=== PATIENT | female | born 1985 | race Caucasian/White ===

== ENCOUNTER 2021-10-15 12:34 | Inpatient (IN) | payer OTHER, SELFPAY ==
--- NOTE | 2021-10-15 | ECG_ITS ---
Test Reason : clearance Blood Pressure : / mmHG Vent. Rate : 072 BPM Atrial Rate : 072 BPM P-R Int : 122 ms QRS Dur : 094 ms QT Int : 430 ms P-R-T Axes : 050 068 050 degrees QTc Int : 470 ms Normal sinus rhythm with sinus arrhythmia Normal ECG No previous ECGs available Referred By: Andrea Morales Electronically Signed By:VALERIE PETER
--- NOTE | ~2021-10-15 | XR_ITS ---
EXAMINATION: XR ELBOW, RIGHT. XR WRIST, RIGHT. XR ANKLE, RIGHT. CLINICAL INFORMATION: Triplet and fall COMPARISON: None TECHNIQUE: 3 views of the right elbow. 4 views of the right wrist. 3 views of the right ankle. FINDINGS: Right elbow: Normal alignment. No fracture. No joint effusion. Right wrist: Normal alignment. No fracture. No radiopaque foreign body. No degenerative findings. Right ankle: Normal alignment. The ankle mortise is preserved. No fracture. No joint space narrowing. No radiopaque foreign body. XR/XR elbow RT min 3V IMPRESSION: Right elbow: Normal. Right wrist: Normal. Right ankle: Normal.
--- NOTE | ~2021-10-15 | XR_ITS ---
EXAMINATION: XR ELBOW, RIGHT. XR WRIST, RIGHT. XR ANKLE, RIGHT. CLINICAL INFORMATION: Triplet and fall COMPARISON: None TECHNIQUE: 3 views of the right elbow. 4 views of the right wrist. 3 views of the right ankle. FINDINGS: Right elbow: Normal alignment. No fracture. No joint effusion. Right wrist: Normal alignment. No fracture. No radiopaque foreign body. No degenerative findings. Right ankle: Normal alignment. The ankle mortise is preserved. No fracture. No joint space narrowing. No radiopaque foreign body. XR/XR ankle RT min 3V IMPRESSION: Right elbow: Normal. Right wrist: Normal. Right ankle: Normal.
--- NOTE | ~2021-10-15 | XR_ITS ---
EXAMINATION: XR ELBOW, RIGHT. XR WRIST, RIGHT. XR ANKLE, RIGHT. CLINICAL INFORMATION: Triplet and fall COMPARISON: None TECHNIQUE: 3 views of the right elbow. 4 views of the right wrist. 3 views of the right ankle. FINDINGS: Right elbow: Normal alignment. No fracture. No joint effusion. Right wrist: Normal alignment. No fracture. No radiopaque foreign body. No degenerative findings. Right ankle: Normal alignment. The ankle mortise is preserved. No fracture. No joint space narrowing. No radiopaque foreign body. XR/XR wrist RT 2V IMPRESSION: Right elbow: Normal. Right wrist: Normal. Right ankle: Normal.
--- NOTE | ~2021-10-15 | XR_ITS ---
EXAMINATION: XR FOOT, LEFT CLINICAL INFORMATION: Pain top of left foot. COMPARISON: None TECHNIQUE: AP, lateral, and oblique views of the left foot. FINDINGS: The bones and soft tissues are normal. No fracture. Alignment is anatomic. Joint spaces are maintained. XR/XR foot LT min 3V IMPRESSION: Unremarkable left foot exam.
--- NOTE | 2021-10-15 12:44 | ED.GENADULT ---
HPI - General Adult General Chief complaint: Psychiatric Symptoms Stated complaint: SLIP AND FALL ON WATER,R ANKLE/WRIST PAIN Time Seen by Provider: 10/15/21 12:44 Source: patient Mode of arrival: ambulatory Limitations: no limitations History of Present Illness HPI narrative: Patient is a 35 year old female presenting to the emergency department today with right wrist pain, right ankle pain, right elbow pain with a possible retained needle, and suicidal ideation with a plan of self harm. Patient states that she fell today and twisted her right ankle and landed on her outstretched right hand. Patient states that she has not been able to make it to the methadone clinic and used heroin at 0300 this morning. Patient states that she is concerned she has an infection in her skin as well. Patient denies any dizziness, lightheadedness, abdominal pain, nausea, vomiting, fever, chills, blurry vision, double vision, loss of vision, chest pain, difficulty breathing, shortness of breath, back pain, night sweats, pain with urination, increased urinary frequency, increased urinary urgency, blood in her urine or stool, syncope or a near syncopal episode, bowel incontinence, bladder incontinence, bowel retention, bladder retention, or any other complaints at this time. Onset (ago): hour(s) Radiation: non-radiation Severity: mild Severity scale (1-10): 3 Quality: dull Pain Consistency: constant Relieving factors: none Exacerbating factors: none Associated symptoms: denies other symptoms Treatments prior to arrival: none Related Data Home Medications Medication Instructions Recorded Confirmed methadone 10 mg/mL oral concentrate 135 mg PO DAILY 10/15/21 10/15/21 Allergies Allergy/AdvReac Type Severity Reaction Status Date / Time acetaminophen [From TYLENOL] Allergy Unknown UNKNOWN Unverified 02/14/20 17:22 amoxicillin [Amoxicillin] Allergy Unknown RASH, Unverified 02/14/20 17:22 redness Amoxicillin Allergy Unknown Uncoded 02/18/11 00:00 Review of Systems Constitutional: Constitutional: Reports no additional constitutional complaints, Denies chills, Denies fever(s) and Denies night sweats Eyes: Eyes: Reports no additional eye complaints, Denies blurry vision, Denies change in vision, Denies diplopia, Denies eye discharge, Denies loss of vision and Denies eye pain ENT: Denies dizziness Cardiovascular: Cardiovascular: Reports no additional cardiovascular complaints, Denies chest pain, Denies lightheadedness, Denies Loss of Consciousness and Denies dyspnea Respiratory: Respiratory: Reports no additional respiratory complaints and Denies dyspnea Gastrointestinal: Gastrointestinal: Reports no additional gastrointestinal complaints, Denies abdominal pain, Denies melena, Denies hematochezia, Denies change in bowel habits and Denies change in stool character Genitourinary: Genitourinary: Denies hematuria, Denies urinary frequency, Denies dysuria, Denies urinary incontinence, Denies urinary hesitancy and Denies urinary urgency Musculoskeletal: Musculoskeletal: Reports no additional musculoskeletal complaints, Denies numbness and Denies tingling Comments: right ankle pain, right wrist pain, right elbow pain Neurologic: Denies dizziness, Denies loss of vision, Denies numbness and Denies tingling Psychiatric: Psychiatric: Reports no additional psychiatric complaints Endocrine: Endocrine: Reports no additional endocrine complaints Hematologic/Lymphatic: Hematologic/Lymphatic: Reports no additional hematologic/lymphatic complaints Allergic/Immunologic: Allergic/Immunologic: Reports no additional allergic/immunologic complaints PMFSH Past Medical History Attestation statement: The following information was validated with the patient. Source: old records reviewed Social History Social History Patient Tobacco Use Status: Never used Tobacco Use of substances other than those prescribed or required for medical reasons: Yes Substance Use Type: Crack/Cocaine Substance Use Frequency: Chronic Longstanding Last Used Substance: Hours (ago) Any prior treatment program specific to substance use: Yes Advance Directives: No Advance Directives Information Provided: No Patient : No Physical Exam ED Vital Signs: Vital Signs - 24 hr 10/15/21 12:50 10/15/21 14:00 Temperature 97.6 F 97.8 F Pulse Rate 92 96 Respiratory Rate 18 19 Blood Pressure 105/60 99/65 Pulse Oximetry 98 96 BMI result Body Mass Index 23.3 Const General: cooperative, no acute distress, alert and awake Nutritional Appearance: well nourished Orientation/consciousness: patient oriented x3 Limitations: no limitations HENMT Head: Yes normal to inspection and Yes atraumatic Ears: hearing grossly normal bilaterally and external ears normal General nose exam: Normal external nose present, no nasal discharge noted and no epistaxis Face and sinus: Yes normal facial exam, No abrasion and No laceration Mouth: Normal oral and palatal mucosa present, no drooling and no muffled voice Eyes General: appearance normal, both eyes and all related structures Periorbital: periorbital findings normal Eyelids: Yes eyelids normal Conjunctivae: conjunctivae normal Pupils: Equal, round and reactive pupils present EOM: EOMs intact bilaterally Neck Neck: Yes normal visual inspection, Yes full ROM and Yes no lymphadenopathy Chest Chest palpation & inspection: normal inspection of the chest Resp Effort & Inspection: normal respiratory effort and able to speak in complete sentences Auscultation: clear to auscultation bilaterally Cardio Rate: regular rate Rhythm: regular rhythm GI Inspection: Yes normal to inspection Neuro General: patient oriented x3 and moves all extremities Cranial nerves: Yes Equal, round and reactive pupils present Cognition (Neuro): normal cognition Motor exam (neuro): 5/5 motor strength present throughout Sensory Exam: Normal double simultaneous stimulation for sensation Coordination: [id number] test normal Extrem General: Yes normal to inspection, Yes full ROM and Yes capillary refill normal Psych Appearance: grossly normal Mental Status: mental status grossly normal Affect: normal affect Attitude: cooperative Thought process: Normal thought process present Thought content: Suicidality present Insight: Good insight present (Psych) Medical Decision Making MDM Narrative Medical decision making narrative: Patient is a 35 year old female presenting to the emergency department today with right wrist pain, right ankle pain, right elbow pain, and suicidal ideation. Patient's physical exam was unremarkable. Patient's blood work showed slightly elevated LFTs however the patient states she has hepatitis C. Patient also has a slightly elevated lactic acid at 3.1 however I believe this secondary to the patient being very worked up about her pain rather than an infectious process. Patient's right wrist, right ankle, and right elbow x-rays showed no acute process. I explained my physical exam findings as well as all test results to the patient. I answered all questions asked by the patient. Physician observation began at 1557. Patient is awaiting Crisis consult. Differential Diagnosis Differential Diagnosis: fall, suicidal ideation, methadone use Medical Records Medical records reviewed: Yes I reviewed the patient's medical records. Lab Data Lab results reviewed: Yes I reviewed the patient's lab results. Result diagrams: 10/15/21 11:15 10/15/21 13:48 Labs: Lab Results 10/15/21 10/15/21 10/15/21 Range/Units 11:15 13:48 13:48 WBC 8.9 (4.8-10.8) X10*3/uL RBC 4.34 (4.20-5.50) X10*6/uL Hgb 12.0 (12.0-16.0) g/dl Hct 37.1 (37.0-47.0) % MCV 85.5 (80.0-98.0) fL MCH 27.6 (27.0-33.0) pg MCHC 32.3 (31.0-35.0) g/dl RDW 13.4 (11.0-16.0) % Plt Count 280 (160-400) X10*3/uL MPV 9.2 L (9.4-12.3) fL Immature Gran % (Auto) 0.2 (0.0-0.4) % Neut % (Auto) 59.9 (45-73) % Lymph % (Auto) 30.1 (20-40) % Coffee % (Auto) 6.9 (2-11) % Eos % (Auto) 2.0 (0-4) % Baso % (Auto) 0.9 (0-2) % Lymph # (Auto) 2.7 (1.2-4.9) X10*3/uL Coffee # (Auto) 0.6 (0.1-1.2) X10*3/uL Eos # (Auto) 0.2 (0.0-0.4) X10*3/uL Baso # (Auto) 0.1 (0.0-0.2) X10*3/uL Abs Immat Gran (auto) 0.02 (0.00-0.03) X10*3/uL Absolute Neuts (auto) 5.3 (2.0-8.3) x10*3/uL Absolute Nucleated RBC 0.000 (0.0-0.012) X10*3/uL Nucleated RBC % (auto) 0.0 (0.0-0.2) /100WBC ESR 8 (0-20) MM/HR Sodium 139 (135-145) mmol/L Potassium 3.8 (3.3-5.1) mmol/L Chloride 105 (96-108) mmol/L Carbon Dioxide 26 (22-29) mmol/L Anion Gap 12 (12-20) BUN 28 H (9-16) mg/dL Creatinine 0.81 (0.5-1.4) mg/dL Estim Creat Clear Calc 88.8 Estimated GFR > 60 Random Glucose 126 H (60-115) mg/dL Lactic Acid (0.5-2.0) mmol/L Calcium 10.2 (8.4-10.2) mg/dL Total Bilirubin 0.6 (0.0-1.0) mg/dL AST 79 H (5-31) U/L ALT 35 H (0-31) U/L Alkaline Phosphatase 73 (39-117) U/L C-Reactive Protein 2.17 H (< or = 0.50) mg/dL Total Protein 7.6 (6.5-8.0) g/dL Albumin 4.4 (3.5-5.0) g/dL Urine Test (NEGATIVE) 10/15/21 10/15/21 Range/Units 13:48 13:57 WBC (4.8-10.8) X10*3/uL RBC (4.20-5.50) X10*6/uL Hgb (12.0-16.0) g/dl Hct (37.0-47.0) % MCV (80.0-98.0) fL MCH (27.0-33.0) pg MCHC (31.0-35.0) g/dl RDW (11.0-16.0) % Plt Count (160-400) X10*3/uL MPV (9.4-12.3) fL Immature Gran % (Auto) (0.0-0.4) % Neut % (Auto) (45-73) % Lymph % (Auto) (20-40) % Coffee % (Auto) (2-11) % Eos % (Auto) (0-4) % Baso % (Auto) (0-2) % Lymph # (Auto) (1.2-4.9) X10*3/uL Coffee # (Auto) (0.1-1.2) X10*3/uL Eos # (Auto) (0.0-0.4) X10*3/uL Baso # (Auto) (0.0-0.2) X10*3/uL Abs Immat Gran (auto) (0.00-0.03) X10*3/uL Absolute Neuts (auto) (2.0-8.3) x10*3/uL Absolute Nucleated RBC (0.0-0.012) X10*3/uL Nucleated RBC % (auto) (0.0-0.2) /100WBC ESR (0-20) MM/HR Sodium (135-145) mmol/L Potassium (3.3-5.1) mmol/L Chloride (96-108) mmol/L Carbon Dioxide (22-29) mmol/L Anion Gap (12-20) BUN (9-16) mg/dL Creatinine (0.5-1.4) mg/dL Estim Creat Clear Calc Estimated GFR Random Glucose (60-115) mg/dL Lactic Acid 3.1 H* (0.5-2.0) mmol/L Calcium (8.4-10.2) mg/dL Total Bilirubin (0.0-1.0) mg/dL AST (5-31) U/L ALT (0-31) U/L Alkaline Phosphatase (39-117) U/L C-Reactive Protein (< or = 0.50) mg/dL Total Protein (6.5-8.0) g/dL Albumin (3.5-5.0) g/dL Urine Test NEGATIVE (NEGATIVE) Imaging Data Right elbow, right ankle, right wrist x-ray: Attestation: I personally reviewed and interpreted this imaging study as follows: My impression: No acute process. Radiologist's impression: EXAMINATION: XR ELBOW, RIGHT. XR WRIST, RIGHT. XR ANKLE, RIGHT. CLINICAL INFORMATION: Triplet and fall? COMPARISON: None? TECHNIQUE: 3 views of the right elbow. 4 views of the right wrist. 3 views of the right ankle.? FINDINGS: Right elbow: Normal alignment. No fracture. No joint effusion. Right wrist: Normal alignment. No fracture. No radiopaque foreign body. No degenerative findings. Right ankle: Normal alignment. The ankle mortise is preserved. No fracture. No joint space narrowing. No radiopaque foreign body.? XR/XR elbow RT min 3V IMPRESSION: Right elbow: Normal. ? Right wrist: Normal. ? Right ankle: Normal.? Dictated By: Yunier Cintron MD Signed By: Electronically signed by Yunier Cintron MD 10/15/21 [id number] Discharge Plan Discharge Clinical Impression: Methadone use, Fall Patient Disposition: Still a Patient Prescriptions: No Action methadone 10 mg/mL Concentrate 135 mg PO DAILY 0RF Print Language: Macanese
[2021-10-15 12:50] VITALS: BP 105/60; PULSE 92; RESP 18; TEMP 36.4; O2SAT 98; BMI 23.3
[2021-10-15 13:58] LABS: MANUAL DIFF FLAG NO
[2021-10-15 13:59] LABS: Basophils Absolute Auto 0.1 X10*3/uL (0.0-0.2); Basophils Percent Auto 0.9 % (0-2); Eosinophils Absolute Auto 0.2 X10*3/uL (0.0-0.4); Hematocrit 37.1 % (37.0-47.0); Imm Gran Abs Auto 0.02 X10*3/uL (0.00-0.03); Imm Gran Pct Auto 0.2 % (0.0-0.4); Lymphocytes Absolute Auto 2.7 X10*3/uL (1.2-4.9); Lymphocytes Percent Auto 30.1 % (20-40); Mean Corpuscular HGB Conc 32.3 g/dl (31.0-35.0); Mean Corpuscular Hemoglobin 27.6 pg (27.0-33.0); Mean Corpuscular Volume 85.5 fL (80.0-98.0); Mean Platelet Volume 9.2 fL (9.4-12.3); Monocytes Absolute Auto 0.6 X10*3/uL (0.1-1.2); Monocytes Percent Auto 6.9 % (2-11); Neutrophils Absolute Auto 5.3 x10*3/uL (2.0-8.3); Neutrophils Percent Auto 59.9 % (45-73); Platelet Count 280 X10*3/uL (160-400); Red Blood Count 4.34 X10*6/uL (4.20-5.50); Red Cell Distribution Width 13.4 % (11.0-16.0); White Blood Count 8.9 X10*3/uL (4.8-10.8)
[2021-10-15 14:00] VITALS: BP 99/65; PULSE 96; RESP 19; TEMP 36.6; O2SAT 96
[2021-10-15 14:10] LABS: UPreg QC Valid YES; Urine Pregnancy NEGATIVE (NEGATIVE)
[2021-10-15 14:14] LABS: Alanine Aminotransferase 35 U/L (0-31); Albumin Level 4.4 g/dL (3.5-5.0); Alkaline Phosphatase 73 U/L (39-117); Anion Gap 12 (12-20); Aspartate Amino Transferase 79 U/L (5-31); Bilirubin Total 0.6 mg/dL (0.0-1.0); Blood Urea Nitrogen 28 mg/dL (9-16); C Reactive Protein 2.17 mg/dL (< or = 0.50); Calcium 10.2 mg/dL (8.4-10.2); Carbon Dioxide 26 mmol/L (22-29); Chloride 105 mmol/L (96-108); Creatinine Clr Calc Pharmacy 88.8; Estimated Glomerular Filt Rate > 60; Glucose Random 126 mg/dL (60-115); Lactic Acid 3.1 mmol/L (0.5-2.0); Potassium 3.8 mmol/L (3.3-5.1); Sodium 139 mmol/L (135-145); Total Protein 7.6 g/dL (6.5-8.0)
[2021-10-15 14:39] LABS: Erythrocyte Sedimentation Rate 8 MM/HR (0-20)
[2021-10-15] MEDS: polyethylene glycoL 3350 17 GM POWD.PACK PO (15:19)
[2021-10-15] MEDS: methADONE HCl 20 MG/2 ML ORAL.CONC 135 MG PO (16:29)
[2021-10-15 16:33] LABS: Amphetamine Screen Urine Not Detected (Not Detect); Barbiturates, Urine Not Detected (Not Detect); Benzodiazepines Screen Urine Not Detected (Not Detect); Cannabinoid Screen Urine POSITIVE (Not Detect); Cocaine Screen Urine POSITIVE (Not Detect); Fentanyl, urine POSITIVE (Not Detect); Opiate Screen Urine POSITIVE (Not Detect); Phencyclidine Screen Urine Not Detected (Not Detect)
[2021-10-15 16:54] LABS: Lactic Acid 1.8 mmol/L (0.5-2.0)
[2021-10-15 17:00] LABS: COVID-19 Test Negative (Negative); IDNOW Serial# 08D9AD1C
[2021-10-16 00:18] VITALS: BP 103/50; PULSE 66; RESP 18; TEMP 36.3
[2021-10-16] MEDS: Ibuprofen 600 MG TABLET PO (00:28)
[2021-10-16] MEDS: hydrOXYzine HCL 50 MG TABLET PO ×3 (00:38→17:45)
[2021-10-16] MEDS: Gabapentin 600 MG TABLET PO ×5 (00:38→21:11)
[2021-10-16] MEDS: Baclofen 10 MG TABLET PO ×4 (00:38→21:10)
[2021-10-16] MEDS: QUEtiapine Fumarate 200 MG TABLET PO ×2 (00:38→21:11)
[2021-10-16] MEDS: LORazepam 1 MG TABLET PO ×4 (00:39→22:14)
[2021-10-16] MEDS: Sulfamethox/Trimeth 800/160 TABLET 1 TAB PO ×3 (00:56→21:11)
[2021-10-16 06:41] VITALS: BMI 23.3
--- NOTE | 2021-10-16 08:31 | PC.ADMIT ---
Pt is a 35 year old female admitted to the unit after referral from the CARE team at [facility]. Arrived on unit at 2258. Legal status: CV. Medical issues: asthma, hepatitis C, and dormant TB. Substance use: marijuana, daily, last use 10/14; heroin, 2 bundles daily, last use 10/14; cocaine, $200 daily, last use 10/14. Precipitant: Pt states that she has been feeling depressed and anxious, having suicidal thoughts with a plan to overdose on cocaine and heroin. She reports that she had been binge-using with hopes of killing herself. Pt was recently at [facility] but reports that she was not ready to leave and was discharged too early; pt was then admitted to [facility], where she stayed for 24 hours. She is homeless and has been wandering the streets for the past 3 days. She reports having auditory hallucinations telling her to kill herself, though denies hallucinations at time of admission assessment. Per crisis assessment pt has not eaten in 3 days due to not having any food; however, during admission assessment pt reported having an increase in appetite. She reports occasional sleep disturbance, having difficulty staying asleep. Per eval pt has been noncompliant with medications. Pt states she is currently on Bactrim for cellulitis, and noted that she has been on antibiotics for about a month (was first on vancomycin), however they have not been effective. Pt is currently on methadone therapy, reports that it was increased this past Tuesday from 130-135 mg. She believes she may need an increase again, as she began feeling unwell later in the evening/night. At the time of admission assessment pt presented with depressed mood and affect. Pt was cooperative and appropriate throughout assessment. She denied SI/HI, denied hallucinations, no apparent signs of psychosis. Nurse to nurse completed prior to admission. Trang Tony notified of admission and orders obtained. Pt placed on 15 minute safety checks.
[2021-10-16] MEDS: methADONE HCl 20 MG/2 ML ORAL.CONC 135 MG PO (09:50)
[2021-10-16] MEDS: Sertraline HCL 100 MG TABLET PO (09:53)
[2021-10-16] MEDS: buPROPion HCL 100 MG TABLET PO ×2 (09:53→14:37)
[2021-10-16] MEDS: Thiamine HCL 100 MG TABLET PO (09:53)
[2021-10-16] MEDS: Multivitamin TABLET 1 TAB PO (09:54)
[2021-10-16 09:55] LABS: Estimated Average Glucose 103 mg/dL; Hemoglobin A1c % 5.2 %
[2021-10-16 10:09] VITALS: BP 103/58; PULSE 101; RESP 20; TEMP 36.4; O2SAT 98
[2021-10-16 10:22] LABS: Cholesterol 261 mg/dL; HDL Cholesterol 59 mg/dL; LDL Cholesterol Calculated 186 mg/dl; Magnesium 1.8 mg/dL (1.6-2.6); Triglycerides 84 mg/dL
[2021-10-16 10:43] LABS: Free T4 (Free Thyroxine) 1.12 ng/dL (0.71-1.85); Thyroid Stimulating Hormone 2.48 uIU/mL (0.32-4.0)
[2021-10-16 11:17] LABS: Folate 10.1 ng/mL (> or = 4.0); Vitamin B12 281 pg/mL (200-900)
--- NOTE | 2021-10-16 15:09 | MHC.RECOVRN ---
Met with pt in 322 after consult placed to Addiction Medicine regarding methadone and pt requesting dose increase. Upon entering pts room, pt finishing lunch, visibly diaphoretic, agitated. Pt is currently receiving 135 mg daily at [facility], has been receiving methadone x 1 year. Pt reports using heroin, 2 bundles daily, IV, x 2 mos; cocaine, unknown amount, IV; 1/2 of 750 mL bottle Rosey daily x 1 month. Regarding withdrawal symptoms, pt reports inability to sleep last night, waking up soaked in sweat, agitation, restlessness, and anxiety. Pt is requesting increase to address these withdrawal symptoms. In addition, pt reports to t/w having a yeast infection (oral and vaginal)-this was reported to pts RN. Discussed with Jennifer Braun APRN. Plan for to meet with pt tomorrow, 10/17, pt aware and agreeable.
--- NOTE | 2021-10-16 17:29 | P.HPPS_ITS ---
HPI Date of Service: 10/16/21 Chief Complaint: Depression, Opiate, Cocaine, Cannabis Use disorder Sources of Information: patient interviewed, chart reviewed and crisis/core team assessment reviewed HPI Subjective Notes: Carpio Warning and Conditional Voluntary Healthcare Proxy: No Guardianship: No Medical Problems Affecting Mental Status: No Narrative: Devika is a 35 year old female who carries a dx of opioid use disorder, PTSD, and MAGO. She presented to the ED on 10/15/21 due to depression, SI, command AH telling her to kill herself, and relapsed on heroin at 0300 this morning. Utox positive for heroin, fentanyl, cocaine, and cannabis. She reported binge using with hopes to kill herself, using about 2 bundles of heroin and $200 daily of cocaine. She has been non-adherent with meds since 08/2021. Recently discharged from [facility], feels I was not ready to leave,? discharged to [facility] and left after 24 hours. Poor sleep and appetite x 3 days in context of homelessness. I evaluated the pt today and upon interview she reports she has felt depressed for over a week and this led to a relapse. Says ?I lost everything,? i.e. car, apartment in context of substance use and depression. Denies having supports, ?I dont have anyone in this world.? Has multiple physical health complaints, i.e. induration on R antecubital area that is painful, recently on bactrim x 2 weeks for cellulitis on R ankle (this is resolved), has oral thrush, yeast infection, athlete?s foot, L foot soft tissue mass (ordered XR, negative), dormant TB. Pt says she was on the streets, does not remember how she injured her foot, says she was not paying attention. Sleep has been poor, was awake for two days. She currently denies SI/SIB/HI and says she feels safe. Energy is low, feels ?drained.? Her anxiety is ?a lot,? ruminating. Endorses sx of PTSD, including nightmares and flashbacks. Endorses AH, says she hears a male voice who tells her to ?go get high.? Had been non-adherent with medications prior to admission. Past Psychiatric History: -Hx of multiple inpatient admissions, detoxes. Medical Evaluation Reviewed: Yes PMFSH Social History: -She is currently homeless and reported wandering the community for three days, not eating or sleeping X3 days. Has 3 children (not in her custody). Substance History: -Heroin: 2 bundles, last Used 10/14/21 -Crack/Cocaine: $200, Last Used 10/14/21 -Utox positive for heroin, cocaine, marijuana, fentanyl Diagnostics Vital Signs (24Hr): Vital Signs - 24 hr 10/16/21 00:18 10/16/21 10:09 Temperature 97.3 F 97.6 F Pulse Rate 66 101 H Respiratory Rate 18 20 Blood Pressure 103/50 L 103/58 L Pulse Oximetry 98 BMI result Body Mass Index 23.3 Labs Results: 10/15/21 11:15 10/15/21 13:48 Labs: Laboratory Results - last 48 hr 10/15/21 10/15/21 10/15/21 11:15 13:17 13:48 WBC 8.9 RBC 4.34 Hgb 12.0 Hct 37.1 MCV 85.5 MCH 27.6 MCHC 32.3 RDW 13.4 Plt Count 280 MPV 9.2 L Immature Gran % (Auto) 0.2 Neut % (Auto) 59.9 Lymph % (Auto) 30.1 [place] % (Auto) 6.9 Eos % (Auto) 2.0 Baso % (Auto) 0.9 Lymph # (Auto) 2.7 [place] # (Auto) 0.6 Eos # (Auto) 0.2 Baso # (Auto) 0.1 Abs Immat Gran (auto) 0.02 Absolute Neuts (auto) 5.3 Absolute Nucleated RBC 0.000 Nucleated RBC % (auto) 0.0 ESR 8 Sodium Potassium Chloride Carbon Dioxide Anion Gap BUN Creatinine Estim Creat Clear Calc Estimated GFR Random Glucose Estimat Average Glucose Hemoglobin A1c % Lactic Acid Calcium Magnesium Total Bilirubin AST ALT Alkaline Phosphatase C-Reactive Protein Total Protein Albumin Triglycerides Cholesterol LDL Cholesterol, Calc HDL Cholesterol Vitamin B12 Folate TSH Free T4 Urine Test Urine Opiates Screen POSITIVE H Urine Fentanyl Screen POSITIVE H Ur Barbiturates Screen Not Detected Ur Phencyclidine Scrn Not Detected Ur Amphetamines Screen Not Detected U Benzodiazepines Scrn Not Detected Urine Cocaine Screen POSITIVE H U Marijuana (THC) Screen POSITIVE H COVID-19 (ANGELA) COVID-19 Clin Com 10/15/21 10/15/21 10/15/21 13:48 13:48 13:57 WBC RBC Hgb Hct MCV MCH MCHC RDW Plt Count MPV Immature Gran % (Auto) Neut % (Auto) Lymph % (Auto) [place] % (Auto) Eos % (Auto) Baso % (Auto) Lymph # (Auto) [place] # (Auto) Eos # (Auto) Baso # (Auto) Abs Immat Gran (auto) Absolute Neuts (auto) Absolute Nucleated RBC Nucleated RBC % (auto) ESR Sodium 139 Potassium 3.8 Chloride 105 Carbon Dioxide 26 Anion Gap 12 BUN 28 H Creatinine 0.81 Estim Creat Clear Calc 88.8 Estimated GFR > 60 Random Glucose 126 H Estimat Average Glucose Hemoglobin A1c % Lactic Acid 3.1 H* Calcium 10.2 Magnesium Total Bilirubin 0.6 AST 79 H ALT 35 H Alkaline Phosphatase 73 C-Reactive Protein 2.17 H Total Protein 7.6 Albumin 4.4 Triglycerides Cholesterol LDL Cholesterol, Calc HDL Cholesterol Vitamin B12 Folate TSH Free T4 Urine Test NEGATIVE Urine Opiates Screen Urine Fentanyl Screen Ur Barbiturates Screen Ur Phencyclidine Scrn Ur Amphetamines Screen U Benzodiazepines Scrn Urine Cocaine Screen U Marijuana (THC) Screen COVID-19 (ANGELA) COVID-SHIFT 10/15/21 10/15/21 10/16/21 16:19 16:33 09:40 WBC RBC Hgb Hct MCV MCH MCHC RDW Plt Count MPV Immature Gran % (Auto) Neut % (Auto) Lymph % (Auto) [place] % (Auto) Eos % (Auto) Baso % (Auto) Lymph # (Auto) [place] # (Auto) Eos # (Auto) Baso # (Auto) Abs Immat Gran (auto) Absolute Neuts (auto) Absolute Nucleated RBC Nucleated RBC % (auto) ESR Sodium Potassium Chloride Carbon Dioxide Anion Gap BUN Creatinine Estim Creat Clear Calc Estimated GFR Random Glucose Estimat Average Glucose 103 Hemoglobin A1c % 5.2 Lactic Acid 1.8 Calcium Magnesium Total Bilirubin AST ALT Alkaline Phosphatase C-Reactive Protein Total Protein Albumin Triglycerides Cholesterol LDL Cholesterol, Calc HDL Cholesterol Vitamin B12 Folate TSH Free T4 Urine Test Urine Opiates Screen Urine Fentanyl Screen Ur Barbiturates Screen Ur Phencyclidine Scrn Ur Amphetamines Screen U Benzodiazepines Scrn Urine Cocaine Screen U Marijuana (THC) Screen COVID-19 (ANGELA) Negative COVID-SHIFT See Note 05/20/22 05/20/22 09:40 09:40 WBC RBC Hgb Hct MCV MCH MCHC RDW Plt Count MPV Immature Gran % (Auto) Neut % (Auto) Lymph % (Auto) [place] % (Auto) Eos % (Auto) Baso % (Auto) Lymph # (Auto) [place] # (Auto) Eos # (Auto) Baso # (Auto) Abs Immat Gran (auto) Absolute Neuts (auto) Absolute Nucleated RBC Nucleated RBC % (auto) ESR Sodium Potassium Chloride Carbon Dioxide Anion Gap BUN Creatinine Estim Creat Clear Calc Estimated GFR Random Glucose Estimat Average Glucose Hemoglobin A1c % Lactic Acid Calcium Magnesium 1.8 Total Bilirubin AST ALT Alkaline Phosphatase C-Reactive Protein Total Protein Albumin Triglycerides 84 Cholesterol 261 LDL Cholesterol, Calc 186 HDL Cholesterol 59 Vitamin B12 281 Folate 10.1 TSH 2.48 Free T4 1.12 Urine Test Urine Opiates Screen Urine Fentanyl Screen Ur Barbiturates Screen Ur Phencyclidine Scrn Ur Amphetamines Screen U Benzodiazepines Scrn Urine Cocaine Screen U Marijuana (THC) Screen COVID-19 (ANGELA) COVID-19 Clin Com Imaging Radiology Impressions: ITS Impressions Ankle X-Ray 10/15/21 13:22 IMPRESSION: Right elbow: Normal. Right wrist: Normal. Right ankle: Normal. Wrist X-Ray 10/15/21 13:22 IMPRESSION: Right elbow: Normal. Right wrist: Normal. Right ankle: Normal. Elbow X-Ray 10/15/21 13:40 IMPRESSION: Right elbow: Normal. Right wrist: Normal. Right ankle: Normal. Meds/Allergies Meds Home Medications Medication Instructions Recorded Confirmed Type baclofen 10 mg tablet 10 mg PO TID 10/15/21 10/15/21 History bupropion HCl 100 mg tablet 100 mg PO BID 10/15/21 10/15/21 History docusate sodium 100 mg PO BID 10/15/21 10/15/21 History gabapentin 600 mg PO QID 10/15/21 10/15/21 History hydroxyzine pamoate 50 mg PO TID PRN 10/15/21 10/15/21 History ibuprofen 600 mg tablet 600 mg PO Q6H PRN 10/15/21 10/15/21 History methadone 10 mg/mL oral concentrate 135 mg PO DAILY 10/15/21 10/15/21 History quetiapine 200 mg tablet 200 mg PO BEDTIME 10/15/21 10/15/21 History sertraline 100 mg tablet 100 mg PO DAILY 10/15/21 10/15/21 History sofosbuvir 400 mg-velpatasvir 100 1 tab PO DAILY 10/15/21 10/15/21 History mg tablet sulfamethoxazole-trimethoprim 1 tab PO BID 10/15/21 10/15/21 History Allergies Allergies Allergy/AdvReac Type Severity Reaction Status Date / Time acetaminophen [From TYLENOL] Allergy Unknown Rash Verified 10/16/21 06:40 amoxicillin [Amoxicillin] Allergy Unknown Rash Verified 10/16/21 06:40 seafood Allergy Unknown Rash Verified 10/16/21 06:40 Mental Status Exam Mental Status Exam Narrative: A&O. In hospital attire, long hair, unkempt appearance. Poor eye contact, attentive. No Tics or Tremors. No abnormal involuntary movements. Calm, cooperative to a point, not overly engaged. Non-pressured speech, spontaneous with regular rate and rhythm, normal volume and prosody. No prolonged speech latency or dysarthria. Mood is ?depressed,? affect is irritable. Denies SI/SIB/HI upon inquiry. Endorses AH. Denies VH or delusional thought content. Thoughts are focused on somatic complaints. No known cognitive or memory impairment. Insight/ Judgment limited but adequate. Assessment & Plan Assessment & Plan (1) Opioid use disorder: Status: Acute Code(s): F11.90 - Opioid use, unspecified, uncomplicated (2) Post traumatic stress disorder (PTSD): Status: Acute Code(s): F43.10 - Post-traumatic stress disorder, unspecified (3) MAGO (generalized anxiety disorder): Status: Acute Code(s): F41.1 - Generalized anxiety disorder (4) Cocaine use disorder: Status: Acute Code(s): F14.10 - Cocaine abuse, uncomplicated Plan Devika is a 35 year old female who carries a dx of opioid use disorder, PTSD, and MAGO. She presented to the ED on 10/15/21 due to depression, SI, command AH telling her to kill herself, and relapsed on heroin at 0300 this morning. Utox positive for heroin, fentanyl, cocaine, and cannabis. She reported binge using with hopes to kill herself, using about 2 bundles of heroin and $200 daily of cocaine. She has been non-adherent with meds since 08/2021. Recently discharged from [facility], stepped down to [facility] and left after 24 hours. Poor sleep and appetite x 3 days in context of homelessness. Plan: Pt says she wants to go up on her methadone, will place addiction consult. Pt requests? seroquel 25 mg TID. Pt had been prescribed zoloft 100 mg but had not picked it up, wants to trial this dose, as she did not feel 50 mg was helping. Says gabapentin is for nerve damage and pain.? Q15 min safety checks, CV Monitor response to medications. Monitor for safety in the milieu. Discharge on stabilization. Patient seen. Chart reviewed. Discussed with team. Obtain collateral contact info?as needed Patient educated on: medication risk/benefits Reason for continued inpatient stay Substantial Risk for: med/psych decompensation
[2021-10-16 18:09] LABS: Appearance Urine HAZY; Color Urine YELLOW; Glucose Urine UA NEG (NEG); Leukocyte Esterase Urine 1+ (NEG); Nitrite Urine NEG (NEG); Specific Gravity - Urine >= 1.030 (1.005-1.025); UACC Culture Trigger YES; Urine Blood NEG (NEG); Urine Ketones NEG (NEG); Urine Protein NEG (NEG-TRACE)
[2021-10-16 18:17] LABS: Bacteria Urine 2+ /LPF; Squamous Epithelial Cell Urine 2+ /LPF
[2021-10-16 18:18] LABS: RBC Urine 0 /HPF (0); WBC Urine 0-2 /HPF (0-4)
[2021-10-16] MEDS: QUEtiapine Fumarate 25 MG TABLET PO (18:44)
[2021-10-16 21:17] VITALS: BP 100/55; PULSE 99; RESP 16; TEMP 36.6; O2SAT 97
[2021-10-17] MEDS: LORazepam 1 MG TABLET PO ×4 (03:39→20:47)
[2021-10-17] MEDS: hydrOXYzine HCL 50 MG TABLET PO ×2 (03:39→14:46)
[2021-10-17] MEDS: Thiamine HCL 100 MG TABLET PO (08:08)
[2021-10-17] MEDS: buPROPion HCL 100 MG TABLET PO ×2 (08:08→14:05)
[2021-10-17] MEDS: Gabapentin 600 MG TABLET PO ×4 (08:08→20:47)
[2021-10-17] MEDS: Multivitamin TABLET 1 TAB PO (08:08)
[2021-10-17] MEDS: Sertraline HCL 100 MG TABLET PO (08:08)
[2021-10-17] MEDS: Baclofen 10 MG TABLET PO ×3 (08:08→20:47)
[2021-10-17] MEDS: QUEtiapine Fumarate 25 MG TABLET PO ×3 (08:08→17:05)
[2021-10-17] MEDS: Nystatin Oral Susp 500,000 UNIT/5 ML ORAL.SUSP 400000 UNIT BUCCAL ×4 (08:09→20:47)
[2021-10-17] MEDS: methADONE HCl 20 MG/2 ML ORAL.CONC 135 MG PO (08:09)
[2021-10-17] MEDS: polyethylene glycoL 3350 17 GM POWD.PACK PO (08:42)
[2021-10-17 09:41] VITALS: BP 102/60; PULSE 102; RESP 16; TEMP 36.7; O2SAT 100
--- NOTE | 2021-10-17 10:23 | HO.ADDICT_ITS ---
History of Present Illness Date of Service: 10/17/2021 Chief Complaint: Depression, Opiate, Cocaine, Cannabis Use disorder Reason for Consult: patient requesting methadone increase Requesting physician: Javi Brunson Additional Sources of Information: RSRN HPI Narrative: Patient is a 35 year old female currently admitted to [facility] for suicidal ideation. History of MDD, OUD, CUD, and AUD. Currently in methadoen treatment at [facility], dose of 135mg daily. Patient initially seen by RSRN and at that time appeared diaphoretic and agitated, citing poor sleep and profuse sweating at night as withdrawal sx and requesting increase. She was reporting significant heroin/fentanyl use in addition to methadone as well. Patient seen by this com writer on [facility]. Awake but appearing drowsy as eyelids continuously closed during interview. This com writer asked inquired if patient was feeling sedated and she replied, not at all, I'm just tired . When asked about wanting to increase ,methadone, patient shrugged, when asked what previous highest dose of methadone has been, patient shrugged again. This com writer informed patient that consideration for methadone increase would be deferred, until current lorazepam PRN was d/c or decreased. Patient agreeable. Review of Systems Constitutional: Reports difficulty sleeping and Reports excessive sweating Endocrine: Reports excessive sweating Diagnostics Vital Signs (24Hr): Vital Signs - 24 hr 10/16/21 21:17 10/17/21 09:41 Temperature 97.9 F 98.1 F Pulse Rate 99 102 H Respiratory Rate 16 16 Blood Pressure 100/55 L 102/60 Pulse Oximetry 97 100 BMI result Body Mass Index 23.3 Labs Results: 10/15/21 11:15 10/15/21 13:48 Labs: Laboratory Results - last 48 hr 10/15/21 10/15/21 10/15/21 11:15 13:17 13:48 WBC 8.9 RBC 4.34 Hgb 12.0 Hct 37.1 MCV 85.5 MCH 27.6 MCHC 32.3 RDW 13.4 Plt Count 280 MPV 9.2 L Immature Gran % (Auto) 0.2 Neut % (Auto) 59.9 Lymph % (Auto) 30.1 [place] % (Auto) 6.9 Eos % (Auto) 2.0 Baso % (Auto) 0.9 Lymph # (Auto) 2.7 [place] # (Auto) 0.6 Eos # (Auto) 0.2 Baso # (Auto) 0.1 Abs Immat Gran (auto) 0.02 Absolute Neuts (auto) 5.3 Absolute Nucleated RBC 0.000 Nucleated RBC % (auto) 0.0 ESR 8 Sodium Potassium Chloride Carbon Dioxide Anion Gap BUN Creatinine Estim Creat Clear Calc Estimated GFR Random Glucose Estimat Average Glucose Hemoglobin A1c % Lactic Acid Calcium Magnesium Total Bilirubin AST ALT Alkaline Phosphatase C-Reactive Protein Total Protein Albumin Triglycerides Cholesterol LDL Cholesterol, Calc HDL Cholesterol Vitamin B12 Folate TSH Free T4 Urine Color Urine Appearance Urine pH Ur Specific [place] Urine Protein Urine Glucose (UA) Urine Ketones Urine Blood Urine Nitrite Ur Leukocyte Esterase Urine RBC Urine WBC Ur Squamous Epith Cells Urine Bacteria Urine Test Urine Opiates Screen POSITIVE H Urine Fentanyl Screen POSITIVE H Ur Barbiturates Screen Not Detected Ur Phencyclidine Scrn Not Detected Ur Amphetamines Screen Not Detected U Benzodiazepines Scrn Not Detected Urine Cocaine Screen POSITIVE H U Marijuana (THC) Screen POSITIVE H COVID-19 (ANGELA) COVID-19 DoublePositive [facility] 10/15/21 10/15/21 10/15/21 13:48 13:48 13:57 WBC RBC Hgb Hct MCV MCH MCHC RDW Plt Count MPV Immature Gran % (Auto) Neut % (Auto) Lymph % (Auto) [place] % (Auto) Eos % (Auto) Baso % (Auto) Lymph # (Auto) [place] # (Auto) Eos # (Auto) Baso # (Auto) Abs Immat Gran (auto) Absolute Neuts (auto) Absolute Nucleated RBC Nucleated RBC % (auto) ESR Sodium 139 Potassium 3.8 Chloride 105 Carbon Dioxide 26 Anion Gap 12 BUN 28 H Creatinine 0.81 Estim Creat Clear Calc 88.8 Estimated GFR > 60 Random Glucose 126 H Estimat Average Glucose Hemoglobin A1c % Lactic Acid 3.1 H* Calcium 10.2 Magnesium Total Bilirubin 0.6 AST 79 H ALT 35 H Alkaline Phosphatase 73 C-Reactive Protein 2.17 H Total Protein 7.6 Albumin 4.4 Triglycerides Cholesterol LDL Cholesterol, Calc HDL Cholesterol Vitamin B12 Folate TSH Free T4 Urine Color Urine Appearance Urine pH Ur Specific [place] Urine Protein Urine Glucose (UA) Urine Ketones Urine Blood Urine Nitrite Ur Leukocyte Esterase Urine RBC Urine WBC Ur Squamous Epith Cells Urine Bacteria Urine Test NEGATIVE Urine Opiates Screen Urine Fentanyl Screen Ur Barbiturates Screen Ur Phencyclidine Scrn Ur Amphetamines Screen U Benzodiazepines Scrn Urine Cocaine Screen U Marijuana (THC) Screen COVID-19 (ANGELA) COVID-19 DoublePositive Com 10/15/21 10/15/21 10/16/21 16:19 16:33 09:40 WBC RBC Hgb Hct MCV MCH MCHC RDW Plt Count MPV Immature Gran % (Auto) Neut % (Auto) Lymph % (Auto) [place] % (Auto) Eos % (Auto) Baso % (Auto) Lymph # (Auto) [place] # (Auto) Eos # (Auto) Baso # (Auto) Abs Immat Gran (auto) Absolute Neuts (auto) Absolute Nucleated RBC Nucleated RBC % (auto) ESR Sodium Potassium Chloride Carbon Dioxide Anion Gap BUN Creatinine Estim Creat Clear Calc Estimated GFR Random Glucose Estimat Average Glucose 103 Hemoglobin A1c % 5.2 Lactic Acid 1.8 Calcium Magnesium Total Bilirubin AST ALT Alkaline Phosphatase C-Reactive Protein Total Protein Albumin Triglycerides Cholesterol LDL Cholesterol, Calc HDL Cholesterol Vitamin B12 Folate TSH Free T4 Urine Color Urine Appearance Urine pH Ur Specific [place] Urine Protein Urine Glucose (UA) Urine Ketones Urine Blood Urine Nitrite Ur Leukocyte Esterase Urine RBC Urine WBC Ur Squamous Epith Cells Urine Bacteria Urine Test Urine Opiates Screen Urine Fentanyl Screen Ur Barbiturates Screen Ur Phencyclidine Scrn Ur Amphetamines Screen U Benzodiazepines Scrn Urine Cocaine Screen U Marijuana (THC) Screen COVID-19 (ANGELA) Negative COVID-19 DoublePositive Com See Note 10/16/21 10/16/21 10/16/21 09:40 09:40 17:52 WBC RBC Hgb Hct MCV MCH MCHC RDW Plt Count MPV Immature Gran % (Auto) Neut % (Auto) Lymph % (Auto) [place] % (Auto) Eos % (Auto) Baso % (Auto) Lymph # (Auto) [place] # (Auto) Eos # (Auto) Baso # (Auto) Abs Immat Gran (auto) Absolute Neuts (auto) Absolute Nucleated RBC Nucleated RBC % (auto) ESR Sodium Potassium Chloride Carbon Dioxide Anion Gap BUN Creatinine Estim Creat Clear Calc Estimated GFR Random Glucose Estimat Average Glucose Hemoglobin A1c % Lactic Acid Calcium Magnesium 1.8 Total Bilirubin AST ALT Alkaline Phosphatase C-Reactive Protein Total Protein Albumin Triglycerides 84 Cholesterol 261 LDL Cholesterol, Calc 186 HDL Cholesterol 59 Vitamin B12 281 Folate 10.1 TSH 2.48 Free T4 1.12 Urine Color YELLOW Urine Appearance HAZY Urine pH 6.0 Ur Specific [place] >= 1.030 H Urine Protein NEG Urine Glucose (UA) NEG Urine Ketones NEG Urine Blood NEG Urine Nitrite NEG Ur Leukocyte Esterase 1+ H Urine RBC 0 Urine WBC 0-2 Ur Squamous Epith Cells 2+ Urine Bacteria 2+ Urine Test Urine Opiates Screen Urine Fentanyl Screen Ur Barbiturates Screen Ur Phencyclidine Scrn Ur Amphetamines Screen U Benzodiazepines Scrn Urine Cocaine Screen U Marijuana (THC) Screen COVID-19 (ANGELA) COVID-19 Clin Com EKG EKG: reviewed Imaging Radiology Impressions: ITS Impressions Ankle X-Ray 10/15/21 13:22 IMPRESSION: Right elbow: Normal. Right wrist: Normal. Right ankle: Normal. Wrist X-Ray 10/15/21 13:22 IMPRESSION: Right elbow: Normal. Right wrist: Normal. Right ankle: Normal. Elbow X-Ray 10/15/21 13:40 IMPRESSION: Right elbow: Normal. Right wrist: Normal. Right ankle: Normal. Foot X-Ray 10/17/21 08:35 IMPRESSION: Unremarkable left foot exam. Mental Status Exam Mental Status Exam Patient Appearance: Well Grooomed (drowsy/sedated) Level of Consciousness: Drowsy and Sedated Affect Description: Blunted Medications Medications Current Medications Al Hydroxide/Mg Hydroxide (Magnesium Hydrox/Alum Hydrox 30 Ml Oral.Susp) 30 ml PO Q6H PRN PRN Reason: Heartburn/Nausea Baclofen (Baclofen 10 Mg Tablet) 10 mg PO TID [facility] Last Admin: 10/17/21 08:08 Dose: 10 mg Documented by: Bupropion HCl (Bupropion Hcl 100 Mg Tablet) 100 mg PO BID@0900,1400 [facility] Last Admin: 10/17/21 08:08 Dose: 100 mg Documented by: Gabapentin (Gabapentin 600 Mg Tablet) 600 mg PO QID [facility] Last Admin: 10/17/21 08:08 Dose: 600 mg Documented by: Hydroxyzine HCl (Hydroxyzine Hcl 50 Mg Tablet) 50 mg PO TID PRN PRN Reason: Anxiety Last Admin: 10/17/21 03:39 Dose: 50 mg Documented by: Ibuprofen (Ibuprofen 600 Mg Tablet) 600 mg PO Q6H PRN PRN Reason: Pain, Mild (Pain Scale 1-3) Last Admin: 10/16/21 00:28 Dose: 600 mg Documented by: Lorazepam (Lorazepam 1 Mg Tablet) 1 mg PO Q4H PRN PRN Reason: anxiety/withdrawal symptoms Last Admin: 10/17/21 08:14 Dose: 1 mg Documented by: Magnesium Hydroxide (Milk Of Magnesia 30 Ml Oral.Susp) 30 ml PO DAILY PRN PRN Reason: Constipation Methadone HCl (Methadone Hcl 20 Mg/2 Ml Oral.Conc) 135 mg PO DAILY [facility] Last Admin: 10/17/21 08:09 Dose: 135 mg Documented by: Multivitamins/Vitamin C (Multivitamin Tablet) 1 tab PO DAILY [facility] Last Admin: 10/17/21 08:08 Dose: 1 tab Documented by: Patient Own Med( Sofosbuvir- Velpatasvir 400-100 Mg Tablet) 1 each PO DAILY [facility] Last Admin: 10/17/21 08:37 Dose: 1 each Documented by: Nystatin (Nystatin Oral Susp 500,000 Unit/5 Ml Oral.Susp) 400,000 unit BUCCAL QID [facility] Last Admin: 10/17/21 08:09 Dose: 400,000 unit Documented by: Polyethylene Glycol (Polyethylene Glycol 3350 17 Gm Powd.Pack) 17 gm PO DAILY [facility] Last Admin: 10/17/21 08:42 Dose: 17 gm Documented by: Quetiapine Fumarate (Quetiapine Fumarate 200 Mg Tablet) 200 mg PO BEDTIME [facility] Last Admin: 10/16/21 21:11 Dose: 200 mg Documented by: Quetiapine Fumarate (Quetiapine Fumarate 25 Mg Tablet) 25 mg PO TID@0800,1200,1600 [facility] Last Admin: 10/17/21 08:08 Dose: 25 mg Documented by: Sertraline HCl (Sertraline Hcl 100 Mg Tablet) 100 mg PO DAILY [facility] Last Admin: 10/17/21 08:08 Dose: 100 mg Documented by: Thiamine HCl (Thiamine Hcl 100 Mg Tablet) 100 mg PO DAILY [facility] Last Admin: 10/17/21 08:08 Dose: 100 mg Documented by: Trazodone HCl (Trazodone Hcl 50 Mg Tablet) 50 mg PO BEDTIME PRN PRN Reason: Insomnia Allergies Allergies Allergy/AdvReac Type Severity Reaction Status Date / Time acetaminophen [From TYLENOL] Allergy Unknown Rash Verified 10/16/21 06:40 amoxicillin [Amoxicillin] Allergy Unknown Rash Verified 10/16/21 06:40 seafood Allergy Unknown Rash Verified 10/16/21 06:40 Assessment & Plan Assessment & Plan (1) Opioid use disorder: Status: Acute Code(s): F11.90 - Opioid use, unspecified, uncomplicated Assessment and Plan: * at this time, based on level of sedation, not appropriate to increase patients methadone dose. * avoid dosing methadone and lorazepam together * consider alternative to lorazepam for anxiety if possible * if necessary please reconsult recovery support, for now no additioal recommendations I spent ____30__ minutes with the patient and/or on the patient floor today, greater than?50% of which was spent counseling/coordinating care. [facility] Social History Social History Household Members: None Housing: Homeless Do you presently have visiting nurse or other home services: No Patient Tobacco Use Status: Never used Tobacco Use of substances other than those prescribed or required for medical reasons: Yes Substance Use Type: Crack/Cocaine, Heroin and Marijuana Substance Use Frequency: Daily Last Used Substance: Just Prior to Admission Last Used Substance Other:: last use day prior to admission Currently Displaying Signs/Symptoms of Drug Intoxication Withdrawal: No Any prior treatment program specific to substance use: Yes (hx of various detox admissions) Spiritual Healthcare Practices: none identified [facility]oration Healthcare Practices: none identified Cultural Healthcare Practices: none identified Advance Directives: No Advance Directives Information Provided: No Healthcare Proxy: No Guardian: No Do you have thoughts of harming others: None Do you have a plan to hurt others: No Plan Recently lost weight without trying: No Nutrition Risks: No Nutritional Risk Patient : No : No Poor oral hygiene: No service: No Sexual orientation: Did not discuss.
--- NOTE | 2021-10-17 13:59 | P.PNPSI_ITS ---
Subjective Subjective Date of Service: 10/17/21 Reason For Visit: Depression, Opiate, Cocaine, Cannabis Use disorder Subjective Notes: Carpio Warning and Conditional Voluntary Healthcare Proxy: No Guardianship: No Medical Problems Affecting Mental Status: No Interim History: Patient seen and discussed with team. Patient evaluated today and upon interview pt is found asleep and when T/W attempted to awake her she declined interview. In the milieu, patient is safe but isolative and mostly staying in bed. Says she feels safe. Medication Compliance: Yes Side effects from medications: No Attending Groups: No Review of Systems Acute medical concerns: No Medical Review of Systems: unchanged Mental Status Exam Mental Status Exam Narrative: A&O. In hospital attire, long hair, unkempt appearance. Poor eye contact, inattentive. No Tics or Tremors. No abnormal involuntary movements. Calm, cooperative to a point, not overly engaged. Non-pressured speech, spontaneous with regular rate and rhythm, normal volume and prosody. No prolonged speech lat ency or dysarthria. Mood is ?depressed,? affect is irritable. Denies SI/SIB/HI upon inquiry. Endorses AH. Denies VH or delusional thought content. Thoughts are focused on somatic complaints. No known cognitive or memory impairment. Insight/ Judgment limited but adequate. Diagnostics Vital Signs (24Hr): Vital Signs - 24 hr 10/18/21 08:20 10/18/21 21:13 Temperature 97.8 F 97.9 F Pulse Rate 97 106 H Respiratory Rate 18 18 Blood Pressure 108/66 119/76 Pulse Oximetry 97 96 BMI result Body Mass Index 25.1 Labs Results: 10/15/21 11:15 10/15/21 13:48 Imaging Radiology Impressions: ITS Impressions Ankle X-Ray 10/15/21 13:22 IMPRESSION: Right elbow: Normal. Right wrist: Normal. Right ankle: Normal. Wrist X-Ray 10/15/21 13:22 IMPRESSION: Right elbow: Normal. Right wrist: Normal. Right ankle: Normal. Elbow X-Ray 10/15/21 13:40 IMPRESSION: Right elbow: Normal. Right wrist: Normal. Right ankle: Normal. Foot X-Ray 10/17/21 08:35 IMPRESSION: Unremarkable left foot exam. Medications Medications Current Medications Al Hydroxide/Mg Hydroxide (Magnesium Hydrox/Alum Hydrox 30 Ml Oral.Susp) 30 ml PO Q6H PRN PRN Reason: Heartburn/Nausea Baclofen (Baclofen 10 Mg Tablet) 10 mg PO TID [facility] Last Admin: 10/18/21 21:19 Dose: 10 mg Documented by: Bupropion HCl (Bupropion Hcl 100 Mg Tablet) 100 mg PO BID@0900,1400 [facility] Last Admin: 10/18/21 13:05 Dose: 100 mg Documented by: Clotrimazole (Clotrimazole 1 % Cream 15 Gm Tube) 1 appl TOPICAL BID [facility] Last Admin: 10/18/21 21:19 Dose: Not Given Documented by: Gabapentin (Gabapentin 600 Mg Tablet) 600 mg PO QID [facility] Last Admin: 10/18/21 21:19 Dose: 600 mg Documented by: Hydroxyzine HCl (Hydroxyzine Hcl 50 Mg Tablet) 50 mg PO TID PRN PRN Reason: Anxiety Last Admin: 10/18/21 21:19 Dose: 50 mg Documented by: Ibuprofen (Ibuprofen 600 Mg Tablet) 600 mg PO Q6H PRN PRN Reason: Pain, Mild (Pain Scale 1-3) Last Admin: 10/18/21 21:19 Dose: 600 mg Documented by: Lorazepam (Lorazepam 1 Mg Tablet) 1 mg PO Q12H PRN PRN Reason: anxiety/withdrawal symptoms Magnesium Hydroxide (Milk Of Magnesia 30 Ml Oral.Susp) 30 ml PO DAILY PRN PRN Reason: Constipation Methadone HCl (Methadone Hcl 20 Mg/2 Ml Oral.Conc) 135 mg PO DAILY [facility] Last Admin: 10/18/21 09:00 Dose: 135 mg Documented by: Multivitamins/Vitamin C (Multivitamin Tablet) 1 tab PO DAILY [facility] Last Admin: 10/18/21 09:00 Dose: 1 tab Documented by: Patient Own Med( Sofosbuvir- Velpatasvir 400-100 Mg Tablet) 1 each PO DAILY [facility] Last Admin: 10/18/21 09:09 Dose: 1 each Documented by: Nystatin (Nystatin Oral Susp 500,000 Unit/5 Ml Oral.Susp) 400,000 unit BUCCAL QID [facility] Last Admin: 10/18/21 21:19 Dose: 400,000 unit Documented by: Ondansetron HCl (Ondansetron Odt 8 Mg Tab.Rapdis) 4 mg TRANSLINGU Q8H PRN PRN Reason: nausea Polyethylene Glycol (Polyethylene Glycol 3350 17 Gm Powd.Pack) 17 gm PO DAILY [facility] Last Admin: 10/18/21 08:59 Dose: 17 gm Documented by: Quetiapine Fumarate (Quetiapine Fumarate 200 Mg Tablet) 200 mg PO BEDTIME [facility] Last Admin: 10/18/21 21:19 Dose: 200 mg Documented by: Quetiapine Fumarate (Quetiapine Fumarate 25 Mg Tablet) 25 mg PO TID@0800,1200,1600 [facility] Last Admin: 10/18/21 15:36 Dose: 25 mg Documented by: Sertraline HCl (Sertraline Hcl 100 Mg Tablet) 100 mg PO DAILY [facility] Last Admin: 10/18/21 09:00 Dose: 100 mg Documented by: Thiamine HCl (Thiamine Hcl 100 Mg Tablet) 100 mg PO DAILY [facility] Last Admin: 10/18/21 09:00 Dose: 100 mg Documented by: Trazodone HCl (Trazodone Hcl 50 Mg Tablet) 50 mg PO BEDTIME PRN PRN Reason: Insomnia Allergies Allergies Allergy/AdvReac Type Severity Reaction Status Date / Time acetaminophen [From TYLENOL] Allergy Unknown Rash Verified 10/16/21 06:40 amoxicillin [Amoxicillin] Allergy Unknown Rash Verified 10/16/21 06:40 seafood Allergy Unknown Rash Verified 10/16/21 06:40 Assessment & Plan Assessment & Plan (1) Opioid use disorder: Status: Acute Code(s): F11.90 - Opioid use, unspecified, uncomplicated (2) Post traumatic stress disorder (PTSD): Status: Acute Code(s): F43.10 - Post-traumatic stress disorder, unspecified (3) MAGO (generalized anxiety disorder): Status: Acute Code(s): F41.1 - Generalized anxiety disorder (4) Cocaine use disorder: Status: Acute Code(s): F14.10 - Cocaine abuse, uncomplicated Plan Devika is a 35 year old female who carries a dx of opioid use disorder, PTSD, and MAGO. She presented to the ED on 10/15/21 due to depression, SI, command AH telling her to kill herself, and relapsed on heroin at 0300 this morning. Utox positive for heroin, fentanyl, cocaine, and cannabis. She reported binge using with hopes to kill herself, using about 2 bundles of heroin and $200 daily of cocaine. She has been non-adherent with meds since 08/2021. Recently discharged from [facility], stepped down to [facility] and left after 24 hours. Poor sleep and appetite x 3 days in context of homelessness. Plan: Pt says she wants to go up on her methadone, will place addiction consult. Pt requests? seroquel 25 mg TID. Pt had been prescribed zoloft 100 mg but had not picked it up, wants to trial this dose, as she did not feel 50 mg was helping. Says gabapentin is for nerve damage and pain.? 10/19/21: Will decrease ativan PRN to 1 mg Q8H due to oversedation, will continue to taper to avoid concomitant use with methadone Q15 min safety checks, CV Monitor response to medications. Monitor for safety in the milieu. Discharge on stabilization. Patient seen. Chart reviewed. Discussed with team. Obtain collateral contact info?as needed I spent minutes with the patient and/or on the patient floor today, greater than?50% of which was spent counseling/coordinating care. Patient educated on: other Reason for contiued inpatient stay Substantial Risk for: med/psych decompensation
[2021-10-17] MEDS: Fluconazole 150 MG TABLET PO (17:40)
[2021-10-17 20:40] VITALS: BP 110/56; PULSE 111; RESP 16; TEMP 36.6; O2SAT 96
[2021-10-17] MEDS: QUEtiapine Fumarate 200 MG TABLET PO (20:47)
[2021-10-18] MEDS: Ibuprofen 600 MG TABLET PO ×2 (05:48→21:19)
[2021-10-18] MEDS: LORazepam 1 MG TABLET PO ×3 (05:48→21:19)
[2021-10-18 08:20] VITALS: BP 108/66; PULSE 97; RESP 18; TEMP 36.6; O2SAT 97
[2021-10-18] MEDS: polyethylene glycoL 3350 17 GM POWD.PACK PO (08:59)
[2021-10-18] MEDS: buPROPion HCL 100 MG TABLET PO ×2 (09:00→13:05)
[2021-10-18] MEDS: Multivitamin TABLET 1 TAB PO (09:00)
[2021-10-18] MEDS: Nystatin Oral Susp 500,000 UNIT/5 ML ORAL.SUSP 400000 UNIT BUCCAL ×4 (09:00→21:19)
[2021-10-18] MEDS: methADONE HCl 20 MG/2 ML ORAL.CONC 135 MG PO (09:00)
[2021-10-18] MEDS: Thiamine HCL 100 MG TABLET PO (09:00)
[2021-10-18] MEDS: Sertraline HCL 100 MG TABLET PO (09:00)
[2021-10-18] MEDS: Baclofen 10 MG TABLET PO ×3 (09:00→21:19)
[2021-10-18] MEDS: Gabapentin 600 MG TABLET PO ×4 (09:00→21:19)
[2021-10-18] MEDS: QUEtiapine Fumarate 25 MG TABLET PO ×3 (09:03→15:36)
[2021-10-18] MEDS: Clotrimazole 1 % Cream 15 GM TUBE 1 APPL TOPICAL (09:11)
--- NOTE | 2021-10-18 19:04 | P.PNPSI_ITS ---
Subjective Subjective Date of Service: 10/18/21 Reason For Visit: Depression, Opiate, Cocaine, Cannabis Use disorder Subjective Notes: [place] Warning and Conditional Voluntary Healthcare Proxy: No Guardianship: No Medical Problems Affecting Mental Status: No Interim History: Patient seen and discussed with team. Patient evaluated today and upon interview she says she is doing fine, im just sleeping, she declines to continue interview, saying I dont know whats going on due to feeling tired. In the milieu, patient is safe but isolative in behavior. Says she feels safe. Medication Compliance: Yes Side effects from medications: No Attending Groups: No Review of Systems Acute medical concerns: No Medical Review of Systems: unchanged Mental Status Exam Mental Status Exam Narrative: A&O. In hospital attire, long hair, unkempt appearance. Poor eye contact, inattentive. No Tics or Tremors. No abnormal involuntary movements. Calm, did not want to engage. Non-pressured speech, spontaneous with regular rate and rhythm, normal volume and prosody. No prolonged speech latency or dysarthria. Mood is ?fine,? affect is sedated. Denies SI/SIB/HI upon inquiry. Endorses AH. Denies VH or delusional thought content. Thoughts are distracted. No known cognitive or memory impairment. Insight/ Judgment limited but adequate. Diagnostics Vital Signs (24Hr): Vital Signs - 24 hr 10/18/21 08:20 10/18/21 21:13 Temperature 97.8 F 97.9 F Pulse Rate 97 106 H Respiratory Rate 18 18 Blood Pressure 108/66 119/76 Pulse Oximetry 97 96 BMI result Body Mass Index 25.1 Labs Results: 10/15/21 11:15 10/15/21 13:48 Imaging Radiology Impressions: ITS Impressions Ankle X-Ray 10/15/21 13:22 IMPRESSION: Right elbow: Normal. Right wrist: Normal. Right ankle: Normal. Wrist X-Ray 10/15/21 13:22 IMPRESSION: Right elbow: Normal. Right wrist: Normal. Right ankle: Normal. Elbow X-Ray 10/15/21 13:40 IMPRESSION: Right elbow: Normal. Right wrist: Normal. Right ankle: Normal. Foot X-Ray 10/17/21 08:35 IMPRESSION: Unremarkable left foot exam. Medications Medications Current Medications Al Hydroxide/Mg Hydroxide (Magnesium Hydrox/Alum Hydrox 30 Ml Oral.Susp) 30 ml PO Q6H PRN PRN Reason: Heartburn/Nausea Baclofen (Baclofen 10 Mg Tablet) 10 mg PO TID [facility] Last Admin: 10/18/21 21:19 Dose: 10 mg Documented by: Bupropion HCl (Bupropion Hcl 100 Mg Tablet) 100 mg PO BID@0900,1400 [facility] Last Admin: 10/18/21 13:05 Dose: 100 mg Documented by: Clotrimazole (Clotrimazole 1 % Cream 15 Gm Tube) 1 appl TOPICAL BID [facility] Last Admin: 10/18/21 21:19 Dose: Not Given Documented by: Gabapentin (Gabapentin 600 Mg Tablet) 600 mg PO QID [facility] Last Admin: 10/18/21 21:19 Dose: 600 mg Documented by: Hydroxyzine HCl (Hydroxyzine Hcl 50 Mg Tablet) 50 mg PO TID PRN PRN Reason: Anxiety Last Admin: 10/18/21 21:19 Dose: 50 mg Documented by: Ibuprofen (Ibuprofen 600 Mg Tablet) 600 mg PO Q6H PRN PRN Reason: Pain, Mild (Pain Scale 1-3) Last Admin: 10/18/21 21:19 Dose: 600 mg Documented by: Lorazepam (Lorazepam 1 Mg Tablet) 1 mg PO Q12H PRN PRN Reason: anxiety/withdrawal symptoms Magnesium Hydroxide (Milk Of Magnesia 30 Ml Oral.Susp) 30 ml PO DAILY PRN PRN Reason: Constipation Methadone HCl (Methadone Hcl 20 Mg/2 Ml Oral.Conc) 135 mg PO DAILY [facility] Last Admin: 10/18/21 09:00 Dose: 135 mg Documented by: Multivitamins/Vitamin C (Multivitamin Tablet) 1 tab PO DAILY [facility] Last Admin: 10/18/21 09:00 Dose: 1 tab Documented by: Patient Own Med( Sofosbuvir- Velpatasvir 400-100 Mg Tablet) 1 each PO DAILY [facility] Last Admin: 10/18/21 09:09 Dose: 1 each Documented by: Nystatin (Nystatin Oral Susp 500,000 Unit/5 Ml Oral.Susp) 400,000 unit BUCCAL QID [facility] Last Admin: 10/18/21 21:19 Dose: 400,000 unit Documented by: Ondansetron HCl (Ondansetron Odt 8 Mg Tab.Rapdis) 4 mg TRANSLINGU Q8H PRN PRN Reason: nausea Polyethylene Glycol (Polyethylene Glycol 3350 17 Gm Powd.Pack) 17 gm PO DAILY [facility] Last Admin: 10/18/21 08:59 Dose: 17 gm Documented by: Quetiapine Fumarate (Quetiapine Fumarate 200 Mg Tablet) 200 mg PO BEDTIME [facility] Last Admin: 10/18/21 21:19 Dose: 200 mg Documented by: Quetiapine Fumarate (Quetiapine Fumarate 25 Mg Tablet) 25 mg PO TID@0800,1200,1600 [facility] Last Admin: 10/18/21 15:36 Dose: 25 mg Documented by: Sertraline HCl (Sertraline Hcl 100 Mg Tablet) 100 mg PO DAILY [facility] Last Admin: 10/18/21 09:00 Dose: 100 mg Documented by: Thiamine HCl (Thiamine Hcl 100 Mg Tablet) 100 mg PO DAILY [facility] Last Admin: 10/18/21 09:00 Dose: 100 mg Documented by: Trazodone HCl (Trazodone Hcl 50 Mg Tablet) 50 mg PO BEDTIME PRN PRN Reason: Insomnia Allergies Allergies Allergy/AdvReac Type Severity Reaction Status Date / Time acetaminophen [From TYLENOL] Allergy Unknown Rash Verified 10/16/21 06:40 amoxicillin [Amoxicillin] Allergy Unknown Rash Verified 10/16/21 06:40 seafood Allergy Unknown Rash Verified 10/16/21 06:40 Assessment & Plan Assessment & Plan (1) Opioid use disorder: Status: Acute Code(s): F11.90 - Opioid use, unspecified, uncomplicated (2) Post traumatic stress disorder (PTSD): Status: Acute Code(s): F43.10 - Post-traumatic stress disorder, unspecified (3) MAGO (generalized anxiety disorder): Status: Acute Code(s): F41.1 - Generalized anxiety disorder (4) Cocaine use disorder: Status: Acute Code(s): F14.10 - Cocaine abuse, uncomplicated Plan Devika is a 35 year old female who carries a dx of opioid use disorder, PTSD, and MAGO. She presented to the ED on 10/15/21 due to depression, SI, command AH telling her to kill herself, and relapsed on heroin at 0300 this morning. Utox positive for heroin, fentanyl, cocaine, and cannabis. She reported binge using with hopes to kill herself, using about 2 bundles of heroin and $200 daily of cocaine. She has been non-adherent with meds since 08/2021. Recently discharged from [facility], stepped down to [facility] and left after 24 hours. Poor sleep and appetite x 3 days in context of homelessness. Plan: Pt says she wants to go up on her methadone, will place addiction consult. Pt requests? seroquel 25 mg TID. Pt had been prescribed zoloft 100 mg but had not picked it up, wants to trial this dose, as she did not feel 50 mg was helping. Says gabapentin is for nerve damage and pain.? 10/17/21: Will decrease ativan PRN to 1 mg Q8H due to oversedation, will continue to taper to avoid concomitant use with methadone 10/18/21: Will decrease ativan PRN to 1 mg Q12H, addiction consult appreciated Q15 min safety checks, CV Monitor response to medications. Monitor for safety in the milieu. Discharge on stabilization. Patient seen. Chart reviewed. Discussed with team. Obtain collateral contact info?as needed I spent minutes with the patient and/or on the patient floor today, greater than?50% of which was spent counseling/coordinating care. Patient educated on: medication risk/benefits Reason for contiued inpatient stay Substantial Risk for: harm to self and med/psych decompensation
[2021-10-18 21:13] VITALS: BP 119/76; PULSE 106; RESP 18; TEMP 36.6; O2SAT 96
[2021-10-18] MEDS: hydrOXYzine HCL 50 MG TABLET PO (21:19)
[2021-10-18] MEDS: QUEtiapine Fumarate 200 MG TABLET PO (21:19)
[2021-10-18 22:36] VITALS: BMI 25.1
[2021-10-19 07:50] VITALS: BP 109/66; PULSE 105; RESP 16; TEMP 36.6; O2SAT 96
[2021-10-19] MEDS: Clotrimazole 1 % Cream 15 GM TUBE 1 APPL TOPICAL (08:14)
[2021-10-19] MEDS: Nystatin Oral Susp 500,000 UNIT/5 ML ORAL.SUSP 400000 UNIT BUCCAL ×4 (08:14→21:24)
[2021-10-19] MEDS: polyethylene glycoL 3350 17 GM POWD.PACK PO (08:15)
[2021-10-19] MEDS: Gabapentin 600 MG TABLET PO ×4 (08:15→21:24)
[2021-10-19] MEDS: Baclofen 10 MG TABLET PO ×3 (08:16→21:24)
[2021-10-19] MEDS: Thiamine HCL 100 MG TABLET PO (08:16)
[2021-10-19] MEDS: QUEtiapine Fumarate 25 MG TABLET PO ×3 (08:17→16:38)
[2021-10-19] MEDS: LORazepam 1 MG TABLET PO (08:17)
[2021-10-19] MEDS: Multivitamin TABLET 1 TAB PO (08:17)
[2021-10-19] MEDS: methADONE HCl 20 MG/2 ML ORAL.CONC 135 MG PO (08:17)
[2021-10-19] MEDS: buPROPion HCL 100 MG TABLET PO ×2 (10:29→14:09)
[2021-10-19] MEDS: Sertraline HCL 100 MG TABLET PO (10:30)
--- NOTE | 2021-10-19 15:16 | P.PNPSI_ITS ---
Subjective Subjective Date of Service: 10/19/21 Reason For Visit: Depression, Opiate, Cocaine, Cannabis Use disorder Interim History: pt calm and cooperative. c/o right antecubital fossa pain with extension (started yesterday), painless mobile subcutaneous lump in the same area (for the past two weeks). c/o being depressed, denies SI (including prior to admission). having dreams about SIB from which she awakens in a sweat. discuss R/B of prazosin for nightmares and insomnia in PTSD, pt agrees to trial, will start tonight at 1 mg. c/o having started but not finished a course of antibx for cellulitis on her foot, reporting ongoing cellulitis there and asking to restart her antibx as she knows it is important to finish the course. per staff, dep 03/08. +CAH to leave the hospital and use drugs. c/o poor sleep, eating well. slept with extra meds at [facility]. Mental Status Exam Mental Status Exam Narrative: A&O. In hospital attire, long hair, unkempt appearance. fair eye contact, appears somewhat somnolent. No Tics or Tremors. No abnormal involuntary movements. Calm. Non-pressured speech, spontaneous with regular rate and rhythm, normal volume and prosody. No prolonged speech latency or dysarthria. Mood is ?depressed,? affect is sedated. Denies SI. no SIB/HI/AVH expressed. Diagnostics Vital Signs (24Hr): Vital Signs - 24 hr 10/18/21 21:13 10/19/21 07:50 Temperature 97.9 F 97.9 F Pulse Rate 106 H 105 H Respiratory Rate 18 16 Blood Pressure 119/76 109/66 Pulse Oximetry 96 96 BMI result Body Mass Index 25.1 Labs Results: 10/15/21 11:15 10/15/21 13:48 Imaging Radiology Impressions: ITS Impressions Ankle X-Ray 10/15/21 13:22 IMPRESSION: Right elbow: Normal. Right wrist: Normal. Right ankle: Normal. Wrist X-Ray 10/15/21 13:22 IMPRESSION: Right elbow: Normal. Right wrist: Normal. Right ankle: Normal. Elbow X-Ray 10/15/21 13:40 IMPRESSION: Right elbow: Normal. Right wrist: Normal. Right ankle: Normal. Foot X-Ray 10/17/21 08:35 IMPRESSION: Unremarkable left foot exam. Medications Medications Current Medications Al Hydroxide/Mg Hydroxide (Magnesium Hydrox/Alum Hydrox 30 Ml Oral.Susp) 30 ml PO Q6H PRN PRN Reason: Heartburn/Nausea Baclofen (Baclofen 10 Mg Tablet) 10 mg PO TID [facility] Last Admin: 10/19/21 14:09 Dose: 10 mg Documented by: Bupropion HCl (Bupropion Hcl 100 Mg Tablet) 100 mg PO BID@0900,1400 [facility] Last Admin: 10/19/21 14:09 Dose: 100 mg Documented by: Clotrimazole (Clotrimazole 1 % Cream 15 Gm Tube) 1 appl TOPICAL BID [facility] Last Admin: 10/19/21 08:14 Dose: 1 appl Documented by: Gabapentin (Gabapentin 600 Mg Tablet) 600 mg PO QID [facility] Last Admin: 10/19/21 11:59 Dose: 600 mg Documented by: Hydroxyzine HCl (Hydroxyzine Hcl 50 Mg Tablet) 50 mg PO TID PRN PRN Reason: Anxiety Last Admin: 10/18/21 21:19 Dose: 50 mg Documented by: Ibuprofen (Ibuprofen 600 Mg Tablet) 600 mg PO Q6H PRN PRN Reason: Pain, Mild (Pain Scale 1-3) Last Admin: 10/18/21 21:19 Dose: 600 mg Documented by: Lorazepam (Lorazepam 1 Mg Tablet) 1 mg PO Q12H PRN PRN Reason: anxiety/withdrawal symptoms Last Admin: 10/19/21 08:17 Dose: 1 mg Documented by: Magnesium Hydroxide (Milk Of Magnesia 30 Ml Oral.Susp) 30 ml PO DAILY PRN PRN Reason: Constipation Methadone HCl (Methadone Hcl 20 Mg/2 Ml Oral.Conc) 135 mg PO DAILY [facility] Last Admin: 10/19/21 08:17 Dose: 135 mg Documented by: Multivitamins/Vitamin C (Multivitamin Tablet) 1 tab PO DAILY [facility] Last Admin: 10/19/21 08:17 Dose: 1 tab Documented by: Patient Own Med( Sofosbuvir- Velpatasvir 400-100 Mg Tablet) 1 each PO DAILY [facility] Last Admin: 10/19/21 08:14 Dose: 1 each Documented by: Nystatin (Nystatin Oral Susp 500,000 Unit/5 Ml Oral.Susp) 400,000 unit BUCCAL QID [facility] Last Admin: 10/19/21 11:59 Dose: 400,000 unit Documented by: Ondansetron HCl (Ondansetron Odt 8 Mg Tab.Rapdis) 4 mg TRANSLINGU Q8H PRN PRN Reason: nausea Polyethylene Glycol (Polyethylene Glycol 3350 17 Gm Powd.Pack) 17 gm PO DAILY [facility] Last Admin: 10/19/21 08:15 Dose: 17 gm Documented by: Prazosin HCl (Prazosin Hcl 1 Mg Capsule) 1 mg PO BEDTIME [place]; Protocol Quetiapine Fumarate (Quetiapine Fumarate 200 Mg Tablet) 200 mg PO BEDTIME [facility] Last Admin: 10/18/21 21:19 Dose: 200 mg Documented by: Quetiapine Fumarate (Quetiapine Fumarate 25 Mg Tablet) 25 mg PO TID@0800,1200,1600 [facility] Last Admin: 10/19/21 11:59 Dose: 25 mg Documented by: Sertraline HCl (Sertraline Hcl 100 Mg Tablet) 100 mg PO DAILY [facility] Last Admin: 10/19/21 10:30 Dose: 100 mg Documented by: Thiamine HCl (Thiamine Hcl 100 Mg Tablet) 100 mg PO DAILY [facility] Last Admin: 10/19/21 08:16 Dose: 100 mg Documented by: Trazodone HCl (Trazodone Hcl 50 Mg Tablet) 50 mg PO BEDTIME PRN PRN Reason: Insomnia Allergies Allergies Allergy/AdvReac Type Severity Reaction Status Date / Time acetaminophen [From TYLENOL] Allergy Unknown Rash Verified 10/16/21 06:40 amoxicillin [Amoxicillin] Allergy Unknown Rash Verified 10/16/21 06:40 seafood Allergy Unknown Rash Verified 10/16/21 06:40 Assessment & Plan Assessment & Plan (1) Opioid use disorder: Status: Acute Code(s): F11.90 - Opioid use, unspecified, uncomplicated (2) Post traumatic stress disorder (PTSD): Status: Acute Code(s): F43.10 - Post-traumatic stress disorder, unspecified (3) MAGO (generalized anxiety disorder): Status: Acute Code(s): F41.1 - Generalized anxiety disorder (4) Cocaine use disorder: Status: Acute Code(s): F14.10 - Cocaine abuse, uncomplicated Plan Devika is a 35 year old female who carries a dx of opioid use disorder, PTSD, and MAGO. She presented to the ED on 10/15/21 due to depression, SI, command AH telling her to kill herself, and relapsed on heroin at 0300 this morning. Utox positive for heroin, fentanyl, cocaine, and cannabis. She reported binge using with hopes to kill herself, using about 2 bundles of heroin and $200 daily of cocaine. She has been non-adherent with meds since 08/2021. Recently discharged from [facility], stepped down to [facility] and left after 24 hours. Poor sleep and appetite x 3 days in context of homelessness. Plan: Pt says she wants to go up on her methadone, will place addiction consult. Pt requests? seroquel 25 mg TID. Pt had been prescribed zoloft 100 mg but had not picked it up, wants to trial this dose, as she did not feel 50 mg was helping. Says gabapentin is for nerve damage and pain.? 10/17/21: Will decrease ativan PRN to 1 mg Q8H due to oversedation, will continue to taper to avoid concomitant use with methadone 10/18/21: Will decrease ativan PRN to 1 mg Q12H, addiction consult appreciated 10/19: further taper ativan, add prazosin 1 mg QHS. I spent ___20___ minutes with the patient and/or on the patient floor today, greater than?50% of which was spent counseling/coordinating care. Reason for contiued inpatient stay Substantial Risk for: inability to function and rapid decompensation
[2021-10-19] MEDS: QUEtiapine Fumarate 200 MG TABLET PO (21:24)
[2021-10-19] MEDS: hydrOXYzine HCL 50 MG TABLET PO (21:24)
[2021-10-19] MEDS: Prazosin HCL 1 MG CAPSULE PO (21:24)
[2021-10-19] MEDS: LORazepam 0.5 MG TABLET PO (21:25)
[2021-10-19 21:32] VITALS: BP 125/69; PULSE 94; RESP 18; TEMP 36.8; O2SAT 97
[2021-10-20 06:00] VITALS: BP 103/68; PULSE 97; RESP 18; TEMP 36.4; O2SAT 99
[2021-10-20] MEDS: polyethylene glycoL 3350 17 GM POWD.PACK PO (08:04)
[2021-10-20] MEDS: Sertraline HCL 100 MG TABLET PO (08:05)
[2021-10-20] MEDS: Thiamine HCL 100 MG TABLET PO (08:05)
[2021-10-20] MEDS: LORazepam 0.5 MG TABLET PO (08:05)
[2021-10-20] MEDS: QUEtiapine Fumarate 25 MG TABLET PO ×3 (08:06→15:51)
[2021-10-20] MEDS: Nystatin Oral Susp 500,000 UNIT/5 ML ORAL.SUSP 400000 UNIT BUCCAL ×4 (08:06→20:10)
[2021-10-20] MEDS: Multivitamin TABLET 1 TAB PO (08:06)
[2021-10-20] MEDS: Gabapentin 600 MG TABLET PO ×4 (08:06→20:10)
[2021-10-20] MEDS: methADONE HCl 20 MG/2 ML ORAL.CONC 135 MG PO (08:06)
[2021-10-20] MEDS: buPROPion HCL 100 MG TABLET PO ×2 (08:06→13:44)
[2021-10-20] MEDS: Baclofen 10 MG TABLET PO ×3 (08:06→20:10)
[2021-10-20] MEDS: Clotrimazole 1 % Cream 15 GM TUBE 1 APPL TOPICAL (13:04)
[2021-10-20] MEDS: Ibuprofen 600 MG TABLET PO ×2 (13:04→20:10)
--- NOTE | 2021-10-20 15:35 | HO.PSYCHPN ---
Subjective Subjective Date of Service: 10/20/21 Reason For Visit: Depression, Opiate, Cocaine, Cannabis Use disorder Interim History: found sleeping in bed mid-afternoon. states she falls asleep at night but has trouble staying asleep. agrees to increase prazosin to 2 mg. c/o feeling down, ruminating on her hard-luck life, as she sees it. thinking about hurting herself after leaving the hospital, reports CAH to hurt herself. says perhaps she is not on enough anti-depressant, or the wrong one. meds reviewed, pt agrees to switch wellbutrin to XL formulation and to increase daily dose to 300 mg. per staff, isolative, withdrawn. wanting to sleep days. had an outburst at a peer, irritable. needed to be redirected from male peers. eating well, appeared to be sleeping well. Mental Status Exam Mental Status Exam Narrative: A&O. In hospital attire, long hair, unkempt appearance. fair eye contact, appears tired. No Tics or Tremors. No abnormal involuntary movements. Calm. Non-pressured speech, spontaneous with regular rate and rhythm, normal volume and prosody. No prolonged speech latency or dysarthria. Mood is ?depressed,? affect is constricted. thinking about hurting herself after discharge. report CAH to harm self. no HI/VH expressed. Diagnostics Vital Signs (24Hr): Vital Signs - 24 hr 10/19/21 21:32 10/20/21 06:00 Temperature 98.3 F 97.6 F Pulse Rate 94 97 Respiratory Rate 18 18 Blood Pressure 125/69 103/68 Pulse Oximetry 97 99 BMI result Body Mass Index 25.1 Labs Results: 10/15/21 11:15 10/15/21 13:48 Imaging Radiology Impressions: ITS Impressions Ankle X-Ray 10/15/21 13:22 IMPRESSION: Right elbow: Normal. Right wrist: Normal. Right ankle: Normal. Wrist X-Ray 10/15/21 13:22 IMPRESSION: Right elbow: Normal. Right wrist: Normal. Right ankle: Normal. Elbow X-Ray 10/15/21 13:40 IMPRESSION: Right elbow: Normal. Right wrist: Normal. Right ankle: Normal. Foot X-Ray 10/17/21 08:35 IMPRESSION: Unremarkable left foot exam. Medications Medications Current Medications Al Hydroxide/Mg Hydroxide (Magnesium Hydrox/Alum Hydrox 30 Ml Oral.Susp) 30 ml PO Q6H PRN PRN Reason: Heartburn/Nausea Baclofen (Baclofen 10 Mg Tablet) 10 mg PO TID [facility] Last Admin: 10/20/21 08:06 Dose: 10 mg Documented by: Bupropion HCl (Bupropion Hcl Xl 300 Mg Tab.Er.24h) 300 mg PO DAILY [facility] Clotrimazole (Clotrimazole 1 % Cream 15 Gm Tube) 1 appl TOPICAL BID [facility] Last Admin: 10/20/21 13:04 Dose: 1 appl Documented by: Gabapentin (Gabapentin 600 Mg Tablet) 600 mg PO QID [facility] Last Admin: 10/20/21 13:03 Dose: 600 mg Documented by: Hydroxyzine HCl (Hydroxyzine Hcl 50 Mg Tablet) 50 mg PO TID PRN PRN Reason: Anxiety Last Admin: 10/19/21 21:24 Dose: 50 mg Documented by: Ibuprofen (Ibuprofen 600 Mg Tablet) 600 mg PO Q6H PRN PRN Reason: Pain, Mild (Pain Scale 1-3) Last Admin: 10/20/21 13:04 Dose: 600 mg Documented by: Magnesium Hydroxide (Milk Of Magnesia 30 Ml Oral.Susp) 30 ml PO DAILY PRN PRN Reason: Constipation Methadone HCl (Methadone Hcl 20 Mg/2 Ml Oral.Conc) 135 mg PO DAILY [facility] Last Admin: 10/20/21 08:06 Dose: 135 mg Documented by: Multivitamins/Vitamin C (Multivitamin Tablet) 1 tab PO DAILY [facility] Last Admin: 10/20/21 08:06 Dose: 1 tab Documented by: Patient Own Med( Sofosbuvir- Velpatasvir 400-100 Mg Tablet) 1 each PO DAILY [facility] Last Admin: 10/20/21 08:10 Dose: 1 each Documented by: Nystatin (Nystatin Oral Susp 500,000 Unit/5 Ml Oral.Susp) 400,000 unit BUCCAL QID [facility] Last Admin: 10/20/21 13:44 Dose: 400,000 unit Documented by: Ondansetron HCl (Ondansetron Odt 8 Mg Tab.Rapdis) 4 mg TRANSLINGU Q8H PRN PRN Reason: nausea Polyethylene Glycol (Polyethylene Glycol 3350 17 Gm Powd.Pack) 17 gm PO DAILY [facility] Last Admin: 10/20/21 08:04 Dose: 17 gm Documented by: Prazosin HCl (Prazosin Hcl 1 Mg Capsule) 2 mg PO BEDTIME [facility]; Protocol Quetiapine Fumarate (Quetiapine Fumarate 200 Mg Tablet) 200 mg PO BEDTIME [facility] Last Admin: 10/19/21 21:24 Dose: 200 mg Documented by: Quetiapine Fumarate (Quetiapine Fumarate 25 Mg Tablet) 25 mg PO TID@0800,1200,1600 [facility] Last Admin: 10/20/21 13:07 Dose: 25 mg Documented by: Sertraline HCl (Sertraline Hcl 100 Mg Tablet) 100 mg PO DAILY [facility] Last Admin: 10/20/21 08:05 Dose: 100 mg Documented by: Thiamine HCl (Thiamine Hcl 100 Mg Tablet) 100 mg PO DAILY [facility] Last Admin: 10/20/21 08:05 Dose: 100 mg Documented by: Trazodone HCl (Trazodone Hcl 50 Mg Tablet) 50 mg PO BEDTIME PRN PRN Reason: Insomnia Allergies Allergies Allergy/AdvReac Type Severity Reaction Status Date / Time acetaminophen [From TYLENOL] Allergy Unknown Rash Verified 10/16/21 06:40 amoxicillin [Amoxicillin] Allergy Unknown Rash Verified 10/16/21 06:40 seafood Allergy Unknown Rash Verified 10/16/21 06:40 Assessment & Plan Assessment & Plan (1) Opioid use disorder: Status: Acute Code(s): F11.90 - Opioid use, unspecified, uncomplicated (2) Post traumatic stress disorder (PTSD): Status: Acute Code(s): F43.10 - Post-traumatic stress disorder, unspecified (3) MAGO (generalized anxiety disorder): Status: Acute Code(s): F41.1 - Generalized anxiety disorder (4) Cocaine use disorder: Status: Acute Code(s): F14.10 - Cocaine abuse, uncomplicated Plan Devika is a 35 year old female who carries a dx of opioid use disorder, PTSD, and MAGO. She presented to the ED on 10/15/21 due to depression, SI, command AH telling her to kill herself, and relapsed on heroin at 0300 this morning. Utox positive for heroin, fentanyl, cocaine, and cannabis. She reported binge using with hopes to kill herself, using about 2 bundles of heroin and $200 daily of cocaine. She has been non-adherent with meds since 08/2021. Recently discharged from [facility], stepped down to [facility] and left after 24 hours. Poor sleep and appetite x 3 days in context of homelessness. Plan: Pt says she wants to go up on her methadone, will place addiction consult. Pt requests? seroquel 25 mg TID. Pt had been prescribed zoloft 100 mg but had not picked it up, wants to trial this dose, as she did not feel 50 mg was helping. Says gabapentin is for nerve damage and pain.? 10/17/21: Will decrease ativan PRN to 1 mg Q8H due to oversedation, will continue to taper to avoid concomitant use with methadone 10/18/21: Will decrease ativan PRN to 1 mg Q12H, addiction consult appreciated 10/19: further taper ativan, add prazosin 1 mg QHS. 10/20: ativan is DCed and should not be provided. prazosin increased to 2 mg at HS. wellbutrin increased to 300 mg daily. I spent ___25___ minutes with the patient and/or on the patient floor today, greater than?50% of which was spent counseling/coordinating care. Reason for contiued inpatient stay Substantial Risk for: harm to self, inability to function and rapid decompensation
[2021-10-20] MEDS: QUEtiapine Fumarate 200 MG TABLET PO (20:10)
[2021-10-20] MEDS: Prazosin HCL 1 MG CAPSULE 2 MG PO (20:10)
[2021-10-20] MEDS: hydrOXYzine HCL 50 MG TABLET PO (20:10)
[2021-10-20 20:13] VITALS: BP 123/72; PULSE 75; RESP 16; TEMP 36.6; O2SAT 95
[2021-10-21 07:58] VITALS: BP 116/69; PULSE 103; RESP 16; TEMP 36.2; O2SAT 96
[2021-10-21] MEDS: polyethylene glycoL 3350 17 GM POWD.PACK PO (08:05)
[2021-10-21] MEDS: Multivitamin TABLET 1 TAB PO (08:06)
[2021-10-21] MEDS: Sertraline HCL 100 MG TABLET PO (08:06)
[2021-10-21] MEDS: buPROPion HCl XL 300 MG TAB.ER.24H PO (08:06)
[2021-10-21] MEDS: Baclofen 10 MG TABLET PO ×3 (08:06→20:33)
[2021-10-21] MEDS: Gabapentin 600 MG TABLET PO ×4 (08:06→20:33)
[2021-10-21] MEDS: Thiamine HCL 100 MG TABLET PO (08:06)
[2021-10-21] MEDS: QUEtiapine Fumarate 25 MG TABLET PO ×3 (08:06→16:26)
[2021-10-21] MEDS: Milk of Magnesia 30 ML ORAL.SUSP PO (08:10)
[2021-10-21] MEDS: Nystatin Oral Susp 500,000 UNIT/5 ML ORAL.SUSP 400000 UNIT BUCCAL ×4 (08:10→20:33)
[2021-10-21] MEDS: methADONE HCl 20 MG/2 ML ORAL.CONC 135 MG PO (08:10)
[2021-10-21] MEDS: Clotrimazole 1 % Cream 15 GM TUBE 1 APPL TOPICAL (10:21)
--- NOTE | 2021-10-21 15:15 | HO.PSYCHPN ---
Subjective Subjective Date of Service: 10/21/21 Reason For Visit: Depression, Opiate, Cocaine, Cannabis Use disorder Interim History: pt irritable and somewhat labile. states she is under a lot of strain these days, losing her car, her housing (family custodial), and now likely her children. she seems overwhelmed at the prospect of leaving the hospital, feeling her mood continues to be very low. MD and pt discuss options, referral to rehab seems most immediately helpful. referral to [facility] underway. review that her wellbutrin was just increased as of this morning. c/o poor sleep (MNA), agrees to increase prazosin at HS. also asking for anxiety PRN, agrees to prazosin 1 mg PRN. will check in again tomorrow. per staff, declined 1:1 mtg, sleepy during days. irritable. sleepy eves. not attending groups. isolative, withdrawn. per SW, pt informed her she is depressed and suicidal and not ready for discharge and if she is discharged tomorrow she will stab herself in the neck with a needle. Mental Status Exam Mental Status Exam Narrative: A&O. In hospital attire, long hair, unkempt appearance. fair eye contact. No Tics or Tremors. No abnormal involuntary movements. Non-pressured speech, spontaneous with regular rate and rhythm, normal volume and prosody. No prolonged speech latency or dysarthria. Mood is ?depressed,? affect is constricted but somewhat labile with period of tearfulness. no SI/HI/AVH expressed. Diagnostics Vital Signs (24Hr): Vital Signs - 24 hr 10/20/21 20:13 10/21/21 07:58 Temperature 97.9 F 97.1 F Pulse Rate 75 103 H Respiratory Rate 16 16 Blood Pressure 123/72 116/69 Pulse Oximetry 95 96 BMI result Body Mass Index 25.1 Labs Results: 10/15/21 11:15 10/15/21 13:48 Imaging Radiology Impressions: ITS Impressions Ankle X-Ray 10/15/21 13:22 IMPRESSION: Right elbow: Normal. Right wrist: Normal. Right ankle: Normal. Wrist X-Ray 10/15/21 13:22 IMPRESSION: Right elbow: Normal. Right wrist: Normal. Right ankle: Normal. Elbow X-Ray 10/15/21 13:40 IMPRESSION: Right elbow: Normal. Right wrist: Normal. Right ankle: Normal. Foot X-Ray 10/17/21 08:35 IMPRESSION: Unremarkable left foot exam. Medications Medications Current Medications Al Hydroxide/Mg Hydroxide (Magnesium Hydrox/Alum Hydrox 30 Ml Oral.Susp) 30 ml PO Q6H PRN PRN Reason: Heartburn/Nausea Baclofen (Baclofen 10 Mg Tablet) 10 mg PO TID [facility] Last Admin: 10/21/21 08:06 Dose: 10 mg Documented by: Bupropion HCl (Bupropion Hcl Xl 300 Mg Tab.Er.24h) 300 mg PO DAILY [facility] Last Admin: 10/21/21 08:06 Dose: 300 mg Documented by: Clotrimazole (Clotrimazole 1 % Cream 15 Gm Tube) 1 appl TOPICAL BID [facility] Last Admin: 10/21/21 10:21 Dose: 1 appl Documented by: Gabapentin (Gabapentin 600 Mg Tablet) 600 mg PO QID [facility] Last Admin: 10/21/21 13:01 Dose: 600 mg Documented by: Hydroxyzine HCl (Hydroxyzine Hcl 50 Mg Tablet) 50 mg PO TID PRN PRN Reason: Anxiety Last Admin: 10/20/21 20:10 Dose: 50 mg Documented by: Ibuprofen (Ibuprofen 600 Mg Tablet) 600 mg PO Q6H PRN PRN Reason: Pain, Mild (Pain Scale 1-3) Last Admin: 10/20/21 20:10 Dose: 600 mg Documented by: Magnesium Hydroxide (Milk Of Magnesia 30 Ml Oral.Susp) 30 ml PO DAILY PRN PRN Reason: Constipation Last Admin: 10/21/21 08:10 Dose: 30 ml Documented by: Methadone HCl (Methadone Hcl 20 Mg/2 Ml Oral.Conc) 135 mg PO DAILY [facility] Last Admin: 10/21/21 08:10 Dose: 135 mg Documented by: Multivitamins/Vitamin C (Multivitamin Tablet) 1 tab PO DAILY [facility] Last Admin: 10/21/21 08:06 Dose: 1 tab Documented by: Patient Own Med( Sofosbuvir- Velpatasvir 400-100 Mg Tablet) 1 each PO DAILY [facility] Last Admin: 10/21/21 08:07 Dose: 1 each Documented by: Nystatin (Nystatin Oral Susp 500,000 Unit/5 Ml Oral.Susp) 400,000 unit BUCCAL QID [facility] Last Admin: 10/21/21 13:02 Dose: 400,000 unit Documented by: Ondansetron HCl (Ondansetron Odt 8 Mg Tab.Rapdis) 4 mg TRANSLINGU Q8H PRN PRN Reason: nausea Polyethylene Glycol (Polyethylene Glycol 3350 17 Gm Powd.Pack) 17 gm PO DAILY [facility] Last Admin: 10/21/21 08:05 Dose: 17 gm Documented by: Prazosin HCl (Prazosin Hcl 1 Mg Capsule) 3 mg PO BEDTIME [place]; Protocol Prazosin HCl (Prazosin Hcl 1 Mg Capsule) 1 mg PO Q6H PRN; Protocol PRN Reason: anxiety Quetiapine Fumarate (Quetiapine Fumarate 200 Mg Tablet) 200 mg PO BEDTIME [facility] Last Admin: 10/20/21 20:10 Dose: 200 mg Documented by: Quetiapine Fumarate (Quetiapine Fumarate 25 Mg Tablet) 25 mg PO TID@0800,1200,1600 [facility] Last Admin: 10/21/21 13:01 Dose: 25 mg Documented by: Sertraline HCl (Sertraline Hcl 100 Mg Tablet) 100 mg PO DAILY [facility] Last Admin: 10/21/21 08:06 Dose: 100 mg Documented by: Thiamine HCl (Thiamine Hcl 100 Mg Tablet) 100 mg PO DAILY [facility] Last Admin: 10/21/21 08:06 Dose: 100 mg Documented by: Trazodone HCl (Trazodone Hcl 50 Mg Tablet) 50 mg PO BEDTIME PRN PRN Reason: Insomnia Allergies Allergies Allergy/AdvReac Type Severity Reaction Status Date / Time acetaminophen [From TYLENOL] Allergy Unknown Rash Verified 10/16/21 06:40 amoxicillin [Amoxicillin] Allergy Unknown Rash Verified 10/16/21 06:40 seafood Allergy Unknown Rash Verified 10/16/21 06:40 Assessment & Plan Assessment & Plan (1) Opioid use disorder: Status: Acute Code(s): F11.90 - Opioid use, unspecified, uncomplicated (2) Post traumatic stress disorder (PTSD): Status: Acute Code(s): F43.10 - Post-traumatic stress disorder, unspecified (3) MAGO (generalized anxiety disorder): Status: Acute Code(s): F41.1 - Generalized anxiety disorder (4) Cocaine use disorder: Status: Acute Code(s): F14.10 - Cocaine abuse, uncomplicated Plan Devika is a 35 year old female who carries a dx of opioid use disorder, PTSD, and MAGO. She presented to the ED on 10/15/21 due to depression, SI, command AH telling her to kill herself, and relapsed on heroin at 0300 this morning. Utox positive for heroin, fentanyl, cocaine, and cannabis. She reported binge using with hopes to kill herself, using about 2 bundles of heroin and $200 daily of cocaine. She has been non-adherent with meds since 08/2021. Recently discharged from [facility], stepped down to [facility] and left after 24 hours. Poor sleep and appetite x 3 days in context of homelessness. Plan: Pt says she wants to go up on her methadone, will place addiction consult. Pt requests? seroquel 25 mg TID. Pt had been prescribed zoloft 100 mg but had not picked it up, wants to trial this dose, as she did not feel 50 mg was helping. Says gabapentin is for nerve damage and pain.? 10/17/21: Will decrease ativan PRN to 1 mg Q8H due to oversedation, will continue to taper to avoid concomitant use with methadone 10/18/21: Will decrease ativan PRN to 1 mg Q12H, addiction consult appreciated 10/19: further taper ativan, add prazosin 1 mg QHS. 10/20: ativan is DCed and should not be provided. prazosin increased to 2 mg at HS. wellbutrin increased to 300 mg daily. 10/21: referral to [facility] made, pt may go there as soon as october 28. increase prazosin to 3 mg at HS. I spent ___35___ minutes with the patient and/or on the patient floor today, greater than?50% of which was spent counseling/coordinating care. Reason for contiued inpatient stay Substantial Risk for: harm to self, inability to function and rapid decompensation
[2021-10-21] MEDS: Prazosin HCL 1 MG CAPSULE PO (16:25)
[2021-10-21] MEDS: hydrOXYzine HCL 50 MG TABLET PO (16:26)
[2021-10-21 20:30] VITALS: BP 115/70; PULSE 90; RESP 16; TEMP 36.6; O2SAT 95
[2021-10-21] MEDS: Prazosin HCL 1 MG CAPSULE 3 MG PO (20:32)
[2021-10-21] MEDS: Ibuprofen 600 MG TABLET PO (20:32)
[2021-10-21] MEDS: QUEtiapine Fumarate 200 MG TABLET PO (20:33)
[2021-10-22 07:00] VITALS: BMI 26.0
[2021-10-22] MEDS: methADONE HCl 20 MG/2 ML ORAL.CONC 135 MG PO (08:03)
[2021-10-22] MEDS: Nystatin Oral Susp 500,000 UNIT/5 ML ORAL.SUSP 400000 UNIT BUCCAL ×4 (08:04→20:36)
[2021-10-22] MEDS: Multivitamin TABLET 1 TAB PO (08:05)
[2021-10-22] MEDS: Baclofen 10 MG TABLET PO ×3 (08:05→20:33)
[2021-10-22] MEDS: buPROPion HCl XL 300 MG TAB.ER.24H PO (08:05)
[2021-10-22] MEDS: Sertraline HCL 100 MG TABLET PO (08:05)
[2021-10-22] MEDS: QUEtiapine Fumarate 25 MG TABLET PO ×3 (08:06→15:53)
[2021-10-22] MEDS: Thiamine HCL 100 MG TABLET PO (08:06)
[2021-10-22] MEDS: Gabapentin 600 MG TABLET PO ×4 (08:06→20:33)
[2021-10-22] MEDS: Ibuprofen 600 MG TABLET PO ×2 (08:10→17:18)
[2021-10-22] MEDS: Ondansetron ODT 8 MG TAB.RAPDIS 4 MG TRANSLINGU (08:10)
[2021-10-22] MEDS: Prazosin HCL 1 MG CAPSULE PO ×2 (08:10→17:18)
[2021-10-22] MEDS: hydrOXYzine HCL 50 MG TABLET PO ×2 (08:10→17:18)
[2021-10-22 08:15] VITALS: BP 107/69; PULSE 88; RESP 16; TEMP 36.7; O2SAT 98
[2021-10-22] MEDS: Clotrimazole 1 % Cream 15 GM TUBE 1 APPL TOPICAL (10:08)
--- NOTE | 2021-10-22 14:37 | P.PNPSI_ITS ---
Subjective Subjective Date of Service: 10/22/21 Reason For Visit: Depression, Opiate, Cocaine, Cannabis Use disorder Interim History: pt reports she did not have any nightmares last night but did not sleep through the night. agrees to increase prazosin to 4 mg tonight and also asks to in crease seroquel to 250 mg at bedtime. also took prazosin 1 mg PRN this morning which she found helpful for anxiety. planning for discharge tomorrow, encouraged to meet with SW today to establish to which retirement she will be discharged. per staff, states she is very depressed. isolative, meds not helping. upset DCF will be taking her child. laughing and joking with peers in the milieu, per staff. not attending groups, rebuffing of staff attempts to engage with her. asking for another test (one done at admission is negative), period is 2 weeks late per her report. Mental Status Exam Mental Status Exam Narrative: A&O. In hospital attire, long hair, unkempt appearance. fair eye contact. No Tics or Tremors. No abnormal involuntary movements. Non-pressured speech, spontaneous with regular rate and rhythm, normal volume and prosody. No prolonged speech latency or dysarthria. affect is constricted, non-labile. no SI/HI/AVH expressed. Diagnostics Vital Signs (24Hr): Vital Signs - 24 hr 10/21/21 20:30 10/22/21 08:15 Temperature 97.9 F 98.1 F Pulse Rate 90 88 Respiratory Rate 16 16 Blood Pressure 115/70 107/69 Pulse Oximetry 95 98 BMI result Body Mass Index 26.0 Labs Results: 10/15/21 11:15 10/15/21 13:48 Imaging Radiology Impressions: ITS Impressions Ankle X-Ray 10/15/21 13:22 IMPRESSION: Right elbow: Normal. Right wrist: Normal. Right ankle: Normal. Wrist X-Ray 10/15/21 13:22 IMPRESSION: Right elbow: Normal. Right wrist: Normal. Right ankle: Normal. Elbow X-Ray 10/15/21 13:40 IMPRESSION: Right elbow: Normal. Right wrist: Normal. Right ankle: Normal. Foot X-Ray 10/17/21 08:35 IMPRESSION: Unremarkable left foot exam. Medications Medications Current Medications Al Hydroxide/Mg Hydroxide (Magnesium Hydrox/Alum Hydrox 30 Ml Oral.Susp) 30 ml PO Q6H PRN PRN Reason: Heartburn/Nausea Baclofen (Baclofen 10 Mg Tablet) 10 mg PO TID [facility] Last Admin: 10/22/21 08:05 Dose: 10 mg Documented by: Bupropion HCl (Bupropion Hcl Xl 300 Mg Tab.Er.24h) 300 mg PO DAILY [facility] Last Admin: 10/22/21 08:05 Dose: 300 mg Documented by: Clotrimazole (Clotrimazole 1 % Cream 15 Gm Tube) 1 appl TOPICAL BID [facility] Last Admin: 10/22/21 10:08 Dose: 1 appl Documented by: Gabapentin (Gabapentin 600 Mg Tablet) 600 mg PO QID [facility] Last Admin: 10/22/21 12:31 Dose: 600 mg Documented by: Hydroxyzine HCl (Hydroxyzine Hcl 50 Mg Tablet) 50 mg PO TID PRN PRN Reason: Anxiety Last Admin: 10/22/21 08:10 Dose: 50 mg Documented by: Ibuprofen (Ibuprofen 600 Mg Tablet) 600 mg PO Q6H PRN PRN Reason: Pain, Mild (Pain Scale 1-3) Last Admin: 10/22/21 08:10 Dose: 600 mg Documented by: Magnesium Hydroxide (Milk Of Magnesia 30 Ml Oral.Susp) 30 ml PO DAILY PRN PRN Reason: Constipation Last Admin: 10/21/21 08:10 Dose: 30 ml Documented by: Methadone HCl (Methadone Hcl 20 Mg/2 Ml Oral.Conc) 135 mg PO DAILY [facility] Last Admin: 10/22/21 08:03 Dose: 135 mg Documented by: Multivitamins/Vitamin C (Multivitamin Tablet) 1 tab PO DAILY [facility] Last Admin: 10/22/21 08:05 Dose: 1 tab Documented by: Patient Own Med( Sofosbuvir- Velpatasvir 400-100 Mg Tablet) 1 each PO DAILY [facility] Last Admin: 10/22/21 08:07 Dose: 1 each Documented by: Nystatin (Nystatin Oral Susp 500,000 Unit/5 Ml Oral.Susp) 400,000 unit BUCCAL QID [facility] Last Admin: 10/22/21 12:31 Dose: 400,000 unit Documented by: Ondansetron HCl (Ondansetron Odt 8 Mg Tab.Rapdis) 4 mg TRANSLINGU Q8H PRN PRN Reason: nausea Last Admin: 10/22/21 08:10 Dose: 4 mg Documented by: Polyethylene Glycol (Polyethylene Glycol 3350 17 Gm Powd.Pack) 17 gm PO DAILY [facility] Last Admin: 10/22/21 08:06 Dose: Not Given Documented by: Prazosin HCl (Prazosin Hcl 1 Mg Capsule) 1 mg PO Q6H PRN; Protocol PRN Reason: anxiety Last Admin: 10/22/21 08:10 Dose: 1 mg Documented by: Prazosin HCl (Prazosin Hcl 1 Mg Capsule) 4 mg PO BEDTIME [facility]; Protocol Quetiapine Fumarate (Quetiapine Fumarate 25 Mg Tablet) 25 mg PO TID@0800,1200,1600 [facility] Last Admin: 10/22/21 12:31 Dose: 25 mg Documented by: Quetiapine Fumarate (Quetiapine Fumarate 50 Mg Tablet) 250 mg PO BEDTIME [place] Sertraline HCl (Sertraline Hcl 100 Mg Tablet) 100 mg PO DAILY [facility] Last Admin: 10/22/21 08:05 Dose: 100 mg Documented by: Thiamine HCl (Thiamine Hcl 100 Mg Tablet) 100 mg PO DAILY [facility] Last Admin: 10/22/21 08:06 Dose: 100 mg Documented by: Trazodone HCl (Trazodone Hcl 50 Mg Tablet) 50 mg PO BEDTIME PRN PRN Reason: Insomnia Allergies Allergies Allergy/AdvReac Type Severity Reaction Status Date / Time acetaminophen [From TYLENOL] Allergy Unknown Rash Verified 10/16/21 06:40 amoxicillin [Amoxicillin] Allergy Unknown Rash Verified 10/16/21 06:40 seafood Allergy Unknown Rash Verified 10/16/21 06:40 Assessment & Plan Assessment & Plan (1) Opioid use disorder: Status: Acute Code(s): F11.90 - Opioid use, unspecified, uncomplicated (2) Post traumatic stress disorder (PTSD): Status: Acute Code(s): F43.10 - Post-traumatic stress disorder, unspecified (3) MAGO (generalized anxiety disorder): Status: Acute Code(s): F41.1 - Generalized anxiety disorder (4) Cocaine use disorder: Status: Acute Code(s): F14.10 - Cocaine abuse, uncomplicated Plan Devika is a 35 year old female who carries a dx of opioid use disorder, PTSD, a nd MAGO. She presented to the ED on 10/15/21 due to depression, SI, command AH telling her to kill herself, and relapsed on heroin at 0300 this morning. Utox positive for heroin, fentanyl, cocaine, and cannabis. She reported binge using with hopes to kill herself, using about 2 bundles of heroin and $200 daily of cocaine. She has been non-adherent with meds since 08/2021. Recently discharged from [facility], stepped down to [facility] and left after 24 hours. Poor sleep and appetite x 3 days in context of homelessness. Plan: Pt says she wants to go up on her methadone, will place addiction consult. Pt requests? seroquel 25 mg TID. Pt had been prescribed zoloft 100 mg but had not picked it up, wants to trial this dose, as she did not feel 50 mg was helping. Says gabapentin is for nerve damage and pain.? 10/17/21: Will decrease ativan PRN to 1 mg Q8H due to oversedation, will continue to taper to avoid concomitant use with methadone 10/18/21: Will decrease ativan PRN to 1 mg Q12H, addiction consult appreciated 10/19: further taper ativan, add prazosin 1 mg QHS. 10/20: ativan is DCed and should not be provided. prazosin increased to 2 mg at HS. wellbutrin increased to 300 mg daily. 10/21: referral to [facility] made, pt may go there as soon as october 28. increase prazosin to 3 mg at HS. 10/22: increase prazosin to 4 mg and seroquel to 250 mg at HS. discharge tomorrow to retirement. I spent __25____ minutes with the patient and/or on the patient floor today, greater than?50% of which was spent counseling/coordinating care. Reason for contiued inpatient stay Substantial Risk for: harm to self, inability to function and rapid decompensation
[2021-10-22 17:15] VITALS: BP 104/64; PULSE 96
[2021-10-22 18:48] LABS: UPreg QC Valid YES; Urine Pregnancy NEGATIVE (NEGATIVE)
[2021-10-22 20:32] VITALS: BP 113/71; PULSE 78; RESP 16; TEMP 36.6; O2SAT 95
[2021-10-22] MEDS: Prazosin HCL 1 MG CAPSULE 4 MG PO (20:34)
[2021-10-22] MEDS: QUEtiapine Fumarate 50 MG TABLET 250 MG PO (20:35)
[2021-10-23] MEDS: methADONE HCl 20 MG/2 ML ORAL.CONC 135 MG PO (08:04)
[2021-10-23] MEDS: Milk of Magnesia 30 ML ORAL.SUSP PO (08:06)
[2021-10-23] MEDS: Nystatin Oral Susp 500,000 UNIT/5 ML ORAL.SUSP 400000 UNIT BUCCAL ×2 (08:06→14:08)
[2021-10-23] MEDS: Multivitamin TABLET 1 TAB PO (08:08)
[2021-10-23] MEDS: Gabapentin 600 MG TABLET PO ×2 (08:08→14:07)
[2021-10-23] MEDS: buPROPion HCl XL 300 MG TAB.ER.24H PO (08:08)
[2021-10-23] MEDS: Baclofen 10 MG TABLET PO ×2 (08:08→14:08)
[2021-10-23] MEDS: Thiamine HCL 100 MG TABLET PO (08:08)
[2021-10-23] MEDS: QUEtiapine Fumarate 25 MG TABLET PO ×2 (08:08→14:09)
[2021-10-23] MEDS: Sertraline HCL 100 MG TABLET PO (08:08)
[2021-10-23] MEDS: Ibuprofen 600 MG TABLET PO (08:13)
[2021-10-23] MEDS: Prazosin HCL 1 MG CAPSULE PO (08:13)
[2021-10-23] MEDS: hydrOXYzine HCL 50 MG TABLET PO (08:13)
[2021-10-23 08:15] VITALS: BP 105/60; PULSE 90; RESP 15; TEMP 36.5; O2SAT 95
--- NOTE | 2021-10-23 10:45 | PM.PSYDC ---
DS: Providers Provider Date of Service: 10/23/21 Date of admission: 10/15/21 23:03 Primary care physician: Unknown Physician Consults: 10/16/21 10:58 Consult to Mental Health Routine Consulting Provider: Jennifer Braun Reason for consultation: methadone maintained, asking for dosing increase Has provider been notified: No 10/16/21 18:22 Addiction Medicine Routine Consulting Provider: Jennifer Braun Reason for consultation: wants increase in methadone DS: Diagnosis Discharge Diagnosis (1) Opioid use disorder: Status: Acute (2) Post traumatic stress disorder (PTSD): Status: Acute (3) MAGO (generalized anxiety disorder): Status: Acute (4) Cocaine use disorder: Status: Acute DS: Medications Discharge Medications Home Medications: Home Medications Medication Instructions Recorded Confirmed baclofen 10 mg tablet 10 mg PO TID 10/15/21 10/15/21 docusate sodium 100 mg PO BID 10/15/21 10/15/21 gabapentin 600 mg PO QID 10/15/21 10/15/21 ibuprofen 600 mg tablet 600 mg PO Q6H PRN 10/15/21 10/15/21 methadone 10 mg/mL oral concentrate 135 mg PO DAILY 10/15/21 10/15/21 sofosbuvir 400 mg-velpatasvir 100 1 tab PO DAILY 10/15/21 10/15/21 mg tablet Previous Rx's Medication Instructions Recorded bupropion HCl 300 mg 24 hr tablet, 300 mg PO DAILY 30 Days #30 tab 10/23/21 extended release clotrimazole 1 % topical cream 1 appl TOPICAL BID 30 Days #100 g 10/23/21 hydroxyzine HCl 50 mg tablet 50 mg PO DAILY PRN #30 tab MDD 50 10/23/21 multivitamin (Daily-Dang) 1 tab PO DAILY 30 Days #30 tab 10/23/21 polyethylene glycol 3350 17 gram 17 g PO DAILY 30 Days #510 g 10/23/21 oral powder packet prazosin 1 mg capsule 1 mg PO BID PRN 30 Days #60 cap 10/23/21 prazosin 1 mg capsule 4 mg PO BEDTIME 30 Days #120 cap 10/23/21 quetiapine 25 mg tablet 25 mg PO TID 30 Days #90 tab 10/23/21 quetiapine 50 mg tablet 250 mg PO BEDTIME 30 Days #150 tab 10/23/21 sertraline 100 mg tablet 100 mg PO DAILY 30 Days #30 tab 10/23/21 Mental Status Exam Mental Status Exam Narrative: A&O. In hospital attire, long hair, unkempt appearance. fair eye contact. No Tics or Tremors. No abnormal involuntary movements. Non-pressured speech, spontaneous with regular rate and rhythm, normal volume and prosody. No prolonged speech latency or dysarthria. affect is constricted, non-labile. mood all right. denies SI/SIBI/HI/AVH. Data Data Completed and Pending Completed studies during hospitalization [Text1]: 10/16/21 10/16/21 10/22/21 09:40 17:52 18:27 Vitamin B12 281 Folate 10.1 Urine Color YELLOW Urine Appearance HAZY Urine pH 6.0 Ur Specific [place] >= 1.030 H Urine Protein NEG Urine Glucose (UA) NEG Urine Ketones NEG Urine Blood NEG Urine Nitrite NEG Ur Leukocyte Esterase 1+ H Urine RBC 0 Urine WBC 0-2 Ur Squamous Epith Cells 2+ Urine Bacteria 2+ Urine Test NEGATIVE 10/15/21 13:53 Blood - Venous Blood Culture - Final No growth after 5 days. 10/15/21 13:49 Blood - Venous Blood Culture - Final No growth after 5 days. 10/16/21 17:52 Urine clean catch - Clean Catch Midstream Urine Culture - Final Imaging Diagnostic Imaging Impressions Ankle X-Ray 10/15/21 13:22 IMPRESSION: Right elbow: Normal. Right wrist: Normal. Right ankle: Normal. Wrist X-Ray 10/15/21 13:22 IMPRESSION: Right elbow: Normal. Right wrist: Normal. Right ankle: Normal. Elbow X-Ray 10/15/21 13:40 IMPRESSION: Right elbow: Normal. Right wrist: Normal. Right ankle: Normal. Foot X-Ray 10/17/21 08:35 IMPRESSION: Unremarkable left foot exam. DS: Summary Hospital Course Hospital Course: per 10/16 admission note: Devika is a 35 year old female who carries a dx of opioid use disorder, PTSD, and MAGO. She presented to the ED on 10/15/21 due to depression, SI, command AH telling her to kill herself, and relapsed on heroin at 0300 this morning. Utox positive for heroin, fentanyl, cocaine, and cannabis. She reported binge using with hopes to kill herself, using about 2 bundles of heroin and $200 daily of cocaine. She has been non-adherent with meds since 08/2021. Recently discharged from [facility], feels I was not ready to leave,? discharged to [facility] and left after 24 hours. Poor sleep and appetite x 3 days in context of homelessness. I evaluated the pt today and upon interview she reports she has felt depressed for over a week and this led to a relapse. Says ?I lost everything,? i.e. car, apartment in context of substance use and depression. Denies having supports, ?I dont have anyone in this world.? Has multiple physical health complaints, i.e. induration on R antecubital area that is painful, recently on bactrim x 2 weeks for cellulitis on R ankle (this is resolved), has oral thrush, yeast infection, athlete?s foot, L foot soft tissue mass (ordered XR, negative), dormant TB. Pt says she was on the streets, does not remember how she injured her foot, says she was not paying attention. Sleep has been poor, was awake for two days. She currently denies SI/SIB/HI and says she feels safe. Energy is low, feels ?drained.? Her anxiety is ?a lot,? ruminating. Endorses sx of PTSD, including nightmares and flashbacks. Endorses AH, says she hears a male voice who tells her to ?go get high.? Had been non-adherent with medications prior to admission. Past Psychiatric History: -Hx of multiple inpatient admissions, detoxes. Medical Evaluation Reviewed: Yes PMFSH Social History: -She is currently homeless and reported wandering the community for three days, not eating or sleeping X3 days. Has 3 children (not in her custody). Substance History: -Heroin: 2 bundles, last Used 10/14/21? -Crack/Cocaine: $200, Last Used 10/14/21 -Utox positive for heroin, cocaine, marijuana, fentanyl 10/19: pt calm and cooperative.? c/o right antecubital fossa pain with extension (started yesterday), painless mobile subcutaneous lump in the same area (for the past two weeks).? c/o being depressed, denies SI (including prior to admission).? having dreams about SIB from which she awakens in a sweat.? discuss R/B of prazosin for nightmares and insomnia in PTSD, pt agrees to trial, will start tonight at 1 mg.? c/o having started but not finished a course of antibx for cellulitis on her foot, reporting ongoing cellulitis there and asking to restart her antibx as she knows it is important to finish the course.? per staff, dep 03/08.? +CAH to leave the hospital and use drugs.? c/o poor sleep, eating well.? slept with extra meds at [facility]. 10/20: found sleeping in bed mid-afternoon.? states she falls asleep at night but has trouble staying asleep.? agrees to increase prazosin to 2 mg.? c/o feeling down, ruminating on her hard-luck life, as she sees it.? thinking about hurting herself after leaving the hospital, reports CAH to hurt herself.? says perhaps she is not on enough anti-depressant, or the wrong one.? meds reviewed, pt agrees to switch wellbutrin to XL formulation and to increase daily dose to 300 mg.? per staff, isolative, withdrawn.? wanting to sleep days.? had an outburst at a peer, irritable.? needed to be redirected from male peers.? eating well, appeared to be sleeping well. 10/21: pt irritable and somewhat labile.? states she is under a lot of strain these days, losing her car, her housing (family group home), and now likely her children.? she seems overwhelmed at the prospect of leaving the hospital, feeling her mood continues to be very low.? MD and pt discuss options, referral to rehab seems most immediately helpful.? referral to [facility] underway.? review that her wellbutrin was just increased as of this morning.? c/o poor sleep (MNA), agrees to increase prazosin at HS.? also asking for anxiety PRN, agrees to prazosin 1 mg PRN.? will check in again tomorrow.? per staff, declined 1:1 mtg, sleepy during days.? irritable.? sleepy eves.? not attending groups.? isolative, withdrawn.? per SW, pt informed her she is depressed and suicidal and not ready for discharge and if she is discharged tomorrow she will stab herself in the neck with a needle. 10/22: pt reports she did not have any nightmares last night but did not sleep through the night.? agrees to increase prazosin to 4 mg tonight and also asks to increase seroquel to 250 mg at bedtime.? also took prazosin 1 mg PRN this morning which she found helpful for anxiety.? planning for discharge tomorrow, encouraged to meet with SW today to establish to which group home she will be discharged.? per staff, states she is very depressed. ? isolative, meds not helping.? upset DCF will be taking her child.? laughing and joking with peers in the milieu, per staff.? not attending groups, rebuffing of staff attempts to engage with her.? asking for another test (one done at admission is negative), period is 2 weeks late per her report. Precis: Devika is a 35 year old female who carries a dx of opioid use disorder, PTSD, and MAGO. She presented to the ED on 10/15/21 due to depression, SI, command AH telling her to kill herself, and relapsed on heroin at 0300 this morning. Utox positive for heroin, fentanyl, cocaine, and cannabis. She reported binge using with hopes to kill herself, using about 2 bundles of heroin and $200 daily of cocaine. She has been non-adherent with meds since 08/2021. Recently discharged from [facility], stepped down to [facility] and left after 24 hours. Poor sleep and appetite x 3 days in context of homelessness. Plan: Pt says she wants to go up on her methadone, will place addiction consult. Pt requests? seroquel 25 mg TID. Pt had been prescribed zoloft 100 mg but had not picked it up, wants to trial this dose, as she did not feel 50 mg was helping. Says gabapentin is for nerve damage and pain.? 10/17/21: Will decrease ativan PRN to 1 mg Q8H due to oversedation, will continue to taper to avoid concomitant use with methadone 10/18/21: Will decrease ativan PRN to 1 mg Q12H, addiction consult appreciated 10/19: further taper ativan, add prazosin 1 mg QHS. 10/20: ativan is DCed and should not be provided.? prazosin increased to 2 mg at HS.? wellbutrin increased to 300 mg daily. 10/21: referral to [facility] made, pt may go there as soon as october 28.? increase prazosin to 3 mg at HS. 10/22: increased prazosin to 4 mg and seroquel to 250 mg at HS.? discharge tomorrow to group home. 10/23: stable. slept better. discharged to group home. aftercare in place. Time Spent with Patient Time attestation: Total time spent providing and/or coordinating discharge services: Time spent: Greater than 30 minutes Discharge Plan Discharge Patient Disposition: [facility] Discharge Diagnosis: PTSD, Chronic Referrals: Jennifer Monaco (psychiatrist) [Other] - 11/17/21 3:30 pm (Appointment is over the phone, but you can go to the clinic and use a phone kiosk there. They have reserved a spot for you on the day of your appointment. Speak with Jennifer to be put on the waitlist for a therapist) [facility] ([facility]) [Other] (Call to check on bed availability. Your referral has been submitted and, pending review, you may be eligible for readmission starting 10/28/21) [facility] [Other] - 10/23/21 4:00 pm (Arrive anytime before 4pm. You can stay in the resource center until dinner is served at 4pm and ask the front end software engineer with any questions. Within 1-2 weeks you will be assigned a nutrition services worker to support you with next steps on securing housing) [facility] (methadone) [Other] - 10/24/21 5:45 am (Bring last dose letter, hospital discharge packet, ID, and insurance card to the clinic. Arrive early to ensure you can get your dose after reviewing last dose letter) [facility] [Physician] - 1 Week Discharge Medications: New multivitamin [Daily-Dang] Tablet 1 tab PO DAILY 30 Days Qty: 30 0RF quetiapine 25 mg Tablet 25 mg PO TID 30 Days Qty: 90 0RF polyethylene glycol 3350 17 gram Powder In Packet 17 g PO DAILY 30 Days Qty: 510 0RF prazosin 1 mg Capsule 4 mg PO BEDTIME 30 Days Qty: 120 0RF Protocol: Hold for SBP< HOLD for SBP < : 90 prazosin 1 mg Capsule 1 mg PO BID PRN (Reason: anxiety) 30 Days Qty: 60 0RF Protocol: Hold for SBP< HOLD for SBP < : 90 clotrimazole 1 % Cream 1 appl topical BID 30 Days Qty: 100 0RF bupropion HCl 300 mg Tablet Extended Release 24 Hr 300 mg PO DAILY 30 Days Qty: 30 0RF quetiapine 50 mg Tablet 250 mg PO BEDTIME 30 Days Qty: 150 0RF hydroxyzine HCl 50 mg tablet 50 mg PO DAILY MDD 50 PRN (Reason: anxiety) Qty: 30 0RF Continued methadone 10 mg/mL Concentrate 135 mg PO DAILY 0RF gabapentin 600 mg 600 mg PO QID 0RF ibuprofen 600 mg Tablet 600 mg PO Q6H PRN (Reason: Pain) 0RF docusate sodium 100 mg 100 mg PO BID 0RF baclofen 10 mg Tablet 10 mg PO TID 0RF sofosbuvir-velpatasvir 400-100 mg Tablet 1 tab PO DAILY 0RF Rx Instructions: 1 tablet by mouth for 12 weeks sertraline 100 mg Tablet 100 mg PO DAILY 30 Days Qty: 30 0RF Discontinued quetiapine 200 mg Tablet 200 mg PO BEDTIME 0RF bupropion HCl 100 mg Tablet 100 mg PO BID 0RF sulfamethoxazole-trimethoprim 1 tab 1 tab PO BID 0RF Rx Instructions: X 14 days hydroxyzine pamoate 50 mg 50 mg PO TID PRN (Reason: Anxiety) 0RF Discharge Orders: Discharge Order (Routine); Ordered 10/23/21 Ordered By: Javi Brunson Diet: advance to usual diet Activity on Discharge: As tolerated Stand Alone Forms: Patient Portal Discharge page, Community Support Print Language: Tamazight Care Plan Goals: remain safe and sober in outpatient treatment setting Health Concerns: Hepatitis C Tobacco Use Disorder Plan of Treatment: take medications as prescribed, attend appointments as scheduled Assessment: not at imminent risk of harm to self or others
--- NOTE | 2021-10-23 15:09 | PC.NURSE ---
Patient is A & Ox4. Pleasant and cooperative upon approach. Patient reports that she is in agreement with discharge teachings and instructions. Patient denies SI/HI/AH/VH. Reported feeling safe and ready to leave. Patient denies physical complaints.
== END 2021-10-23 14:55 | disposition home or self-care (01) | DRG 756 ==
LOC: HO.ED 15:57 → HO.PADLT16 23:07
PROVIDERS: Physician Assistant Medical; Psychiatry & Neurology Psychiatry; Admitting Provider Clinical Nurse Specialist Psychiatric/Mental Health, Adult; Emergency Provider Emergency Medicine; Visit Provider Clinical Nurse Specialist Psychiatric/Mental Health, Adult
DX: F41.1 Generalized anxiety disorder (principal); Z91.14 Patient's other noncompliance with medication regimen; F11.20 Opioid dependence, uncomplicated; F43.12 Post-traumatic stress disorder, chronic; Z20.822 Contact with and (suspected) exposure to COVID-19; Z91.013 Allergy to seafood; Z88.0 Allergy status to penicillin; Z88.6 Allergy status to analgesic agent; Z59.02 Unsheltered homelessness; Z79.899 Other long term (current) drug therapy
CPT/HCPCS: 36415; 73080; 73100; 73610; 73630; 80053; 80061; 80307; 81001; 81025; 82607; 82746; 83036; 83605; 83735; 84439; 84443; 85025; 85652; 86140; 87040; 87086; 87635; 93005; 99285

== ENCOUNTER 2021-12-17 09:53 | Inpatient (IN) | payer OTHER, SELFPAY ==
--- NOTE | 2021-12-17 | ECG_ITS ---
Test Reason : MED CLEARANCE Blood Pressure : / mmHG Vent. Rate : 045 BPM Atrial Rate : 045 BPM P-R Int : 120 ms QRS Dur : 100 ms QT Int : 462 ms P-R-T Axes : 048 076 064 degrees QTc Int : 399 ms Sinus bradycardia Otherwise normal ECG When compared with ECG of 15-OCT-2021 21:47, Vent. rate has decreased BY 27 BPM QT has shortened Referred By: Christopher Phillips Electronically Signed By:Chapin Durant
[2021-12-17 10:45] LABS: Amphetamine Screen Urine Not Detected (Not Detect); Barbiturates, Urine Not Detected (Not Detect); Benzodiazepines Screen Urine Not Detected (Not Detect); Cannabinoid Screen Urine POSITIVE (Not Detect); Cocaine Screen Urine POSITIVE (Not Detect); Fentanyl, urine POSITIVE (Not Detect); Opiate Screen Urine Not Detected (Not Detect); Phencyclidine Screen Urine Not Detected (Not Detect)
[2021-12-17 10:47] LABS: UPreg QC Valid YES
[2021-12-17 10:48] LABS: COVID-19 Test Negative (Negative)
[2021-12-17 10:49] LABS: Urine Pregnancy NEGATIVE (NEGATIVE)
[2021-12-17 10:51] VITALS: BP 102/44; BP 112/74; PULSE 55; PULSE 60; RESP 18; TEMP 36.8; O2SAT 97; O2SAT 98; BMI 27.1
[2021-12-17 11:19] LABS: Prothrombin Time 11.8 SEC (10.0-13.1)
[2021-12-17 11:32] LABS: Alanine Aminotransferase 11 U/L (0-31); Albumin Level 3.9 g/dL (3.5-5.0); Alkaline Phosphatase 77 U/L (39-117); Anion Gap 13 (12-20); Aspartate Amino Transferase 16 U/L (5-31); Bilirubin Total 0.2 mg/dL (0.0-1.0); Blood Urea Nitrogen 9 mg/dL (9-16); Calcium 9.5 mg/dL (8.4-10.2); Carbon Dioxide 29 mmol/L (22-29); Chloride 102 mmol/L (96-108); Creatinine Clr Calc Pharmacy 96.1; Estimated Glomerular Filt Rate > 60; Ethanol < 10 mg/dL; Glucose Fasting 94 mg/dL (60-99); Potassium 4.5 mmol/L (3.3-5.1); Sodium 139 mmol/L (135-145); Total Protein 6.9 g/dL (6.5-8.0)
--- NOTE | 2021-12-17 11:41 | HE.PHANOTE ---
RE METHADONE PATIENT RECEIVED 2 TAKE HOME METHADONE CONTAINERS ON 12/16, ONE IS USED AND ONE IS INTACT. thanks leeann
--- NOTE | 2021-12-17 11:52 | ED_ITS ---
HPI - Psych General Chief Complaint: Psychiatric Symptoms Stated Complaint: SI,VOLUNRTARY,[facility] SAW COMM,BED SEARCH IN PROGRESS Time Seen by Provider: 12/17/21 10:37 Source: patient and EMS Mode of arrival: EMS Limitations: no limitations History of Present Illness HPI Narrative: 35-year-old female with a past medical history of opioid use disorder, PTSD, generalized anxiety disorder and depression who has had episodes of auditory hallucinations and SI in the past who was recently admitted here on 10/16/2021 and then discharged on 10/23/2021 for similar complaint presenting to the ED today with complaints of increased anxiety / depression with SI thoughts to take a needle full of drugs and put into her neck vein so she can overdose. She reports that she normally does have auditory hallucinations although at this time she does not have any hallucinations. She reports that she last used heroin and cocaine that she injected proximally 4 days ago. She denies any alcohol usage. She denies any other drug usage. She reports she is homeless. She was recently in the living room and was telling the staff workers how she was feeling therefore they called [facility] apparently patient is the bed search from the community with [facility]. She reports she also picked up her psychiatric medications a few days ago although she has not taken her psychiatric medications and a few months since she was discharged here. She denies any fevers, chills, dizziness, headaches, neck pain/ stiffness, trouble swallowing or breathing, chest pain or shortness of breath, dyspnea on exertion, orthopnea, cough, palpitations, paresthesias, nausea/vomiting / diarrhea constipation, black or bloody stools, abdominal pain, back pain, rashes, recent falls or trauma, thoughts of STDs, dysuria, hematuria, abnormal vaginal discharge, lower extremity edema or calf tenderness, recent travel or sick contacts or any other symptoms complaints or concerns at this time. complaint: suicidal ideation, feels depressed, anxiety and substance abuse Onset (ago): week(s) Duration: constant and getting worse History of same: Yes Relieving factors: none Exacerbating factors: drug use and other ( and currently homeless) Context: recent drug abuse, not taking psychiatric medications and significant life stressor ( homeless) Associated psychiatric symptoms: depression, suicidal ideation and racing thoughts Associated symptoms: denies other symptoms Treatments prior to arrival: other ( patient was in the living room and was referred to [facility] and apparently she is the community bed search with [facility]) If self harm: has plan ( she reports she is suicidal and her plan would be to overdose on drugs into her neck veins) Related Data Home Medications Medication Instructions Recorded Confirmed baclofen 10 mg tablet 10 mg PO TID 10/15/21 12/17/21 gabapentin 600 mg PO QID 10/15/21 12/17/21 ibuprofen 600 mg tablet 600 mg PO Q6H PRN Pain 10/15/21 12/17/21 methadone 10 mg/mL oral concentrate 140 mg PO DAILY 10/15/21 12/17/21 sofosbuvir 400 mg-velpatasvir 100 1 tab PO DAILY 10/15/21 12/17/21 mg tablet quetiapine 200 mg tablet 1 tab PO BEDTIME 12/17/21 12/17/21 sertraline 100 mg tablet 150 mg PO DAILY 12/17/21 12/17/21 Previous Rx's Medication Instructions Recorded bupropion HCl 300 mg 24 hr tablet, 300 mg PO DAILY 30 days #30 tabs 10/23/21 extended release hydroxyzine HCl 50 mg tablet 50 mg PO DAILY PRN anxiety #30 tabs 10/23/21 multivitamin (Daily-Dang tablet) 1 tab PO DAILY 30 days #30 tabs 10/23/21 quetiapine 25 mg tablet 25 mg PO TID 30 days #90 tabs 10/23/21 Allergies Allergy/AdvReac Type Severity Reaction Status Date / Time acetaminophen [From TYLENOL] Allergy Unknown Rash Verified 10/16/21 06:40 amoxicillin [Amoxicillin] Allergy Unknown Rash Verified 10/16/21 06:40 seafood Allergy Unknown Rash Verified 10/16/21 06:40 Review of Systems Review of Systems: Constitutional : No Fever, No Chills ENT/Mouth : No Ear Pain, No Nasal Congestion, No sore throat Eyes: No Eye Pain, No Swelling, No Redness Cardiovascular : No Chest Pain, No SOB Respiratory : No Cough, No Sputum, No Dyspnea Gastrointestinal : No ingestions, No Nausea, No Vomiting, No Diarrhea, No Hematochezia, No Melena Genitourinary : No Dysuria, No Urinary Frequency, No Hematuria Musculoskeletal : No Myalgias Skin : No Skin Lesions, No rash Neuro : No Weakness, No Numbness, No Paresthesias, No Dizziness, No Headache Psych : + Anxiety, + Depression, + SI, + thoughts of self injury, No HI, No AVH, Heme/Lymph: No Lymphadenopathy Endocrine : No Polyuria, No Polydipsia Yes all other systems are reviewed and are negative [facility] Past Medical History Attestation statement: The following information was validated with the patient. Source: old records reviewed and nursing notes reviewed Medical History Fall MAGO (generalized anxiety disorder) Social History Social History Household Members: None Housing: Homeless Do you presently have visiting nurse or other home services: No Patient Tobacco Use Status: Never used Tobacco Substance Use Type: Crack/Cocaine, Heroin and Marijuana Advance Directives: No Advance Directives Information Provided: Yes service: No Sexual orientation: Did not discuss. Physical Exam Vital Signs: Vital Signs: Last Vital Signs Temp 98.3 F 12/17/21 10:51 Pulse 55 12/17/21 10:51 Resp 18 12/17/21 10:51 BP 102/44 L 12/17/21 10:51 Pulse Ox 98 12/17/21 10:51 O2 Del Method 12/17/21 10:51 BMI result Body Mass Index 27.1 vital signs have been reviewed as normal and appeared to be correct. Blood pressure 102/44. Heart rate normal. Respiration rate normal. Temperature norm al. Oxygen saturation normal. Appearance: Alert. Oriented X3. No acute dis tress. Head: Normal external exam. Normocephalic. Atraumatic. Eyes: PERRLA. EOMI. Conjunctiva and sclera normal. Eyelids normal. ENT: EAC normal. TM's Normal. Pharynx normal. Uvula midline. Moist mucous membranes. No trismus noted. No drooling noted. No muffled voice noted. Neck: Normal inspection. Neck supple. FROM. No adenopathy. Thyroid Normal. No meningeal signs. No neck mass noted. CVS: Normal heart rate and rhythm. Heart sound normal. No murmurs noted. Pulses normal throughout. Respiratory: No respiratory distress. Painless inspiration. Breath sounds normal. No wheezes/rales/rhonchi noted. Chest nontender. No accessory muscle usage noted or decreased air movement noted. Abdomen: Soft and nontender. Bowel sounds normal in all 4 quadrants. No distention noted. No organomegaly noted. No visible injury noted. Back: No CVA tenderness. Full range of motion noted. Skin: Skin warm and dry. Normal skin color. Normal skin turgor. No rashes/lesions/lacerations noted. Extremities: No lower extremity edema. Extremities exhibit normal range of motion. Extremities nontender. Neuro: Oriented X 3. No motor deficit. No sensory deficit. Reflexes normal. CN's II-XII intact bilaterally? Psych: Appearance grossly normal, well-kept, mental status normal, speech and movement normal, speech clear, patient appears very sad and anxious along with depressed. Is cooperative. Course Course Course Narrative: 10:40am - 35-year-old female with a past medical history of opioid use disorder, PTSD, generalized anxiety disorder and depression who has had episodes of auditory hallucinations and SI in the past who was recently admitted here on 10/16/2021- 10/23/2021 for similar complaint presenting to the ED today with complaints of increased anxiety / depression with SI thoughts to take a needle full of drugs and put into her neck vein so she can overdose. Last substance abuse heroin/ cocaine that she injected proximally 4 days ago. No alcohol usage per patient. She is homeless. Was recently in the living room and was telling staff about her feelings and they called [facility] and patient is a [facility] Community bed search. She has also not been taking her psychiatric medications since she was discharged here when she was admitted. Plan: Will obtain labs, UA, drugs of abuse screen and re-evaluate. Reevaluation(s) Reevaluation #1: - Labs reviewed patient's chemistry is within normal limits. Patient is negative for . UA revealed positive Fentanyl/cocaine / marijuana negative for all other drugs and ETOH. Patient negative for COVID. - awaiting the patient's chemistry. - Although the Thomas at this time patient medically cleared and placed in Physician observation because the patient needs more time to be evaluated by crisis although it appears that patient is a [facility] outpatient community bed search will continue to monitor. She denies any complaints or concerns at this time. No focal neuro deficits are noted. Normal steady gait. Lungs clear to auscultation. CV RRR. Abdomen is soft and nontender. Time: 12:16 MDM - Psych Medical Records Attestation: I reviewed the patient's medical records. Lab Data Attestation: I reviewed the patient's lab results. Result diagrams: 12/17/21 11:07 12/17/21 11:07 Labs: Lab Results 12/17/21 12/17/21 12/17/21 Range/Units 10:14 10:14 10:14 PT (10.0-13.1) SEC INR (0.9-1.1) Sodium (135-145) mmol/L Potassium (3.3-5.1) mmol/L Chloride (96-108) mmol/L Carbon Dioxide (22-29) mmol/L Anion Gap (12-20) BUN (9-16) mg/dL Creatinine (0.5-1.4) mg/dL Estim Creat Clear Calc Estimated GFR Fasting Glucose (60-99) mg/dL Calcium (8.4-10.2) mg/dL Magnesium (1.6-2.6) mg/dL Total Bilirubin (0.0-1.0) mg/dL AST (5-31) U/L ALT (0-31) U/L Alkaline Phosphatase (39-117) U/L Total Protein (6.5-8.0) g/dL Albumin (3.5-5.0) g/dL Urine Test NEGATIVE (NEGATIVE) Urine Opiates Screen Not Detected (Not Detect) Urine Fentanyl Screen POSITIVE H (Not Detect) Ur Barbiturates Screen Not Detected (Not Detect) Ur Phencyclidine Scrn Not Detected (Not Detect) Ur Amphetamines Screen Not Detected (Not Detect) U Benzodiazepines Scrn Not Detected (Not Detect) Urine Cocaine Screen POSITIVE H (Not Detect) U Marijuana (THC) Screen POSITIVE H (Not Detect) Ethyl Alcohol mg/dL COVID-19 (ANGELA) Negative (Negative) COVID-19 Clin Com See Note 12/17/21 12/17/21 Range/Units 11:07 11:07 PT 11.8 (10.0-13.1) SEC INR 1.0 (0.9-1.1) Sodium 139 (135-145) mmol/L Potassium 4.5 (3.3-5.1) mmol/L Chloride 102 (96-108) mmol/L Carbon Dioxide 29 (22-29) mmol/L Anion Gap 13 (12-20) BUN 9 D (9-16) mg/dL Creatinine 0.80 (0.5-1.4) mg/dL Estim Creat Clear Calc 96.1 Estimated GFR > 60 Fasting Glucose 94 (60-99) mg/dL Calcium 9.5 D (8.4-10.2) mg/dL Magnesium 2.0 (1.6-2.6) mg/dL Total Bilirubin 0.2 (0.0-1.0) mg/dL AST 16 D (5-31) U/L ALT 11 (0-31) U/L Alkaline Phosphatase 77 (39-117) U/L Total Protein 6.9 (6.5-8.0) g/dL Albumin 3.9 (3.5-5.0) g/dL Urine Test (NEGATIVE) Urine Opiates Screen (Not Detect) Urine Fentanyl Screen (Not Detect) Ur Barbiturates Screen (Not Detect) Ur Phencyclidine Scrn (Not Detect) Ur Amphetamines Screen (Not Detect) U Benzodiazepines Scrn (Not Detect) Urine Cocaine Screen (Not Detect) U Marijuana (THC) Screen (Not Detect) Ethyl Alcohol < 10 mg/dL COVID-19 (ANGELA) (Negative) COVID-19 Clin Com Discharge Plan Discharge Clinical Impression: Suicidal ideation, Depression, Acute anxiety, Substance abuse Patient Disposition: Still a Patient Prescriptions: No Action methadone 10 mg/mL Concentrate 140 mg PO DAILY gabapentin 600 mg 600 mg PO QID ibuprofen 600 mg Tablet 600 mg PO Q6H PRN (Reason: Pain) baclofen 10 mg Tablet 10 mg PO TID sofosbuvir-velpatasvir 400-100 mg Tablet 1 tab PO DAILY Rx Instructions: 1 tablet by mouth for 12 weeks multivitamin [Daily-Dang] Tablet 1 tab PO DAILY 30 Days Qty: 30 0RF quetiapine 25 mg Tablet 25 mg PO TID 30 Days Qty: 90 0RF bupropion HCl 300 mg Tablet Extended Release 24 Hr 300 mg PO DAILY 30 Days Qty: 30 0RF hydroxyzine HCl 50 mg tablet 50 mg PO DAILY MDD 50 PRN (Reason: anxiety) Qty: 30 0RF quetiapine 200 mg tablet 1 tab PO BEDTIME sertraline 100 mg tablet 150 mg PO DAILY
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
[2021-12-17 19:00] VITALS: BP 96/53; PULSE 53; RESP 16; TEMP 36.1; O2SAT 99
[2021-12-17] MEDS: Baclofen 10 MG TABLET PO (20:42)
[2021-12-17] MEDS: QUEtiapine Fumarate 25 MG TABLET PO (20:42)
[2021-12-17] MEDS: QUEtiapine Fumarate 200 MG TABLET PO (20:42)
[2021-12-17] MEDS: Gabapentin 600 MG TABLET PO (20:43)
[2021-12-18 02:37] VITALS: BP 106/57; PULSE 65; RESP 15; TEMP 36.4; O2SAT 98
--- NOTE | 2021-12-18 06:16 | PC.NURSE ---
Patient slept through the night, no distress observed/reported, medication compliant, behavior non concerning, disposition per [facility] is section 12 inpatient bed search, VSS, will continue to monitor.
[2021-12-18] MEDS: Gabapentin 600 MG TABLET PO ×4 (07:51→21:32)
[2021-12-18] MEDS: QUEtiapine Fumarate 25 MG TABLET PO ×2 (07:51→13:47)
[2021-12-18] MEDS: buPROPion HCl XL 300 MG TAB.ER.24H PO (07:51)
[2021-12-18] MEDS: Multivitamin TABLET 1 TAB PO (07:51)
[2021-12-18] MEDS: Baclofen 10 MG TABLET PO ×3 (07:51→21:32)
[2021-12-18] MEDS: Sertraline HCL 50 MG TABLET 150 MG PO (07:53)
[2021-12-18] MEDS: methADONE HCl 20 MG/2 ML ORAL.CONC 140 MG PO (07:53)
[2021-12-18 07:55] VITALS: BP 103/73; PULSE 75; RESP 16; TEMP 36.3; O2SAT 98
[2021-12-18 09:58] LABS: MANUAL DIFF FLAG NO
[2021-12-18 10:04] LABS: Basophils Percent Auto 0.4 % (0-2); Eosinophils Absolute Auto 0.1 X10*3/uL (0.0-0.4); Eosinophils Percent Auto 1.8 % (0-4); Hematocrit 41.3 % (37.0-47.0); Hemoglobin 13.2 g/dl (12.0-16.0); Imm Gran Abs Auto 0.01 X10*3/uL (0.00-0.03); Imm Gran Pct Auto 0.2 % (0.0-0.4); Lymphocytes Absolute Auto 2.5 X10*3/uL (1.2-4.9); Lymphocytes Percent Auto 49.6 % (20-40); Mean Corpuscular Hemoglobin 27.5 pg (27.0-33.0); Mean Platelet Volume 9.5 fL (9.4-12.3); Monocytes Absolute Auto 0.3 X10*3/uL (0.1-1.2); Monocytes Percent Auto 6.7 % (2-11); Neutrophils Absolute Auto 2.1 x10*3/uL (2.0-8.3); Neutrophils Percent Auto 41.3 % (45-73); Platelet Count 322 X10*3/uL (160-400); Red Cell Distribution Width 13.1 % (11.0-16.0)
[2021-12-18 10:12] LABS: COVID-19 Test Negative (Negative); IDNOW Serial# 08D9AD1C
--- NOTE | 2021-12-18 14:07 | PC.NURSE ---
Patient reports ear pain. Provider aware and will assess pt.
[2021-12-18] MEDS: Nicotine 21 MG PATCH.TD24 TRANSDERMA (14:50)
--- NOTE | 2021-12-18 15:48 | PC.NURSE ---
assumed care of pt, pt sleeping RR even and unlabored.
[2021-12-18 20:41] VITALS: BP 108/76; PULSE 64; RESP 16; TEMP 36.8; O2SAT 97
[2021-12-18] MEDS: QUEtiapine Fumarate 200 MG TABLET PO (21:32)
[2021-12-19] MEDS: hydrOXYzine HCL 50 MG TABLET PO (00:42)
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
[2021-12-19 05:54] VITALS: BP 111/69; PULSE 96; RESP 18; TEMP 36.6; O2SAT 98
[2021-12-19 06:00] VITALS: BP 114/72; PULSE 89; RESP 18; TEMP 36.8; O2SAT 98
[2021-12-19 08:22] LABS: Estimated Average Glucose 97 mg/dL
[2021-12-19 08:32] LABS: Cholesterol 164 mg/dL; HDL Cholesterol 32 mg/dL; LDL Cholesterol Calculated 86 mg/dl; Magnesium 1.9 mg/dL (1.6-2.6); Triglycerides 233 mg/dL
[2021-12-19 08:37] LABS: Thyroid Stimulating Hormone 0.37 uIU/mL (0.32-4.0)
[2021-12-19] MEDS: Multivitamin TABLET 1 TAB PO (08:45)
[2021-12-19] MEDS: Sertraline HCL 50 MG TABLET 150 MG PO (08:46)
[2021-12-19] MEDS: Baclofen 10 MG TABLET PO ×3 (08:46→19:27)
[2021-12-19] MEDS: buPROPion HCl XL 300 MG TAB.ER.24H PO (08:46)
[2021-12-19] MEDS: Gabapentin 600 MG TABLET PO ×4 (08:46→19:26)
[2021-12-19] MEDS: methADONE HCl 20 MG/2 ML ORAL.CONC 140 MG PO (08:48)
[2021-12-19] MEDS: QUEtiapine Fumarate 25 MG TABLET PO ×3 (08:54→19:31)
[2021-12-19 10:27] LABS: Vitamin B12 312 pg/mL (200-900)
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
[2021-12-19] MEDS: Ibuprofen 600 MG TABLET PO ×2 (11:17→17:31)
[2021-12-19 16:54] VITALS: BP 122/74; PULSE 108; RESP 18; TEMP 36.7; O2SAT 97
[2021-12-19] MEDS: QUEtiapine Fumarate 200 MG TABLET PO (20:19)
[2021-12-19] MEDS: hydrOXYzine HCL 25 MG TABLET PO (20:20)
[2021-12-20 06:00] VITALS: BP 118/74; PULSE 100; RESP 18; TEMP 36.6; O2SAT 98
[2021-12-20] MEDS: buPROPion HCl XL 300 MG TAB.ER.24H PO (08:00)
[2021-12-20] MEDS: Sertraline HCL 50 MG TABLET 150 MG PO (08:00)
[2021-12-20] MEDS: Multivitamin TABLET 1 TAB PO (08:00)
[2021-12-20] MEDS: Gabapentin 600 MG TABLET PO ×4 (08:00→20:03)
[2021-12-20] MEDS: methADONE HCl 20 MG/2 ML ORAL.CONC 140 MG PO (08:02)
[2021-12-20] MEDS: Baclofen 10 MG TABLET PO ×3 (08:09→20:03)
[2021-12-20] MEDS: QUEtiapine Fumarate 25 MG TABLET PO ×3 (08:34→18:11)
[2021-12-20] MEDS: Ibuprofen 600 MG TABLET PO ×2 (08:34→20:04)
--- NOTE | 2021-12-20 09:43 | HO.PSYCHPN ---
Subjective Subjective Date of Service: 12/20/21 Reason For Visit: SI,VOLUNRTARY,BHN SAW COMM,BED SEARCH IN PROGRESS Subjective Notes: Conditional Voluntary Healthcare Proxy: No Guardianship: No Medical Problems Affecting Mental Status: No Interim History: Patient was seen and discussed in rounds today. Records and plans were reviewed. She has been stable and is doing better. She is continue to have some anxiety. No SI. No complaints or side effects other than some itching in her hands and a spot of breaking out on her chin and is requesting another lotion. I ordered Eucerin cream b.i.d. p.r.n.. No other changes or additions today Review of Systems Review of Systems Itching in hands and face Yes all other systems are reviewed and are negative Mental Status Exam Mental Status Exam Narrative: Devika was seen today. She is alert, oriented and pleasant. Normal speech. Good eye contact. Affect is appropriate and subdued. Mood is slightly sad. No signs of psychosis. No delusions. No active SI/HI. Cognitively is intact. Judgment is intact Diagnostics Vital Signs (24Hr): Vital Signs - 24 hr 12/19/21 16:54 12/20/21 06:00 Temperature 98.0 F 97.9 F Pulse Rate 108 H 100 Respiratory Rate 18 18 Blood Pressure 122/74 118/74 Pulse Oximetry 97 98 Oxygen Delivery Method Room Air BMI result Body Mass Index 27.1 Labs Results: 12/18/21 09:54 12/17/21 11:07 Labs: Laboratory Results - last 48 hr 12/18/21 12/18/21 12/19/21 09:46 09:54 07:06 WBC 5.0 RBC 4.80 Hgb 13.2 Hct 41.3 MCV 86.0 MCH 27.5 MCHC 32.0 RDW 13.1 Plt Count 322 MPV 9.5 Immature Gran % (Auto) 0.2 Neut % (Auto) 41.3 L Lymph % (Auto) 49.6 H Zapata % (Auto) 6.7 Eos % (Auto) 1.8 Baso % (Auto) 0.4 Lymph # (Auto) 2.5 Zapata # (Auto) 0.3 Eos # (Auto) 0.1 Baso # (Auto) 0.0 Abs Immat Gran (auto) 0.01 Absolute Neuts (auto) 2.1 Absolute Nucleated RBC 0.000 Nucleated RBC % (auto) 0.0 Estimat Average Glucose 97 Hemoglobin A1c % 5.0 Magnesium Triglycerides Cholesterol LDL Cholesterol, Calc HDL Cholesterol Vitamin B12 Folate TSH Free T4 COVID-19 ([facility]ELA) Negative COVID-19 Clin Com See Note 12/19/21 12/19/21 07:06 07:06 WBC RBC Hgb Hct MCV MCH MCHC RDW Plt Count MPV Immature Gran % (Auto) Neut % (Auto) Lymph % (Auto) Zapata % (Auto) Eos % (Auto) Baso % (Auto) Lymph # (Auto) Zapata # (Auto) Eos # (Auto) Baso # (Auto) Abs Immat Gran (auto) Absolute Neuts (auto) Absolute Nucleated RBC Nucleated RBC % (auto) Estimat Average Glucose Hemoglobin A1c % Magnesium 1.9 Triglycerides 233 Cholesterol 164 D LDL Cholesterol, Calc 86 HDL Cholesterol 32 D Vitamin B12 312 Folate 9.0 TSH 0.37 Free T4 0.90 COVID-19 ([facility]EL[facility]) COVID-19 Clin Com Medications Medications Current Medications Al Hydroxide/Mg Hydroxide (Magnesium Hydrox/Alum Hydrox 30 Ml Oral.Susp) 30 ml PO Q6H PRN PRN Reason: Heartburn/Nausea Baclofen (Baclofen 10 Mg Tablet) 10 mg PO TID [facility] Last Admin: 12/20/21 08:09 Dose: 10 mg Bupropion HCl (Bupropion Hcl Xl 300 Mg Tab.Er.24h) 300 mg PO DAILY [facility] Last Admin: 12/20/21 08:00 Dose: 300 mg Gabapentin (Gabapentin 600 Mg Tablet) 600 mg PO QID [facility] Last Admin: 12/20/21 08:00 Dose: 600 mg Hydroxyzine HCl (Hydroxyzine Hcl 50 Mg Tablet) 50 mg PO DAILY PRN PRN Reason: anxiety Last Admin: 12/19/21 00:42 Dose: 50 mg Hydroxyzine HCl (Hydroxyzine Hcl 25 Mg Tablet) 25 mg PO Q6H PRN PRN Reason: Anxiety Last Admin: 12/19/21 20:20 Dose: 25 mg Ibuprofen (Ibuprofen 600 Mg Tablet) 600 mg PO Q8H PRN PRN Reason: Pain, Moderate (Pain Scale 4-6 Last Admin: 12/20/21 08:34 Dose: 600 mg Magnesium Hydroxide (Milk Of Magnesia 30 Ml Oral.Susp) 30 ml PO DAILY PRN PRN Reason: Constipation Methadone HCl (Methadone Hcl 20 Mg/2 Ml Oral.Conc) 140 mg PO DAILY [facility] Last Admin: 12/20/21 08:02 Dose: 140 mg Multivitamins/Vitamin C (Multivitamin Tablet) 1 tab PO DAILY [facility] Last Admin: 12/20/21 08:00 Dose: 1 tab Nicotine (Nicotine 21 Mg Patch.Td24) 21 mg TRANSDERMA DAILY [facility] Non-Formulary Medication (Sofosbuvir-Velpatasvir) 1 tab PO DAILY [facility] Pharmacy Consult (Consult Rx Perform Med Rec) 1 each MISCELLANE ONCE PRN PRN Reason: Consult order Quetiapine Fumarate (Quetiapine Fumarate 200 Mg Tablet) 200 mg PO BEDTIME [facility] Last Admin: 12/19/21 20:19 Dose: 200 mg Quetiapine Fumarate (Quetiapine Fumarate 25 Mg Tablet) 25 mg PO TID@0900,1500,1900 [facility] Last Admin: 12/20/21 08:34 Dose: 25 mg Sertraline HCl (Sertraline Hcl 50 Mg Tablet) 150 mg PO DAILY [facility] Last Admin: 12/20/21 08:00 Dose: 150 mg Trazodone HCl (Trazodone Hcl 50 Mg Tablet) 50 mg PO BEDTIME PRN PRN Reason: Insomnia Allergies Allergies Allergy/AdvReac Type Severity Reaction Status Date / Time acetaminophen [From TYLENOL] Allergy Unknown Rash Verified 10/16/21 06:40 amoxicillin [Amoxicillin] Allergy Unknown Rash Verified 10/16/21 06:40 seafood Allergy Unknown Rash Verified 10/16/21 06:40 Assessment & Plan Assessment & Plan (1) Suicidal ideation: Status: Acute Code(s): R45.851 - Suicidal ideations (2) MDD (major depressive disorder), recurrent episode: Status: Acute Code(s): F33.9 - Major depressive disorder, recurrent, unspecified (3) Substance abuse: Status: Acute Code(s): F19.10 - Other psychoactive substance abuse, uncomplicated Plan Devika is admitted on a conditional voluntary for resumption of medications and stabilization and safety. Current/recent medications were reinstituted. Contact to be made with her outpatient treaters. She does not appear to be in need of detoxification in light of intermittent use of heroin. 12/20: Continue current regimen and plans. I spent minutes with the patient and/or on the patient floor today, greater than?50% of which was spent counseling/coordinating care. Reason for contiued inpatient stay Substantial Risk for: med/psych decompensation
[2021-12-20] MEDS: Nicotine 21 MG PATCH.TD24 TRANSDERMA (11:38)
[2021-12-20] MEDS: Mineral Oil/Petrolatum,White 106 GM Tube 1 APPL TOPICAL (12:38)
[2021-12-20 17:24] VITALS: BP 103/55; PULSE 65; RESP 20; TEMP 36.6; O2SAT 97
[2021-12-20] MEDS: QUEtiapine Fumarate 200 MG TABLET PO (20:03)
[2021-12-20] MEDS: hydrOXYzine HCL 25 MG TABLET PO (20:03)
[2021-12-21 06:00] VITALS: BP 120/78; PULSE 77; RESP 18; TEMP 36.7; O2SAT 98
[2021-12-21] MEDS: methADONE HCl 20 MG/2 ML ORAL.CONC 140 MG PO (08:13)
[2021-12-21] MEDS: Nicotine 21 MG PATCH.TD24 TRANSDERMA (08:14)
[2021-12-21] MEDS: buPROPion HCl XL 300 MG TAB.ER.24H PO (08:15)
[2021-12-21] MEDS: Multivitamin TABLET 1 TAB PO (08:15)
[2021-12-21] MEDS: Gabapentin 600 MG TABLET PO ×3 (08:15→15:49)
[2021-12-21] MEDS: Baclofen 10 MG TABLET PO ×3 (08:15→19:53)
[2021-12-21] MEDS: Sertraline HCL 50 MG TABLET 150 MG PO (08:15)
[2021-12-21] MEDS: QUEtiapine Fumarate 25 MG TABLET PO ×3 (08:19→17:37)
[2021-12-21] MEDS: Ibuprofen 600 MG TABLET PO ×2 (08:19→19:53)
[2021-12-21] MEDS: hydrOXYzine HCL 25 MG TABLET PO ×2 (13:38→19:53)
--- NOTE | 2021-12-21 16:49 | P.PNPSI_ITS ---
Subjective Subjective Date of Service: 12/21/21 Reason For Visit: HEYDI,EVERTSUDEEP,PARMJIT SAW COMM,BED SEARCH IN PROGRESS Subjective Notes: Carpio Warning and Conditional Voluntary Healthcare Proxy: No Guardianship: No Medical Problems Affecting Mental Status: No Interim History: Patient seen and discussed with team. Pt complains of pain related to what he believes is an umbilical hernia. Consulted with hospitalist, will order a CT abdominal/ pelvis wo contrast to rule out strangulation. Patient evaluated today and upon interview she says she takes prazosin 4 mg for nightmares, asks to re-start this. Says she felt triggered by another patient on the unit who has substance use/ co-ocurring illness. She met with the horse riding coach or instructor this evening and will place an addiction consult as she is asking to go up on methadone. 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 Says she would like to trial a different antidepressant, as sertraline is her only SSRI trial, has been on this for years, does not think its working anymore. Says Wellbutrin helps, it gives me the energy but I still feel depressed. Denies SI/SIB, feels safe. Seroquel he lps her to stay level so im not too bouncing off the cruz. Interested in a TSS upon discharge. In the milieu, patient is safe and appropriate in behavior. Medication Compliance: Yes Side effects from medications: No Attending Groups: Intermittent Review of Systems Acute medical concerns: No Medical Review of Systems: unchanged Mental Status Exam Mental Status Exam Narrative: A&O. In casual attire, long hair, unkempt appearance. Poor eye contact, at tentive. No Tics or Tremors. No abnormal involuntary movements. Calm, cooperative. Non-pressured speech, spontaneous with regular rate and rhythm, normal volume and prosody. No prolonged speech latency or dysarthria. Mood is ?depressed,? affect is somewhat activated. Denies SI/SIB/HI upon inquiry. Denies AH/VH or delusional thought content. Thoughts are distracted. No known cognitive or memory impairment. Insight/ Judgment limited but adequate. Diagnostics Vital Signs (24Hr): Vital Signs - 24 hr 12/20/21 17:24 12/21/21 06:00 Temperature 97.9 F 98.1 F Pulse Rate 65 77 Respiratory Rate 20 18 Blood Pressure 103/55 L 120/78 Pulse Oximetry 97 98 Oxygen Delivery Method Room Air BMI result Body Mass Index 27.1 Labs Results: 12/18/21 09:54 12/17/21 11:07 Medications Medications Current Medications Al Hydroxide/Mg Hydroxide (Magnesium Hydrox/Alum Hydrox 30 Ml Oral.Susp) 30 ml PO Q6H PRN PRN Reason: Heartburn/Nausea Baclofen (Baclofen 10 Mg Tablet) 10 mg PO TID [facility] Last Admin: 12/21/21 13:37 Dose: 10 mg Bupropion HCl (Bupropion Hcl Xl 300 Mg Tab.Er.24h) 300 mg PO DAILY [facility] Last Admin: 12/21/21 08:15 Dose: 300 mg Gabapentin (Gabapentin 600 Mg Tablet) 600 mg PO QID [facility] Last Admin: 12/21/21 15:49 Dose: 600 mg Hydroxyzine HCl (Hydroxyzine Hcl 50 Mg Tablet) 50 mg PO DAILY PRN PRN Reason: anxiety Last Admin: 12/19/21 00:42 Dose: 50 mg Hydroxyzine HCl (Hydroxyzine Hcl 25 Mg Tablet) 25 mg PO Q6H PRN PRN Reason: Anxiety Last Admin: 12/21/21 13:38 Dose: 25 mg Ibuprofen (Ibuprofen 600 Mg Tablet) 600 mg PO Q8H PRN PRN Reason: Pain, Moderate (Pain Scale 4-6 Last Admin: 12/21/21 08:19 Dose: 600 mg Magnesium Hydroxide (Milk Of Magnesia 30 Ml Oral.Susp) 30 ml PO DAILY PRN PRN Reason: Constipation Methadone HCl (Methadone Hcl 20 Mg/2 Ml Oral.Conc) 140 mg PO DAILY [facility] Last Admin: 12/21/21 08:13 Dose: 140 mg Multi-Ingred Cream/Lotion/Oil/Oint (Mineral Oil/Petrolatum,White 106 Gm Tube) 1 appl TOPICAL BID PRN; Protocol PRN Reason: Itching Last Admin: 12/20/21 12:38 Dose: 1 appl Multivitamins/Vitamin C (Multivitamin Tablet) 1 tab PO DAILY [facility] Last Admin: 12/21/21 08:15 Dose: 1 tab Nicotine (Nicotine 21 Mg Patch.Td24) 21 mg TRANSDERMA DAILY [facility] Last Admin: 12/21/21 08:14 Dose: 21 mg Non-Formulary Medication (Sofosbuvir-Velpatasvir) 1 tab PO DAILY [facility] Pharmacy Consult (Consult Rx Perform Med Rec) 1 each MISCELLANE ONCE PRN PRN Reason: Consult order Quetiapine Fumarate (Quetiapine Fumarate 200 Mg Tablet) 200 mg PO BEDTIME [facility] Last Admin: 12/20/21 20:03 Dose: 200 mg Quetiapine Fumarate (Quetiapine Fumarate 25 Mg Tablet) 25 mg PO TID@0900,1500,1900 [facility] Last Admin: 12/21/21 13:37 Dose: 25 mg Sertraline HCl (Sertraline Hcl 50 Mg Tablet) 150 mg PO DAILY [facility] Last Admin: 12/21/21 08:15 Dose: 150 mg Trazodone HCl (Trazodone Hcl 50 Mg Tablet) 50 mg PO BEDTIME PRN PRN Reason: Insomnia Allergies Allergies Allergy/AdvReac Type Severity Reaction Status Date / Time acetaminophen [From TYLENOL] Allergy Unknown Rash Verified 10/16/21 06:40 amoxicillin [Amoxicillin] Allergy Unknown Rash Verified 10/16/21 06:40 seafood Allergy Unknown Rash Verified 10/16/21 06:40 Assessment & Plan Assessment & Plan (1) Suicidal ideation: Status: Acute Code(s): R45.851 - Suicidal ideations (2) MDD (major depressive disorder), recurrent episode: Status: Acute Code(s): F33.9 - Major depressive disorder, recurrent, unspecified (3) Substance abuse: Status: Acute Code(s): F19.10 - Other psychoactive substance abuse, uncomplicated Plan Devika is admitted on a conditional voluntary for resumption of medications and stabilization and safety. Current/recent medications were reinstituted. Contact to be made with her outpatient treaters. She does not appear to be in need of detoxification in light of intermittent use of heroin. 12/20: Continue current regimen and plans. 12/21: Re-start prazosin 4 mg QHS for nightmares. Increase gabapentin to 800 mg QID for neuropathy. Pt will meet with Liquor Gallery Operator and addiction consult placed due to pt wanting to increase methadone 5 mg. She reports wanting to stay sober. I spent minutes with the patient and/or on the patient floor today, greater than?50% of which was spent counseling/coordinating care. Patient educated on: medication risk/benefits Reason for contiued inpatient stay Substantial Risk for: med/psych decompensation
[2021-12-21 18:00] VITALS: BP 127/82; PULSE 100; TEMP 36.8; O2SAT 95
[2021-12-21] MEDS: Gabapentin 400 MG CAPSULE 800 MG PO (19:52)
[2021-12-21] MEDS: Prazosin HCL 1 MG CAPSULE 4 MG PO (19:52)
[2021-12-21] MEDS: QUEtiapine Fumarate 200 MG TABLET PO (19:52)
--- NOTE | 2021-12-21 20:12 | MHC.RECOVSUP ---
? Reason for consult:Recovery Support o Current location:[facility] o Identified substance use concern: DARRICK? Withdrawal Support ? ?Intervention: o ATS bed search started/completed/in process o MAT started or to be started o Community resources provided o Harm reduction discussion ? Plan: o Bed search in progress to o Follow up tomorrow ? ? Additional information:?Client consultation with Janna before point of contact. I was able to connect with patient on the the 5th floor and discuss her history of DARRICK with heroine and cocaine. Devika is currently homeless in the [place], has an open DCF case in regards to her youngest son who resides with her parents and her other two other children reside the father. Devika describes her DARRICK and living in the [facility] as a frightening experience and is ready for treatment. We were able to discuss harm reduction strategies and tools for her to utilize while she is on the unit in her daily practices. Devika also describes a few triggers she experienced prior to meeting with me so I was able to support her with additional tools to utilize in the moment. Devika was receptive, engaged and open to the suggestions. I did suggest that she connects with her comp field case manager on the floor to assist her with entering either a TSS or CSS. I will follow up with her tomorrow with additional community resources, bed search and referral for recovery collector.
--- NOTE | 2021-12-22 | ECG_ITS ---
Test Reason : CHECK QTC Blood Pressure : / mmHG Vent. Rate : 071 BPM Atrial Rate : 071 BPM P-R Int : 138 ms QRS Dur : 088 ms QT Int : 412 ms P-R-T Axes : 067 057 043 degrees QTc Int : 447 ms Normal sinus rhythm Baseline artifact otherwise Normal ECG When compared with ECG of 17-DEC-2021 13:56, No significant changes seen Referred By: Leonarda Bentley Electronically Signed By:VALERIE PETER
[2021-12-22] MEDS: Ibuprofen 600 MG TABLET PO (06:36)
[2021-12-22] MEDS: methADONE HCl 20 MG/2 ML ORAL.CONC 140 MG PO (09:09)
[2021-12-22] MEDS: Nicotine 21 MG PATCH.TD24 TRANSDERMA (09:10)
[2021-12-22] MEDS: Gabapentin 400 MG CAPSULE 800 MG PO ×4 (09:11→20:04)
[2021-12-22] MEDS: Multivitamin TABLET 1 TAB PO (09:11)
[2021-12-22] MEDS: Baclofen 10 MG TABLET PO ×3 (09:11→20:04)
[2021-12-22] MEDS: buPROPion HCl XL 300 MG TAB.ER.24H PO (09:11)
[2021-12-22] MEDS: FLUoxetine HCl 20 MG CAPSULE 40 MG PO (09:11)
[2021-12-22] MEDS: QUEtiapine Fumarate 25 MG TABLET PO ×3 (09:15→20:07)
[2021-12-22] MEDS: methADONE HCl 20 MG/2 ML ORAL.CONC 5 MG PO (11:31)
--- NOTE | 2021-12-22 14:19 | HO.ADDICT_ITS ---
History of Present Illness Date of Service: 12/22/21 Chief Complaint: SI,VOLUNRTARY,[facility] SAW COMM,BED SEARCH IN PROGRESS Reason for Consult: wants methadone increase Requesting physician: Tiffanie Nelson Sources of Information: patient interviewed and chart reviewed HPI Narrative: Patient is a 36-year-old female, long history heroin, fentanyl, cocaine use. Receives methadone from [facility]. Last dose increase of 5 mg was on 10/31/2021. Patient reports that she has been using approximately 1 bundle daily of heroin/fentanyl all/cocaine, while on this current dose. States she had also been smoking crack cocaine. Reports feeling body aches, joint aches, anxiety, restlessness. Requesting dose increase at this time. States that she wishes to go to a TSS, and then hopes to go to a treatment facility/sober living arrangement that allows her to take her child. Interested in [facility] in [place] Past Psychiatric History: -Hx of multiple inpatient admissions, detoxes. Medical Evaluation Reviewed: Yes Review of Systems Constitutional: Reports body ache(s) Reports Normal hearing present Cardiovascular: Reports no additional cardiovascular complaints Respiratory: Reports no additional respiratory complaints Gastrointestinal: Reports no additional gastrointestinal complaints Genitourinary: Reports no additional female genitourinary complaints Musculoskeletal: Reports myalgias and Reports arthralgias Reports Normal hearing present Psychiatric: Reports anxiety Diagnostics Vital Signs (24Hr): Vital Signs - 24 hr 12/21/21 18:00 Temperature 98.2 F Pulse Rate 100 Blood Pressure 127/82 Pulse Oximetry 95 BMI result Body Mass Index 27.1 Labs Results: 12/18/21 09:54 12/17/21 11:07 Mental Status Exam Mental Status Exam Narrative: Alert and oriented x4, somewhat unkempt appearance. Appropriate eye contact. Withdrawal symptoms reported include achy bones and joints, anxiety. Medications Medications Current Medications Al Hydroxide/Mg Hydroxide (Magnesium Hydrox/Alum Hydrox 30 Ml Oral.Susp) 30 ml PO Q6H PRN PRN Reason: Heartburn/Nausea Baclofen (Baclofen 10 Mg Tablet) 10 mg PO TID [facility] Last Admin: 12/22/21 09:11 Dose: 10 mg Bupropion HCl (Bupropion Hcl Xl 300 Mg Tab.Er.24h) 300 mg PO DAILY [facility] Last Admin: 12/22/21 09:11 Dose: 300 mg Fluoxetine HCl (Fluoxetine Hcl 20 Mg Capsule) 40 mg PO DAILY [facility] Last Admin: 12/22/21 09:11 Dose: 40 mg Gabapentin (Gabapentin 400 Mg Capsule) 800 mg PO QID [facility] Last Admin: 12/22/21 12:08 Dose: 800 mg Hydroxyzine HCl (Hydroxyzine Hcl 50 Mg Tablet) 50 mg PO DAILY PRN PRN Reason: anxiety Last Admin: 12/19/21 00:42 Dose: 50 mg Hydroxyzine HCl (Hydroxyzine Hcl 25 Mg Tablet) 25 mg PO Q6H PRN PRN Reason: Anxiety Last Admin: 12/21/21 19:53 Dose: 25 mg Ibuprofen (Ibuprofen 600 Mg Tablet) 600 mg PO Q8H PRN PRN Reason: Pain, Moderate (Pain Scale 4-6 Last Admin: 12/22/21 06:36 Dose: 600 mg Magnesium Hydroxide (Milk Of Magnesia 30 Ml Oral.Susp) 30 ml PO DAILY PRN PRN Reason: Constipation Methadone HCl (Methadone Hcl 20 Mg/2 Ml Oral.Conc) 145 mg PO DAILY [facility] Multi-Ingred Cream/Lotion/Oil/Oint (Mineral Oil/Petrolatum,White 106 Gm Tube) 1 appl TOPICAL BID PRN; Protocol PRN Reason: Itching Last Admin: 12/20/21 12:38 Dose: 1 appl Multivitamins/Vitamin C (Multivitamin Tablet) 1 tab PO DAILY [facility] Last Admin: 12/22/21 09:11 Dose: 1 tab Nicotine (Nicotine 21 Mg Patch.Td24) 21 mg TRANSDERMA DAILY [facility] Last Admin: 12/22/21 09:10 Dose: 21 mg Non-Formulary Medication (Sofosbuvir-Velpatasvir) 1 tab PO DAILY [facility] Pharmacy Consult (Consult Rx Perform Med Rec) 1 each MISCELLANE ONCE PRN PRN Reason: Consult order Prazosin HCl (Prazosin Hcl 1 Mg Capsule) 4 mg PO BEDTIME [facility]; Protocol Last Admin: 12/21/21 19:52 Dose: 4 mg Quetiapine Fumarate (Quetiapine Fumarate 200 Mg Tablet) 200 mg PO BEDTIME [facility] Last Admin: 12/21/21 19:52 Dose: 200 mg Quetiapine Fumarate (Quetiapine Fumarate 25 Mg Tablet) 25 mg PO TID@0900,1500,1900 [facility] Last Admin: 12/22/21 09:15 Dose: 25 mg Trazodone HCl (Trazodone Hcl 50 Mg Tablet) 50 mg PO BEDTIME PRN PRN Reason: Insomnia Allergies Allergies Allergy/AdvReac Type Severity Reaction Status Date / Time acetaminophen [From TYLENOL] Allergy Unknown Rash Verified 10/16/21 06:40 amoxicillin [Amoxicillin] Allergy Unknown Rash Verified 10/16/21 06:40 seafood Allergy Unknown Rash Verified 10/16/21 06:40 Assessment & Plan Assessment & Plan (1) Opioid use disorder: Status: Acute Code(s): F11.90 - Opioid use, unspecified, uncomplicated Assessment and Plan: Patient currently receives methadone 140 mg daily, through [facility] located on [address] in [place]. Last dose increase was on October 31. Patient reports continued use of substances, last used prior to presenting to ED. reports feeling withdrawals at this time, including joint and muscle aches, anxiety. Last EKG on 12/17 showed QTC of 399. Discussed risks and benefits of increased dosing. Patient is agreeable to receive 5 more mg at this time. Plan 1. Increased methadone dosing to 145 mg daily. 2. EKG ordered for 12/23/2021. 3. Addiction consult service to follow this patient along with you as needed. I spent minutes with the patient and/or on the patient floor today, greater than?50% of which was spent counseling/coordinating care. Patient educated on: diagnosis, medication risk/benefits and substance abuse Informed Consent: [facility] Past Medical History Guardianship: No Medical Problems Affecting Mental Status: Yes Medical History Fall MAGO (generalized anxiety disorder) Social History Social History Household Members: None Housing: Homeless Do you presently have visiting nurse or other home services: No Patient Tobacco Use Status: Current everyday Tobacco user Tobacco use type: Cigarette Cigarette Packs Per Day: 1 Cigarettes Per Day: 20.0 Smoked in Last 30 Days: Yes e-Cigarette/Vaping Use: Never Used Patient Interested in Nicotine Replacement: Yes Patient Given Instructions on How to Stop Smoking: Yes Date Education Initiated: 12/18/21 Second Hand Smoke Exposure: No Use of substances other than those prescribed or required for medical reasons: Yes Substance Use Type: Crack/Cocaine, Heroin and Marijuana Substance Use Frequency: Chronic Longstanding Last Used Substance: Days (ago) Currently Displaying Signs/Symptoms of Drug Intoxication Withdrawal: No Any prior treatment program specific to substance use: Yes Have you been hit, kicked, punched, or otherwise hurt by someone within the past year? If so, by whom?: No Do you feel safe in your current relationship?: No Current Relationship Is there a partner from a previous relationship who is making you feel unsafe now?: No Are you made to feel afraid or neglected: No Spiritual Healthcare Practices: none Judaism Healthcare Practices: none Cultural Healthcare Practices: none Advance Directives: No Advance Directives Information Provided: Yes Do you have thoughts of harming others: None Do you have a plan to hurt others: No Plan Recently lost weight without trying: Unsure How much weight loss: Not applicable Eating poorly because of decreased appetite: No Nutrition screen score: 2 Nutrition Risks: No Nutritional Risk Patient : No : No Poor oral hygiene: No service: No Sexual orientation: Straight/Heterosexual
[2021-12-22 18:00] VITALS: BP 119/79; PULSE 95; RESP 16; TEMP 36.5; O2SAT 99
--- NOTE | 2021-12-22 19:01 | MHC.RECOVSUP ---
? Reason for consult:Recovery support o Current location:[address] o Identified substance use concern: - Support ? Intervention: o Community resources provided ? Plan: o Referral to [facility] o Follow up tomorrow ? Additional information:Pt consultation with Kelley DAMIAN prior to entry. I was able to go up to the 5th floor, pt declined to meet. Provided pt with community resources, left with staff. Follow up with pt tomorrow.
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
[2021-12-22] MEDS: Prazosin HCL 1 MG CAPSULE 4 MG PO (20:04)
[2021-12-22] MEDS: QUEtiapine Fumarate 200 MG TABLET PO (20:05)
[2021-12-22] MEDS: Propranolol HCL 20 MG TABLET PO (20:14)
[2021-12-22] MEDS: hydrOXYzine HCL 25 MG TABLET PO (20:14)
[2021-12-23 08:18] VITALS: BP 112/61; PULSE 95; RESP 18; TEMP 36.6
[2021-12-23] MEDS: buPROPion HCl XL 300 MG TAB.ER.24H PO (08:20)
[2021-12-23] MEDS: Baclofen 10 MG TABLET PO ×3 (08:20→20:35)
[2021-12-23] MEDS: Ibuprofen 600 MG TABLET PO (08:20)
[2021-12-23] MEDS: FLUoxetine HCl 20 MG CAPSULE 40 MG PO (08:20)
[2021-12-23] MEDS: Gabapentin 400 MG CAPSULE 800 MG PO ×4 (08:20→20:35)
[2021-12-23] MEDS: Multivitamin TABLET 1 TAB PO (08:20)
[2021-12-23] MEDS: Nicotine 21 MG PATCH.TD24 TRANSDERMA (08:21)
[2021-12-23] MEDS: hydrOXYzine HCL 25 MG TABLET PO (08:28)
[2021-12-23] MEDS: QUEtiapine Fumarate 25 MG TABLET PO ×3 (08:28→19:02)
[2021-12-23] MEDS: methADONE HCl 20 MG/2 ML ORAL.CONC 145 MG PO (08:32)
[2021-12-23] MEDS: hydrOXYzine HCL 50 MG TABLET PO (11:06)
[2021-12-23] MEDS: Milk of Magnesia 30 ML ORAL.SUSP PO (14:20)
[2021-12-23] MEDS: Propranolol HCL 20 MG TABLET PO (19:22)
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
[2021-12-23 20:11] VITALS: BP 130/77; PULSE 82; TEMP 36.2
[2021-12-23] MEDS: clonazePAM 0.5 MG TABLET PO (20:34)
[2021-12-23] MEDS: QUEtiapine Fumarate 200 MG TABLET PO (20:36)
[2021-12-23] MEDS: Prazosin HCL 1 MG CAPSULE 4 MG PO (20:36)
[2021-12-24 07:00] VITALS: BMI 26.2
[2021-12-24 08:00] VITALS: BP 117/73; PULSE 66; RESP 18; TEMP 36.6; O2SAT 96
[2021-12-24] MEDS: methADONE HCl 20 MG/2 ML ORAL.CONC 145 MG PO (08:08)
[2021-12-24] MEDS: Gabapentin 400 MG CAPSULE 800 MG PO ×4 (08:11→19:43)
[2021-12-24] MEDS: Multivitamin TABLET 1 TAB PO (08:12)
[2021-12-24] MEDS: FLUoxetine HCl 20 MG CAPSULE 40 MG PO (08:12)
[2021-12-24] MEDS: buPROPion HCl XL 300 MG TAB.ER.24H PO (08:12)
[2021-12-24] MEDS: Baclofen 10 MG TABLET PO ×3 (08:12→19:42)
[2021-12-24] MEDS: clonazePAM 0.5 MG TABLET PO ×2 (08:17→20:07)
[2021-12-24] MEDS: QUEtiapine Fumarate 25 MG TABLET PO ×3 (08:17→18:45)
[2021-12-24] MEDS: hydrOXYzine HCL 25 MG TABLET PO (08:17)
[2021-12-24] MEDS: Ibuprofen 600 MG TABLET PO ×2 (08:17→20:07)
[2021-12-24] MEDS: Nicotine 21 MG PATCH.TD24 TRANSDERMA (09:29)
--- NOTE | 2021-12-24 17:55 | HO.PSYCHPN ---
Subjective Subjective Date of Service: 12/24/21 Reason For Visit: SI,VOLUNRTARY,BRYANTN SAW COMM,BED SEARCH IN PROGRESS Subjective Notes: Carpio Warning and Conditional Voluntary Healthcare Proxy: No Guardianship: No Medical Problems Affecting Mental Status: No Interim History: Patient seen and discussed with team. Patient evaluated today and upon interview she reports she has been thinking about a lot today. Discussed DBT/ trauma focused therapy again. Reports benefit on Klonopin, says it helped with agitation. Pt complains of urges to relapse, having dreams about drugs. Says she feels safe here. Depression is still there. Says she wants a good night sleep without nightmares. In the milieu, patient is safe and appropriate in behavior. Denies SI/SIB/HI upon inquiry. Denies irritability or assaultive ideation. Says she feels safe. Medication Compliance: Yes Side effects from medications: No Attending Groups: Intermittent Review of Systems Acute medical concerns: No Medical Review of Systems: unchanged Mental Status Exam Mental Status Exam Narrative: A&O. In casual attire, long hair, unkempt appearance. Poor eye contact, attentive. No Tics or Tremors. No abnormal involuntary movements. Calm, cooperative. Non-pressured speech, spontaneous with regular rate and rhythm, normal volume and prosody. No prolonged speech latency or dysarthria. Mood is ?depressed,? affect is euthymic. Denies SI/SIB/HI upon inquiry. Denies AH/VH or delusional thought content. Thoughts are distracted. No known cognitive or memory impairment. Insight/ Judgment limited but adequate. Diagnostics Vital Signs (24Hr): Vital Signs - 24 hr 12/23/21 20:11 12/24/21 08:00 Temperature 97.2 F 97.9 F Pulse Rate 82 66 Respiratory Rate 18 Blood Pressure 130/77 117/73 Pulse Oximetry 96 Oxygen Delivery Method Room Air BMI result Body Mass Index 26.2 Labs Results: 12/18/21 09:54 12/17/21 11:07 Medications Medications Current Medications Al Hydroxide/Mg Hydroxide (Magnesium Hydrox/Alum Hydrox 30 Ml Oral.Susp) 30 ml PO Q6H PRN PRN Reason: Heartburn/Nausea Baclofen (Baclofen 10 Mg Tablet) 10 mg PO TID [facility] Last Admin: 12/24/21 14:02 Dose: 10 mg Bupropion HCl (Bupropion Hcl Xl 300 Mg Tab.Er.24h) 300 mg PO DAILY [facility] Last Admin: 12/24/21 08:12 Dose: 300 mg Clonazepam (Clonazepam 0.5 Mg Tablet) 0.5 mg PO BID PRN PRN Reason: anxiety Last Admin: 12/24/21 08:17 Dose: 0.5 mg Fluoxetine HCl (Fluoxetine Hcl 20 Mg Capsule) 40 mg PO DAILY [facility] Last Admin: 12/24/21 08:12 Dose: 40 mg Gabapentin (Gabapentin 400 Mg Capsule) 800 mg PO QID [facility] Last Admin: 12/24/21 16:50 Dose: 800 mg Hydroxyzine HCl (Hydroxyzine Hcl 50 Mg Tablet) 50 mg PO DAILY PRN PRN Reason: anxiety Last Admin: 12/23/21 11:06 Dose: 50 mg Hydroxyzine HCl (Hydroxyzine Hcl 25 Mg Tablet) 25 mg PO Q6H PRN PRN Reason: Anxiety Last Admin: 12/24/21 08:17 Dose: 25 mg Ibuprofen (Ibuprofen 600 Mg Tablet) 600 mg PO Q8H PRN PRN Reason: Pain, Moderate (Pain Scale 4-6 Last Admin: 12/24/21 08:17 Dose: 600 mg Magnesium Hydroxide (Milk Of Magnesia 30 Ml Oral.Susp) 30 ml PO DAILY PRN PRN Reason: Constipation Last Admin: 12/23/21 14:20 Dose: 30 ml Methadone HCl (Methadone Hcl 20 Mg/2 Ml Oral.Conc) 145 mg PO DAILY [facility] Last Admin: 12/24/21 08:08 Dose: 145 mg Multi-Ingred Cream/Lotion/Oil/Oint (Mineral Oil/Petrolatum,White 106 Gm Tube) 1 appl TOPICAL BID PRN; Protocol PRN Reason: Itching Last Admin: 12/20/21 12:38 Dose: 1 appl Multivitamins/Vitamin C (Multivitamin Tablet) 1 tab PO DAILY [facility] Last Admin: 12/24/21 08:12 Dose: 1 tab Nicotine (Nicotine 21 Mg Patch.Td24) 21 mg TRANSDERMA DAILY [facility] Last Admin: 12/24/21 09:29 Dose: 21 mg Non-Formulary Medication (Sofosbuvir-Velpatasvir) 1 tab PO DAILY [facility] Pharmacy Consult (Consult Rx Perform Med Rec) 1 each MISCELLANE ONCE PRN PRN Reason: Consult order Prazosin HCl (Prazosin Hcl 1 Mg Capsule) 4 mg PO BEDTIME [facility]; Protocol Last Admin: 12/23/21 20:36 Dose: 4 mg Quetiapine Fumarate (Quetiapine Fumarate 200 Mg Tablet) 200 mg PO BEDTIME [facility] Last Admin: 12/23/21 20:36 Dose: 200 mg Quetiapine Fumarate (Quetiapine Fumarate 25 Mg Tablet) 25 mg PO TID@0900,1500,1900 [facility] Last Admin: 12/24/21 14:02 Dose: 25 mg Trazodone HCl (Trazodone Hcl 50 Mg Tablet) 50 mg PO BEDTIME PRN PRN Reason: Insomnia Allergies Allergies Allergy/AdvReac Type Severity Reaction Status Date / Time acetaminophen [From TYLENOL] Allergy Unknown Rash Verified 10/16/21 06:40 amoxicillin [Amoxicillin] Allergy Unknown Rash Verified 10/16/21 06:40 seafood Allergy Unknown Rash Verified 10/16/21 06:40 Assessment & Plan Assessment & Plan (1) Opioid use disorder: Status: Acute Code(s): F11.90 - Opioid use, unspecified, uncomplicated (2) MDD (major depressive disorder), recurrent episode: Status: Acute Code(s): F33.9 - Major depressive disorder, recurrent, unspecified (3) Cocaine use disorder: Status: Acute Code(s): F14.10 - Cocaine abuse, uncomplicated (4) Post traumatic stress disorder (PTSD): Status: Acute Code(s): F43.10 - Post-traumatic stress disorder, unspecified Plan Devika is admitted on a conditional voluntary for resumption of medications and stabilization and safety.? Current/recent medications were reinstituted.? Contact to be made with her outpatient treaters.? She does not appear to be in need of detoxification in light of intermittent use of heroin. 12/20: Continue current regimen and plans. 12/21: Re-start prazosin 4 mg QHS for nightmares. Increase gabapentin to 800 mg QID for neuropathy. Pt will meet with Research Program Assistant and addiction consult placed due to pt wanting to increase methadone 5 mg. She reports wanting to stay sober. 12/22: Pt's methadone increased to 145 mg daily by water rights specialist, EKG ordered for 12/23/2021. Will trial propranolol 20 mg for anxiety, agitation. 12/23: Methadone increased by addiction services, EKG reviewed. Denies benefit on propranolol, does not want to take. Denies benefit on most anxiolytics. Will add low dose klonopin 0.5 mg BID PRN, pt understands this will not be increased and will be for inpatient use. 12/24: Will increase prazosin to 5 mg due to nightmares, PTSD related. Will place consult with golf coach, as pt is having urges to use. I spent minutes with the patient and/or on the patient floor today, greater than?50% of which was spent counseling/coordinating care. Patient educated on: medication risk/benefits Reason for contiued inpatient stay Substantial Risk for: med/psych decompensation
[2021-12-24 18:00] VITALS: BP 119/68; PULSE 68; RESP 16; TEMP 36.5; O2SAT 99
[2021-12-24] MEDS: Prazosin HCL 5 MG CAPSULE PO (19:42)
[2021-12-24] MEDS: QUEtiapine Fumarate 200 MG TABLET PO (19:42)
[2021-12-24] MEDS: hydrOXYzine HCL 50 MG TABLET PO (20:07)
[2021-12-25 06:00] VITALS: BP 122/73; PULSE 77; RESP 18; TEMP 36.4; O2SAT 99
[2021-12-25] MEDS: methADONE HCl 20 MG/2 ML ORAL.CONC 145 MG PO (08:02)
[2021-12-25] MEDS: Ibuprofen 600 MG TABLET PO ×2 (08:05→20:17)
[2021-12-25] MEDS: hydrOXYzine HCL 25 MG TABLET PO ×2 (08:05→20:17)
[2021-12-25] MEDS: FLUoxetine HCl 20 MG CAPSULE 40 MG PO (08:05)
[2021-12-25] MEDS: buPROPion HCl XL 300 MG TAB.ER.24H PO (08:05)
[2021-12-25] MEDS: Baclofen 10 MG TABLET PO ×3 (08:05→20:17)
[2021-12-25] MEDS: clonazePAM 0.5 MG TABLET PO ×2 (08:05→20:17)
[2021-12-25] MEDS: Gabapentin 400 MG CAPSULE 800 MG PO ×4 (08:05→20:16)
[2021-12-25] MEDS: QUEtiapine Fumarate 25 MG TABLET PO ×2 (08:06→14:41)
[2021-12-25] MEDS: Multivitamin TABLET 1 TAB PO (08:06)
[2021-12-25 18:00] VITALS: BP 108/69; PULSE 86; TEMP 37; O2SAT 97
--- NOTE | 2021-12-25 19:05 | P.PNPSI_ITS ---
Subjective Subjective Date of Service: 12/25/21 Reason For Visit: KERI SOLIZ BHN SAW COMM,BED SEARCH IN PROGRESS Interim History: Patient seen and discussed with team. Patient evaluated today and upon interview she continues to endorse depressed mood, thinking about everything. Says she has been on wellbutrin two years with good effect but thinks it is not working as well. She asks for a dose increase. Reports benefit on low dose klonopin. Sleep is good.? In the milieu, patient is safe and appropriate in behavior. Denies SI/SIB/HI upon inquiry. Denies irritability or assaultive ideation. Says she feels safe. Mental Status Exam Mental Status Exam Narrative: A&O. In casual attire, long hair, unkempt appearance. Poor eye contact, attentive. No Tics or Tremors. No abnormal involuntary movements. Calm, cooperative. Non-pressured speech, spontaneous with regular rate and rhythm, normal volume and prosody. No prolonged speech latency or dysarthria. Mood is ?depressed,? affect is euthymic. Denies SI/SIB/HI upon inquiry. Denies AH/VH or delusional thought content. Thoughts are distracted. No known cognitive or memory impairment. Insight/ Judgment limited but adequate. Diagnostics Vital Signs (24Hr): Vital Signs - 24 hr 12/25/21 06:00 Temperature 97.6 F Pulse Rate 77 Respiratory Rate 18 Blood Pressure 122/73 Pulse Oximetry 99 BMI result Body Mass Index 26.2 Labs Results: 12/18/21 09:54 12/17/21 11:07 Medications Medications Current Medications Al Hydroxide/Mg Hydroxide (Magnesium Hydrox/Alum Hydrox 30 Ml Oral.Susp) 30 ml PO Q6H PRN PRN Reason: Heartburn/Nausea Baclofen (Baclofen 10 Mg Tablet) 10 mg PO TID [facility] Last Admin: 12/25/21 14:41 Dose: 10 mg Bupropion HCl (Bupropion Hcl Xl 300 Mg Tab.Er.24h) 300 mg PO DAILY [facility] Last Admin: 12/25/21 08:05 Dose: 300 mg Clonazepam (Clonazepam 0.5 Mg Tablet) 0.5 mg PO BID PRN PRN Reason: anxiety Last Admin: 12/25/21 08:05 Dose: 0.5 mg Fluoxetine HCl (Fluoxetine Hcl 20 Mg Capsule) 40 mg PO DAILY [facility] Last Admin: 12/25/21 08:05 Dose: 40 mg Gabapentin (Gabapentin 400 Mg Capsule) 800 mg PO QID [facility] Last Admin: 12/25/21 15:49 Dose: 800 mg Hydroxyzine HCl (Hydroxyzine Hcl 50 Mg Tablet) 50 mg PO DAILY PRN PRN Reason: anxiety Last Admin: 12/24/21 20:07 Dose: 50 mg Hydroxyzine HCl (Hydroxyzine Hcl 25 Mg Tablet) 25 mg PO Q6H PRN PRN Reason: Anxiety Last Admin: 12/25/21 08:05 Dose: 25 mg Ibuprofen (Ibuprofen 600 Mg Tablet) 600 mg PO Q8H PRN PRN Reason: Pain, Moderate (Pain Scale 4-6 Last Admin: 12/25/21 08:05 Dose: 600 mg Magnesium Hydroxide (Milk Of Magnesia 30 Ml Oral.Susp) 30 ml PO DAILY PRN PRN Reason: Constipation Last Admin: 12/23/21 14:20 Dose: 30 ml Methadone HCl (Methadone Hcl 20 Mg/2 Ml Oral.Conc) 145 mg PO DAILY [facility] Last Admin: 12/25/21 08:02 Dose: 145 mg Multi-Ingred Cream/Lotion/Oil/Oint (Mineral Oil/Petrolatum,White 106 Gm Tube) 1 appl TOPICAL BID PRN; Protocol PRN Reason: Itching Last Admin: 12/20/21 12:38 Dose: 1 appl Multivitamins/Vitamin C (Multivitamin Tablet) 1 tab PO DAILY [facility] Last Admin: 12/25/21 08:06 Dose: 1 tab Nicotine (Nicotine 21 Mg Patch.Td24) 21 mg TRANSDERMA DAILY [facility] Last Admin: 12/25/21 13:15 Dose: Not Given Non-Formulary Medication (Sofosbuvir-Velpatasvir) 1 tab PO DAILY [facility] Pharmacy Consult (Consult Rx Perform Med Rec) 1 each MISCELLANE ONCE PRN PRN Reason: Consult order Prazosin HCl (Prazosin Hcl 5 Mg Capsule) 5 mg PO BEDTIME [facility]; Protocol Last Admin: 12/24/21 19:42 Dose: 5 mg Quetiapine Fumarate (Quetiapine Fumarate 200 Mg Tablet) 200 mg PO BEDTIME [facility] Last Admin: 12/24/21 19:42 Dose: 200 mg Quetiapine Fumarate (Quetiapine Fumarate 25 Mg Tablet) 25 mg PO TID@0900,1500,1900 [facility] Last Admin: 12/25/21 14:41 Dose: 25 mg Trazodone HCl (Trazodone Hcl 50 Mg Tablet) 50 mg PO BEDTIME PRN PRN Reason: Insomnia Allergies Allergies Allergy/AdvReac Type Severity Reaction Status Date / Time acetaminophen [From TYLENOL] Allergy Unknown Rash Verified 10/16/21 06:40 amoxicillin [Amoxicillin] Allergy Unknown Rash Verified 10/16/21 06:40 seafood Allergy Unknown Rash Verified 10/16/21 06:40 Assessment & Plan Assessment & Plan (1) Opioid use disorder: Status: Acute Code(s): F11.90 - Opioid use, unspecified, uncomplicated (2) MDD (major depressive disorder), recurrent episode: Status: Acute Code(s): F33.9 - Major depressive disorder, recurrent, unspecified (3) Cocaine use disorder: Status: Acute Code(s): F14.10 - Cocaine abuse, uncomplicated (4) Post traumatic stress disorder (PTSD): Status: Acute Code(s): F43.10 - Post-traumatic stress disorder, unspecified Plan Devika is admitted on a conditional voluntary for resumption of medications and stabilization and safety.? Current/recent medications were reinstituted.? Contact to be made with her outpatient treaters.? She does not appear to be in need of detoxification in light of intermittent use of heroin. 12/20: Continue current regimen and plans. 12/21: Re-start prazosin 4 mg QHS for nightmares. Increase gabapentin to 800 mg QID for neuropathy. Pt will meet with [facility] Administrator and addiction consult placed due to pt wanting to increase methadone 5 mg. She reports wanting to stay sober. 12/22: Pt's methadone increased to 145 mg daily by rehab specialist, EKG ordered for 12/23/2021. Will trial propranolol 20 mg for anxiety, agitation. 12/23: Methadone increased by addiction services, EKG reviewed. Denies benefit on propranolol, does not want to take. Denies benefit on most anxiolytics. Will add low dose klonopin 0.5 mg BID PRN, pt understands this will not be increased and will be for inpatient use. 12/24: Will increase prazosin to 5 mg due to nightmares, PTSD related. Will place consult with recovery agent, as pt is having urges to use. 12/25: no changes made to current regimen I spent minutes with the patient and/or on the patient floor today, greater than?50% of which was spent counseling/coordinating care. Patient educated on: medication risk/benefits Reason for contiued inpatient stay Substantial Risk for: harm to self, inability to function and med/psych decompensation
[2021-12-25] MEDS: Prazosin HCL 5 MG CAPSULE PO (20:16)
[2021-12-25] MEDS: QUEtiapine Fumarate 200 MG TABLET PO (20:17)
[2021-12-26] MEDS: methADONE HCl 20 MG/2 ML ORAL.CONC 145 MG PO (08:17)
[2021-12-26] MEDS: Multivitamin TABLET 1 TAB PO (08:19)
[2021-12-26] MEDS: Baclofen 10 MG TABLET PO ×3 (08:19→20:19)
[2021-12-26] MEDS: buPROPion HCl XL 150 MG TAB.ER.24H 450 MG PO (08:19)
[2021-12-26] MEDS: hydrOXYzine HCL 25 MG TABLET PO (08:19)
[2021-12-26] MEDS: Gabapentin 400 MG CAPSULE 800 MG PO ×4 (08:20→20:18)
[2021-12-26] MEDS: QUEtiapine Fumarate 25 MG TABLET PO ×2 (08:20→14:27)
[2021-12-26] MEDS: FLUoxetine HCl 20 MG CAPSULE 40 MG PO (08:20)
[2021-12-26] MEDS: clonazePAM 0.5 MG TABLET PO ×3 (08:20→20:18)
[2021-12-26] MEDS: Ibuprofen 600 MG TABLET PO ×2 (08:25→20:18)
[2021-12-26] MEDS: polyethylene glycoL 3350 17 GM POWD.PACK PO (14:03)
[2021-12-26 18:00] VITALS: BP 115/78; PULSE 97; RESP 16; TEMP 36.5; O2SAT 97
[2021-12-26] MEDS: hydrOXYzine HCL 50 MG TABLET PO (20:18)
[2021-12-26] MEDS: Prazosin HCL 5 MG CAPSULE PO (20:18)
[2021-12-26] MEDS: QUEtiapine Fumarate 200 MG TABLET PO (20:18)
--- NOTE | 2021-12-26 23:18 | HO.PSYCHPN ---
Subjective Subjective Date of Service: 12/26/21 Reason For Visit: SI,VOLUNRTSUDEEP,PARMJIT SAW COMM,BED SEARCH IN PROGRESS Subjective Notes: Carpio Warning and Conditional Voluntary Healthcare Proxy: No Guardianship: No Medical Problems Affecting Mental Status: No Interim History: Patient seen and discussed with team. Patient evaluated today and upon interview pt reports she is worried about where she will go on discharge. Feels bloated, had a BM and says it was normal, soft. Using Miralax. Pt says she is still feeling restless. Endorses passive SI. Feels unsupported and like staff are talking about her. Says she is not ready to leave the hospital. Frustrated she doesnt have clothes or know where she is going to go. In the milieu, patient is safe but can be intrusive and difficult to re-direct. Medication Compliance: Yes Side effects from medications: No Attending Groups: Yes Review of Systems Acute medical concerns: No Medical Review of Systems: unchanged Mental Status Exam Mental Status Exam Narrative: A&O. In casual attire, long hair, unkempt appearance. Poor eye contact, attentive. No Tics or Tremors. No abnormal involuntary movements. Calm, cooperative. Non-pressured speech, spontaneous with regular rate and rhythm, normal volume and prosody. No prolonged speech latency or dysarthria. Mood is ?anxious,? affect is somewhat stressed, not labile, appropriate. Denies SI/SIB/HI upon inquiry. Denies AH/VH or delusional thought content. Thoughts are distracted. No known cognitive or memory impairment. Insight/ Judgment limited but adequate. Diagnostics Vital Signs (24Hr): Vital Signs - 24 hr 12/26/21 18:00 Temperature 97.7 F Pulse Rate 97 Respiratory Rate 16 Blood Pressure 115/78 Pulse Oximetry 97 Oxygen Delivery Method Room Air BMI result Body Mass Index 26.2 Labs Results: 12/18/21 09:54 12/17/21 11:07 Medications Medications Current Medications Al Hydroxide/Mg Hydroxide (Magnesium Hydrox/Alum Hydrox 30 Ml Oral.Susp) 30 ml PO Q6H PRN PRN Reason: Heartburn/Nausea Baclofen (Baclofen 10 Mg Tablet) 10 mg PO TID [facility] Last Admin: 12/27/21 08:28 Dose: 10 mg Bupropion HCl (Bupropion Hcl Xl 150 Mg Tab.Er.24h) 450 mg PO DAILY [facility] Last Admin: 12/27/21 08:27 Dose: 450 mg Clonazepam (Clonazepam 0.5 Mg Tablet) 0.5 mg PO TID PRN PRN Reason: anxiety Last Admin: 12/27/21 08:28 Dose: 0.5 mg Fluoxetine HCl (Fluoxetine Hcl 20 Mg Capsule) 40 mg PO DAILY [facility] Last Admin: 12/27/21 08:28 Dose: 40 mg Gabapentin (Gabapentin 400 Mg Capsule) 800 mg PO QID [facility] Last Admin: 12/27/21 08:28 Dose: 800 mg Hydroxyzine HCl (Hydroxyzine Hcl 50 Mg Tablet) 50 mg PO DAILY PRN PRN Reason: anxiety Last Admin: 12/26/21 20:18 Dose: 50 mg Hydroxyzine HCl (Hydroxyzine Hcl 25 Mg Tablet) 25 mg PO Q6H PRN PRN Reason: Anxiety Last Admin: 12/27/21 08:27 Dose: 25 mg Ibuprofen (Ibuprofen 600 Mg Tablet) 600 mg PO Q8H PRN PRN Reason: Pain, Moderate (Pain Scale 4-6 Last Admin: 12/27/21 06:43 Dose: 600 mg Magnesium Hydroxide (Milk Of Magnesia 30 Ml Oral.Susp) 30 ml PO DAILY PRN PRN Reason: Constipation Last Admin: 12/23/21 14:20 Dose: 30 ml Methadone HCl (Methadone Hcl 20 Mg/2 Ml Oral.Conc) 145 mg PO DAILY [facility] Last Admin: 12/27/21 08:26 Dose: 145 mg Multi-Ingred Cream/Lotion/Oil/Oint (Mineral Oil/Petrolatum,White 106 Gm Tube) 1 appl TOPICAL BID PRN; Protocol PRN Reason: Itching Last Admin: 12/20/21 12:38 Dose: 1 appl Multivitamins/Vitamin C (Multivitamin Tablet) 1 tab PO DAILY [facility] Last Admin: 12/27/21 08:28 Dose: 1 tab Nicotine (Nicotine 21 Mg Patch.Td24) 21 mg TRANSDERMA DAILY [facility] Last Admin: 12/27/21 08:33 Dose: 21 mg Non-Formulary Medication (Sofosbuvir-Velpatasvir) 1 tab PO DAILY [facility] Pharmacy Consult (Consult Rx Perform Med Rec) 1 each MISCELLANE ONCE PRN PRN Reason: Consult order Polyethylene Glycol (Polyethylene Glycol 3350 17 Gm Powd.Pack) 17 gm PO DAILY [facility] Last Admin: 12/27/21 08:34 Dose: 17 gm Prazosin HCl (Prazosin Hcl 5 Mg Capsule) 5 mg PO BEDTIME [facility]; Protocol Last Admin: 12/26/21 20:18 Dose: 5 mg Quetiapine Fumarate (Quetiapine Fumarate 200 Mg Tablet) 200 mg PO BEDTIME [facility] Last Admin: 12/26/21 20:18 Dose: 200 mg Quetiapine Fumarate (Quetiapine Fumarate 25 Mg Tablet) 25 mg PO TID@0900,1500,1900 [facility] Last Admin: 12/27/21 08:27 Dose: 25 mg Trazodone HCl (Trazodone Hcl 50 Mg Tablet) 50 mg PO BEDTIME PRN PRN Reason: Insomnia Allergies Allergies Allergy/AdvReac Type Severity Reaction Status Date / Time acetaminophen [From TYLENOL] Allergy Unknown Rash Verified 10/16/21 06:40 amoxicillin [Amoxicillin] Allergy Unknown Rash Verified 10/16/21 06:40 seafood Allergy Unknown Rash Verified 10/16/21 06:40 Assessment & Plan Assessment & Plan (1) Opioid use disorder: Status: Acute Code(s): F11.90 - Opioid use, unspecified, uncomplicated (2) MDD (major depressive disorder), recurrent episode: Status: Acute Code(s): F33.9 - Major depressive disorder, recurrent, unspecified (3) Cocaine use disorder: Status: Acute Code(s): F14.10 - Cocaine abuse, uncomplicated (4) Post traumatic stress disorder (PTSD): Status: Acute Code(s): F43.10 - Post-traumatic stress disorder, unspecified Plan Devika is admitted on a conditional voluntary for resumption of medications and stabilization and safety.? Current/recent medications were reinstituted.? Contact to be made with her outpatient treaters.? She does not appear to be in need of detoxification in light of intermittent use of heroin. 12/20: Continue current regimen and plans. 12/21: Re-start prazosin 4 mg QHS for nightmares. Increase gabapentin to 800 mg QID for neuropathy. Pt will meet with Dispatch Officer and addiction consult placed due to pt wanting to increase methadone 5 mg. She reports wanting to stay sober. 12/22: Pt's methadone increased to 145 mg daily by cessation systems outreach specialist, EKG ordered for 12/23/2021. Will trial propranolol 20 mg for anxiety, agitation. 12/23: Methadone increased by addiction services, EKG reviewed. Denies benefit on propranolol, does not want to take. Denies benefit on most anxiolytics. Will add low dose klonopin 0.5 mg BID PRN, pt understands this will not be increased and will be for inpatient use. 12/24: Will increase prazosin to 5 mg due to nightmares, PTSD related. Will place consult with tissue recovery technician, as pt is having urges to use. 12/25: no changes made to current regimen 12/26: increase klonopin to 0.5 mg TID PRN for anxiety/ perseveration, however pt know she will not be discharged on this dose. Will increase wellbutrin XL to 450 mg, as pt is impulsive, inattentive, and restless. I spent minutes with the patient and/or on the patient floor today, greater than?50% of which was spent counseling/coordinating care. Patient educated on: medication risk/benefits Reason for contiued inpatient stay Substantial Risk for: med/psych decompensation
[2021-12-27] MEDS: Ibuprofen 600 MG TABLET PO ×2 (06:43→19:41)
[2021-12-27] MEDS: methADONE HCl 20 MG/2 ML ORAL.CONC 145 MG PO (08:26)
[2021-12-27] MEDS: hydrOXYzine HCL 25 MG TABLET PO ×2 (08:27→19:41)
[2021-12-27] MEDS: QUEtiapine Fumarate 25 MG TABLET PO ×3 (08:27→18:56)
[2021-12-27] MEDS: buPROPion HCl XL 150 MG TAB.ER.24H 450 MG PO (08:27)
[2021-12-27] MEDS: FLUoxetine HCl 20 MG CAPSULE 40 MG PO (08:28)
[2021-12-27] MEDS: Gabapentin 400 MG CAPSULE 800 MG PO ×4 (08:28→19:42)
[2021-12-27] MEDS: Baclofen 10 MG TABLET PO ×3 (08:28→19:43)
[2021-12-27] MEDS: clonazePAM 0.5 MG TABLET PO ×3 (08:28→19:42)
[2021-12-27] MEDS: Multivitamin TABLET 1 TAB PO (08:28)
[2021-12-27] MEDS: Nicotine 21 MG PATCH.TD24 TRANSDERMA (08:33)
[2021-12-27] MEDS: polyethylene glycoL 3350 17 GM POWD.PACK PO (08:34)
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
[2021-12-27 19:30] VITALS: BP 134/74; PULSE 102; TEMP 37; O2SAT 96
[2021-12-27] MEDS: QUEtiapine Fumarate 200 MG TABLET PO (19:41)
[2021-12-27] MEDS: Prazosin HCL 5 MG CAPSULE PO (19:42)
[2021-12-28] MEDS: Ibuprofen 600 MG TABLET PO ×2 (08:11→19:19)
[2021-12-28] MEDS: Gabapentin 400 MG CAPSULE 800 MG PO ×4 (08:12→20:06)
[2021-12-28] MEDS: hydrOXYzine HCL 50 MG TABLET PO (08:12)
[2021-12-28] MEDS: FLUoxetine HCl 20 MG CAPSULE 40 MG PO (08:12)
[2021-12-28] MEDS: Multivitamin TABLET 1 TAB PO (08:12)
[2021-12-28] MEDS: Baclofen 10 MG TABLET PO ×3 (08:12→20:20)
[2021-12-28] MEDS: methADONE HCl 20 MG/2 ML ORAL.CONC 145 MG PO (08:15)
[2021-12-28 08:16] VITALS: BP 124/87; PULSE 107; RESP 16; TEMP 36.8; O2SAT 96
[2021-12-28] MEDS: Nicotine 21 MG PATCH.TD24 TRANSDERMA (09:10)
[2021-12-28] MEDS: QUEtiapine Fumarate 25 MG TABLET PO ×3 (09:10→19:19)
[2021-12-28] MEDS: buPROPion HCl XL 150 MG TAB.ER.24H 450 MG PO (09:10)
[2021-12-28] MEDS: polyethylene glycoL 3350 17 GM POWD.PACK PO (09:10)
[2021-12-28] MEDS: Clotrimazole 1 % Cream 15 GM TUBE 1 APPL TOPICAL (11:27)
[2021-12-28] MEDS: clonazePAM 0.5 MG TABLET PO ×2 (13:03→19:19)
--- NOTE | 2021-12-28 17:24 | HO.PSYCHPN ---
Subjective Subjective Date of Service: 12/28/21 Reason For Visit: HEYDI,VOLUNRTARY,PARMJIT SAW COMM,BED SEARCH IN PROGRESS Subjective Notes: Carpio Warning and Conditional Voluntary Healthcare Proxy: No Guardianship: No Medical Problems Affecting Mental Status: No Interim History: Patient seen and discussed with team. Patient evaluated today and upon interview pt reports she had another episode of enuresis last night during sleep, roommate told her she was whimpering in her sleep. Pt is upset with pending discharge, says they are sending me back into the [facility], I was supposed to get into a [facility]. Says she will likely get high, as she is supposed to get paid in two days. In the milieu, patient is safe but anxious in behavior. Medication Compliance: Yes Side effects from medications: No Attending Groups: Yes Review of Systems Acute medical concerns: No Medical Review of Systems: unchanged Mental Status Exam Mental Status Exam Narrative: A&O. In casual attire, long hair, unkempt appearance. Poor eye contact, attentive. No Tics or Tremors. No abnormal involuntary movements. Calm, cooperative. Non-pressured speech, spontaneous with regular rate and rhythm, normal volume and prosody. No prolonged speech latency or dysarthria. Mood is ?anxious,? affect is congruent. Denies SI/SIB/HI upon inquiry. Denies AH/VH or delusional thought content. Thoughts are distracted. No known cognitive or memory impairment. Insight/ Judgment limited but adequate. Diagnostics Vital Signs (24Hr): Vital Signs - 24 hr 12/27/21 19:30 12/28/21 08:16 Temperature 98.6 F 98.3 F Pulse Rate 102 H 107 H Respiratory Rate 16 Blood Pressure 134/74 124/87 Pulse Oximetry 96 96 Oxygen Delivery Method Room Air Room Air BMI result Body Mass Index 26.2 Labs Results: 12/18/21 09:54 12/17/21 11:07 Medications Medications Current Medications Al Hydroxide/Mg Hydroxide (Magnesium Hydrox/Alum Hydrox 30 Ml Oral.Susp) 30 ml PO Q6H PRN PRN Reason: Heartburn/Nausea Baclofen (Baclofen 10 Mg Tablet) 10 mg PO TID [facility] Last Admin: 12/28/21 16:07 Dose: 10 mg Bupropion HCl (Bupropion Hcl Xl 150 Mg Tab.Er.24h) 450 mg PO DAILY [facility] Last Admin: 12/28/21 09:10 Dose: 450 mg Clonazepam (Clonazepam 0.5 Mg Tablet) 0.5 mg PO TID PRN PRN Reason: anxiety Last Admin: 12/28/21 13:03 Dose: 0.5 mg Clotrimazole (Clotrimazole 1 % Cream 15 Gm Tube) 1 appl TOPICAL BID [facility] Last Admin: 12/28/21 11:27 Dose: 1 appl Fluoxetine HCl (Fluoxetine Hcl 20 Mg Capsule) 40 mg PO DAILY [facility] Last Admin: 12/28/21 08:12 Dose: 40 mg Gabapentin (Gabapentin 400 Mg Capsule) 800 mg PO QID [facility] Last Admin: 12/28/21 16:07 Dose: 800 mg Hydroxyzine HCl (Hydroxyzine Hcl 50 Mg Tablet) 50 mg PO DAILY PRN PRN Reason: anxiety Last Admin: 12/28/21 08:12 Dose: 50 mg Hydroxyzine HCl (Hydroxyzine Hcl 25 Mg Tablet) 25 mg PO Q6H PRN PRN Reason: Anxiety Last Admin: 12/27/21 19:41 Dose: 25 mg Ibuprofen (Ibuprofen 600 Mg Tablet) 600 mg PO Q8H PRN PRN Reason: Pain, Moderate (Pain Scale 4-6 Last Admin: 12/28/21 08:11 Dose: 600 mg Magnesium Hydroxide (Milk Of Magnesia 30 Ml Oral.Susp) 30 ml PO DAILY PRN PRN Reason: Constipation Last Admin: 12/23/21 14:20 Dose: 30 ml Methadone HCl (Methadone Hcl 20 Mg/2 Ml Oral.Conc) 145 mg PO DAILY [facility] Last Admin: 12/28/21 08:15 Dose: 145 mg Multi-Ingred Cream/Lotion/Oil/Oint (Mineral Oil/Petrolatum,White 106 Gm Tube) 1 appl TOPICAL BID PRN; Protocol PRN Reason: Itching Last Admin: 12/20/21 12:38 Dose: 1 appl Multivitamins/Vitamin C (Multivitamin Tablet) 1 tab PO DAILY [facility] Last Admin: 12/28/21 08:12 Dose: 1 tab Nicotine (Nicotine 21 Mg Patch.Td24) 21 mg TRANSDERMA DAILY [facility] Last Admin: 12/28/21 09:10 Dose: 21 mg Non-Formulary Medication (Sofosbuvir-Velpatasvir) 1 tab PO DAILY [facility] Polyethylene Glycol (Polyethylene Glycol 3350 17 Gm Powd.Pack) 17 gm PO DAILY [facility] Last Admin: 12/28/21 09:10 Dose: 17 gm Prazosin HCl (Prazosin Hcl 5 Mg Capsule) 5 mg PO BEDTIME [place]; Protocol Last Admin: 12/27/21 19:42 Dose: 5 mg Prazosin HCl (Prazosin Hcl 1 Mg Capsule) 1 mg PO Q6H PRN; Protocol PRN Reason: PTSD Quetiapine Fumarate (Quetiapine Fumarate 200 Mg Tablet) 200 mg PO BEDTIME [facility] Last Admin: 12/27/21 19:41 Dose: 200 mg Quetiapine Fumarate (Quetiapine Fumarate 25 Mg Tablet) 25 mg PO TID@0900,1500,1900 [facility] Last Admin: 12/28/21 16:07 Dose: 25 mg Trazodone HCl (Trazodone Hcl 50 Mg Tablet) 50 mg PO BEDTIME PRN PRN Reason: Insomnia Allergies Allergies Allergy/AdvReac Type Severity Reaction Status Date / Time acetaminophen [From TYLENOL] Allergy Unknown Rash Verified 10/16/21 06:40 amoxicillin [Amoxicillin] Allergy Unknown Rash Verified 10/16/21 06:40 seafood Allergy Unknown Rash Verified 10/16/21 06:40 Assessment & Plan Assessment & Plan (1) Opioid use disorder: Status: Acute Code(s): F11.90 - Opioid use, unspecified, uncomplicated (2) MDD (major depressive disorder), recurrent episode: Status: Acute Code(s): F33.9 - Major depressive disorder, recurrent, unspecified (3) Cocaine use disorder: Status: Acute Code(s): F14.10 - Cocaine abuse, uncomplicated (4) Post traumatic stress disorder (PTSD): Status: Acute Code(s): F43.10 - Post-traumatic stress disorder, unspecified Plan Devika is admitted on a conditional voluntary for resumption of medications and stabilization and safety.? Current/recent medications were reinstituted.? Contact to be made with her outpatient treaters.? She does not appear to be in need of detoxification in light of intermittent use of heroin. 12/20: Continue current regimen and plans. 12/21: Re-start prazosin 4 mg QHS for nightmares. Increase gabapentin to 800 mg QID for neuropathy. Pt will meet with Platform Builder and addiction consult placed due to pt wanting to increase methadone 5 mg. She reports wanting to stay sober. 12/22: Pt's methadone increased to 145 mg daily by career resource specialist, EKG ordered for 12/23/2021. Will trial propranolol 20 mg for anxiety, agitation. 12/23: Methadone increased by addiction services, EKG reviewed. Denies benefit on propranolol, does not want to take. Denies benefit on most anxiolytics. Will add low dose klonopin 0.5 mg BID PRN, pt understands this will not be increased and will be for inpatient use. 12/24: Will increase prazosin to 5 mg due to nightmares, PTSD related. Will place consult with power and recovery supervisor, as pt is having urges to use. 12/25: no changes made to current regimen 12/26: increase klonopin to 0.5 mg TID PRN for anxiety/ perseveration, however pt know she will not be discharged on this dose. Will increase wellbutrin XL to 450 mg, as pt is impulsive, inattentive, and restless. 12/27: Pt asks to be put back on prazosin 1 mg Q6H PRN, which she utilized during previous admission with good effect for flashbacks. 12/28: Will discontinue PRN prazosin, as pt says she will really only use this at night, instead increase prazosin to 7 mg QHS for PTSD, hyperarousal, nightmares I spent minutes with the patient and/or on the patient floor today, greater than?50% of which was spent counseling/coordinating care. Patient educated on: diagnosis, medication risk/benefits and therapeutic strategies Reason for contiued inpatient stay Substantial Risk for: med/psych decompensation
--- NOTE | 2021-12-28 19:10 | PC.NURSE ---
Patient is wanting an early discharge so that she can try to secure a bed at [facility] in [place], [place]. Patient has no transportation to get there but said she thought the hospital would provide a ride. This screen writer explained to patient that the request for an early discharge would be passed along.
[2021-12-28] MEDS: Prazosin HCL 1 MG CAPSULE 7 MG PO (20:06)
[2021-12-28] MEDS: QUEtiapine Fumarate 200 MG TABLET PO (20:06)
[2021-12-28 20:15] VITALS: BP 121/75; PULSE 102; RESP 14; TEMP 37.1; O2SAT 98
--- NOTE | 2021-12-28 20:40 | MHC.RECOVSUP ---
? Reason for consult:Recovery Support o Current location:[id number]? o Identified substance use concern: Heroin, Crack, Alcohol ? - Support ? ?Intervention: o Community resources provided o Harm reduction discussion ? Plan: o Follow up tomorrow ? ? Additional information:?I was able to connect with patient and review harm reduction strategies along with her options for treatment. Devika will be discharged tomorrow and was unable to obtain further treatment to a [facility] or [facility]. Devika did disclosed that referrals were submitted today, but has no place to go other than [facility] in [place]. Please follow up with patient in the morning.
[2021-12-29 06:00] VITALS: BP 137/72; PULSE 112; RESP 16; TEMP 36.8; O2SAT 95
[2021-12-29] MEDS: Gabapentin 400 MG CAPSULE 800 MG PO ×2 (07:59→12:09)
[2021-12-29] MEDS: buPROPion HCl XL 150 MG TAB.ER.24H 450 MG PO (07:59)
[2021-12-29] MEDS: QUEtiapine Fumarate 25 MG TABLET PO (07:59)
[2021-12-29] MEDS: methADONE HCl 20 MG/2 ML ORAL.CONC 145 MG PO (08:00)
[2021-12-29] MEDS: FLUoxetine HCl 20 MG CAPSULE 40 MG PO (08:00)
[2021-12-29] MEDS: Multivitamin TABLET 1 TAB PO (08:00)
[2021-12-29] MEDS: Baclofen 10 MG TABLET PO (08:03)
[2021-12-29] MEDS: clonazePAM 0.5 MG TABLET PO ×2 (08:04→12:09)
[2021-12-29] MEDS: Ibuprofen 600 MG TABLET PO (08:04)
[2021-12-29 15:46] LABS: HCV Log PCR <1.18 NOT DETECTED Log IU/mL (NOT DETECTED); HepC Viral Load <15 NOT DETECTED IU/mL (NOT DETECTED)
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
== END 2021-12-29 13:32 | disposition home or self-care (01) | DRG 751 ==
LOC: HO.ED 12:09 → HO.PM5 12-18 16:09
PROVIDERS: Registered Nurse; Admitting Provider Clinical Nurse Specialist Psychiatric/Mental Health, Adult; Emergency Provider Emergency Medicine Emergency Medical Services; Visit Provider Clinical Nurse Specialist Psychiatric/Mental Health, Adult
DX: F33.9 Major depressive disorder, recurrent, unspecified (principal); R45.851 Suicidal ideations; F41.1 Generalized anxiety disorder; F17.210 Nicotine dependence, cigarettes, uncomplicated; F43.10 Post-traumatic stress disorder, unspecified; F11.20 Opioid dependence, uncomplicated; F14.10 Cocaine abuse, uncomplicated; Z71.6 Tobacco abuse counseling; Z20.822 Contact with and (suspected) exposure to COVID-19; Z91.013 Allergy to seafood; Z88.0 Allergy status to penicillin; Z88.6 Allergy status to analgesic agent; Z79.899 Other long term (current) drug therapy
CPT/HCPCS: 36415; 80053; 80061; 80307; 81025; 82077; 82607; 82746; 83036; 83735; 84439; 84443; 85025; 85610; 87522; 87635; 93005; 99285

== ENCOUNTER 2022-01-01 16:24 | Inpatient (IN) | payer OTHER, SELFPAY ==
--- NOTE | 2022-01-01 | ECG_ITS ---
Test Reason : IRREGULAR HR Blood Pressure : / mmHG Vent. Rate : 072 BPM Atrial Rate : 072 BPM P-R Int : 136 ms QRS Dur : 094 ms QT Int : 420 ms P-R-T Axes : 066 067 049 degrees QTc Int : 459 ms Normal sinus rhythm Normal ECG When compared with ECG of 22-DEC-2021 14:14, No significant change was found Referred By: Angie Hutchinson Electronically Signed By:MAGGIE OWUSU MD
[2022-01-01 16:51] VITALS: BP 118/89; PULSE 74; RESP 16; TEMP 36.2; O2SAT 100
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
[2022-01-01] MEDS: methADONE HCl 20 MG/2 ML ORAL.CONC 5 MG PO (21:34)
[2022-01-01] MEDS: hydrOXYzine HCL 25 MG TABLET PO (21:38)
[2022-01-01] MEDS: QUEtiapine Fumarate 200 MG TABLET PO (21:53)
[2022-01-01] MEDS: Ibuprofen 600 MG TABLET PO (21:53)
[2022-01-01 21:55] VITALS: BP 127/73; PULSE 82; RESP 18; TEMP 36.6; O2SAT 99
[2022-01-01] MEDS: Baclofen 10 MG TABLET PO (21:55)
[2022-01-01] MEDS: Gabapentin 400 MG CAPSULE 800 MG PO (22:45)
[2022-01-02] MEDS: Gabapentin 400 MG CAPSULE 800 MG PO ×4 (07:15→20:57)
[2022-01-02 07:53] LABS: Estimated Average Glucose 105 mg/dL; Hemoglobin A1c % 5.3 %
[2022-01-02 08:21] LABS: Alanine Aminotransferase 17 U/L (0-31); Albumin Level 3.8 g/dL (3.5-5.0); Alkaline Phosphatase 74 U/L (39-117); Anion Gap 15 (12-20); Aspartate Amino Transferase 24 U/L (5-31); Bilirubin Total 0.5 mg/dL (0.0-1.0); Blood Urea Nitrogen 18 mg/dL (9-16); Calcium 8.7 mg/dL (8.4-10.2); Carbon Dioxide 22 mmol/L (22-29); Chloride 108 mmol/L (96-108); Cholesterol 379 mg/dL; Estimated Glomerular Filt Rate > 60; Glucose Fasting 94 mg/dL (60-99); HDL Cholesterol 58 mg/dL; LDL Cholesterol Calculated 301 mg/dl; Potassium 4.1 mmol/L (3.3-5.1); Sodium 141 mmol/L (135-145); Total Protein 6.8 g/dL (6.5-8.0); Triglycerides 102 mg/dL
[2022-01-02] MEDS: Nicotine 14 MG PATCH.TD24 TRANSDERMA (08:32)
[2022-01-02] MEDS: FLUoxetine HCl 20 MG CAPSULE 40 MG PO (08:33)
[2022-01-02] MEDS: Ibuprofen 600 MG TABLET PO ×2 (08:33→20:56)
[2022-01-02] MEDS: polyethylene glycoL 3350 17 GM POWD.PACK PO (08:33)
[2022-01-02] MEDS: buPROPion HCl XL 150 MG TAB.ER.24H 450 MG PO (08:34)
[2022-01-02] MEDS: Baclofen 10 MG TABLET PO ×3 (08:34→20:56)
[2022-01-02] MEDS: Multivitamin TABLET 1 TAB PO (08:34)
[2022-01-02] MEDS: methADONE HCl 20 MG/2 ML ORAL.CONC 145 MG PO (08:38)
[2022-01-02] MEDS: Clotrimazole 1 % Cream 15 GM TUBE 1 APPL TOPICAL (08:43)
[2022-01-02] MEDS: QUEtiapine Fumarate 25 MG TABLET PO ×3 (08:43→19:50)
[2022-01-02 10:09] VITALS: BP 146/61; PULSE 84; RESP 16; TEMP 36.4; O2SAT 99
[2022-01-02] MEDS: clonazePAM 0.5 MG TABLET PO ×2 (14:24→20:56)
[2022-01-02 14:49] LABS: Appearance Urine HAZY; Color Urine YELLOW; Glucose Urine UA NEG (NEG); Leukocyte Esterase Urine 1+ (NEG); Nitrite Urine NEG (NEG); Specific Gravity - Urine 1.025 (1.005-1.025); Urine Blood NEG (NEG); Urine Ketones NEG (NEG); Urine Protein NEG (NEG-TRACE)
[2022-01-02 14:56] LABS: Squamous Epithelial Cell Urine 4+ /LPF
[2022-01-02 14:57] LABS: Amorphous Sediment Urine 4+ /LPF; Bacteria Urine TRACE /LPF; RBC Urine 0 /HPF (0)
[2022-01-02 14:58] LABS: Calcium Oxalate Crystals Urine 1+ /LPF
--- NOTE | 2022-01-02 15:11 | P.HPPS_ITS ---
HPI Date of Service: 01/02/22 Chief Complaint: SI Sources of Information: patient interviewed, chart reviewed and crisis/core team assessment reviewed HPI Subjective Notes: Conditional Voluntary Narrative: This is one o any admissions for this patient with history of depression, PSA. She was transferred from [facility] where she presented with SI. She had a plan of ODing on drugs shooting up. Patient was discharged from [place] [id number] 2 days ago. She says her main reason for wanting to is I have been living in the [place] and is homeless. She had also twisted her ankle. X-Ray of her foot is negative. Today she reports she feels depressed but is not suicidal. She denies SI/HI/AVH Past Psychiatric History: -Hx of multiple inpatient admissions, detoxes. Medical Evaluation Reviewed: Yes [facility] Medical History Fall MAGO (generalized anxiety disorder) Social History: -She is currently homeless and reported wandering the community for three days, not eating or sleeping X3 days. Has 3 children (not in her custody). Substance History: PSA. UTOX + Opioids, Amphetamine, Cocaine and THC Diagnostics Vital Signs (24Hr): Vital Signs - 24 hr 01/02/22 10:09 01/02/22 20:56 Temperature 97.6 F 97.9 F Pulse Rate 84 79 Respiratory Rate 16 18 Blood Pressure 146/61 H 125/72 Pulse Oximetry 99 97 Oxygen Delivery Method Room Air Room Air Labs Results: 01/02/22 07:16 Labs: Laboratory Results - last 48 hr 01/02/22 01/02/22 01/02/22 07:16 07:16 14:25 Sodium 141 Potassium 4.1 Chloride 108 Carbon Dioxide 22 Anion Gap 15 BUN 18 H D Creatinine 0.65 Estim Creat Clear Calc TNP Estimated GFR > 60 Fasting Glucose 94 Estimat Average Glucose 105 Hemoglobin A1c % 5.3 Calcium 8.7 D Magnesium 2.0 Total Bilirubin 0.5 AST 24 D ALT 17 Alkaline Phosphatase 74 Total Protein 6.8 Albumin 3.8 Triglycerides 102 Cholesterol 379 D LDL Cholesterol, Calc 301 HDL Cholesterol 58 D TSH 2.10 Urine Color YELLOW Urine Appearance HAZY Urine pH 6.0 Ur Specific [place] 1.025 Urine Protein NEG Urine Glucose (UA) NEG Urine Ketones NEG Urine Blood NEG Urine Nitrite NEG Ur Leukocyte Esterase 1+ H Urine RBC 0 Urine WBC 1-4 Ur Squamous Epith Cells 4+ Calcium Oxalate Crystal 1+ Amorphous Sediment 4+ Urine Bacteria TRACE EKG EKG: reviewed EKG Comment: repeat QTc was 459ms at [facility]. Meds/Allergies Meds Home Medications Medication Instructions Recorded Confirmed Type baclofen 10 mg tablet 10 mg PO TID 10/15/21 12/17/21 History quetiapine 200 mg tablet 1 tab PO BEDTIME 12/17/21 12/17/21 History Allergies Allergies Allergy/AdvReac Type Severity Reaction Status Date / Time acetaminophen [From TYLENOL] Allergy Unknown Rash Verified 10/16/21 06:40 amoxicillin [Amoxicillin] Allergy Unknown Rash Verified 10/16/21 06:40 seafood Allergy Unknown Rash Verified 10/16/21 06:40 Mental Status Exam Mental Status Exam Patient Appearance: Appropriate Patient Orientation: Person, Place, Time and Situation Level of Consciousness: Awake and Appropriate Patient Behavior: Appropriate, Cooperative and Anxious Mood Description: Calm, Depressed and Anxious Affect Description: Calm, Depressed and Anxious Patient Cognition Impaired: No Ability to Follow Directions: Good Speech Pattern: Clear Memory Description: Intact Hallucinations: None Delusions: Not Present Thought Process: Intact and Evasive Thought Content: positive for Intact and positive for Logical Depressive Symptoms: Increased Anxiety, Loss of Int. in Activity, Feelings of Worthlessness, Unhappiness and Thoughts of /Suicide Judgement: Fair Assessment & Plan Assessment & Plan (1) Depression: Status: Acute Code(s): F32.A - Depression, unspecified (2) Suicidal ideation: Status: Acute Code(s): R45.851 - Suicidal ideations (3) Substance abuse: Status: Acute Code(s): F19.10 - Other psychoactive substance abuse, uncomplicated Plan - Admit to M3 on CV - Restart medicaitons and monitor response. Patient reports she was DC'd on Clonazepam and was given in the hospital. (verified notes of the last admission). Will restart. - Milieu therapy - Disposition planning Patient educated on: diagnosis and medication risk/benefits Reason for continued inpatient stay Substantial Risk for: harm to self, inability to function and rapid decompensation
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
[2022-01-02 20:56] VITALS: BP 125/72; PULSE 79; RESP 18; TEMP 36.6; O2SAT 97
[2022-01-02] MEDS: QUEtiapine Fumarate 200 MG TABLET PO (20:56)
[2022-01-02] MEDS: hydrOXYzine HCL 25 MG TABLET PO (20:57)
[2022-01-03] MEDS: polyethylene glycoL 3350 17 GM POWD.PACK PO (08:49)
[2022-01-03] MEDS: Nicotine 14 MG PATCH.TD24 TRANSDERMA (08:49)
[2022-01-03] MEDS: Baclofen 10 MG TABLET PO ×3 (08:50→20:30)
[2022-01-03] MEDS: buPROPion HCl XL 150 MG TAB.ER.24H 450 MG PO (08:50)
[2022-01-03] MEDS: FLUoxetine HCl 20 MG CAPSULE 40 MG PO (08:50)
[2022-01-03] MEDS: clonazePAM 0.5 MG TABLET PO ×2 (08:51→20:27)
[2022-01-03] MEDS: Gabapentin 400 MG CAPSULE 800 MG PO ×4 (08:51→20:27)
[2022-01-03] MEDS: methADONE HCl 20 MG/2 ML ORAL.CONC 145 MG PO (08:51)
[2022-01-03] MEDS: Acetaminophen 325 MG TABLET 650 MG PO (08:51)
[2022-01-03] MEDS: Multivitamin TABLET 1 TAB PO (08:51)
[2022-01-03] MEDS: Clotrimazole 1 % Cream 15 GM TUBE 1 APPL TOPICAL (09:02)
[2022-01-03] MEDS: QUEtiapine Fumarate 25 MG TABLET PO ×3 (09:02→18:12)
[2022-01-03 09:23] VITALS: BP 114/74; PULSE 80; RESP 16; TEMP 36.6; O2SAT 97
--- NOTE | 2022-01-03 14:04 | P.PNPSI_ITS ---
Subjective Subjective Date of Service: 01/03/22 Reason For Visit: SI Medical Problems Affecting Mental Status: No Interim History: Patient seen and discussed. She reports she continues to feel depressed and feels the Wellbutrin is not helpful. She is educated about the synergistic effects of Wellbutrin with Prozac. She was just recently started on Prozac and was encouraged to continue for now until efficacy of regimen can be determined. Asked for Clonazepam during the day which was deferred. Denies SI, denies AVH. Was found to have a UTI and started of Ceftin. No other complaints. Medication Compliance: Yes Side effects from medications: No Review of Systems Review of Systems Gen: no fever Resp: no sob, no cough CV: no chest, no MORENO, no leg edema GI/: No n/v, no abd pain, + burning on urination Neuro: No confusion Yes all other systems are reviewed and are negative Mental Status Exam Mental Status Exam Patient Appearance: Appropriate Patient Orientation: Person, Place, Time and Situation Level of Consciousness: Awake and Appropriate Patient Behavior: Appropriate, Cooperative and Anxious Mood Description: Calm, Depressed and Anxious Affect Description: Calm, Depressed and Anxious Patient Cognition Impaired: No Ability to Follow Directions: Good Speech Pattern: Clear Memory Description: Intact Hallucinations: None Delusions: Not Present Thought Process: Intact and Goal Oriented Thought Content: positive for Goal Oriented Depressive Symptoms: Increased Anxiety Judgement: Fair Diagnostics Vital Signs (24Hr): Vital Signs - 24 hr 01/03/22 09:23 01/03/22 18:00 Temperature 97.8 F 97.9 F Pulse Rate 80 95 Respiratory Rate 16 16 Blood Pressure 114/74 129/77 Pulse Oximetry 97 98 Oxygen Delivery Method Room Air Room Air Labs Results: 01/02/22 07:16 Labs: Laboratory Results - last 48 hr 01/02/22 01/02/22 01/02/22 07:16 07:16 14:25 Sodium 141 Potassium 4.1 Chloride 108 Carbon Dioxide 22 Anion Gap 15 BUN 18 H D Creatinine 0.65 Estim Creat Clear Calc TNP Estimated GFR > 60 Fasting Glucose 94 Estimat Average Glucose 105 Hemoglobin A1c % 5.3 Calcium 8.7 D Magnesium 2.0 Total Bilirubin 0.5 AST 24 D ALT 17 Alkaline Phosphatase 74 Total Protein 6.8 Albumin 3.8 Triglycerides 102 Cholesterol 379 D LDL Cholesterol, Calc 301 HDL Cholesterol 58 D TSH 2.10 Urine Color YELLOW Urine Appearance HAZY Urine pH 6.0 Ur Specific [place] 1.025 Urine Protein NEG Urine Glucose (UA) NEG Urine Ketones NEG Urine Blood NEG Urine Nitrite NEG Ur Leukocyte Esterase 1+ H Urine RBC 0 Urine WBC 1-4 Ur Squamous Epith Cells 4+ Calcium Oxalate Crystal 1+ Amorphous Sediment 4+ Urine Bacteria TRACE Medications Medications Current Medications Acetaminophen (Acetaminophen 325 Mg Tablet) 650 mg PO Q6H PRN PRN Reason: Headache/Pain Mild Scale (1-3) Last Admin: 01/03/22 08:51 Dose: 650 mg Al Hydroxide/Mg Hydroxide (Magnesium Hydrox/Alum Hydrox 30 Ml Oral.Susp) 30 ml PO Q6H PRN PRN Reason: Heartburn/Nausea Baclofen (Baclofen 10 Mg Tablet) 10 mg PO TID [facility] Last Admin: 01/03/22 20:30 Dose: 10 mg Bupropion HCl (Bupropion Hcl Xl 150 Mg Tab.Er.24h) 450 mg PO DAILY [facility] Last Admin: 01/03/22 08:50 Dose: 450 mg Cefuroxime Axetil (Cefuroxime Axetil 250 Mg Tablet) 250 mg PO Q12H [facility] Stop: 01/07/22 08:01 Last Admin: 01/03/22 20:28 Dose: 250 mg Clonazepam (Clonazepam 0.5 Mg Tablet) 0.5 mg PO BID PRN PRN Reason: severe anxiety Last Admin: 01/03/22 20:27 Dose: 0.5 mg Clotrimazole (Clotrimazole 1 % Cream 15 Gm Tube) 1 appl TOPICAL BID [facility] Last Admin: 01/03/22 21:39 Dose: Not Given Fluoxetine HCl (Fluoxetine Hcl 20 Mg Capsule) 40 mg PO DAILY [facility] Last Admin: 01/03/22 08:50 Dose: 40 mg Gabapentin (Gabapentin 400 Mg Capsule) 800 mg PO QID [facility] Last Admin: 01/03/22 20:27 Dose: 800 mg Hydroxyzine HCl (Hydroxyzine Hcl 25 Mg Tablet) 25 mg PO Q6H PRN PRN Reason: Anxiety Last Admin: 01/03/22 20:27 Dose: 25 mg Ibuprofen (Ibuprofen 600 Mg Tablet) 600 mg PO Q8H PRN PRN Reason: mod-severe pain Last Admin: 01/02/22 20:56 Dose: 600 mg Magnesium Hydroxide (Milk Of Magnesia 30 Ml Oral.Susp) 30 ml PO DAILY PRN PRN Reason: Constipation Methadone HCl (Methadone Hcl 20 Mg/2 Ml Oral.Conc) 145 mg PO DAILY [facility] Last Admin: 01/03/22 08:51 Dose: 145 mg Multivitamins/Vitamin C (Multivitamin Tablet) 1 tab PO DAILY [facility] Last Admin: 01/03/22 08:51 Dose: 1 tab Nicotine (Nicotine 14 Mg Patch.Td24) 14 mg TRANSDERMA DAILY [facility] Last Admin: 01/03/22 08:49 Dose: 14 mg Nicotine Polacrilex (Nicotine Polacrilex 2 Mg Gum) 2 mg BUCCAL Q2H PRN PRN Reason: Nicotine Cravings Non-Formulary Medication (Sofosbuvir-Velpatasvir) 1 tab PO DAILY [facility] Polyethylene Glycol (Polyethylene Glycol 3350 17 Gm Powd.Pack) 17 gm PO DAILY [facility] Last Admin: 01/03/22 08:49 Dose: 17 gm Prazosin HCl 5 mg/ Prazosin (HCl 2 mg) 7 mg PO BEDTIME [facility] Last Admin: 01/03/22 20:29 Dose: 7 mg Quetiapine Fumarate (Quetiapine Fumarate 25 Mg Tablet) 25 mg PO TID@0900,1500,1900 [facility] Last Admin: 01/03/22 18:12 Dose: 25 mg Quetiapine Fumarate (Quetiapine Fumarate 200 Mg Tablet) 200 mg PO BEDTIME [facility] Last Admin: 01/03/22 20:29 Dose: 200 mg Trazodone HCl (Trazodone Hcl 50 Mg Tablet) 50 mg PO BEDTIME PRN PRN Reason: Insomnia Allergies Allergies Allergy/AdvReac Type Severity Reaction Status Date / Time acetaminophen [From TYLENOL] Allergy Unknown Rash Verified 10/16/21 06:40 amoxicillin [Amoxicillin] Allergy Unknown Rash Verified 10/16/21 06:40 seafood Allergy Unknown Rash Verified 10/16/21 06:40 Assessment & Plan Assessment & Plan (1) Depression: Status: Acute Code(s): F32.A - Depression, unspecified (2) Suicidal ideation: Status: Acute Code(s): R45.851 - Suicidal ideations (3) Substance abuse: Status: Acute Code(s): F19.10 - Other psychoactive substance abuse, uncomplicated Plan - Admit to M3 on CV - Restart medicaitons and monitor response. Patient reports she was DC'd on Clonazepam and was given in the hospital. (verified notes of the last admission). Will restart. - Milieu therapy - Disposition planning 01/03: Continue treatment plan. I spent minutes with the patient and/or on the patient floor today, greater than?50% of which was spent counseling/coordinating care. Reason for contiued inpatient stay Substantial Risk for: harm to self, inability to function and rapid decompensation
[2022-01-03 18:00] VITALS: BP 129/77; PULSE 95; RESP 16; TEMP 36.6; O2SAT 98
[2022-01-03] MEDS: hydrOXYzine HCL 25 MG TABLET PO (20:27)
[2022-01-03] MEDS: QUEtiapine Fumarate 200 MG TABLET PO (20:29)
[2022-01-04 07:32] LABS: Folate 14.9 ng/mL (> or = 4.0); Vitamin B12 277 pg/mL (200-900)
[2022-01-04 07:53] VITALS: BP 132/90; PULSE 82; RESP 16; TEMP 36.7; O2SAT 98
[2022-01-04] MEDS: Nicotine 14 MG PATCH.TD24 TRANSDERMA (08:06)
[2022-01-04] MEDS: methADONE HCl 20 MG/2 ML ORAL.CONC 145 MG PO (08:07)
[2022-01-04] MEDS: polyethylene glycoL 3350 17 GM POWD.PACK PO (08:08)
[2022-01-04] MEDS: Gabapentin 400 MG CAPSULE 800 MG PO ×4 (08:09→20:49)
[2022-01-04] MEDS: buPROPion HCl XL 150 MG TAB.ER.24H 450 MG PO (08:09)
[2022-01-04] MEDS: Baclofen 10 MG TABLET PO ×3 (08:09→20:51)
[2022-01-04] MEDS: hydrOXYzine HCL 25 MG TABLET PO ×2 (08:10→20:51)
[2022-01-04] MEDS: FLUoxetine HCl 20 MG CAPSULE 40 MG PO (08:10)
[2022-01-04] MEDS: clonazePAM 0.5 MG TABLET PO ×2 (08:10→20:51)
[2022-01-04] MEDS: Ibuprofen 600 MG TABLET PO ×2 (08:11→20:51)
[2022-01-04] MEDS: Multivitamin TABLET 1 TAB PO (08:11)
[2022-01-04] MEDS: QUEtiapine Fumarate 25 MG TABLET PO ×3 (08:14→19:30)
--- NOTE | 2022-01-04 17:05 | HO.PSYCHPN ---
Subjective Subjective Date of Service: 01/04/22 Reason For Visit: SI Interim History: calm, cooperative. focused on her swollen foot. advised to rest, elevate, ice, ibuprofen. c/o anti-depressants not working. willing to give current regimen more time. per staff, not attending groups. in behavioral control. episode of agitation arouind phone use. Mental Status Exam Mental Status Exam Narrative: A&O. In casual attire, long hair, unkempt appearance. good eye contact, attentive. No Tics or Tremors. No abnormal involuntary movements. Calm, cooperative. Non-pressured speech, spontaneous with regular rate and rhythm, normal volume and prosody. No prolonged speech latency or dysarthria. Mood is ?depressed,? affect appears more irritable. no SI/HI/AVH expressed. thoughts linear and logical. No known cognitive or memory impairment. Insight/ Judgment limited but adequate. Diagnostics Vital Signs (24Hr): Vital Signs - 24 hr 01/03/22 18:00 01/04/22 07:53 Temperature 97.9 F 98.0 F Pulse Rate 95 82 Respiratory Rate 16 16 Blood Pressure 129/77 132/90 H Pulse Oximetry 98 98 Oxygen Delivery Method Room Air Room Air Labs Results: 01/02/22 07:16 Labs: Laboratory Results - last 48 hr 01/02/22 07:16 Vitamin B12 277 Folate 14.9 Medications Medications Current Medications Al Hydroxide/Mg Hydroxide (Magnesium Hydrox/Alum Hydrox 30 Ml Oral.Susp) 30 ml PO Q6H PRN PRN Reason: Heartburn/Nausea Baclofen (Baclofen 10 Mg Tablet) 10 mg PO TID [facility] Last Admin: 01/04/22 14:29 Dose: 10 mg Bupropion HCl (Bupropion Hcl Xl 150 Mg Tab.Er.24h) 450 mg PO DAILY [facility] Last Admin: 01/04/22 08:09 Dose: 450 mg Cefuroxime Axetil (Cefuroxime Axetil 250 Mg Tablet) 250 mg PO Q12H [facility] Stop: 01/07/22 08:01 Last Admin: 01/04/22 08:10 Dose: 250 mg Clonazepam (Clonazepam 0.5 Mg Tablet) 0.5 mg PO BID PRN PRN Reason: severe anxiety Last Admin: 01/04/22 08:10 Dose: 0.5 mg Clotrimazole (Clotrimazole 1 % Cream 15 Gm Tube) 1 appl TOPICAL BID [facility] Last Admin: 01/04/22 09:39 Dose: Not Given Fluoxetine HCl (Fluoxetine Hcl 20 Mg Capsule) 40 mg PO DAILY [facility] Last Admin: 01/04/22 08:10 Dose: 40 mg Gabapentin (Gabapentin 400 Mg Capsule) 800 mg PO QID [facility] Last Admin: 01/04/22 13:41 Dose: 800 mg Hydroxyzine HCl (Hydroxyzine Hcl 25 Mg Tablet) 25 mg PO Q6H PRN PRN Reason: Anxiety Last Admin: 01/04/22 08:10 Dose: 25 mg Ibuprofen (Ibuprofen 600 Mg Tablet) 600 mg PO Q8H PRN PRN Reason: mod-severe pain Last Admin: 01/04/22 08:11 Dose: 600 mg Magnesium Hydroxide (Milk Of Magnesia 30 Ml Oral.Susp) 30 ml PO DAILY PRN PRN Reason: Constipation Methadone HCl (Methadone Hcl 20 Mg/2 Ml Oral.Conc) 145 mg PO DAILY [facility] Last Admin: 01/04/22 08:07 Dose: 145 mg Multivitamins/Vitamin C (Multivitamin Tablet) 1 tab PO DAILY [facility] Last Admin: 01/04/22 08:11 Dose: 1 tab Nicotine (Nicotine 14 Mg Patch.Td24) 14 mg TRANSDERMA DAILY [facility] Last Admin: 01/04/22 08:06 Dose: 14 mg Nicotine Polacrilex (Nicotine Polacrilex 2 Mg Gum) 2 mg BUCCAL Q2H PRN PRN Reason: Nicotine Cravings Non-Formulary Medication (Sofosbuvir-Velpatasvir) 1 tab PO DAILY [facility] Polyethylene Glycol (Polyethylene Glycol 3350 17 Gm Powd.Pack) 17 gm PO DAILY [facility] Last Admin: 01/04/22 08:08 Dose: 17 gm Prazosin HCl 5 mg/ Prazosin (HCl 2 mg) 7 mg PO BEDTIME [facility] Last Admin: 01/03/22 20:29 Dose: 7 mg Quetiapine Fumarate (Quetiapine Fumarate 25 Mg Tablet) 25 mg PO TID@0900,1500,1900 [facility] Last Admin: 01/04/22 14:30 Dose: 25 mg Quetiapine Fumarate (Quetiapine Fumarate 200 Mg Tablet) 200 mg PO BEDTIME [facility] Last Admin: 01/03/22 20:29 Dose: 200 mg Trazodone HCl (Trazodone Hcl 50 Mg Tablet) 50 mg PO BEDTIME PRN PRN Reason: Insomnia Allergies Allergies Allergy/AdvReac Type Severity Reaction Status Date / Time acetaminophen [From TYLENOL] Allergy Unknown Rash Verified 10/16/21 06:40 amoxicillin [Amoxicillin] Allergy Unknown Rash Verified 10/16/21 06:40 seafood Allergy Unknown Rash Verified 10/16/21 06:40 Assessment & Plan Assessment & Plan (1) Depression: Status: Acute Code(s): F32.A - Depression, unspecified (2) Suicidal ideation: Status: Acute Code(s): R45.851 - Suicidal ideations (3) Substance abuse: Status: Acute Code(s): F19.10 - Other psychoactive substance abuse, uncomplicated Plan - Admit to M3 on CV - Restart medicaitons and monitor response. Patient reports she was DC'd on Clonazepam and was given in the hospital. (verified notes of the last admission). Will restart. - Milieu therapy - Disposition planning 01/03: Continue treatment plan. 01/04: no change in plan. I spent __25____ minutes with the patient and/or on the patient floor today, greater than?50% of which was spent counseling/coordinating care. Reason for contiued inpatient stay Substantial Risk for: harm to self, inability to function and rapid decompensation
[2022-01-04 20:50] VITALS: BP 121/77; PULSE 95; RESP 16; TEMP 36.8; O2SAT 95
[2022-01-04] MEDS: QUEtiapine Fumarate 200 MG TABLET PO (20:50)
[2022-01-05 08:26] VITALS: BP 111/72; PULSE 75; RESP 18; TEMP 36.7; O2SAT 98
[2022-01-05] MEDS: polyethylene glycoL 3350 17 GM POWD.PACK PO (09:02)
[2022-01-05] MEDS: buPROPion HCl XL 150 MG TAB.ER.24H 450 MG PO (09:02)
[2022-01-05] MEDS: clonazePAM 0.5 MG TABLET PO (09:02)
[2022-01-05] MEDS: Multivitamin TABLET 1 TAB PO (09:02)
[2022-01-05] MEDS: Gabapentin 400 MG CAPSULE 800 MG PO ×4 (09:02→20:12)
[2022-01-05] MEDS: FLUoxetine HCl 20 MG CAPSULE 40 MG PO (09:03)
[2022-01-05] MEDS: hydrOXYzine HCL 25 MG TABLET PO ×2 (09:03→20:12)
[2022-01-05] MEDS: Baclofen 10 MG TABLET PO ×3 (09:03→20:14)
[2022-01-05] MEDS: QUEtiapine Fumarate 25 MG TABLET PO ×3 (09:05→19:05)
[2022-01-05] MEDS: Ibuprofen 600 MG TABLET PO ×2 (09:05→20:11)
[2022-01-05] MEDS: methADONE HCl 20 MG/2 ML ORAL.CONC 145 MG PO (09:07)
--- NOTE | 2022-01-05 17:36 | P.PNPSI_ITS ---
Subjective Subjective Date of Service: 01/05/22 Reason For Visit: SI Interim History: c/o depression, saying her dog . friend called her needing help but she can't help from here. swelling improved on foot. informed of plan to discharge and to taper klonopin. per staff, c/o anx/dep. good appetite. not attending groups. napping. TV. pleasant. c/o foot pain. med-compliant, taking klonopin PRNs. Mental Status Exam Mental Status Exam Narrative: A&O. In casual attire, long hair, adequately groomed. good eye contact, attentive. No Tics or Tremors. No abnormal involuntary movements. Calm, cooperative. Non-pressured speech, spontaneous with regular rate and rhythm, normal volume and prosody. No prolonged speech latency or dysarthria. Mood is ?depressed,? affect normo-intense and non-labile. no SI/HI/AVH expressed. thoughts linear and logical. No known cognitive or memory impairment. Insight/ Judgment limited but adequate. Diagnostics Vital Signs (24Hr): Vital Signs - 24 hr 01/04/22 20:50 01/05/22 08:26 Temperature 98.2 F 98.0 F Pulse Rate 95 75 Respiratory Rate 16 18 Blood Pressure 121/77 111/72 Pulse Oximetry 95 98 Oxygen Delivery Method Room Air Room Air Labs Results: 01/02/22 07:16 Labs: Laboratory Results - last 48 hr 01/02/22 07:16 Vitamin B12 277 Folate 14.9 Medications Medications Current Medications Al Hydroxide/Mg Hydroxide (Magnesium Hydrox/Alum Hydrox 30 Ml Oral.Susp) 30 ml PO Q6H PRN PRN Reason: Heartburn/Nausea Baclofen (Baclofen 10 Mg Tablet) 10 mg PO TID [facility] Last Admin: 01/05/22 15:51 Dose: 10 mg Bupropion HCl (Bupropion Hcl Xl 150 Mg Tab.Er.24h) 450 mg PO DAILY [facility] Last Admin: 01/05/22 09:02 Dose: 450 mg Cefuroxime Axetil (Cefuroxime Axetil 250 Mg Tablet) 250 mg PO Q12H [facility] Stop: 01/07/22 08:01 Last Admin: 01/05/22 09:03 Dose: 250 mg Clonazepam (Clonazepam 0.5 Mg Tablet) 0.25 mg PO BID PRN PRN Reason: severe anxiety Clotrimazole (Clotrimazole 1 % Cream 15 Gm Tube) 1 appl TOPICAL BID [facility] Last Admin: 01/05/22 09:22 Dose: Not Given Fluoxetine HCl (Fluoxetine Hcl 20 Mg Capsule) 40 mg PO DAILY [facility] Last Admin: 01/05/22 09:03 Dose: 40 mg Gabapentin (Gabapentin 400 Mg Capsule) 800 mg PO QID [facility] Last Admin: 01/05/22 12:28 Dose: 800 mg Hydroxyzine HCl (Hydroxyzine Hcl 25 Mg Tablet) 25 mg PO Q6H PRN PRN Reason: Anxiety Last Admin: 01/05/22 09:03 Dose: 25 mg Ibuprofen (Ibuprofen 600 Mg Tablet) 600 mg PO Q8H PRN PRN Reason: mod-severe pain Last Admin: 01/05/22 09:05 Dose: 600 mg Magnesium Hydroxide (Milk Of Magnesia 30 Ml Oral.Susp) 30 ml PO DAILY PRN PRN Reason: Constipation Methadone HCl (Methadone Hcl 20 Mg/2 Ml Oral.Conc) 145 mg PO DAILY [facility] Last Admin: 01/05/22 09:07 Dose: 145 mg Multivitamins/Vitamin C (Multivitamin Tablet) 1 tab PO DAILY [facility] Last Admin: 01/05/22 09:02 Dose: 1 tab Nicotine (Nicotine 14 Mg Patch.Td24) 14 mg TRANSDERMA DAILY [facility] Last Admin: 01/05/22 09:22 Dose: Not Given Nicotine Polacrilex (Nicotine Polacrilex 2 Mg Gum) 2 mg BUCCAL Q2H PRN PRN Reason: Nicotine Cravings Non-Formulary Medication (Sofosbuvir-Velpatasvir) 1 tab PO DAILY [facility] Polyethylene Glycol (Polyethylene Glycol 3350 17 Gm Powd.Pack) 17 gm PO DAILY [facility] Last Admin: 01/05/22 09:02 Dose: 17 gm Prazosin HCl 5 mg/ Prazosin (HCl 2 mg) 7 mg PO BEDTIME [facility] Last Admin: 01/04/22 20:50 Dose: 7 mg Quetiapine Fumarate (Quetiapine Fumarate 25 Mg Tablet) 25 mg PO TID@0900,1500,1900 [facility] Last Admin: 01/05/22 15:51 Dose: 25 mg Quetiapine Fumarate (Quetiapine Fumarate 200 Mg Tablet) 200 mg PO BEDTIME [facility] Last Admin: 01/04/22 20:50 Dose: 200 mg Trazodone HCl (Trazodone Hcl 50 Mg Tablet) 50 mg PO BEDTIME PRN PRN Reason: Insomnia Allergies Allergies Allergy/AdvReac Type Severity Reaction Status Date / Time acetaminophen [From TYLENOL] Allergy Unknown Rash Verified 10/16/21 06:40 amoxicillin [Amoxicillin] Allergy Unknown Rash Verified 10/16/21 06:40 seafood Allergy Unknown Rash Verified 10/16/21 06:40 Assessment & Plan Assessment & Plan (1) Depression: Status: Acute Code(s): F32.A - Depression, unspecified (2) Suicidal ideation: Status: Acute Code(s): R45.851 - Suicidal ideations (3) Substance abuse: Status: Acute Code(s): F19.10 - Other psychoactive substance abuse, uncomplicated Plan - Admit to [facility] on CV - Restart medicaitons and monitor response. Patient reports she was DC'd on Clonazepam and was given in the hospital. (verified notes of the last admission). Will restart. - Milieu therapy - Disposition planning 01/03: Continue treatment plan. 01/04: no change in plan. 01/05: klonopin PRNs decreased to 0.25 mg each. discharge tomorrow to custodial. I spent ___25___ minutes with the patient and/or on the patient floor today, greater than?50% of which was spent counseling/coordinating care. Reason for contiued inpatient stay Substantial Risk for: stable for discharge
[2022-01-05] MEDS: clonazePAM 0.5 MG TABLET 0.25 MG PO (20:12)
[2022-01-05 20:14] VITALS: BP 126/80; PULSE 98; RESP 18; TEMP 36.6; O2SAT 95
[2022-01-05] MEDS: QUEtiapine Fumarate 200 MG TABLET PO (20:14)
[2022-01-06 06:00] VITALS: BP 110/72; PULSE 75; RESP 16; TEMP 36.6; O2SAT 97
[2022-01-06] MEDS: buPROPion HCl XL 150 MG TAB.ER.24H 450 MG PO (09:07)
[2022-01-06] MEDS: Gabapentin 400 MG CAPSULE 800 MG PO ×2 (09:07→13:18)
[2022-01-06] MEDS: Multivitamin TABLET 1 TAB PO (09:08)
[2022-01-06] MEDS: Baclofen 10 MG TABLET PO (09:08)
[2022-01-06] MEDS: FLUoxetine HCl 20 MG CAPSULE 40 MG PO (09:21)
[2022-01-06] MEDS: methADONE HCl 20 MG/2 ML ORAL.CONC 145 MG PO (09:22)
[2022-01-06] MEDS: hydrOXYzine HCL 25 MG TABLET PO ×2 (09:24→13:59)
[2022-01-06] MEDS: Ibuprofen 600 MG TABLET PO (09:24)
[2022-01-06] MEDS: QUEtiapine Fumarate 25 MG TABLET PO (09:25)
[2022-01-06] MEDS: clonazePAM 0.5 MG TABLET 0.25 MG PO ×2 (09:26→14:00)
--- NOTE | 2022-01-06 12:43 | PM.PSYDC ---
DS: Providers Provider Date of Service: 01/06/22 Date of admission: 01/01/22 16:24 Primary care physician: Unknown Physician Consults: 01/01/22 16:35 Consult to Hospitalist Routine Consulting Provider: Hospitalist Reason For Exam: routine 01/01/22 21:11 Addiction Medicine Routine Consulting Provider: Jennifer Braun Reason for consultation: on methadone, i think the dose is good but just checking DS: Diagnosis Discharge Diagnosis (1) Depression: Status: Inactive (2) Suicidal ideation: Status: Inactive (3) Substance abuse: Status: Inactive DS: Medications Discharge Medications Home Medications: Previous Rx's Medication Instructions Recorded Sofosbuvir-Velpatasvir 1 tab PO DAILY 30 days #30 tabs 01/06/22 albuterol sulfate 90 mcg/actuation 2 puff inhalation Q6H PRN asthma 01/06/22 aerosol inhaler (ProAir HFA) 30 days #8.5 grams baclofen 10 mg tablet 10 mg PO TID 30 days #90 tabs 01/06/22 bupropion HCl 150 mg 24 hr tablet, 450 mg PO DAILY 30 days #90 tabs 01/06/22 extended release cefuroxime axetil 250 mg tablet 250 mg PO Q12H 1 day #2 tabs 01/06/22 clotrimazole 1 % topical cream 1 appl topical BID 30 days #100 01/06/22 grams fluoxetine 20 mg capsule 40 mg PO DAILY 30 days #60 caps 01/06/22 gabapentin 400 mg capsule 800 mg PO QID 30 days #60 caps 01/06/22 hydroxyzine HCl 25 mg tablet 25 mg PO BID PRN Anxiety 30 days 01/06/22 #60 tabs methadone 10 mg/mL oral 145 mg (14.5 mL) PO DAILY #0 mL 01/06/22 concentrate (Methadose) naloxone 4 mg/actuation nasal 4 mg intranasal Q2M PRN opioid 01/06/22 spray (Narcan) overdose 2 days #2 ea nicotine 21 mg/24 hr daily 21 mg transdermal DAILY 28 days 01/06/22 transdermal patch #28 ea polyethylene glycol 3350 17 gram 17 g PO DAILY 30 days #30 ea 01/06/22 oral powder packet prazosin 2 mg capsule 2 mg PO BEDTIME 30 days #30 caps 01/06/22 prazosin 5 mg capsule 5 mg PO BEDTIME 30 days #30 caps 01/06/22 quetiapine 200 mg tablet 1 tab PO BEDTIME 30 days #30 tabs 01/06/22 quetiapine 25 mg tablet 25 mg PO TID 30 days #90 tabs 01/06/22 Mental Status Exam Mental Status Exam Narrative: A&O. In casual attire, long hair, adequately groomed. good eye contact, attentive. No Tics or Tremors. No abnormal involuntary movements. Calm, cooperative. Non-pressured speech, spontaneous with regular rate and rhythm, normal volume and prosody. No prolonged speech latency or dysarthria. Mood is ?depressed,? affect normo-intense and non-labile. no SI/HI/AVH. thoughts linear and logical. No known cognitive or memory impairment. Insight/ Judgment limited but adequate. Data Data Completed and Pending Completed studies during hospitalization [Text1]: 01/02/22 01/02/22 01/02/22 07:16 07:16 07:16 Sodium 141 Potassium 4.1 Chloride 108 Carbon Dioxide 22 Anion Gap 15 BUN 18 H D Creatinine 0.65 Estim Creat Clear Calc TNP Estimated GFR > 60 Fasting Glucose 94 Estimat Average Glucose 105 Hemoglobin A1c % 5.3 Calcium 8.7 D Magnesium 2.0 Total Bilirubin 0.5 AST 24 D ALT 17 Alkaline Phosphatase 74 Total Protein 6.8 Albumin 3.8 Triglycerides 102 Cholesterol 379 D LDL Cholesterol, Calc 301 HDL Cholesterol 58 D Vitamin B12 277 Folate 14.9 TSH 2.10 Urine Color Urine Appearance Urine pH Ur Specific Frontier Urine Protein Urine Glucose (UA) Urine Ketones Urine Blood Urine Nitrite Ur Leukocyte Esterase Urine RBC Urine WBC Ur Squamous Epith Cells Calcium Oxalate Crystal Amorphous Sediment Urine Bacteria 01/02/22 14:25 Sodium Potassium Chloride Carbon Dioxide Anion Gap BUN Creatinine Estim Creat Clear Calc Estimated GFR Fasting Glucose Estimat Average Glucose Hemoglobin A1c % Calcium Magnesium Total Bilirubin AST ALT Alkaline Phosphatase Total Protein Albumin Triglycerides Cholesterol LDL Cholesterol, Calc HDL Cholesterol Vitamin B12 Folate TSH Urine Color YELLOW Urine Appearance HAZY Urine pH 6.0 Ur Specific Frontier 1.025 Urine Protein NEG Urine Glucose (UA) NEG Urine Ketones NEG Urine Blood NEG Urine Nitrite NEG Ur Leukocyte Esterase 1+ H Urine RBC 0 Urine WBC 1-4 Ur Squamous Epith Cells 4+ Calcium Oxalate Crystal 1+ Amorphous Sediment 4+ Urine Bacteria TRACE DS: Summary Hospital Course Hospital Course: per 01/02 admission note: This is one of many admissions for this patient with history of depression, PSA. She was transferred from [facility] where she presented with SI. She had a plan of ODing on drugs shooting up. Patient was discharged from [facility] 2 days ago. She says her main reason for wanting to is I have been living in the [place] and is homeless. She had also twisted her ankle. X-Ray of her foot is negative.? Today she reports she feels depressed but is not suicidal. She denies SI/HI/AVH Past Psychiatric History: -Hx of multiple inpatient admissions, detoxes. Medical Evaluation Reviewed: Yes [facility] Medical History? Fall MAGO (generalized anxiety disorder) Social History: -She is currently homeless and reported wandering the community for three days, not eating or sleeping X3 days. Has 3 children (not in her custody). Substance History: PSA. UTOX + Opioids, Amphetamine, Cocaine and THC Precis: 01/02: Restart medications and monitor response. Patient reports she was DC'd on Clonazepam and was given in the hospital. (verified notes of the last admission). Will restart. 01/03: Continue treatment plan. 01/04: no change in plan. 01/05: klonopin PRNs decreased to 0.25 mg each.? discharge tomorrow to long term. 01/06: discharged to long term. Time Spent with Patient Time attestation: Total time spent providing and/or coordinating discharge services: Time spent: Greater than 30 minutes Discharge Plan Discharge Patient Disposition: Penitentiary Discharge Diagnosis: PTSD, Chronic Referrals: Jennifer Monaco (psychiatrist) [Other] (Voicemail left requesting follow-up appointment. Call the clinic to provide an updated phone number as soon as you have one and to confirm your next appointment) [facility] (long term) [Other] Leonarda Bacon APRN [Registered Nurse] - 01/18/22 8:45 am () Discharge Medications: New methadone [Methadose] 10 mg/mL Concentrate 145 mg PO DAILY Qty: 0 0RF Rx Instructions: Partial Fill upon patient request. Sofosbuvir-Velpatasvir 1 tab PO DAILY 30 Days Qty: 30 0RF Continued polyethylene glycol 3350 17 gram Powder In Packet 17 g PO DAILY 30 Days Qty: 30 0RF clotrimazole 1 % Cream 1 appl topical BID 30 Days Qty: 100 0RF Discontinued baclofen 10 mg Tablet 10 mg PO TID quetiapine 25 mg Tablet 25 mg PO TID 30 Days Qty: 90 0RF hydroxyzine HCl 50 mg tablet 50 mg PO DAILY MDD 50 PRN (Reason: anxiety) Qty: 30 0RF quetiapine 200 mg tablet 1 tab PO BEDTIME quetiapine 25 mg Tablet 25 mg PO TID@0900,1500,1900 Qty: 90 0RF clonazepam 0.5 mg Tablet 0.5 mg PO BID PRN (Reason: anxiety) Qty: 30 0RF gabapentin 400 mg Capsule 800 mg PO QID Qty: 60 0RF quetiapine 200 mg Tablet 200 mg PO BEDTIME Qty: 30 0RF hydroxyzine HCl 50 mg Tablet 50 mg PO DAILY PRN (Reason: anxiety) Qty: 30 0RF baclofen 10 mg Tablet 10 mg PO TID Qty: 90 0RF nicotine 21 mg/24 hr Patch 24 Hour 21 mg transdermal DAILY Qty: 28 0RF fluoxetine 20 mg Capsule 40 mg PO DAILY Qty: 60 0RF bupropion HCl 150 mg Tablet Extended Release 24 Hr 450 mg PO DAILY Qty: 90 0RF prazosin 5 mg capsule 5 mg PO BEDTIME Qty: 30 0RF prazosin 2 mg capsule 2 mg PO BEDTIME Qty: 30 0RF naloxone [Narcan] 4 mg/actuation spray,non-aerosol 4 mg intranasal Q2M PRN (Reason: opioid overdose) Qty: 2 0RF Rx Instructions: spray 1 dose into ONE nostril; alternate nostrils w each dose until help arrives No Action quetiapine 25 mg Tablet 25 mg PO TID Qty: 45 1RF nicotine (polacrilex) 2 mg Gum 4 mg buccal Q2H PRN (Reason: Nicotine Cravings) Qty: 60 0RF clonazepam 0.5 mg Tablet 0.5 mg PO BEDTIME PRN (Reason: insomnia) Qty: 7 1RF quetiapine 200 mg Tablet 200 mg PO BEDTIME Qty: 14 1RF mirtazapine 15 mg Tablet 15 mg PO BEDTIME Qty: 14 1RF multivitamin [Daily-Dang] Tablet 1 tab PO DAILY Qty: 30 0RF gabapentin 400 mg capsule 800 mg PO QID Qty: 56 4RF sertraline 50 mg tablet 75 mg PO DAILY Qty: 45 0RF prazosin 5 mg capsule 5 mg PO BEDTIME 30 Days Qty: 30 0RF baclofen 10 mg Tablet 10 mg PO TID 30 Days Qty: 21 2RF nicotine 21 mg/24 hr Patch 24 Hour 21 mg transdermal DAILY 28 Days Qty: 28 0RF hydroxyzine HCl 25 mg Tablet 25 mg PO BID PRN (Reason: Anxiety) 30 Days Qty: 60 0RF albuterol sulfate [ProAir HFA] 90 mcg/actuation HFA aerosol inhaler 2 puff inhalation Q6H PRN (Reason: asthma) 30 Days Qty: 8.5 0RF prazosin 2 mg capsule 2 mg PO BEDTIME 30 Days Qty: 30 0RF naloxone [Narcan] 4 mg/actuation spray,non-aerosol 4 mg intranasal Q2M PRN (Reason: opioid overdose) 2 Days Qty: 2 0RF Rx Instructions: spray 1 dose into ONE nostril; alternate nostrils w each dose until help arrives naloxone [Narcan] 4 mg/actuation spray,non-aerosol 4 mg intranasal Q2M PRN (Reason: opioid overdose) Qty: 2 0RF Rx Instructions: spray 1 dose into ONE nostril; alternate nostrils w each dose until help arrives bupropion HCl [Wellbutrin XL] 300 mg tablet extended release 24 hr 300 mg PO QAM Qty: 30 0RF Rx Instructions: Total Dose 450 mg bupropion HCl [Wellbutrin XL] 150 mg tablet extended release 24 hr 150 mg PO QAM Qty: 30 0RF Discharge Orders: Discharge Order (Routine); Ordered 01/06/22 Ordered By: Javi Brunson Diet: Advance to usual diet Activity on Discharge: As tolerated Stand Alone Forms: Patient Portal Discharge page, Community Support Care Plan Goals: remain safe, stable, and sober in the outpatient treatment setting Health Concerns: UTI chronic substance use disorder Plan of Treatment: take medications as prescribed, attend appointments as scheduled Assessment: not at imminent risk of harm to self or others Discharge Date/Time: 01/06/22 14:05
--- NOTE | 2022-01-06 14:11 | PC.NURSE ---
Pt A&O x 4, denies safety concerns, SI/HI/AH/VH, verbalizes understanding of discharge medications and appointments, denies physical complaints.
== END 2022-01-06 14:05 | disposition home or self-care (01) | DRG 754 ==
PROVIDERS: Psychiatry & Neurology Psychiatry; Social Worker; Admitting Provider Psychiatry & Neurology Psychiatry; Visit Provider Psychiatry & Neurology Psychiatry
DX: F32.A Depression, unspecified (principal); R45.851 Suicidal ideations; F43.12 Post-traumatic stress disorder, chronic; N39.0 Urinary tract infection, site not specified; F11.20 Opioid dependence, uncomplicated; F17.210 Nicotine dependence, cigarettes, uncomplicated; Z59.02 Unsheltered homelessness; Z71.6 Tobacco abuse counseling; Z91.013 Allergy to seafood; Z88.0 Allergy status to penicillin; Z88.6 Allergy status to analgesic agent; Z79.899 Other long term (current) drug therapy
CPT/HCPCS: 36415; 80053; 80061; 81001; 82607; 82746; 83036; 83735; 84443; 93005

== ENCOUNTER 2022-01-10 11:05 | Inpatient (IN) | payer OTHER, SELFPAY ==
--- NOTE | ~2022-01-10 | XR_ITS ---
EXAMINATION: XR CHEST XR ELBOW-LEFT CLINICAL INFORMATION: Suspected glass in the lung and left elbow. COMPARISON: Chest radiograph done on 03/02/2019. TECHNIQUE: 2 views of the chest and 3 views of the left elbow. FINDINGS: Chest: Both lung fournier are symmetrically expanded and appear clear. The cardiac mediastinal silhouette is within normal limit. There is no pleural effusion or pneumothorax present. The visualized upper abdomen is unremarkable. No radiopaque foreign body. No significant change since 03/02/2019. Left elbow: The bony alignments are intact. The cortices are intact. Articular margins, joint space and. The soft tissues are unremarkable. No radiopaque foreign body. XR/XR chest 2V IMPRESSION: No radiographic evidence of any radiopaque foreign body is seen within the chest and left elbow region.
--- NOTE | ~2022-01-10 | XR_ITS ---
EXAMINATION: XR CHEST XR ELBOW-LEFT CLINICAL INFORMATION: Suspected glass in the lung and left elbow. COMPARISON: Chest radiograph done on 03/02/2019. TECHNIQUE: 2 views of the chest and 3 views of the left elbow. FINDINGS: Chest: Both lung fournier are symmetrically expanded and appear clear. The cardiac mediastinal silhouette is within normal limit. There is no pleural effusion or pneumothorax present. The visualized upper abdomen is unremarkable. No radiopaque foreign body. No significant change since 03/02/2019. Left elbow: The bony alignments are intact. The cortices are intact. Articular margins, joint space and. The soft tissues are unremarkable. No radiopaque foreign body. XR/XR elbow LT min 3V IMPRESSION: No radiographic evidence of any radiopaque foreign body is seen within the chest and left elbow region.
[2022-01-10 11:10] VITALS: BP 125/85; PULSE 81; O2SAT 96
[2022-01-10 11:12] VITALS: BP 82/67; PULSE 83; RESP 18; O2SAT 92
--- NOTE | 2022-01-10 11:23 | PC.NURSE ---
ALL CLOTHING/BELONGINGS IN [facility] ROOM
--- NOTE | 2022-01-10 11:44 | ED.PSYCH ---
HPI - Psych General Chief Complaint: Psychiatric Symptoms <IRLANDA Lucero - Last Filed: 01/10/22 21:08> Stated Complaint: both hand pain <IRLANDA Lucero Last Filed: 01/10/22 21:08> Time Seen by Provider: 01/10/22 11:12 <IRLANDA Lucero Last Filed: 01/10/22 21:08> Source: patient and EMS <IRLANDA Lucero Last Filed: 01/10/22 21:08> Mode of arrival: EMS <IRLANDA Lucero Last Filed: 01/10/22 21:08> History of Present Illness HPI Narrative: 36-year-old female with a past medical history of substance abuse, PTSD, generalized anxiety disorder and depression, BIBA c/o glass all over herself and in her lungs. Report has been purposefully breaking crack pipes/burning them and exploding them in suicide attempt. Reports fell asleep in broken glass overnight. Reports mild SOB/cough secondary to glass being and lungs. Admits to using crack, heroin, and ETOH. Also reports auditory and visual hallucinations auditory hallucinations her in denies HI. States has been medication noncompliant. Denies fever, abdominal pain, CP/SOB Patient was recently discharged from inpatient psychiatry on 01/06 <IRLANDA Lucero Last Filed: 01/10/22 21:08> MD complaint: suicidal ideation, feels depressed, substance abuse and hallucinations <IRLANDA Lucero Last Filed: 01/10/22 21:08> Related Data Home Medications: Previous Rx's Medication Instructions Recorded Sofosbuvir-Velpatasvir 1 tab PO DAILY 30 days #30 tabs 01/06/22 albuterol sulfate 90 mcg/actuation 2 puff inhalation Q6H PRN asthma 01/06/22 aerosol inhaler (ProAir HFA) 30 days #8.5 grams baclofen 10 mg tablet 10 mg PO TID 30 days #90 tabs 01/06/22 bupropion HCl 150 mg 24 hr tablet, 450 mg PO DAILY 30 days #90 tabs 01/06/22 extended release cefuroxime axetil 250 mg tablet 250 mg PO Q12H 1 day #2 tabs 01/06/22 clotrimazole 1 % topical cream 1 appl topical BID 30 days #100 01/06/22 grams fluoxetine 20 mg capsule 40 mg PO DAILY 30 days #60 caps 01/06/22 gabapentin 400 mg capsule 800 mg PO QID 30 days #60 caps 01/06/22 hydroxyzine HCl 25 mg tablet 25 mg PO BID PRN Anxiety 30 days 01/06/22 #60 tabs methadone 10 mg/mL oral 145 mg (14.5 mL) PO DAILY #0 mL 01/06/22 concentrate (Methadose) naloxone 4 mg/actuation nasal 4 mg intranasal Q2M PRN opioid 01/06/22 spray (Narcan) overdose 2 days #2 ea nicotine 21 mg/24 hr daily 21 mg transdermal DAILY 28 days 01/06/22 transdermal patch #28 ea polyethylene glycol 3350 17 gram 17 g PO DAILY 30 days #30 ea 01/06/22 oral powder packet prazosin 2 mg capsule 2 mg PO BEDTIME 30 days #30 caps 01/06/22 prazosin 5 mg capsule 5 mg PO BEDTIME 30 days #30 caps 01/06/22 quetiapine 200 mg tablet 1 tab PO BEDTIME 30 days #30 tabs 01/06/22 quetiapine 25 mg tablet 25 mg PO TID 30 days #90 tabs 01/06/22 <IRLANDA Lucero - Last Filed: 01/10/22 21:08> Allergies/Adverse Reactions: Allergies Allergy/AdvReac Type Severity Reaction Status Date / Time acetaminophen [From TYLENOL] Allergy Unknown Rash Verified 10/16/21 06:40 amoxicillin [Amoxicillin] Allergy Unknown Rash Verified 10/16/21 06:40 seafood Allergy Unknown Rash Verified 10/16/21 06:40 <IRLANDA Lucero Last Filed: 01/10/22 21:08> Review of Systems Review of Systems: Constitutional: No Fever, No Chills, No No Fatigue, No Malaise ENT/Mouth: No Hearing loss, No Ear Pain, No Nasal Congestion, No sore throat, No Rhinorrhea, No Swallowing Difficulty Eyes: No Eye Pain, No Swelling, No Redness, No Vision Changes Cardiovascular: No Chest Pain, + SOB, No Edema, No Palpitations Respiratory: + Cough, No Sputum, No Dyspnea Gastrointestinal: No Nausea, No Vomiting, No Diarrhea, No Constipation, No Abdominal pain Genitourinary: No irregular bleeding, No Dysuria, No Urinary Frequency, No Hematuria, No Flank Pain Musculoskeletal: No joint pain, No Myalgias, No Joint Swelling Skin: +glass on skin Neuro: No Weakness, No Numbness, No Paresthesias, No Loss of Consciousness, No Dizziness, No Headache Psych: No Anxiety/Panic, + Depression, + SI/AH/VH, No HI, + Social Issues <IRLANDA Lucero - Last Filed: 01/10/22 21:08> Yes all other systems are reviewed and are negative <IRLANDA Lucero - Last Filed: 01/10/22 21:08> Constitutional: Constitutional: Reports as per HPI <IRLANDA Lucero - Last Filed: 01/10/22 21:08> [facility] Past Medical History Attestation statement: The following information was validated with the patient. <IRLANDA Lucero - Last Filed: 01/10/22 21:08> Medical History: Medical History Fall MAGO (generalized anxiety disorder) <IRLANDA Lucero - Last Filed: 01/10/22 21:08> Social History Social History: Social History Household Members: None Housing: Homeless Do you presently have visiting nurse or other home services: No Patient Tobacco Use Status: Current everyday Tobacco user Tobacco use type: Cigarette Cigarette Packs Per Day: 1 Cigarettes Per Day: 20.0 e-Cigarette/Vaping Use: Never Used Second Hand Smoke Exposure: No Substance Use Type: Amphetamines, Crack/Cocaine, Heroin and Marijuana Advance Directives: No Advance Directives Information Provided: Yes Patient : No service: No Sexual orientation: Straight/Heterosexual <IRLANDA Lucero - Last Filed: 01/10/22 21:08> Physical Exam Vital Signs: Vital Signs: Last Vital Signs Temp 97.1 F 01/11/22 11:27 Pulse 86 01/11/22 11:27 Resp 16 01/10/22 18:00 BP 111/58 L 01/11/22 11:27 Pulse Ox 96 01/11/22 11:27 O2 Del Method 01/10/22 18:00 BMI result Body Mass Index 0.0 <IRLANDA Lucero - Last Filed: 01/10/22 21:08> Vital Signs: Last Vital Signs Temp 97.1 F 01/11/22 11:27 Pulse 86 01/11/22 11:27 Resp 16 01/10/22 18:00 BP 111/58 L 01/11/22 11:27 Pulse Ox 96 01/11/22 11:27 O2 Del Method 01/10/22 18:00 BMI result Body Mass Index 0.0 <Karey Gibson MD - Last Filed: 01/10/22 17:31> Vital Signs: Last Vital Signs Temp 97.1 F 01/11/22 11:27 Pulse 86 01/11/22 11:27 Resp 16 01/10/22 18:00 BP 111/58 L 01/11/22 11:27 Pulse Ox 96 01/11/22 11:27 O2 Del Method 01/10/22 18:00 BMI result Body Mass Index 0.0 <Sridevi Gonzalez MD - Last Filed: 01/11/22 05:10> Const: Other: appears under the influence <IRLANDA Lucero - Last Filed: 01/10/22 21:08> General: cooperative and no acute distress <IRLANDA Lucero - Last Filed: 01/10/22 21:08> Orientation/consciousness: patient oriented x3 <IRLANDA Lucero - Last Filed: 01/10/22 21:08> Limitations: no limitations <IRLANDA Lucero - Last Filed: 01/10/22 21:08> HEENT: Head: Yes normal to inspection and Yes atraumatic <IRLANDA Lucero - Last Filed: 01/10/22 21:08> Ears: hearing grossly normal bilaterally <IRLANDA Lucero - Last Filed: 01/10/22 21:08> General nose exam: Normal external nose present <IRLANDA Lucero - Last Filed: 01/10/22 21:08> Face and sinus: Yes normal facial exam <IRLANDA Lucero - Last Filed: 01/10/22 21:08> Mouth: Normal oral and palatal mucosa present <IRLANDA Lucero - Last Filed: 01/10/22 21:08> Eyes: General: appearance normal, both eyes and all related structures <Sammi Beatrizverónica PA - Last Filed: 01/10/22 21:08> EOM: EOMs intact bilaterally <Sammi Poulpilart PA - Last Filed: 01/10/22 21:08> Neck: Neck: Yes normal visual inspection and Yes no meningeal signs <Sammi Beatrizverónica PA - Last Filed: 01/10/22 21:08> Resp: Effort & Inspection: normal respiratory effort and no respiratory distress <Sammi Beatrizverónica PA - Last Filed: 01/10/22 21:08> Auscultation: clear to auscultation bilaterally, no rales, no rhonchi and no wheezes <Sammi Beatrizverónica PA - Last Filed: 01/10/22 21:08> Cardio: Rate: regular rate <Sammi Beatrizverónica PA - Last Filed: 01/10/22 21:08> Heart sounds: S1 normal heart sound present and S2 normal heart sound present <Sammi Beatrizverónica PA - Last Filed: 01/10/22 21:08> GI: Inspection: Yes normal to inspection <Sammi Beatrizverónica PA - Last Filed: 01/10/22 21:08> Palpation (GI): Soft to palpation, nontender, no guarding and not rigid <Sammi Beatrizverónica PA - Last Filed: 01/10/22 21:08> : General: Yes no CVA tenderness <Sammi Haro PA - Last Filed: 01/10/22 21:08> Back/Spine/Pelvis: Back: no CVA tenderness <Sammi Beatrizverónica PA - Last Filed: 01/10/22 21:08> Skin: Other: + glistening to bilateral hands and arms. No appreciable glass shards. No erythema/cellulitis or streaking <Sammi Haro PA - Last Filed: 01/10/22 21:08> Rashes: no rashes <Sammi Haro PA - Last Filed: 01/10/22 21:08> Wounds: no wounds <Sammi Haro PA - Last Filed: 01/10/22 21:08> Neuro: General: patient oriented x3, gait normal, tone normal, no meningeal signs and CN's II-XI intact bilaterally <IRLANDA Lucero - Last Filed: 01/10/22 21:08> Gait exam (Neuro): Normal gait present <IRLANDA Lucero - Last Filed: 01/10/22 21:08> Extrem: General: Yes normal to inspection <IRLANDA Lucero - Last Filed: 01/10/22 21:08> Psych: Appearance: disheveled <IRLANDA Lucero - Last Filed: 01/10/22 21:08> Thought content: Suicidality present, no homicidality and Depressive thoughts present <IRLANDA Lucero Last Filed: 01/10/22 21:08> Course Course Course Narrative: -1258--patient took shower while in the emergency department, skin glistening no longer present -carboxyhemoglobin 3.2 > within normal limits this patient is cigarette smoker XR chest 2V/XR elbow LT min 3V IMPRESSION: No radiographic evidence of any radiopaque foreign body is seen within the chest and left elbow region.? -labs otherwise unremarkable. Patient is medically cleared for crisis evaluation. Physician observation initiated at 14:45 as patient needs more time to be evaluated by PARMJIT -1900--after patient was evaluated by PARMJIT became very upset and angry that plan was for discharge. Patient proceeded to try to choke herself with her hair and suffocate herself with a washcloth. CARE team spoke with PARMJIT implant is now for DOUGIE f/u -2100--ED care transferred to Dr. Gonzalez pending DOUGIE f/u tomorrow <IRLANDA Lucero - Last Filed: 01/10/22 21:08> -1258--patient took shower while in the emergency department, skin glistening no longer present -carboxyhemoglobin 3.2 > within normal limits this patient is cigarette smoker XR chest 2V/XR elbow LT min 3V IMPRESSION: No radiographic evidence of any radiopaque foreign body is seen within the chest and left elbow region.? -labs otherwise unremarkable. Patient is medically cleared for crisis evaluation. Physician observation initiated at 14:45 as patient needs more time to be evaluated by PARMJIT -1900--after patient was evaluated by PARMJIT became very upset and angry that plan was for discharge. Patient proceeded to try to choke herself with her hair and suffocate herself with a washcloth. CARE team spoke with PARMJIT implant is now for DOUGIE f/u -2100--ED care transferred to Dr. Gonzalez pending DOUGIE f/u tomorrow -05:00 On 01/11/2022: Patient had an uneventful night, after she was allowed to stay. As mentioned above, around 19:00, patient was ready for discharge and patient proceeded to try to choke herself with her hair and suffocate herself with a washcloth. Patient will be re-evaluated by the care team this morning. Vitals are stable. <Sridevi Gonzalez MD - Last Filed: 01/11/22 05:10> Reevaluation(s) Reevaluation #1: Patient has been evaluated by the crisis team, and although patient states that she wishes to kill herself she is noted to have been bouncing back and forth between [facility] and [place] with similar threats, on extensive investigation by the crisis team and the care team patient has known documented suicide attempts which is not entirely remove the risk, however patient also has not picked up medication but then states that nobody is trying to help her . The crisis team at this time is recommending discharge and possible detox program, however patient has declined alternate resources such as the living room and patient is refusing to provide a urine sample which provides an obstacle in being able to offer additional resources such as respite. On review of all medication history, patient remains on same medication despite statements by the patient saying that they took me off the medication that was really helping . Patient has not picked up her current prescription. <Karey Gibson MD - Last Filed: 01/10/22 17:31> Time: 17:27 <Karey Gibson MD - Last Filed: 01/10/22 17:31> MDM - Psych MDM Narrative Medical decision making narrative: 36-year-old female with a past medical history of substance abuse, PTSD, generalized anxiety disorder and depression, BIBA c/o glass all over herself and in her lungs. On exam hypotensive, appears under the influence, + skin glistening to bilateral hands/upper extremities. Continuously coughing on exam. Concern for ?Fiberglass inhalation/exposure vs substance abuse and suicidal ideations/attempt pre no evidence of superficial skin infection or appreciable removal foreign bodies. Plan: Labs, drug screen, CXR, COVID-19 testing, crisis eval <IRLANDA Lucero - Last Filed: 01/10/22 21:08> Differential Diagnosis Differential diagnosis: Likely acute psychosis, suicidal ideation, depression, drug-induced psychotic disorder, acute anxiety and substance abuse <IRLANDA Lucero - Last Filed: 01/10/22 21:08> Medical Records Attestation: I reviewed the patient's medical records. <IRLANDA Lucero - Last Filed: 01/10/22 21:08> Lab Data Attestation: I reviewed the patient's lab results. <IRLANDA Lucero - Last Filed: 01/10/22 21:08> Result diagrams: : 01/10/22 13:51 01/10/22 13:51 <IRLANDA Lucero - Last Filed: 01/10/22 21:08> Labs: Lab Results 01/10/22 01/10/22 01/10/22 Range/Units 13:51 13:51 13:51 WBC 10.1 (4.8-10.8) X10*3/uL RBC 4.56 (4.20-5.50) X10*6/uL Hgb 12.4 (12.0-16.0) g/dl Hct 38.3 (37.0-47.0) % MCV 84.0 (80.0-98.0) fL MCH 27.2 (27.0-33.0) pg MCHC 32.4 (31.0-35.0) g/dl RDW 13.2 (11.0-16.0) % Plt Count 341 (160-400) X10*3/uL MPV 8.8 L (9.4-12.3) fL Immature Gran % (Auto) 0.2 (0.0-0.4) % Neut % (Auto) 60.5 (45-73) % Lymph % (Auto) 33.3 (20-40) % [place] % (Auto) 5.1 (2-11) % Eos % (Auto) 0.5 (0-4) % Baso % (Auto) 0.4 (0-2) % Lymph # (Auto) 3.4 (1.2-4.9) X10*3/uL [place] # (Auto) 0.5 (0.1-1.2) X10*3/uL Eos # (Auto) 0.1 (0.0-0.4) X10*3/uL Baso # (Auto) 0.0 (0.0-0.2) X10*3/uL Abs Immat Gran (auto) 0.02 (0.00-0.03) X10*3/uL Absolute Neuts (auto) 6.1 (2.0-8.3) x10*3/uL Absolute Nucleated RBC 0.000 (0.0-0.012) X10*3/uL Nucleated RBC % (auto) 0.0 (0.0-0.2) /100WBC Carboxyhemoglobin % % Sodium 138 (135-145) mmol/L Potassium 3.9 (3.3-5.1) mmol/L Chloride 102 (96-108) mmol/L Carbon Dioxide 25 (22-29) mmol/L Anion Gap 15 (12-20) BUN 20 H (9-16) mg/dL Creatinine 0.80 (0.5-1.4) mg/dL Estim Creat Clear Calc TNP Estimated GFR > 60 Random Glucose 143 H (60-115) mg/dL Calcium 9.6 D (8.4-10.2) mg/dL Magnesium 2.2 (1.6-2.6) mg/dL Total Bilirubin 0.7 (0.0-1.0) mg/dL Direct Bilirubin 0.2 (0.0-0.5) mg/dL AST 26 (5-31) U/L ALT 16 (0-31) U/L Alkaline Phosphatase 96 D (39-117) U/L Total Protein 7.8 (6.5-8.0) g/dL Albumin 4.6 D (3.5-5.0) g/dL Urine Color Urine Appearance Urine pH (5.0-8.0) Ur Specific [place] (1.005-1.025) Urine Protein (NEG-TRACE) MG/DL Urine Glucose (UA) (NEG) MG/DL Urine Ketones (NEG) MG/DL Urine Blood (NEG) Urine Nitrite (NEG) Ur Leukocyte Esterase (NEG) Urine Test (NEGATIVE) Urine Opiates Screen (Not Detect) Urine Fentanyl Screen (Not Detect) Ur Barbiturates Screen (Not Detect) Ur Phencyclidine Scrn (Not Detect) Ur Amphetamines Screen (Not Detect) U Benzodiazepines Scrn (Not Detect) Urine Cocaine Screen (Not Detect) U Marijuana (THC) Screen (Not Detect) Ethyl Alcohol < 10 mg/dL COVID-19 ([facility]ELA) Negative (Negative) COVID-19 Clin Com See Note 01/10/22 01/10/22 01/10/22 Range/Units 14:00 17:08 17:08 WBC (4.8-10.8) X10*3/uL RBC (4.20-5.50) X10*6/uL Hgb (12.0-16.0) g/dl Hct (37.0-47.0) % MCV (80.0-98.0) fL MCH (27.0-33.0) pg MCHC (31.0-35.0) g/dl RDW (11.0-16.0) % Plt Count (160-400) X10*3/uL MPV (9.4-12.3) fL Immature Gran % (Auto) (0.0-0.4) % Neut % (Auto) (45-73) % Lymph % (Auto) (20-40) % [place] % (Auto) (2-11) % Eos % (Auto) (0-4) % Baso % (Auto) (0-2) % Lymph # (Auto) (1.2-4.9) X10*3/uL [place] # (Auto) (0.1-1.2) X10*3/uL Eos # (Auto) (0.0-0.4) X10*3/uL Baso # (Auto) (0.0-0.2) X10*3/uL Abs Immat Gran (auto) (0.00-0.03) X10*3/uL Absolute Neuts (auto) (2.0-8.3) x10*3/uL Absolute Nucleated RBC (0.0-0.012) X10*3/uL Nucleated RBC % (auto) (0.0-0.2) /100WBC Carboxyhemoglobin % 3.2 % Sodium (135-145) mmol/L Potassium (3.3-5.1) mmol/L Chloride (96-108) mmol/L Carbon Dioxide (22-29) mmol/L Anion Gap (12-20) BUN (9-16) mg/dL Creatinine (0.5-1.4) mg/dL Estim Creat Clear Calc Estimated GFR Random Glucose (60-115) mg/dL Calcium (8.4-10.2) mg/dL Magnesium (1.6-2.6) mg/dL Total Bilirubin (0.0-1.0) mg/dL Direct Bilirubin (0.0-0.5) mg/dL AST (5-31) U/L ALT (0-31) U/L Alkaline Phosphatase (39-117) U/L Total Protein (6.5-8.0) g/dL Albumin (3.5-5.0) g/dL Urine Color Urine Appearance Urine pH (5.0-8.0) Ur Specific [place] (1.005-1.025) Urine Protein (NEG-TRACE) MG/DL Urine Glucose (UA) (NEG) MG/DL Urine Ketones (NEG) MG/DL Urine Blood (NEG) Urine Nitrite (NEG) Ur Leukocyte Esterase (NEG) Urine Test NEGATIVE (NEGATIVE) Urine Opiates Screen POSITIVE H (Not Detect) Urine Fentanyl Screen POSITIVE H (Not Detect) Ur Barbiturates Screen Not Detected (Not Detect) Ur Phencyclidine Scrn Not Detected (Not Detect) Ur Amphetamines Screen Not Detected (Not Detect) U Benzodiazepines Scrn Not Detected (Not Detect) Urine Cocaine Screen POSITIVE H (Not Detect) U Marijuana (THC) Screen POSITIVE H (Not Detect) Ethyl Alcohol mg/dL COVID-19 (ANGELA) (Negative) COVID-19 Clin Com 01/10/22 Range/Units 17:08 WBC (4.8-10.8) X10*3/uL RBC (4.20-5.50) X10*6/uL Hgb (12.0-16.0) g/dl Hct (37.0-47.0) % MCV (80.0-98.0) fL MCH (27.0-33.0) pg MCHC (31.0-35.0) g/dl RDW (11.0-16.0) % Plt Count (160-400) X10*3/uL MPV (9.4-12.3) fL Immature Gran % (Auto) (0.0-0.4) % Neut % (Auto) (45-73) % Lymph % (Auto) (20-40) % [place] % (Auto) (2-11) % Eos % (Auto) (0-4) % Baso % (Auto) (0-2) % Lymph # (Auto) (1.2-4.9) X10*3/uL [place] # (Auto) (0.1-1.2) X10*3/uL Eos # (Auto) (0.0-0.4) X10*3/uL Baso # (Auto) (0.0-0.2) X10*3/uL Abs Immat Gran (auto) (0.00-0.03) X10*3/uL Absolute Neuts (auto) (2.0-8.3) x10*3/uL Absolute Nucleated RBC (0.0-0.012) X10*3/uL Nucleated RBC % (auto) (0.0-0.2) /100WBC Carboxyhemoglobin % % Sodium (135-145) mmol/L Potassium (3.3-5.1) mmol/L Chloride (96-108) mmol/L Carbon Dioxide (22-29) mmol/L Anion Gap (12-20) BUN (9-16) mg/dL Creatinine (0.5-1.4) mg/dL Estim Creat Clear Calc Estimated GFR Random Glucose (60-115) mg/dL Calcium (8.4-10.2) mg/dL Magnesium (1.6-2.6) mg/dL Total Bilirubin (0.0-1.0) mg/dL Direct Bilirubin (0.0-0.5) mg/dL AST (5-31) U/L ALT (0-31) U/L Alkaline Phosphatase (39-117) U/L Total Protein (6.5-8.0) g/dL Albumin (3.5-5.0) g/dL Urine Color YELLOW Urine Appearance CLEAR Urine pH 5.5 (5.0-8.0) Ur Specific [place] >= 1.030 H (1.005-1.025) Urine Protein NEG (NEG-TRACE) MG/DL Urine Glucose (UA) NEG (NEG) MG/DL Urine Ketones NEG (NEG) MG/DL Urine Blood NEG (NEG) Urine Nitrite NEG (NEG) Ur Leukocyte Esterase NEG (NEG) Urine Test (NEGATIVE) Urine Opiates Screen (Not Detect) Urine Fentanyl Screen (Not Detect) Ur Barbiturates Screen (Not Detect) Ur Phencyclidine Scrn (Not Detect) Ur Amphetamines Screen (Not Detect) U Benzodiazepines Scrn (Not Detect) Urine Cocaine Screen (Not Detect) U Marijuana (THC) Screen (Not Detect) Ethyl Alcohol mg/dL COVID-19 ([facility]ELA) (Negative) COVID-19 Clin Com <IRLANDA Lucero - Last Filed: 01/10/22 21:08> Lab Results 01/10/22 01/10/22 01/10/22 Range/Units 13:51 13:51 13:51 WBC 10.1 (4.8-10.8) X10*3/uL RBC 4.56 (4.20-5.50) X10*6/uL Hgb 12.4 (12.0-16.0) g/dl Hct 38.3 (37.0-47.0) % MCV 84.0 (80.0-98.0) fL MCH 27.2 (27.0-33.0) pg MCHC 32.4 (31.0-35.0) g/dl RDW 13.2 (11.0-16.0) % Plt Count 341 (160-400) X10*3/uL MPV 8.8 L (9.4-12.3) fL Immature Gran % (Auto) 0.2 (0.0-0.4) % Neut % (Auto) 60.5 (45-73) % Lymph % (Auto) 33.3 (20-40) % [place] % (Auto) 5.1 (2-11) % Eos % (Auto) 0.5 (0-4) % Baso % (Auto) 0.4 (0-2) % Lymph # (Auto) 3.4 (1.2-4.9) X10*3/uL [place] # (Auto) 0.5 (0.1-1.2) X10*3/uL Eos # (Auto) 0.1 (0.0-0.4) X10*3/uL Baso # (Auto) 0.0 (0.0-0.2) X10*3/uL Abs Immat Gran (auto) 0.02 (0.00-0.03) X10*3/uL Absolute Neuts (auto) 6.1 (2.0-8.3) x10*3/uL Absolute Nucleated RBC 0.000 (0.0-0.012) X10*3/uL Nucleated RBC % (auto) 0.0 (0.0-0.2) /100WBC Carboxyhemoglobin % % Sodium 138 (135-145) mmol/L Potassium 3.9 (3.3-5.1) mmol/L Chloride 102 (96-108) mmol/L Carbon Dioxide 25 (22-29) mmol/L Anion Gap 15 (12-20) BUN 20 H (9-16) mg/dL Creatinine 0.80 (0.5-1.4) mg/dL Estim Creat Clear Calc TNP Estimated GFR > 60 Random Glucose 143 H (60-115) mg/dL Calcium 9.6 D (8.4-10.2) mg/dL Magnesium 2.2 (1.6-2.6) mg/dL Total Bilirubin 0.7 (0.0-1.0) mg/dL Direct Bilirubin 0.2 (0.0-0.5) mg/dL AST 26 (5-31) U/L ALT 16 (0-31) U/L Alkaline Phosphatase 96 D (39-117) U/L Total Protein 7.8 (6.5-8.0) g/dL Albumin 4.6 D (3.5-5.0) g/dL Urine Color Urine Appearance Urine pH (5.0-8.0) Ur Specific [place] (1.005-1.025) Urine Protein (NEG-TRACE) MG/DL Urine Glucose (UA) (NEG) MG/DL Urine Ketones (NEG) MG/DL Urine Blood (NEG) Urine Nitrite (NEG) Ur Leukocyte Esterase (NEG) Urine Test (NEGATIVE) Urine Opiates Screen (Not Detect) Urine Fentanyl Screen (Not Detect) Ur Barbiturates Screen (Not Detect) Ur Phencyclidine Scrn (Not Detect) Ur Amphetamines Screen (Not Detect) U Benzodiazepines Scrn (Not Detect) Urine Cocaine Screen (Not Detect) U Marijuana (THC) Screen (Not Detect) Ethyl Alcohol < 10 mg/dL COVID-19 ([facility]ELA) Negative (Negative) COVID-19 Clin Com See Note 01/10/22 01/10/22 01/10/22 Range/Units 14:00 17:08 17:08 WBC (4.8-10.8) X10*3/uL RBC (4.20-5.50) X10*6/uL Hgb (12.0-16.0) g/dl Hct (37.0-47.0) % MCV (80.0-98.0) fL MCH (27.0-33.0) pg MCHC (31.0-35.0) g/dl RDW (11.0-16.0) % Plt Count (160-400) X10*3/uL MPV (9.4-12.3) fL Immature Gran % (Auto) (0.0-0.4) % Neut % (Auto) (45-73) % Lymph % (Auto) (20-40) % [place] % (Auto) (2-11) % Eos % (Auto) (0-4) % Baso % (Auto) (0-2) % Lymph # (Auto) (1.2-4.9) X10*3/uL [place] # (Auto) (0.1-1.2) X10*3/uL Eos # (Auto) (0.0-0.4) X10*3/uL Baso # (Auto) (0.0-0.2) X10*3/uL Abs Immat Gran (auto) (0.00-0.03) X10*3/uL Absolute Neuts (auto) (2.0-8.3) x10*3/uL Absolute Nucleated RBC (0.0-0.012) X10*3/uL Nucleated RBC % (auto) (0.0-0.2) /100WBC Carboxyhemoglobin % 3.2 % Sodium (135-145) mmol/L Potassium (3.3-5.1) mmol/L Chloride (96-108) mmol/L Carbon Dioxide (22-29) mmol/L Anion Gap (12-20) BUN (9-16) mg/dL Creatinine (0.5-1.4) mg/dL Estim Creat Clear Calc Estimated GFR Random Glucose (60-115) mg/dL Calcium (8.4-10.2) mg/dL Magnesium (1.6-2.6) mg/dL Total Bilirubin (0.0-1.0) mg/dL Direct Bilirubin (0.0-0.5) mg/dL AST (5-31) U/L ALT (0-31) U/L Alkaline Phosphatase (39-117) U/L Total Protein (6.5-8.0) g/dL Albumin (3.5-5.0) g/dL Urine Color Urine Appearance Urine pH (5.0-8.0) Ur Specific [place] (1.005-1.025) Urine Protein (NEG-TRACE) MG/DL Urine Glucose (UA) (NEG) MG/DL Urine Ketones (NEG) MG/DL Urine Blood (NEG) Urine Nitrite (NEG) Ur Leukocyte Esterase (NEG) Urine Test NEGATIVE (NEGATIVE) Urine Opiates Screen POSITIVE H (Not Detect) Urine Fentanyl Screen POSITIVE H (Not Detect) Ur Barbiturates Screen Not Detected (Not Detect) Ur Phencyclidine Scrn Not Detected (Not Detect) Ur Amphetamines Screen Not Detected (Not Detect) U Benzodiazepines Scrn Not Detected (Not Detect) Urine Cocaine Screen POSITIVE H (Not Detect) U Marijuana (THC) Screen POSITIVE H (Not Detect) Ethyl Alcohol mg/dL COVID-19 (ANGELA) (Negative) COVID-19 Clin Com 01/10/22 Range/Units 17:08 WBC (4.8-10.8) X10*3/uL RBC (4.20-5.50) X10*6/uL Hgb (12.0-16.0) g/dl Hct (37.0-47.0) % MCV (80.0-98.0) fL MCH (27.0-33.0) pg MCHC (31.0-35.0) g/dl RDW (11.0-16.0) % Plt Count (160-400) X10*3/uL MPV (9.4-12.3) fL Immature Gran % (Auto) (0.0-0.4) % Neut % (Auto) (45-73) % Lymph % (Auto) (20-40) % [place] % (Auto) (2-11) % Eos % (Auto) (0-4) % Baso % (Auto) (0-2) % Lymph # (Auto) (1.2-4.9) X10*3/uL [place] # (Auto) (0.1-1.2) X10*3/uL Eos # (Auto) (0.0-0.4) X10*3/uL Baso # (Auto) (0.0-0.2) X10*3/uL Abs Immat Gran (auto) (0.00-0.03) X10*3/uL Absolute Neuts (auto) (2.0-8.3) x10*3/uL Absolute Nucleated RBC (0.0-0.012) X10*3/uL Nucleated RBC % (auto) (0.0-0.2) /100WBC Carboxyhemoglobin % % Sodium (135-145) mmol/L Potassium (3.3-5.1) mmol/L Chloride (96-108) mmol/L Carbon Dioxide (22-29) mmol/L Anion Gap (12-20) BUN (9-16) mg/dL Creatinine (0.5-1.4) mg/dL Estim Creat Clear Calc Estimated GFR Random Glucose (60-115) mg/dL Calcium (8.4-10.2) mg/dL Magnesium (1.6-2.6) mg/dL Total Bilirubin (0.0-1.0) mg/dL Direct Bilirubin (0.0-0.5) mg/dL AST (5-31) U/L ALT (0-31) U/L Alkaline Phosphatase (39-117) U/L Total Protein (6.5-8.0) g/dL Albumin (3.5-5.0) g/dL Urine Color YELLOW Urine Appearance CLEAR Urine pH 5.5 (5.0-8.0) Ur Specific [place] >= 1.030 H (1.005-1.025) Urine Protein NEG (NEG-TRACE) MG/DL Urine Glucose (UA) NEG (NEG) MG/DL Urine Ketones NEG (NEG) MG/DL Urine Blood NEG (NEG) Urine Nitrite NEG (NEG) Ur Leukocyte Esterase NEG (NEG) Urine Test (NEGATIVE) Urine Opiates Screen (Not Detect) Urine Fentanyl Screen (Not Detect) Ur Barbiturates Screen (Not Detect) Ur Phencyclidine Scrn (Not Detect) Ur Amphetamines Screen (Not Detect) U Benzodiazepines Scrn (Not Detect) Urine Cocaine Screen (Not Detect) U Marijuana (THC) Screen (Not Detect) Ethyl Alcohol mg/dL COVID-19 ([facility]) (Negative) COVID-19 Clin Com <Karey Gibson MD - Last Filed: 01/10/22 17:31> Lab Results 01/10/22 01/10/22 01/10/22 Range/Units 13:51 13:51 13:51 WBC 10.1 (4.8-10.8) X10*3/uL RBC 4.56 (4.20-5.50) X10*6/uL Hgb 12.4 (12.0-16.0) g/dl Hct 38.3 (37.0-47.0) % MCV 84.0 (80.0-98.0) fL MCH 27.2 (27.0-33.0) pg MCHC 32.4 (31.0-35.0) g/dl RDW 13.2 (11.0-16.0) % Plt Count 341 (160-400) X10*3/uL MPV 8.8 L (9.4-12.3) fL Immature Gran % (Auto) 0.2 (0.0-0.4) % Neut % (Auto) 60.5 (45-73) % Lymph % (Auto) 33.3 (20-40) % [place] % (Auto) 5.1 (2-11) % Eos % (Auto) 0.5 (0-4) % Baso % (Auto) 0.4 (0-2) % Lymph # (Auto) 3.4 (1.2-4.9) X10*3/uL [place] # (Auto) 0.5 (0.1-1.2) X10*3/uL Eos # (Auto) 0.1 (0.0-0.4) X10*3/uL Baso # (Auto) 0.0 (0.0-0.2) X10*3/uL Abs Immat Gran (auto) 0.02 (0.00-0.03) X10*3/uL Absolute Neuts (auto) 6.1 (2.0-8.3) x10*3/uL Absolute Nucleated RBC 0.000 (0.0-0.012) X10*3/uL Nucleated RBC % (auto) 0.0 (0.0-0.2) /100WBC Carboxyhemoglobin % % Sodium 138 (135-145) mmol/L Potassium 3.9 (3.3-5.1) mmol/L Chloride 102 (96-108) mmol/L Carbon Dioxide 25 (22-29) mmol/L Anion Gap 15 (12-20) BUN 20 H (9-16) mg/dL Creatinine 0.80 (0.5-1.4) mg/dL Estim Creat Clear Calc TNP Estimated GFR > 60 Random Glucose 143 H (60-115) mg/dL Calcium 9.6 D (8.4-10.2) mg/dL Magnesium 2.2 (1.6-2.6) mg/dL Total Bilirubin 0.7 (0.0-1.0) mg/dL Direct Bilirubin 0.2 (0.0-0.5) mg/dL AST 26 (5-31) U/L ALT 16 (0-31) U/L Alkaline Phosphatase 96 D (39-117) U/L Total Protein 7.8 (6.5-8.0) g/dL Albumin 4.6 D (3.5-5.0) g/dL Urine Color Urine Appearance Urine pH (5.0-8.0) Ur Specific [place] (1.005-1.025) Urine Protein (NEG-TRACE) MG/DL Urine Glucose (UA) (NEG) MG/DL Urine Ketones (NEG) MG/DL Urine Blood (NEG) Urine Nitrite (NEG) Ur Leukocyte Esterase (NEG) Urine Test (NEGATIVE) Urine Opiates Screen (Not Detect) Urine Fentanyl Screen (Not Detect) Ur Barbiturates Screen (Not Detect) Ur Phencyclidine Scrn (Not Detect) Ur Amphetamines Screen (Not Detect) U Benzodiazepines Scrn (Not Detect) Urine Cocaine Screen (Not Detect) U Marijuana (THC) Screen (Not Detect) Ethyl Alcohol < 10 mg/dL COVID-19 ([facility]A) Negative (Negative) COVID-19 Clin Com See Note 01/10/22 01/10/22 01/10/22 Range/Units 14:00 17:08 17:08 WBC (4.8-10.8) X10*3/uL RBC (4.20-5.50) X10*6/uL Hgb (12.0-16.0) g/dl Hct (37.0-47.0) % MCV (80.0-98.0) fL MCH (27.0-33.0) pg MCHC (31.0-35.0) g/dl RDW (11.0-16.0) % Plt Count (160-400) X10*3/uL MPV (9.4-12.3) fL Immature Gran % (Auto) (0.0-0.4) % Neut % (Auto) (45-73) % Lymph % (Auto) (20-40) % [place] % (Auto) (2-11) % Eos % (Auto) (0-4) % Baso % (Auto) (0-2) % Lymph # (Auto) (1.2-4.9) X10*3/uL [place] # (Auto) (0.1-1.2) X10*3/uL Eos # (Auto) (0.0-0.4) X10*3/uL Baso # (Auto) (0.0-0.2) X10*3/uL Abs Immat Gran (auto) (0.00-0.03) X10*3/uL Absolute Neuts (auto) (2.0-8.3) x10*3/uL Absolute Nucleated RBC (0.0-0.012) X10*3/uL Nucleated RBC % (auto) (0.0-0.2) /100WBC Carboxyhemoglobin % 3.2 % Sodium (135-145) mmol/L Potassium (3.3-5.1) mmol/L Chloride (96-108) mmol/L Carbon Dioxide (22-29) mmol/L Anion Gap (12-20) BUN (9-16) mg/dL Creatinine (0.5-1.4) mg/dL Estim Creat Clear Calc Estimated GFR Random Glucose (60-115) mg/dL Calcium (8.4-10.2) mg/dL Magnesium (1.6-2.6) mg/dL Total Bilirubin (0.0-1.0) mg/dL Direct Bilirubin (0.0-0.5) mg/dL AST (5-31) U/L ALT (0-31) U/L Alkaline Phosphatase (39-117) U/L Total Protein (6.5-8.0) g/dL Albumin (3.5-5.0) g/dL Urine Color Urine Appearance Urine pH (5.0-8.0) Ur Specific [place] (1.005-1.025) Urine Protein (NEG-TRACE) MG/DL Urine Glucose (UA) (NEG) MG/DL Urine Ketones (NEG) MG/DL Urine Blood (NEG) Urine Nitrite (NEG) Ur Leukocyte Esterase (NEG) Urine Test NEGATIVE (NEGATIVE) Urine Opiates Screen POSITIVE H (Not Detect) Urine Fentanyl Screen POSITIVE H (Not Detect) Ur Barbiturates Screen Not Detected (Not Detect) Ur Phencyclidine Scrn Not Detected (Not Detect) Ur Amphetamines Screen Not Detected (Not Detect) U Benzodiazepines Scrn Not Detected (Not Detect) Urine Cocaine Screen POSITIVE H (Not Detect) U Marijuana (THC) Screen POSITIVE H (Not Detect) Ethyl Alcohol mg/dL COVID-19 ([facility]ELA) (Negative) COVID-19 Clin Com 01/10/22 Range/Units 17:08 WBC (4.8-10.8) X10*3/uL RBC (4.20-5.50) X10*6/uL Hgb (12.0-16.0) g/dl Hct (37.0-47.0) % MCV (80.0-98.0) fL MCH (27.0-33.0) pg MCHC (31.0-35.0) g/dl RDW (11.0-16.0) % Plt Count (160-400) X10*3/uL MPV (9.4-12.3) fL Immature Gran % (Auto) (0.0-0.4) % Neut % (Auto) (45-73) % Lymph % (Auto) (20-40) % [place] % (Auto) (2-11) % Eos % (Auto) (0-4) % Baso % (Auto) (0-2) % Lymph # (Auto) (1.2-4.9) X10*3/uL [place] # (Auto) (0.1-1.2) X10*3/uL Eos # (Auto) (0.0-0.4) X10*3/uL Baso # (Auto) (0.0-0.2) X10*3/uL Abs Immat Gran (auto) (0.00-0.03) X10*3/uL Absolute Neuts (auto) (2.0-8.3) x10*3/uL Absolute Nucleated RBC (0.0-0.012) X10*3/uL Nucleated RBC % (auto) (0.0-0.2) /100WBC Carboxyhemoglobin % % Sodium (135-145) mmol/L Potassium (3.3-5.1) mmol/L Chloride (96-108) mmol/L Carbon Dioxide (22-29) mmol/L Anion Gap (12-20) BUN (9-16) mg/dL Creatinine (0.5-1.4) mg/dL Estim Creat Clear Calc Estimated GFR Random Glucose (60-115) mg/dL Calcium (8.4-10.2) mg/dL Magnesium (1.6-2.6) mg/dL Total Bilirubin (0.0-1.0) mg/dL Direct Bilirubin (0.0-0.5) mg/dL AST (5-31) U/L ALT (0-31) U/L Alkaline Phosphatase (39-117) U/L Total Protein (6.5-8.0) g/dL Albumin (3.5-5.0) g/dL Urine Color YELLOW Urine Appearance CLEAR Urine pH 5.5 (5.0-8.0) Ur Specific [place] >= 1.030 H (1.005-1.025) Urine Protein NEG (NEG-TRACE) MG/DL Urine Glucose (UA) NEG (NEG) MG/DL Urine Ketones NEG (NEG) MG/DL Urine Blood NEG (NEG) Urine Nitrite NEG (NEG) Ur Leukocyte Esterase NEG (NEG) Urine Test (NEGATIVE) Urine Opiates Screen (Not Detect) Urine Fentanyl Screen (Not Detect) Ur Barbiturates Screen (Not Detect) Ur Phencyclidine Scrn (Not Detect) Ur Amphetamines Screen (Not Detect) U Benzodiazepines Scrn (Not Detect) Urine Cocaine Screen (Not Detect) U Marijuana (THC) Screen (Not Detect) Ethyl Alcohol mg/dL COVID-19 (ANGELA) (Negative) COVID-19 Clin Com <Sridevi Gonzalez MD - Last Filed: 01/11/22 05:10> ECG Data Attestation: I personally reviewed and interpreted this ECG as follows: <IRLANDA Lucero - Last Filed: 01/10/22 21:08> ECG interpretation date: 01/10/22 <IRLANDA Lucero - Last Filed: 01/10/22 21:08> ECG interpretation time: 12:58 <IRLANDA Lucero - Last Filed: 01/10/22 21:08> Interpretation: EKG normal sinus rhythm at a rate of 79. QRS 90. No STEMI. Nonischemic. <IRLANDA Lucero - Last Filed: 01/10/22 21:08> Discharge Plan Discharge Clinical Impression: Suicidal ideations, Substance abuse <IRLANDA Lucero - Last Filed: 01/10/22 21:08> Patient Disposition: Still a Patient <IRLANDA Lucero - Last Filed: 01/10/22 21:08> Prescriptions: No Action cefuroxime axetil 250 mg Tablet 250 mg PO Q12H 1 Days Qty: 2 0RF hydroxyzine HCl 25 mg Tablet 25 mg PO BID PRN (Reason: Anxiety) 30 Days Qty: 60 0RF methadone [Methadose] 10 mg/mL Concentrate 145 mg PO DAILY Qty: 0 0RF Rx Instructions: Partial Fill upon patient request. Sofosbuvir-Velpatasvir 1 tab PO DAILY 30 Days Qty: 30 0RF albuterol sulfate [ProAir HFA] 90 mcg/actuation HFA aerosol inhaler 2 puff inhalation Q6H PRN (Reason: asthma) 30 Days Qty: 8.5 0RF quetiapine 25 mg Tablet 25 mg PO TID 30 Days Qty: 90 0RF polyethylene glycol 3350 17 gram Powder In Packet 17 g PO DAILY 30 Days Qty: 30 0RF gabapentin 400 mg Capsule 800 mg PO QID 30 Days Qty: 60 0RF quetiapine 200 mg tablet 1 tab PO BEDTIME 30 Days Qty: 30 0RF prazosin 5 mg capsule 5 mg PO BEDTIME 30 Days Qty: 30 0RF baclofen 10 mg Tablet 10 mg PO TID 30 Days Qty: 90 0RF nicotine 21 mg/24 hr Patch 24 Hour 21 mg transdermal DAILY 28 Days Qty: 28 0RF fluoxetine 20 mg Capsule 40 mg PO DAILY 30 Days Qty: 60 0RF clotrimazole 1 % Cream 1 appl topical BID 30 Days Qty: 100 0RF prazosin 2 mg capsule 2 mg PO BEDTIME 30 Days Qty: 30 0RF bupropion HCl 150 mg Tablet Extended Release 24 Hr 450 mg PO DAILY 30 Days Qty: 90 0RF naloxone [Narcan] 4 mg/actuation spray,non-aerosol 4 mg intranasal Q2M PRN (Reason: opioid overdose) 2 Days Qty: 2 0RF Rx Instructions: spray 1 dose into ONE nostril; alternate nostrils w each dose until help arrives <IRLANDA Lucero - Last Filed: 01/10/22 21:08>
--- NOTE | 2022-01-10 11:59 | ECG_ITS ---
Test Reason : SOB Blood Pressure : / mmHG Vent. Rate : 079 BPM Atrial Rate : 079 BPM P-R Int : 144 ms QRS Dur : 090 ms QT Int : 418 ms P-R-T Axes : 059 048 048 degrees QTc Int : 479 ms Normal sinus rhythm Normal ECG When compared with ECG of 02-JAN-2022 11:07, No significant change was found Referred By: Sammi Haro Electronically Signed By:RACHEL RODRIGUEZ
[2022-01-10 13:56] LABS: MANUAL DIFF FLAG NO
[2022-01-10 13:57] LABS: Basophils Percent Auto 0.4 % (0-2); Eosinophils Absolute Auto 0.1 X10*3/uL (0.0-0.4); Eosinophils Percent Auto 0.5 % (0-4); Hematocrit 38.3 % (37.0-47.0); Hemoglobin 12.4 g/dl (12.0-16.0); Imm Gran Abs Auto 0.02 X10*3/uL (0.00-0.03); Imm Gran Pct Auto 0.2 % (0.0-0.4); Lymphocytes Absolute Auto 3.4 X10*3/uL (1.2-4.9); Lymphocytes Percent Auto 33.3 % (20-40); Mean Corpuscular HGB Conc 32.4 g/dl (31.0-35.0); Mean Corpuscular Hemoglobin 27.2 pg (27.0-33.0); Mean Platelet Volume 8.8 fL (9.4-12.3); Monocytes Absolute Auto 0.5 X10*3/uL (0.1-1.2); Monocytes Percent Auto 5.1 % (2-11); Neutrophils Absolute Auto 6.1 x10*3/uL (2.0-8.3); Neutrophils Percent Auto 60.5 % (45-73); Platelet Count 341 X10*3/uL (160-400); Red Blood Count 4.56 X10*6/uL (4.20-5.50); Red Cell Distribution Width 13.2 % (11.0-16.0); White Blood Count 10.1 X10*3/uL (4.8-10.8)
[2022-01-10 14:04] LABS: Carbon Monoxide POC 3.2 %
[2022-01-10 14:05] LABS: Carbon Monoxide Refer to POC result
[2022-01-10 14:16] LABS: COVID-19 Test Negative (Negative); IDNOW Serial# 55D5AD1C
[2022-01-10 14:23] LABS: Alanine Aminotransferase 16 U/L (0-31); Albumin Level 4.6 g/dL (3.5-5.0); Alkaline Phosphatase 96 U/L (39-117); Anion Gap 15 (12-20); Aspartate Amino Transferase 26 U/L (5-31); Bilirubin Direct 0.2 mg/dL (0.0-0.5); Bilirubin Total 0.7 mg/dL (0.0-1.0); Blood Urea Nitrogen 20 mg/dL (9-16); Calcium 9.6 mg/dL (8.4-10.2); Carbon Dioxide 25 mmol/L (22-29); Chloride 102 mmol/L (96-108); Estimated Glomerular Filt Rate > 60; Ethanol < 10 mg/dL; Glucose Random 143 mg/dL (60-115); Magnesium 2.2 mg/dL (1.6-2.6); Potassium 3.9 mmol/L (3.3-5.1); Sodium 138 mmol/L (135-145); Total Protein 7.8 g/dL (6.5-8.0)
[2022-01-10 15:58] VITALS: BP 154/80; PULSE 82; RESP 16; TEMP 36.8; O2SAT 98
[2022-01-10 17:19] LABS: Appearance Urine CLEAR; Color Urine YELLOW; Glucose Urine UA NEG (NEG); Leukocyte Esterase Urine NEG (NEG); Nitrite Urine NEG (NEG); PH 5.5 (5.0-8.0); Specific Gravity - Urine >= 1.030 (1.005-1.025); UPreg QC Valid YES; Urine Blood NEG (NEG); Urine Ketones NEG (NEG); Urine Pregnancy NEGATIVE (NEGATIVE); Urine Protein NEG (NEG-TRACE)
[2022-01-10 17:35] LABS: Amphetamine Screen Urine Not Detected (Not Detect); Barbiturates, Urine Not Detected (Not Detect); Benzodiazepines Screen Urine Not Detected (Not Detect); Cannabinoid Screen Urine POSITIVE (Not Detect); Cocaine Screen Urine POSITIVE (Not Detect); Fentanyl, urine POSITIVE (Not Detect); Opiate Screen Urine POSITIVE (Not Detect); Phencyclidine Screen Urine Not Detected (Not Detect)
--- NOTE | 2022-01-10 17:50 | PC.NURSE ---
upset with [facility] suggestion for discharge. started crying, yelling and once she wasn't engaged in conversation, held her braid to her neck in feeble attempt at self harm. no ligature fernandez. has had sitter since arrival
[2022-01-10 18:00] VITALS: BP 144/80; PULSE 74; RESP 16; TEMP 36.6; O2SAT 98
[2022-01-10] MEDS: Gabapentin 400 MG CAPSULE PO (20:42)
[2022-01-10] MEDS: hydrOXYzine HCL 25 MG TABLET PO (21:41)
[2022-01-10] MEDS: Baclofen 10 MG TABLET PO (21:42)
[2022-01-10] MEDS: Gabapentin 400 MG CAPSULE 800 MG PO (21:42)
--- NOTE | 2022-01-10 22:20 | PC.NURSE ---
no assessment charted by previous shift RN.
[2022-01-10] MEDS: QUEtiapine Fumarate 200 MG TABLET PO (23:08)
[2022-01-11] MEDS: Baclofen 10 MG TABLET PO ×3 (09:42→20:19)
[2022-01-11] MEDS: Gabapentin 400 MG CAPSULE 800 MG PO ×4 (09:42→20:15)
--- NOTE | 2022-01-11 09:42 | PC.NURSE ---
administered meds per MAR
[2022-01-11] MEDS: FLUoxetine HCl 20 MG CAPSULE 40 MG PO (09:43)
[2022-01-11] MEDS: buPROPion HCl XL 150 MG TAB.ER.24H 450 MG PO (09:43)
--- NOTE | 2022-01-11 10:06 | HE.PHANOTE ---
METHADONE VERIFICATION Received 01/11, verified with PARMJIT dunn by RN fay. 145mg dose.
[2022-01-11 11:27] VITALS: BP 111/58; PULSE 86; TEMP 36.2; O2SAT 96
[2022-01-11] MEDS: QUEtiapine Fumarate 25 MG TABLET PO ×2 (16:28→20:15)
[2022-01-11] MEDS: Prazosin HCL 1 MG CAPSULE 2 MG PO (20:15)
[2022-01-11] MEDS: hydrOXYzine HCL 25 MG TABLET PO (20:15)
[2022-01-11] MEDS: Prazosin HCL 5 MG CAPSULE PO (20:15)
--- NOTE | 2022-01-12 06:38 | PC.NURSE ---
Patient slept through the night, no distress observed/reported, medication compliant, behavior non concerning, disposition per [facility] voluntary inpatient bed search, VSS, will continue to monitor.
--- NOTE | 2022-01-12 07:08 | PC.NURSE ---
patient appears to remain at rest at present respirations are even and unlabored patient appears in no distress.
[2022-01-12] MEDS: Gabapentin 400 MG CAPSULE 800 MG PO ×4 (08:44→19:55)
[2022-01-12] MEDS: FLUoxetine HCl 20 MG CAPSULE 40 MG PO (08:44)
[2022-01-12] MEDS: QUEtiapine Fumarate 25 MG TABLET PO ×3 (08:44→19:56)
[2022-01-12] MEDS: Nicotine 21 MG PATCH.TD24 TRANSDERMA (08:44)
[2022-01-12] MEDS: buPROPion HCl XL 150 MG TAB.ER.24H 450 MG PO (08:44)
[2022-01-12] MEDS: Baclofen 10 MG TABLET PO ×3 (08:45→19:55)
[2022-01-12] MEDS: methADONE HCl 20 MG/2 ML ORAL.CONC 145 MG PO (08:45)
[2022-01-12] MEDS: polyethylene glycoL 3350 17 GM POWD.PACK PO (08:46)
--- NOTE | 2022-01-12 10:11 | PHA.MEDREC ---
Pharmacy Consult ? Medication Reconciliation Pharmacy has completed the medication reconciliation. Reviewed med rec done by nursing (Chio Zaldivar).
--- NOTE | 2022-01-12 10:45 | PC.NURSE ---
client appears to be calling patients on inpatient unit in this writers perception appearing to attempt to rendezvous with another client, informed care team, overheard asking for quoncey by this curriculum writer.
[2022-01-12 11:16] LABS: COVID-19 Test Negative (Negative)
[2022-01-12 16:19] VITALS: BP 132/82; PULSE 88; RESP 18; O2SAT 95
--- NOTE | 2022-01-12 16:39 | PC.ADMIT ---
Pt was admitted from [facility] via wheelchair at 1515. Pt is a 36 year old female. Past medical history of substance abuse, PTSD, MAGO, and depression. Pt recently discharged from on 01/06/22. Pt was brought in by ambulance after complaints of glass all over herself and in her lungs. Pt had purposefully exploded crack pipes in a suicide attempt. Pt reports falling asleep on the broken glass and woke up to SOB and cough. Pt positive for opiates, fentanyl, marijuana, and cocaine. Pt 2PPD cigarette smoker. Nicotine replacement ordered. Pt reports AH. Denies HI and SI at this time. Pt oriented to unit. Contracted for safety. Placed on 5 minute safety checks. CV signed. Legals signed.
[2022-01-12] MEDS: Prazosin HCL 5 MG CAPSULE PO (19:55)
[2022-01-12] MEDS: QUEtiapine Fumarate 200 MG TABLET PO (19:56)
[2022-01-13] MEDS: methADONE HCl 20 MG/2 ML ORAL.CONC 145 MG PO (08:10)
[2022-01-13] MEDS: buPROPion HCl XL 150 MG TAB.ER.24H 450 MG PO (08:12)
[2022-01-13] MEDS: QUEtiapine Fumarate 25 MG TABLET PO ×3 (08:12→19:59)
[2022-01-13] MEDS: FLUoxetine HCl 20 MG CAPSULE 40 MG PO (08:12)
[2022-01-13] MEDS: Nicotine 21 MG PATCH.TD24 TRANSDERMA (08:12)
[2022-01-13] MEDS: Baclofen 10 MG TABLET PO ×3 (08:12→19:59)
[2022-01-13] MEDS: Gabapentin 400 MG CAPSULE 800 MG PO ×4 (08:12→19:59)
[2022-01-13] MEDS: polyethylene glycoL 3350 17 GM POWD.PACK PO (08:12)
[2022-01-13 10:48] LABS: Alanine Aminotransferase 11 U/L (0-31); Albumin Level 4.1 g/dL (3.5-5.0); Alkaline Phosphatase 81 U/L (39-117); Anion Gap 14 (12-20); Aspartate Amino Transferase 18 U/L (5-31); Bilirubin Total < 0.2 mg/dL (0.0-1.0); Blood Urea Nitrogen 11 mg/dL (9-16); Calcium 9.7 mg/dL (8.4-10.2); Carbon Dioxide 30 mmol/L (22-29); Chloride 103 mmol/L (96-108); Estimated Glomerular Filt Rate > 60; Glucose Fasting 86 mg/dL (60-99); Potassium 4.3 mmol/L (3.3-5.1); Sodium 143 mmol/L (135-145); Total Protein 7.2 g/dL (6.5-8.0)
[2022-01-13] MEDS: Ibuprofen 600 MG TABLET PO (13:37)
[2022-01-13 15:47] LABS: HBS Num1 3.46 mIU/mL (0-7.99); HBc Num1 0.16 S/CO (0.00-0.79); HBsAGNum1 0.24 S/CO (0.00-0.99); Hepatitis B Core Antibody Nonreactive (Nonreactive); Hepatitis B Surface Antigen Negative (Negative); ~HepC Num1 13.78 S/CO (0.00-0.79); ~Hepatitis A Antibody IgM Nonreactive (Nonreactive); ~Hepatitis B Surface Antibody NONREACTIVE (Nonreactive); ~Hepatitis C Antibody Reactive (Nonreactive)
--- NOTE | 2022-01-13 16:00 | HO.PSYADMNOT ---
HPI Date of Service: 01/13/22 Chief Complaint: Si Sources of Information: patient interviewed, chart reviewed and crisis/core team assessment reviewed HPI Subjective Notes: [place] Warning and Conditional Voluntary Healthcare Proxy: No Guardianship: No Medical Problems Affecting Mental Status: No Narrative: 36 yo female, hx PTSD, MAGO, Depression, Polysubstance Abuse, recent admit 01/01/22 - 01/06/22 returns to ER with report of breaking crack pipes and exploding them in a suicide attempt. Pt reports she had stopped medications, and had resumed crack, heroin and alcohol. States she inhaled glass after exploding the pipe and believes she had glass in her lungs. Reported AH, VH and asks for klonopin, which she had on a previous admission. Pt reports voices tell her to wrap her hair around her nect, to , to give items away and they tell her she is stupid. Reports her 5yo son is with her parents and DCF has asked her to sign over custody. Pt states I hate life . My child is with my parents, I am living in the street, I miss my child and I have no supports. Reports she was using klonopin effectively and was taken off (rationale explained) which makes her angry. Reports she is not in need of detox, does need help getting off the streets and helping her to go in the right direction. Agrees that she needs case mgt when she leaves-agrees to [facility] application, and [facility] application. I need direction because I just don't want to be alive. Past Psychiatric History: -Hx of multiple inpatient admissions, detoxes. Medical Evaluation Reviewed: Yes [facility] Medical History Acute anxiety Depression Fall MAGO (generalized anxiety disorder) Substance abuse Suicidal ideation Social History: -She is currently homeless and reported wandering the community for three days, not eating or sleeping X3 days. Has 3 children (not in her custody). Substance History: crack, heroin,alcohol Trauma History: affirms Diagnostics Vital Signs (24Hr): Vital Signs - 24 hr 01/12/22 16:19 Pulse Rate 88 Respiratory Rate 18 Blood Pressure 132/82 Pulse Oximetry 95 Oxygen Delivery Method Room Air BMI result Body Mass Index 0.0 Labs Results: 01/10/22 13:51 01/13/22 10:13 Labs: Laboratory Results - last 48 hr 01/12/22 01/13/22 10:42 10:13 Sodium 143 Potassium 4.3 Chloride 103 Carbon Dioxide 30 H Anion Gap 14 BUN 11 Creatinine 0.78 Estim Creat Clear Calc TNP Estimated GFR > 60 Fasting Glucose 86 Calcium 9.7 Total Bilirubin < 0.2 AST 18 ALT 11 Alkaline Phosphatase 81 Total Protein 7.2 Albumin 4.1 COVID-19 (ANGELA) Negative COVID-19 Clin Com See Note Imaging Radiology Impressions: ITS Impressions Chest X-Ray 01/10/22 12:05 IMPRESSION: No radiographic evidence of any radiopaque foreign body is seen within the chest and left elbow region. Elbow X-Ray 01/10/22 12:05 IMPRESSION: No radiographic evidence of any radiopaque foreign body is seen within the chest and left elbow region. Meds/Allergies Allergies Allergies Allergy/AdvReac Type Severity Reaction Status Date / Time acetaminophen [From TYLENOL] Allergy Unknown Rash Verified 10/16/21 06:40 amoxicillin [Amoxicillin] Allergy Unknown Rash Verified 10/16/21 06:40 seafood Allergy Unknown Rash Verified 10/16/21 06:40 Mental Status Exam Mental Status Exam Patient Appearance: Appropriate Patient Orientation: Person, Place, Time and Situation Level of Consciousness: Alert Patient Behavior: Appropriate, Talkative, Cooperative and Good Eye Contact Mood Description: Depressed Affect Description: Flat Patient Cognition Impaired: No Ability to Follow Directions: Good Speech Pattern: Spontaneous Speech Memory Description: Intact Hallucinations: Auditory Delusions: Not Present Perceptual Disturbances: Depersonalization and Derealization Thought Process: Rumination and Goal Oriented Thought Content: positive for Circumstantial, positive for Perseveration and positive for Suicidal Ideation Depressive Symptoms: Increased Anxiety, Insomnia, Diff. Making Decisions, Increased Irritability, Difficulty Sleeping, Feelings of Worthlessness, Hopelessness, Isolating-Friends/Family, Feelings of Guilt, Unhappiness, Thoughts of /Suicide, Low Self Esteem, Loss of Energy and Difficulty Concentrating Abnormal Motor Activity Signs and Symptoms: Restlessness Judgement: Fair Assessment & Plan Assessment & Plan (1) MDD (major depressive disorder), recurrent episode: Status: Acute Code(s): F33.9 - Major depressive disorder, recurrent, unspecified (2) Post traumatic stress disorder (PTSD): Status: Acute Code(s): F43.10 - Post-traumatic stress disorder, unspecified (3) Cocaine use disorder: Status: Acute Code(s): F14.10 - Cocaine abuse, uncomplicated (4) Opioid use disorder: Status: Acute Code(s): F11.90 - Opioid use, unspecified, uncomplicated (5) Substance abuse: Status: Acute Code(s): F19.10 - Other psychoactive substance abuse, uncomplicated Plan 36 yo female, recent admission 01/01/22-01/06/22, history of Depression, PTSD, Substance Abuse presents after suicide attempts by breaking and exploding crack pipes. Plan: Discontinue Prozac Sertraline 50 mg daily Continue Gabapentin, Wellbutrin, Prazosin, Seroquel Remeron 15 mg hs Chlorpromacine 25 mg q4h prn anxiety, agitation, paranoia MVI Hepatitis profile, HIV per pt request Patient educated on: medication risk/benefits and therapeutic strategies Informed Consent: understands and further education needed Reason for continued inpatient stay Substantial Risk for: harm to self, inability to function and rapid decompensation
[2022-01-13 19:55] VITALS: BP 123/72; PULSE 84; TEMP 36.6
[2022-01-13] MEDS: chlorproMAZINE HCl 25 MG TABLET PO (19:59)
[2022-01-13] MEDS: Prazosin HCL 5 MG CAPSULE PO (19:59)
[2022-01-13] MEDS: QUEtiapine Fumarate 200 MG TABLET PO (19:59)
[2022-01-13] MEDS: Mirtazapine 15 MG TABLET PO (20:01)
[2022-01-14 07:00] VITALS: BMI 26.4
[2022-01-14] MEDS: methADONE HCl 20 MG/2 ML ORAL.CONC 145 MG PO (08:21)
[2022-01-14] MEDS: Nicotine 21 MG PATCH.TD24 TRANSDERMA (08:22)
[2022-01-14] MEDS: buPROPion HCl XL 150 MG TAB.ER.24H 450 MG PO (08:22)
[2022-01-14] MEDS: Ibuprofen 600 MG TABLET PO ×2 (08:22→19:46)
[2022-01-14] MEDS: polyethylene glycoL 3350 17 GM POWD.PACK PO (08:22)
[2022-01-14] MEDS: Gabapentin 400 MG CAPSULE 800 MG PO ×4 (08:23→19:44)
[2022-01-14] MEDS: Baclofen 10 MG TABLET PO ×3 (08:23→19:45)
[2022-01-14] MEDS: QUEtiapine Fumarate 25 MG TABLET PO ×3 (08:23→19:45)
[2022-01-14] MEDS: Sertraline HCL 50 MG TABLET PO (08:23)
[2022-01-14] MEDS: Multivitamin TABLET 1 TAB PO (08:23)
[2022-01-14] MEDS: chlorproMAZINE HCl 25 MG TABLET PO ×2 (09:54→19:46)
[2022-01-14 13:18] LABS: HIV AB/AG Nonreactive (Nonreactive); HIV Num 1 0.07 S/CO (0.00-0.99)
--- NOTE | 2022-01-14 18:19 | HO.PSYCHPN ---
Subjective Subjective Date of Service: 01/14/22 Reason For Visit: Si Subjective Notes: Conditional Voluntary Healthcare Proxy: No Guardianship: No Medical Problems Affecting Mental Status: No Interim History: Attempted to meet with Devika later in this day, however, she was sleeping, awoke briefly, stating Oh, OK, Later and returned to rest. Team reports dysphoric in presentation, but making telephone connection, some interactions with peers earlier in the day. Tolerating med changes of 01/13. Told pt I would see her tomorrow. OK, I am OK. Working with [employer] on her follow up services today. Medication Compliance: Yes Side effects from medications: No (?sedation) Attending Groups: Intermittent Review of Systems Acute medical concerns: No Medical Review of Systems: unchanged Review of Systems Psychiatric: Reports anxiety, Reports depression and Reports anhedonia Mental Status Exam Mental Status Exam Patient Appearance: Fatigued Patient Orientation: Person, Place, Time and Situation Level of Consciousness: Drowsy, Sedated and Lethargic Patient Behavior: Passive, Asleep and Fatigued Mood Description: Flat Affect Description: Flat Patient Cognition Impaired: No Ability to Follow Directions: Fair Speech Pattern: Spontaneous Speech and Soft-Spoken Memory Description: Intact Hallucinations: None Delusions: Not Present Perceptual Disturbances: Depersonalization Thought Process: Slowed Thinking Thought Content: positive for Perseveration Depressive Symptoms: Diff. Making Decisions, Sleeping More Than Usual, Hopelessness, Unhappiness and Low Self Esteem Judgement: Fair Diagnostics Vital Signs (24Hr): Vital Signs - 24 hr 01/13/22 19:55 Temperature 98 F Pulse Rate 84 Blood Pressure 123/72 Oxygen Delivery Method Room Air Fraction of Inspired Oxygen 97 BMI result Body Mass Index 26.4 Labs Results: 01/10/22 13:51 01/13/22 10:13 Labs: Laboratory Results - last 48 hr 01/13/22 01/13/22 10:13 14:59 Sodium 143 Potassium 4.3 Chloride 103 Carbon Dioxide 30 H Anion Gap 14 BUN 11 Creatinine 0.78 Estim Creat Clear Calc TNP Estimated GFR > 60 Fasting Glucose 86 Calcium 9.7 Total Bilirubin < 0.2 AST 18 ALT 11 Alkaline Phosphatase 81 Total Protein 7.2 Albumin 4.1 Hepatitis A IgM Ab Nonreactive Hep Bs Antigen Negative Hep Bs Antibody NONREACTIVE Hep B Core Total Ab Nonreactive Hepatitis C Ab (EIA) Reactive H HIV 1&2 Ab/P24 Ag 4thGn Nonreactive Imaging Radiology Impressions: ITS Impressions Chest X-Ray 01/10/22 12:05 IMPRESSION: No radiographic evidence of any radiopaque foreign body is seen within the chest and left elbow region. Elbow X-Ray 01/10/22 12:05 IMPRESSION: No radiographic evidence of any radiopaque foreign body is seen within the chest and left elbow region. Medications Medications Current Medications Al Hydroxide/Mg Hydroxide (Magnesium Hydrox/Alum Hydrox 30 Ml Oral.Susp) 30 ml PO Q6H PRN PRN Reason: Heartburn/Nausea Albuterol Sulfate (Albuterol Sulfate 90 Mcg 8 Gm Inhaler) 2 puff INHALE Q6H PRN PRN Reason: asthma Baclofen (Baclofen 10 Mg Tablet) 10 mg PO TID [facility] Last Admin: 01/14/22 14:23 Dose: 10 mg Bupropion HCl (Bupropion Hcl Xl 150 Mg Tab.Er.24h) 450 mg PO DAILY [facility] Last Admin: 01/14/22 08:22 Dose: 450 mg Cefuroxime Axetil (Cefuroxime Axetil 250 Mg Tablet) 250 mg PO Q12H [facility] Last Admin: 01/14/22 08:23 Dose: 250 mg Chlorpromazine HCl (Chlorpromazine Hcl 25 Mg Tablet) 25 mg PO Q4H PRN PRN Reason: anxiety, agitation, panic Last Admin: 01/14/22 09:54 Dose: 25 mg Gabapentin (Gabapentin 400 Mg Capsule) 800 mg PO QID [facility] Last Admin: 01/14/22 15:49 Dose: 800 mg Hydroxyzine HCl (Hydroxyzine Hcl 25 Mg Tablet) 25 mg PO BID PRN PRN Reason: Anxiety Last Admin: 01/11/22 20:15 Dose: 25 mg Ibuprofen (Ibuprofen 600 Mg Tablet) 600 mg PO Q8H PRN PRN Reason: Pain, Mild (Pain Scale 1-3) Last Admin: 01/14/22 08:22 Dose: 600 mg Magnesium Hydroxide (Milk Of Magnesia 30 Ml Oral.Susp) 30 ml PO DAILY PRN PRN Reason: Constipation Methadone HCl (Methadone Hcl 20 Mg/2 Ml Oral.Conc) 145 mg PO DAILY [facility] Last Admin: 01/14/22 08:21 Dose: 145 mg Mirtazapine (Mirtazapine 15 Mg Tablet) 15 mg PO BEDTIME [facility] Last Admin: 01/13/22 20:01 Dose: 15 mg Multivitamins/Vitamin C (Multivitamin Tablet) 1 tab PO DAILY [facility] Last Admin: 01/14/22 08:23 Dose: 1 tab Nicotine (Nicotine 21 Mg Patch.Td24) 21 mg TRANSDERMA DAILY [facility] Last Admin: 01/14/22 08:22 Dose: 21 mg Nicotine Polacrilex (Nicotine Polacrilex 2 Mg Gum) 4 mg BUCCAL Q2H PRN PRN Reason: Nicotine Cravings Non-Formulary Medication (Sofosbuvir-Velpatasvir) 1 tab PO DAILY [facility] Polyethylene Glycol (Polyethylene Glycol 3350 17 Gm Powd.Pack) 17 gm PO DAILY [facility] Last Admin: 01/14/22 08:22 Dose: 17 gm Prazosin HCl (Prazosin Hcl 5 Mg Capsule) 5 mg PO BEDTIME [facility]; Protocol Last Admin: 01/13/22 19:59 Dose: 5 mg Quetiapine Fumarate (Quetiapine Fumarate 25 Mg Tablet) 25 mg PO TID [facility] Last Admin: 01/14/22 14:23 Dose: 25 mg Quetiapine Fumarate (Quetiapine Fumarate 200 Mg Tablet) 200 mg PO BEDTIME [facility] Last Admin: 01/13/22 19:59 Dose: 200 mg Sertraline HCl (Sertraline Hcl 50 Mg Tablet) 50 mg PO DAILY [facility] Last Admin: 01/14/22 08:23 Dose: 50 mg Allergies Allergies Allergy/AdvReac Type Severity Reaction Status Date / Time acetaminophen [From TYLENOL] Allergy Unknown Rash Verified 10/16/21 06:40 amoxicillin [Amoxicillin] Allergy Unknown Rash Verified 10/16/21 06:40 seafood Allergy Unknown Rash Verified 10/16/21 06:40 Assessment & Plan Assessment & Plan (1) MDD (major depressive disorder), recurrent episode: Status: Acute Code(s): F33.9 - Major depressive disorder, recurrent, unspecified (2) Post traumatic stress disorder (PTSD): Status: Acute Code(s): F43.10 - Post-traumatic stress disorder, unspecified (3) Cocaine use disorder: Status: Acute Code(s): F14.10 - Cocaine abuse, uncomplicated (4) Opioid use disorder: Status: Acute Code(s): F11.90 - Opioid use, unspecified, uncomplicated (5) Substance abuse: Status: Acute Code(s): F19.10 - Other psychoactive substance abuse, uncomplicated Plan 36 yo female, recent admission 01/01/22-01/06/22, history of Depression, PTSD, Substance Abuse presents after suicide attempts by breaking and exploding crack pipes. Plan: Discontinue Prozac Sertraline 50 mg daily Continue Gabapentin, Wellbutrin, Prazosin, Seroquel Remeron 15 mg hs Chlorpromazine 25 mg q4h prn anxiety, agitation, paranoia MVI Hepatitis profile, HIV per pt request 01/14/22 No changes today, pt sedate, napping at the end of the afternoon, working with her social security assessor on out pt service planning. I spent minutes with the patient and/or on the patient floor today, greater than?50% of which was spent counseling/coordinating care. Informed Consent: further education needed Reason for contiued inpatient stay Substantial Risk for: harm to self, inability to function and rapid decompensation
[2022-01-14] MEDS: Prazosin HCL 5 MG CAPSULE PO (19:45)
[2022-01-14] MEDS: QUEtiapine Fumarate 200 MG TABLET PO (19:45)
[2022-01-14] MEDS: Mirtazapine 15 MG TABLET PO (19:45)
[2022-01-14 19:48] VITALS: BP 124/74; PULSE 98
[2022-01-15 06:00] VITALS: BP 114/73; PULSE 55; TEMP 36.5; O2SAT 97
[2022-01-15] MEDS: Nicotine 21 MG PATCH.TD24 TRANSDERMA (08:20)
[2022-01-15] MEDS: methADONE HCl 20 MG/2 ML ORAL.CONC 145 MG PO (08:20)
[2022-01-15] MEDS: polyethylene glycoL 3350 17 GM POWD.PACK PO (08:20)
[2022-01-15] MEDS: Baclofen 10 MG TABLET PO ×3 (08:21→19:37)
[2022-01-15] MEDS: chlorproMAZINE HCl 25 MG TABLET PO ×2 (08:21→19:37)
[2022-01-15] MEDS: QUEtiapine Fumarate 25 MG TABLET PO ×3 (08:22→19:37)
[2022-01-15] MEDS: Multivitamin TABLET 1 TAB PO (08:22)
[2022-01-15] MEDS: Gabapentin 400 MG CAPSULE 800 MG PO ×4 (08:22→19:37)
[2022-01-15] MEDS: Ibuprofen 600 MG TABLET PO (08:22)
[2022-01-15] MEDS: Sertraline HCL 50 MG TABLET PO (08:22)
[2022-01-15] MEDS: buPROPion HCl XL 150 MG TAB.ER.24H 450 MG PO (08:22)
[2022-01-15 15:54] VITALS: BP 135/63; PULSE 70; RESP 18; TEMP 37.3; O2SAT 99
--- NOTE | 2022-01-15 18:04 | HO.PSYCHPN ---
Subjective Subjective Date of Service: 01/15/22 Reason For Visit: Si Subjective Notes: Conditional Voluntary Healthcare Proxy: No Guardianship: No Medical Problems Affecting Mental Status: No Interim History: Discussed evening/noc anxiety, nightmares and inability to rest. Will increase Prazosin to 6 mg hs and add Klonopin 0.5 mg hs-this will not be given upon discharge (Klonopin). Devika verbalized understanding of this. Reports she is feeling calmer with med changes during the day, has been working with team on [employer], [employer] applications. Medication Compliance: Yes Side effects from medications: No Attending Groups: Intermittent Review of Systems Acute medical concerns: No Medical Review of Systems: unchanged Review of Systems Psychiatric: Reports anxiety, Reports depression and Reports anhedonia Mental Status Exam Mental Status Exam Patient Appearance: Fatigued Patient Orientation: Person, Place, Time and Situation Level of Consciousness: Drowsy, Sedated and Lethargic Patient Behavior: Passive, Asleep and Fatigued Mood Description: Flat Affect Description: Flat Patient Cognition Impaired: No Ability to Follow Directions: Fair Speech Pattern: Spontaneous Speech and Soft-Spoken Memory Description: Intact Hallucinations: None Delusions: Not Present Perceptual Disturbances: Depersonalization Thought Process: Slowed Thinking Thought Content: positive for Perseveration Depressive Symptoms: Diff. Making Decisions, Sleeping More Than Usual, Hopelessness, Unhappiness and Low Self Esteem Judgement: Fair Diagnostics Vital Signs (24Hr): Vital Signs - 24 hr 01/14/22 19:48 01/15/22 06:00 01/15/22 15:54 Temperature 97.7 F 99.2 F Pulse Rate 98 55 70 Respiratory Rate 18 Blood Pressure 124/74 114/73 135/63 Pulse Oximetry 97 99 Oxygen Delivery Method Room Air BMI result Body Mass Index 26.4 Labs Results: 01/10/22 13:51 01/13/22 10:13 Labs: Laboratory Results - last 48 hr 01/13/22 14:59 Hepatitis A IgM Ab Nonreactive Hep Bs Antigen Negative Hep Bs Antibody NONREACTIVE Hep B Core Total Ab Nonreactive Hepatitis C Ab (EIA) Reactive H HIV 1&2 Ab/P24 Ag 4thGn Nonreactive Imaging Radiology Impressions: ITS Impressions Chest X-Ray 01/10/22 12:05 IMPRESSION: No radiographic evidence of any radiopaque foreign body is seen within the chest and left elbow region. Elbow X-Ray 01/10/22 12:05 IMPRESSION: No radiographic evidence of any radiopaque foreign body is seen within the chest and left elbow region. Medications Medications Current Medications Al Hydroxide/Mg Hydroxide (Magnesium Hydrox/Alum Hydrox 30 Ml Oral.Susp) 30 ml PO Q6H PRN PRN Reason: Heartburn/Nausea Albuterol Sulfate (Albuterol Sulfate 90 Mcg 8 Gm Inhaler) 2 puff INHALE Q6H PRN PRN Reason: asthma Baclofen (Baclofen 10 Mg Tablet) 10 mg PO TID [facility] Last Admin: 01/15/22 14:16 Dose: 10 mg Bupropion HCl (Bupropion Hcl Xl 150 Mg Tab.Er.24h) 450 mg PO DAILY [facility] Last Admin: 01/15/22 08:22 Dose: 450 mg Cefuroxime Axetil (Cefuroxime Axetil 250 Mg Tablet) 250 mg PO Q12H [facility] Last Admin: 01/15/22 08:22 Dose: 250 mg Chlorpromazine HCl (Chlorpromazine Hcl 25 Mg Tablet) 25 mg PO Q4H PRN PRN Reason: anxiety, agitation, panic Last Admin: 01/15/22 08:21 Dose: 25 mg Clonazepam (Clonazepam 0.5 Mg Tablet) 0.5 mg PO BEDTIME PRN PRN Reason: insomnia Gabapentin (Gabapentin 400 Mg Capsule) 800 mg PO QID [facility] Last Admin: 01/15/22 15:54 Dose: 800 mg Hydroxyzine HCl (Hydroxyzine Hcl 25 Mg Tablet) 25 mg PO BID PRN PRN Reason: Anxiety Last Admin: 01/11/22 20:15 Dose: 25 mg Ibuprofen (Ibuprofen 600 Mg Tablet) 600 mg PO Q8H PRN PRN Reason: Pain, Mild (Pain Scale 1-3) Last Admin: 01/15/22 08:22 Dose: 600 mg Magnesium Hydroxide (Milk Of Magnesia 30 Ml Oral.Susp) 30 ml PO DAILY PRN PRN Reason: Constipation Methadone HCl (Methadone Hcl 20 Mg/2 Ml Oral.Conc) 145 mg PO DAILY [facility] Last Admin: 01/15/22 08:20 Dose: 145 mg Mirtazapine (Mirtazapine 15 Mg Tablet) 15 mg PO BEDTIME [facility] Last Admin: 01/14/22 19:45 Dose: 15 mg Multivitamins/Vitamin C (Multivitamin Tablet) 1 tab PO DAILY [facility] Last Admin: 01/15/22 08:22 Dose: 1 tab Nicotine (Nicotine 21 Mg Patch.Td24) 21 mg TRANSDERMA DAILY [facility] Last Admin: 01/15/22 08:20 Dose: 21 mg Nicotine Polacrilex (Nicotine Polacrilex 2 Mg Gum) 4 mg BUCCAL Q2H PRN PRN Reason: Nicotine Cravings Non-Formulary Medication (Sofosbuvir-Velpatasvir) 1 tab PO DAILY [facility] Polyethylene Glycol (Polyethylene Glycol 3350 17 Gm Powd.Pack) 17 gm PO DAILY [facility] Last Admin: 01/15/22 08:20 Dose: 17 gm Prazosin HCl (Prazosin Hcl 1 Mg Capsule) 6 mg PO BEDTIME [facility]; Protocol Quetiapine Fumarate (Quetiapine Fumarate 25 Mg Tablet) 25 mg PO TID [facility] Last Admin: 01/15/22 14:16 Dose: 25 mg Quetiapine Fumarate (Quetiapine Fumarate 200 Mg Tablet) 200 mg PO BEDTIME [facility] Last Admin: 01/14/22 19:45 Dose: 200 mg Sertraline HCl (Sertraline Hcl 50 Mg Tablet) 50 mg PO DAILY [facility] Last Admin: 01/15/22 08:22 Dose: 50 mg Allergies Allergies Allergy/AdvReac Type Severity Reaction Status Date / Time acetaminophen [From TYLENOL] Allergy Unknown Rash Verified 10/16/21 06:40 amoxicillin [Amoxicillin] Allergy Unknown Rash Verified 10/16/21 06:40 seafood Allergy Unknown Rash Verified 10/16/21 06:40 Assessment & Plan Assessment & Plan (1) MDD (major depressive disorder), recurrent episode: Status: Acute Code(s): F33.9 - Major depressive disorder, recurrent, unspecified (2) Post traumatic stress disorder (PTSD): Status: Acute Code(s): F43.10 - Post-traumatic stress disorder, unspecified (3) Cocaine use disorder: Status: Acute Code(s): F14.10 - Cocaine abuse, uncomplicated (4) Opioid use disorder: Status: Acute Code(s): F11.90 - Opioid use, unspecified, uncomplicated (5) Substance abuse: Status: Acute Code(s): F19.10 - Other psychoactive substance abuse, uncomplicated Plan 36 yo female, recent admission 01/01/22-01/06/22, history of Depression, PTSD, Substance Abuse presents after suicide attempts by breaking and exploding crack pipes. Plan: Discontinue Prozac Sertraline 50 mg daily Continue Gabapentin, Wellbutrin, Prazosin, Seroquel Remeron 15 mg hs Chlorpromazine 25 mg q4h prn anxiety, agitation, paranoia MVI Hepatitis profile, HIV per pt request 01/14/22 No changes today, pt sedate, napping at the end of the afternoon, working with her sr. social media & mobile manager on out pt service planning. 01/15/22 Increase Prazosin to 6 mg HS Klonopin 0.5 mg HS during in pt stay only. this will not be given upon discharge. I spent minutes with the patient and/or on the patient floor today, greater than?50% of which was spent counseling/coordinating care. Patient educated on: medication risk/benefits Informed Consent: understands Reason for contiued inpatient stay Substantial Risk for: harm to self, inability to function and rapid decompensation
[2022-01-15] MEDS: clonazePAM 0.5 MG TABLET PO (19:36)
[2022-01-15] MEDS: Prazosin HCL 1 MG CAPSULE 6 MG PO (19:36)
[2022-01-15] MEDS: QUEtiapine Fumarate 200 MG TABLET PO (19:37)
[2022-01-15] MEDS: Mirtazapine 15 MG TABLET PO (19:37)
[2022-01-16 06:00] VITALS: BP 107/61; PULSE 80; RESP 16; TEMP 36.6; O2SAT 98
[2022-01-16] MEDS: methADONE HCl 20 MG/2 ML ORAL.CONC 145 MG PO (08:37)
[2022-01-16] MEDS: Multivitamin TABLET 1 TAB PO (08:39)
[2022-01-16] MEDS: chlorproMAZINE HCl 25 MG TABLET PO ×2 (08:39→19:47)
[2022-01-16] MEDS: buPROPion HCl XL 150 MG TAB.ER.24H 450 MG PO (08:39)
[2022-01-16] MEDS: Ibuprofen 600 MG TABLET PO (08:39)
[2022-01-16] MEDS: Sertraline HCL 50 MG TABLET PO (08:39)
[2022-01-16] MEDS: Gabapentin 400 MG CAPSULE 800 MG PO ×4 (08:39→19:46)
[2022-01-16] MEDS: QUEtiapine Fumarate 25 MG TABLET PO ×3 (08:40→19:46)
[2022-01-16] MEDS: Baclofen 10 MG TABLET PO ×3 (08:40→19:46)
[2022-01-16] MEDS: polyethylene glycoL 3350 17 GM POWD.PACK PO (08:43)
[2022-01-16] MEDS: Nicotine 21 MG PATCH.TD24 TRANSDERMA (08:43)
[2022-01-16 16:23] VITALS: BP 129/76; PULSE 80; RESP 16; TEMP 36.6; O2SAT 98
[2022-01-16] MEDS: Prazosin HCL 1 MG CAPSULE 6 MG PO (19:45)
[2022-01-16] MEDS: Mirtazapine 15 MG TABLET PO (19:46)
[2022-01-16] MEDS: QUEtiapine Fumarate 200 MG TABLET PO (19:46)
[2022-01-16] MEDS: clonazePAM 0.5 MG TABLET PO (19:47)
[2022-01-16] MEDS: Magnesium Hydrox/Alum Hydrox 30 ML ORAL.SUSP PO (20:05)
--- NOTE | 2022-01-16 21:13 | HO.PSYCHPN ---
Subjective Subjective Date of Service: 01/16/22 Reason For Visit: Si Interim History: Patient reports that she is okay. She denies any SI; She did hear the auditory hallucination ever name being called early this morning, but otherwise no other AVH. She also reports that her mood is a little better and that she slept pretty well last night with the addition of clonazepam. She said she does not need any medication tweeks. Mental Status Exam Mental Status Exam Narrative: Pt is alert and oriented; behavior is cooperative, calm; dressed in casual attire with pulled back hair but adequate hygiene; mood is described as ok and affect constricted; eye contact appropriate; Speech is normal rate, volume and prosody and not pressured; no psychomotor agitation/retardation present; thought process goal directed; Thought content is on tx; otherwise pertinent to relevant topics and without any delusional content, paranoid ideations or grandiosity; denies any SI/HI. Some minimal AH Patients insight and judgment appear intact. Diagnostics Vital Signs (24Hr): Vital Signs - 24 hr 01/16/22 06:00 01/16/22 16:23 Temperature 97.9 F 97.8 F Pulse Rate 80 80 Respiratory Rate 16 16 Blood Pressure 107/61 129/76 Pulse Oximetry 98 98 Oxygen Delivery Method Room Air Room Air BMI result Body Mass Index 26.4 Labs Results: 01/10/22 13:51 01/13/22 10:13 Imaging Radiology Impressions: ITS Impressions Chest X-Ray 01/10/22 12:05 IMPRESSION: No radiographic evidence of any radiopaque foreign body is seen within the chest and left elbow region. Elbow X-Ray 01/10/22 12:05 IMPRESSION: No radiographic evidence of any radiopaque foreign body is seen within the chest and left elbow region. Medications Medications Current Medications Al Hydroxide/Mg Hydroxide (Magnesium Hydrox/Alum Hydrox 30 Ml Oral.Susp) 30 ml PO Q6H PRN PRN Reason: Heartburn/Nausea Last Admin: 01/16/22 20:05 Dose: 30 ml Albuterol Sulfate (Albuterol Sulfate 90 Mcg 8 Gm Inhaler) 2 puff INHALE Q6H PRN PRN Reason: asthma Baclofen (Baclofen 10 Mg Tablet) 10 mg PO TID [place] Last Admin: 01/16/22 19:46 Dose: 10 mg Bupropion HCl (Bupropion Hcl Xl 150 Mg Tab.Er.24h) 450 mg PO DAILY [facility] Last Admin: 01/16/22 08:39 Dose: 450 mg Cefuroxime Axetil (Cefuroxime Axetil 250 Mg Tablet) 250 mg PO Q12H [facility] Last Admin: 01/16/22 19:46 Dose: 250 mg Chlorpromazine HCl (Chlorpromazine Hcl 25 Mg Tablet) 25 mg PO Q4H PRN PRN Reason: anxiety, agitation, panic Last Admin: 01/16/22 19:47 Dose: 25 mg Clonazepam (Clonazepam 0.5 Mg Tablet) 0.5 mg PO BEDTIME PRN PRN Reason: insomnia Last Admin: 01/16/22 19:47 Dose: 0.5 mg Gabapentin (Gabapentin 400 Mg Capsule) 800 mg PO QID [facility] Last Admin: 01/16/22 19:46 Dose: 800 mg Hydroxyzine HCl (Hydroxyzine Hcl 25 Mg Tablet) 25 mg PO BID PRN PRN Reason: Anxiety Last Admin: 01/11/22 20:15 Dose: 25 mg Ibuprofen (Ibuprofen 600 Mg Tablet) 600 mg PO Q8H PRN PRN Reason: Pain, Mild (Pain Scale 1-3) Last Admin: 01/16/22 08:39 Dose: 600 mg Magnesium Hydroxide (Milk Of Magnesia 30 Ml Oral.Susp) 30 ml PO DAILY PRN PRN Reason: Constipation Methadone HCl (Methadone Hcl 20 Mg/2 Ml Oral.Conc) 145 mg PO DAILY [facility] Last Admin: 01/16/22 08:37 Dose: 145 mg Mirtazapine (Mirtazapine 15 Mg Tablet) 15 mg PO BEDTIME [facility] Last Admin: 01/16/22 19:46 Dose: 15 mg Multivitamins/Vitamin C (Multivitamin Tablet) 1 tab PO DAILY [facility] Last Admin: 01/16/22 08:39 Dose: 1 tab Nicotine (Nicotine 21 Mg Patch.Td24) 21 mg TRANSDERMA DAILY [facility] Last Admin: 01/16/22 08:43 Dose: 21 mg Nicotine Polacrilex (Nicotine Polacrilex 2 Mg Gum) 4 mg BUCCAL Q2H PRN PRN Reason: Nicotine Cravings Non-Formulary Medication (Sofosbuvir-Velpatasvir) 1 tab PO DAILY [facility] Polyethylene Glycol (Polyethylene Glycol 3350 17 Gm Powd.Pack) 17 gm PO DAILY [facility] Last Admin: 01/16/22 08:43 Dose: 17 gm Prazosin HCl (Prazosin Hcl 1 Mg Capsule) 6 mg PO BEDTIME [facility]; Protocol Last Admin: 01/16/22 19:45 Dose: 6 mg Quetiapine Fumarate (Quetiapine Fumarate 25 Mg Tablet) 25 mg PO TID [facility] Last Admin: 01/16/22 19:46 Dose: 25 mg Quetiapine Fumarate (Quetiapine Fumarate 200 Mg Tablet) 200 mg PO BEDTIME [facility] Last Admin: 01/16/22 19:46 Dose: 200 mg Sertraline HCl (Sertraline Hcl 50 Mg Tablet) 50 mg PO DAILY [facility] Last Admin: 01/16/22 08:39 Dose: 50 mg Allergies Allergies Allergy/AdvReac Type Severity Reaction Status Date / Time acetaminophen [From TYLENOL] Allergy Unknown Rash Verified 10/16/21 06:40 amoxicillin [Amoxicillin] Allergy Unknown Rash Verified 10/16/21 06:40 seafood Allergy Unknown Rash Verified 10/16/21 06:40 Assessment & Plan Assessment & Plan (1) MDD (major depressive disorder), recurrent episode: Status: Acute Code(s): F33.9 - Major depressive disorder, recurrent, unspecified (2) Post traumatic stress disorder (PTSD): Status: Acute Code(s): F43.10 - Post-traumatic stress disorder, unspecified (3) Cocaine use disorder: Status: Acute Code(s): F14.10 - Cocaine abuse, uncomplicated (4) Opioid use disorder: Status: Acute Code(s): F11.90 - Opioid use, unspecified, uncomplicated (5) Substance abuse: Status: Acute Code(s): F19.10 - Other psychoactive substance abuse, uncomplicated Plan 36 yo female, recent admission 01/01/22-01/06/22, history of Depression, PTSD, Substance Abuse presents after suicide attempts by breaking and exploding crack pipes. Plan: Discontinue Prozac Sertraline 50 mg daily Continue Gabapentin, Wellbutrin, Prazosin, Seroquel Remeron 15 mg hs Chlorpromazine 25 mg q4h prn anxiety, agitation, paranoia MVI Hepatitis profile, HIV per pt request 01/14/22 No changes today, pt sedate, napping at the end of the afternoon, working with her social sciences instructor on out pt service planning. 01/15/22 Increase Prazosin to 6 mg HS Klonopin 0.5 mg HS during in pt stay only. this will not be given upon discharge. 01/16/2022 continue current medication regimen I spent minutes with the patient and/or on the patient floor today, greater than?50% of which was spent counseling/coordinating care. Patient educated on: diagnosis and medication risk/benefits Informed Consent: understands Reason for contiued inpatient stay Substantial Risk for: med/psych decompensation
[2022-01-17 06:00] VITALS: BP 115/71; PULSE 80; RESP 16; TEMP 36.2; O2SAT 97
[2022-01-17] MEDS: buPROPion HCl XL 150 MG TAB.ER.24H 450 MG PO (07:54)
[2022-01-17] MEDS: chlorproMAZINE HCl 25 MG TABLET PO ×2 (07:55→19:40)
[2022-01-17] MEDS: Gabapentin 400 MG CAPSULE 800 MG PO ×4 (08:00→19:40)
[2022-01-17] MEDS: Multivitamin TABLET 1 TAB PO (08:00)
[2022-01-17] MEDS: methADONE HCl 20 MG/2 ML ORAL.CONC 145 MG PO (08:00)
[2022-01-17] MEDS: polyethylene glycoL 3350 17 GM POWD.PACK PO (08:00)
[2022-01-17] MEDS: Ibuprofen 600 MG TABLET PO (08:00)
[2022-01-17] MEDS: QUEtiapine Fumarate 25 MG TABLET PO ×3 (08:00→19:40)
[2022-01-17] MEDS: Baclofen 10 MG TABLET PO ×3 (08:00→19:40)
[2022-01-17] MEDS: Sertraline HCL 50 MG TABLET PO (08:00)
[2022-01-17] MEDS: Nicotine 21 MG PATCH.TD24 TRANSDERMA (08:01)
--- NOTE | 2022-01-17 11:25 | HO.PSYCHPN ---
Subjective Subjective Date of Service: 01/17/22 Reason For Visit: Si Interim History: Patient reports that she is overall okay. She complains however of what sounds like a yeast infection and asks if she can be started on something for. Staff reports overall good behaviors; taking medications Mental Status Exam Mental Status Exam Narrative: Pt is alert and oriented; behavior is cooperative, calm; dressed in casual attire with pulled back hair but adequate hygiene; mood is described as ok and affect constricted; eye contact appropriate; Speech is normal rate, volume and prosody and not pressured; no psychomotor agitation/retardation present; thought process goal directed; Thought content is on tx; otherwise pertinent to relevant topics and without any delusional content, paranoid ideations or grandiosity; denies any SI/HI. No AVH; Patients insight and judgment appear intact. Diagnostics Vital Signs (24Hr): Vital Signs - 24 hr 01/16/22 16:23 01/17/22 06:00 Temperature 97.8 F 97.2 F Pulse Rate 80 80 Respiratory Rate 16 16 Blood Pressure 129/76 115/71 Pulse Oximetry 98 97 Oxygen Delivery Method Room Air Room Air BMI result Body Mass Index 26.4 Labs Results: 01/10/22 13:51 01/13/22 10:13 Imaging Radiology Impressions: ITS Impressions Chest X-Ray 01/10/22 12:05 IMPRESSION: No radiographic evidence of any radiopaque foreign body is seen within the chest and left elbow region. Elbow X-Ray 01/10/22 12:05 IMPRESSION: No radiographic evidence of any radiopaque foreign body is seen within the chest and left elbow region. Medications Medications Current Medications Al Hydroxide/Mg Hydroxide (Magnesium Hydrox/Alum Hydrox 30 Ml Oral.Susp) 30 ml PO Q6H PRN PRN Reason: Heartburn/Nausea Last Admin: 01/16/22 20:05 Dose: 30 ml Albuterol Sulfate (Albuterol Sulfate 90 Mcg 8 Gm Inhaler) 2 puff INHALE Q6H PRN PRN Reason: asthma Baclofen (Baclofen 10 Mg Tablet) 10 mg PO TID [facility] Last Admin: 01/17/22 08:00 Dose: 10 mg Bupropion HCl (Bupropion Hcl Xl 150 Mg Tab.Er.24h) 450 mg PO DAILY [facility] Last Admin: 01/17/22 07:54 Dose: 450 mg Cefuroxime Axetil (Cefuroxime Axetil 250 Mg Tablet) 250 mg PO Q12H [facility] Last Admin: 01/17/22 09:15 Dose: 250 mg Chlorpromazine HCl (Chlorpromazine Hcl 25 Mg Tablet) 25 mg PO Q4H PRN PRN Reason: anxiety, agitation, panic Last Admin: 01/17/22 07:55 Dose: 25 mg Clonazepam (Clonazepam 0.5 Mg Tablet) 0.5 mg PO BEDTIME PRN PRN Reason: insomnia Last Admin: 01/16/22 19:47 Dose: 0.5 mg Gabapentin (Gabapentin 400 Mg Capsule) 800 mg PO QID [facility] Last Admin: 01/17/22 08:00 Dose: 800 mg Hydroxyzine HCl (Hydroxyzine Hcl 25 Mg Tablet) 25 mg PO BID PRN PRN Reason: Anxiety Last Admin: 01/11/22 20:15 Dose: 25 mg Ibuprofen (Ibuprofen 600 Mg Tablet) 600 mg PO Q8H PRN PRN Reason: Pain, Mild (Pain Scale 1-3) Last Admin: 01/17/22 08:00 Dose: 600 mg Magnesium Hydroxide (Milk Of Magnesia 30 Ml Oral.Susp) 30 ml PO DAILY PRN PRN Reason: Constipation Methadone HCl (Methadone Hcl 20 Mg/2 Ml Oral.Conc) 145 mg PO DAILY [facility] Last Admin: 01/17/22 08:00 Dose: 145 mg Mirtazapine (Mirtazapine 15 Mg Tablet) 15 mg PO BEDTIME [facility] Last Admin: 01/16/22 19:46 Dose: 15 mg Multivitamins/Vitamin C (Multivitamin Tablet) 1 tab PO DAILY [facility] Last Admin: 01/17/22 08:00 Dose: 1 tab Nicotine (Nicotine 21 Mg Patch.Td24) 21 mg TRANSDERMA DAILY [facility] Last Admin: 01/17/22 08:01 Dose: 21 mg Nicotine Polacrilex (Nicotine Polacrilex 2 Mg Gum) 4 mg BUCCAL Q2H PRN PRN Reason: Nicotine Cravings Non-Formulary Medication (Sofosbuvir-Velpatasvir) 1 tab PO DAILY [facility] Polyethylene Glycol (Polyethylene Glycol 3350 17 Gm Powd.Pack) 17 gm PO DAILY [facility] Last Admin: 01/17/22 08:00 Dose: 17 gm Prazosin HCl (Prazosin Hcl 1 Mg Capsule) 6 mg PO BEDTIME [facility]; Protocol Last Admin: 01/16/22 19:45 Dose: 6 mg Quetiapine Fumarate (Quetiapine Fumarate 25 Mg Tablet) 25 mg PO TID [facility] Last Admin: 01/17/22 08:00 Dose: 25 mg Quetiapine Fumarate (Quetiapine Fumarate 200 Mg Tablet) 200 mg PO BEDTIME [facility] Last Admin: 01/16/22 19:46 Dose: 200 mg Sertraline HCl (Sertraline Hcl 50 Mg Tablet) 50 mg PO DAILY [facility] Last Admin: 01/17/22 08:00 Dose: 50 mg Allergies Allergies Allergy/AdvReac Type Severity Reaction Status Date / Time acetaminophen [From TYLENOL] Allergy Unknown Rash Verified 10/16/21 06:40 amoxicillin [Amoxicillin] Allergy Unknown Rash Verified 10/16/21 06:40 seafood Allergy Unknown Rash Verified 10/16/21 06:40 Assessment & Plan Assessment & Plan (1) MDD (major depressive disorder), recurrent episode: Status: Acute Code(s): F33.9 - Major depressive disorder, recurrent, unspecified (2) Post traumatic stress disorder (PTSD): Status: Acute Code(s): F43.10 - Post-traumatic stress disorder, unspecified (3) Cocaine use disorder: Status: Acute Code(s): F14.10 - Cocaine abuse, uncomplicated (4) Opioid use disorder: Status: Acute Code(s): F11.90 - Opioid use, unspecified, uncomplicated (5) Substance abuse: Status: Acute Code(s): F19.10 - Other psychoactive substance abuse, uncomplicated Plan 36 yo female, recent admission 01/01/22-01/06/22, history of Depression, PTSD, Substance Abuse presents after suicide attempts by breaking and exploding crack pipes. Plan: Discontinue Prozac Sertraline 50 mg daily Continue Gabapentin, Wellbutrin, Prazosin, Seroquel Remeron 15 mg hs Chlorpromazine 25 mg q4h prn anxiety, agitation, paranoia MVI Hepatitis profile, HIV per pt request 01/14/22 No changes today, pt sedate, napping at the end of the afternoon, working with her high school social studies teacher on out pt service planning. 01/15/22 Increase Prazosin to 6 mg HS Klonopin 0.5 mg HS during in pt stay only. this will not be given upon discharge. 01/16/22 continue current medication regimen 01/17/22 Discontinue antibiotic as she has taking a full course for UTI For which she was started on last admission Fluconazole 150 mg 1 time dose for yeast infection I spent minutes with the patient and/or on the patient floor today, greater than?50% of which was spent counseling/coordinating care. Patient educated on: diagnosis and medical condition Informed Consent: understands Reason for contiued inpatient stay Substantial Risk for: med/psych decompensation
[2022-01-17] MEDS: Fluconazole 150 MG TABLET PO (11:53)
[2022-01-17 17:06] VITALS: BP 122/70; PULSE 78; RESP 16; TEMP 36.3; O2SAT 96
[2022-01-17] MEDS: Prazosin HCL 1 MG CAPSULE 6 MG PO (19:39)
[2022-01-17] MEDS: clonazePAM 0.5 MG TABLET PO (19:40)
[2022-01-17] MEDS: Mirtazapine 15 MG TABLET PO (19:40)
[2022-01-17] MEDS: QUEtiapine Fumarate 200 MG TABLET PO (19:40)
[2022-01-18] MEDS: methADONE HCl 20 MG/2 ML ORAL.CONC 145 MG PO (08:11)
[2022-01-18] MEDS: polyethylene glycoL 3350 17 GM POWD.PACK PO (08:13)
[2022-01-18] MEDS: Nicotine 21 MG PATCH.TD24 TRANSDERMA (08:13)
[2022-01-18] MEDS: chlorproMAZINE HCl 25 MG TABLET PO ×2 (08:14→19:56)
[2022-01-18] MEDS: Ibuprofen 600 MG TABLET PO ×2 (08:14→19:56)
[2022-01-18] MEDS: Gabapentin 400 MG CAPSULE 800 MG PO ×4 (08:14→19:55)
[2022-01-18] MEDS: QUEtiapine Fumarate 25 MG TABLET PO ×3 (08:14→19:55)
[2022-01-18] MEDS: Multivitamin TABLET 1 TAB PO (08:14)
[2022-01-18] MEDS: buPROPion HCl XL 150 MG TAB.ER.24H 450 MG PO (08:14)
[2022-01-18] MEDS: Sertraline HCL 50 MG TABLET PO (08:14)
[2022-01-18] MEDS: Baclofen 10 MG TABLET PO ×3 (08:14→19:56)
--- NOTE | 2022-01-18 16:03 | HO.PSYCHPN ---
Subjective Subjective Date of Service: 01/18/22 Reason For Visit: Si Subjective Notes: Conditional Voluntary Healthcare Proxy: No Guardianship: No Medical Problems Affecting Mental Status: No Interim History: Pt is preparing for discharge. Meeting with [facility] 01/19. Pt feeling improved on meds, denies SI, HI. No symptoms of psychosis, paranoia, delusions. Mood is stable however she is anxious about the upcoming meeting. Discussed discharge. She will to to [place] for ongoing care. Medication Compliance: Yes Side effects from medications: No Attending Groups: Intermittent Review of Systems Acute medical concerns: No Medical Review of Systems: unchanged Review of Systems Psychiatric: Reports no additional psychiatric complaints and Reports anxiety Mental Status Exam Mental Status Exam Patient Appearance: Appropriate Patient Orientation: Person, Place, Time and Situation Level of Consciousness: Alert Patient Behavior: Appropriate, Talkative, Cooperative and Good Eye Contact Mood Description: Appropriate Affect Description: Appropriate Patient Cognition Impaired: No Ability to Follow Directions: Good Speech Pattern: Spontaneous Speech Memory Description: Intact Hallucinations: None Delusions: Not Present Thought Process: Intact Thought Content: positive for Intact Depressive Symptoms: Increased Anxiety Judgement: Good Diagnostics Vital Signs (24Hr): Vital Signs - 24 hr 01/17/22 17:06 Temperature 97.4 F Pulse Rate 78 Respiratory Rate 16 Blood Pressure 122/70 Pulse Oximetry 96 Oxygen Delivery Method Room Air BMI result Body Mass Index 26.4 Labs Results: 01/10/22 13:51 01/13/22 10:13 Imaging Radiology Impressions: ITS Impressions Chest X-Ray 01/10/22 12:05 IMPRESSION: No radiographic evidence of any radiopaque foreign body is seen within the chest and left elbow region. Elbow X-Ray 01/10/22 12:05 IMPRESSION: No radiographic evidence of any radiopaque foreign body is seen within the chest and left elbow region. Medications Medications Current Medications Al Hydroxide/Mg Hydroxide (Magnesium Hydrox/Alum Hydrox 30 Ml Oral.Susp) 30 ml PO Q6H PRN PRN Reason: Heartburn/Nausea Last Admin: 01/16/22 20:05 Dose: 30 ml Albuterol Sulfate (Albuterol Sulfate 90 Mcg 8 Gm Inhaler) 2 puff INHALE Q6H PRN PRN Reason: asthma Baclofen (Baclofen 10 Mg Tablet) 10 mg PO TID [facility] Last Admin: 01/18/22 14:10 Dose: 10 mg Bupropion HCl (Bupropion Hcl Xl 150 Mg Tab.Er.24h) 450 mg PO DAILY [facility] Last Admin: 01/18/22 08:14 Dose: 450 mg Chlorpromazine HCl (Chlorpromazine Hcl 25 Mg Tablet) 25 mg PO Q4H PRN PRN Reason: anxiety, agitation, panic Last Admin: 01/18/22 08:14 Dose: 25 mg Clonazepam (Clonazepam 0.5 Mg Tablet) 0.5 mg PO BEDTIME PRN PRN Reason: insomnia Last Admin: 01/17/22 19:40 Dose: 0.5 mg Gabapentin (Gabapentin 400 Mg Capsule) 800 mg PO QID [facility] Last Admin: 01/18/22 12:23 Dose: 800 mg Hydroxyzine HCl (Hydroxyzine Hcl 25 Mg Tablet) 25 mg PO BID PRN PRN Reason: Anxiety Last Admin: 01/11/22 20:15 Dose: 25 mg Ibuprofen (Ibuprofen 600 Mg Tablet) 600 mg PO Q8H PRN PRN Reason: Pain, Mild (Pain Scale 1-3) Last Admin: 01/18/22 08:14 Dose: 600 mg Magnesium Hydroxide (Milk Of Magnesia 30 Ml Oral.Susp) 30 ml PO DAILY PRN PRN Reason: Constipation Methadone HCl (Methadone Hcl 20 Mg/2 Ml Oral.Conc) 145 mg PO DAILY [facility] Last Admin: 01/18/22 08:11 Dose: 145 mg Mirtazapine (Mirtazapine 15 Mg Tablet) 15 mg PO BEDTIME [facility] Last Admin: 01/17/22 19:40 Dose: 15 mg Multivitamins/Vitamin C (Multivitamin Tablet) 1 tab PO DAILY [facility] Last Admin: 01/18/22 08:14 Dose: 1 tab Nicotine (Nicotine 21 Mg Patch.Td24) 21 mg TRANSDERMA DAILY [facility] Last Admin: 01/18/22 08:13 Dose: 21 mg Nicotine Polacrilex (Nicotine Polacrilex 2 Mg Gum) 4 mg BUCCAL Q2H PRN PRN Reason: Nicotine Cravings Non-Formulary Medication (Sofosbuvir-Velpatasvir) 1 tab PO DAILY [facility] Polyethylene Glycol (Polyethylene Glycol 3350 17 Gm Powd.Pack) 17 gm PO DAILY [facility] Last Admin: 01/18/22 08:13 Dose: 17 gm Prazosin HCl (Prazosin Hcl 1 Mg Capsule) 6 mg PO BEDTIME [facility]; Protocol Last Admin: 01/17/22 19:39 Dose: 6 mg Quetiapine Fumarate (Quetiapine Fumarate 25 Mg Tablet) 25 mg PO TID [facility] Last Admin: 01/18/22 14:10 Dose: 25 mg Quetiapine Fumarate (Quetiapine Fumarate 200 Mg Tablet) 200 mg PO BEDTIME [facility] Last Admin: 01/17/22 19:40 Dose: 200 mg Sertraline HCl (Sertraline Hcl 25 Mg Tablet) 75 mg PO DAILY [facility] Allergies Allergies Allergy/AdvReac Type Severity Reaction Status Date / Time acetaminophen [From TYLENOL] Allergy Unknown Rash Verified 10/16/21 06:40 amoxicillin [Amoxicillin] Allergy Unknown Rash Verified 10/16/21 06:40 seafood Allergy Unknown Rash Verified 10/16/21 06:40 Assessment & Plan Assessment & Plan (1) MDD (major depressive disorder), recurrent episode: Status: Acute Code(s): F33.9 - Major depressive disorder, recurrent, unspecified (2) Post traumatic stress disorder (PTSD): Status: Acute Code(s): F43.10 - Post-traumatic stress disorder, unspecified (3) Cocaine use disorder: Status: Acute Code(s): F14.10 - Cocaine abuse, uncomplicated (4) Opioid use disorder: Status: Acute Code(s): F11.90 - Opioid use, unspecified, uncomplicated (5) Substance abuse: Status: Acute Code(s): F19.10 - Other psychoactive substance abuse, uncomplicated Plan 36 yo female, recent admission 01/01/22-01/06/22, history of Depression, PTSD, Substance Abuse presents after suicide attempts by breaking and exploding crack pipes. Plan: Discontinue Prozac Sertraline 50 mg daily Continue Gabapentin, Wellbutrin, Prazosin, Seroquel Remeron 15 mg hs Chlorpromazine 25 mg q4h prn anxiety, agitation, paranoia MVI Hepatitis profile, HIV per pt request 01/14/22 No changes today, pt sedate, napping at the end of the afternoon, working with her social and political studies professor on out pt service planning. 01/15/22 Increase Prazosin to 6 mg HS Klonopin 0.5 mg HS during in pt stay only. this will not be given upon discharge. 01/16/22 continue current medication regimen 01/17/22 Discontinue antibiotic as she has taking a full course for UTI For which she was started on last admission Fluconazole 150 mg 1 time dose for yeast infection 01/18/22 Discharge 01/19. Pt feeling prepared and ready to leave. I spent minutes with the patient and/or on the patient floor today, greater than?50% of which was spent counseling/coordinating care. Patient educated on: medication risk/benefits and therapeutic strategies Informed Consent: understands Reason for contiued inpatient stay Substantial Risk for: harm to self, inability to function and rapid decompensation
[2022-01-18 17:45] VITALS: BP 120/75; PULSE 80; TEMP 36.6
[2022-01-18] MEDS: QUEtiapine Fumarate 200 MG TABLET PO (19:55)
[2022-01-18] MEDS: Mirtazapine 15 MG TABLET PO (19:56)
[2022-01-18] MEDS: clonazePAM 0.5 MG TABLET PO (19:56)
[2022-01-18] MEDS: Prazosin HCL 1 MG CAPSULE 6 MG PO (19:56)
[2022-01-19] MEDS: methADONE HCl 20 MG/2 ML ORAL.CONC 145 MG PO (08:02)
[2022-01-19] MEDS: chlorproMAZINE HCl 25 MG TABLET PO (08:04)
[2022-01-19] MEDS: Ibuprofen 600 MG TABLET PO (08:04)
[2022-01-19] MEDS: Sertraline HCL 25 MG TABLET 75 MG PO (08:04)
[2022-01-19] MEDS: buPROPion HCl XL 150 MG TAB.ER.24H 450 MG PO (08:04)
[2022-01-19] MEDS: Gabapentin 400 MG CAPSULE 800 MG PO (08:04)
[2022-01-19] MEDS: polyethylene glycoL 3350 17 GM POWD.PACK PO (08:04)
[2022-01-19] MEDS: Baclofen 10 MG TABLET PO (08:04)
[2022-01-19] MEDS: Multivitamin TABLET 1 TAB PO (08:05)
[2022-01-19] MEDS: QUEtiapine Fumarate 25 MG TABLET PO (08:05)
--- NOTE | 2022-01-19 10:42 | P.DS_ITS ---
DS: Providers Provider Date of Service: 01/19/22 Date of admission: 01/12/22 14:11 Date of discharge: 01/19/22 Primary care physician: Unknown Physician Admitting clinician: Yuliana Tony Attending physician on admission: rEic Varner Attending physician on discharge: Eric Varner Discharging clinician: Yuliana Tony DS: Diagnosis Discharge Diagnosis (1) MDD (major depressive disorder), recurrent episode: Status: Acute (2) Post traumatic stress disorder (PTSD): Status: Acute (3) Cocaine use disorder: Status: Acute (4) Opioid use disorder: Status: Acute (5) Substance abuse: Status: Acute DS: Medications Discharge Medications Home Medications: Previous Rx's Medication Instructions Recorded Sofosbuvir-Velpatasvir 1 tab PO DAILY 30 days #30 tabs 01/06/22 clotrimazole 1 % topical cream 1 appl topical BID 30 days #100 01/06/22 grams methadone 10 mg/mL oral 145 mg (14.5 mL) PO DAILY #0 mL 01/06/22 concentrate (Methadose) polyethylene glycol 3350 17 gram 17 g PO DAILY 30 days #30 ea 01/06/22 oral powder packet albuterol sulfate 90 mcg/actuation 2 puff inhalation Q6H PRN asthma 01/18/22 aerosol inhaler (ProAir HFA) 30 days #8.5 grams baclofen 10 mg tablet 10 mg PO TID 30 days #21 tabs 01/18/22 bupropion HCl 150 mg 24 hr tablet, 450 mg PO DAILY 30 days #90 tabs 01/18/22 extended release clonazepam 0.5 mg tablet 0.5 mg PO BEDTIME PRN insomnia #7 01/18/22 tabs gabapentin 400 mg capsule 800 mg PO QID #56 caps 01/18/22 hydroxyzine HCl 25 mg tablet 25 mg PO BID PRN Anxiety 30 days 01/18/22 #60 tabs mirtazapine 15 mg tablet 15 mg PO BEDTIME #14 tabs 01/18/22 multivitamin (Daily-Dang tablet) 1 tab PO DAILY #30 tabs 01/18/22 naloxone 4 mg/actuation nasal 4 mg intranasal Q2M PRN opioid 01/18/22 spray (Narcan) overdose 2 days #2 ea nicotine (polacrilex) 2 mg gum 4 mg buccal Q2H PRN Nicotine 01/18/22 Cravings #60 ea nicotine 21 mg/24 hr daily 21 mg transdermal DAILY 28 days 01/18/22 transdermal patch #28 ea prazosin 2 mg capsule 2 mg PO BEDTIME 30 days #30 caps 01/18/22 prazosin 5 mg capsule 5 mg PO BEDTIME 30 days #30 caps 01/18/22 quetiapine 200 mg tablet 200 mg PO BEDTIME #14 tabs 01/18/22 quetiapine 25 mg tablet 25 mg PO TID #45 tabs 01/18/22 sertraline 50 mg tablet 75 mg PO DAILY #45 tabs 01/18/22 Mental Status Exam Mental Status Exam Patient Appearance: Appropriate Patient Orientation: Person, Place, Time and Situation Level of Consciousness: Alert Patient Behavior: Appropriate, Talkative, Cooperative and Good Eye Contact Mood Description: Appropriate Affect Description: Appropriate Patient Cognition Impaired: No Ability to Follow Directions: Good Speech Pattern: Spontaneous Speech Memory Description: Intact Hallucinations: None Delusions: Not Present Thought Process: Intact Thought Content: positive for Intact Depressive Symptoms: Increased Anxiety Judgement: Good Data Data Completed and Pending Completed studies during hospitalization [Text1]: 01/12/22 01/13/22 01/13/22 10:42 10:13 14:59 Sodium 143 Potassium 4.3 Chloride 103 Carbon Dioxide 30 H Anion Gap 14 BUN 11 Creatinine 0.78 Estim Creat Clear Calc TNP Estimated GFR > 60 Fasting Glucose 86 Calcium 9.7 Total Bilirubin < 0.2 AST 18 ALT 11 Alkaline Phosphatase 81 Total Protein 7.2 Albumin 4.1 COVID-19 ([facility]) Negative COVID-19 Clin Com See Note Hepatitis A IgM Ab Nonreactive Hep Bs Antigen Negative Hep Bs Antibody NONREACTIVE Hep B Core Total Ab Nonreactive Hepatitis C Ab (EIA) Reactive H HIV 1&2 Ab/P24 Ag 4thGn Nonreactive Imaging Diagnostic Imaging Impressions Chest X-Ray 01/10/22 12:05 IMPRESSION: No radiographic evidence of any radiopaque foreign body is seen within the chest and left elbow region. Elbow X-Ray 01/10/22 12:05 IMPRESSION: No radiographic evidence of any radiopaque foreign body is seen within the chest and left elbow region. DS: Summary Hospital Course Hospital Course: Admission to adult psychiatry for exacerbation of symptoms of PTSD, major depression, substance abuse. Wellbutrin, Gabapentin and Seroquel were adjusted. Remeron and Sertraline were initiated. Klonopin was adjusted. Prozac was discontinued. Methadone and Prazosin were continued. Time spent discussing smoking cessation with patient: 3 to 10 minutes Status at Discharge Functional status at discharge: independent ambulation Overall status at discharge: patient is progressing back to baseline Time Spent with Patient Time attestation: Total time spent providing and/or coordinating discharge services:35 Time spent: Greater than 30 minutes Discharge Plan Discharge Patient Disposition: Penit[facility]iary Discharge Diagnosis: PTSD Recurrent Major Depression, Severe Substance Abuse Opiate/Cocaine Use Disorder [facility] - [facility] (Referral for department of Mental Health Services Patient should follow-up with [facility] following discharge from [facility] [Other] - 1 Week (Referral for [facility] and Recovery Support Navigator ([facility]N) Services Patient should follow-up on referral for services following discharge from [facility] ([facility] [Other] - 1 Week (Patient requested information regarding agency to assist in connecting with community resources. Patient should follow-up with agency upon discharge from [facility] ([facility])) Jennifer Jarvis [Other] - 02/09/22 11:00 am (Patient follow-up appointment with psychiatric medication provider after discharge from [facility] ([facility] [Other] - 1 Week (Referral for Therapy with N Initial Diagnostic evaluation for therapy by tele-health. Therapist will call and conduct intake over telephone (mother's telephone).) Leonarda Bacon APRN [Registered Nurse] - 1 Week (OFFICE WILL CONTACT HER WITH F/U APPOINTMENT.) Discharge Medications: New quetiapine 25 mg Tablet 25 mg PO TID Qty: 45 1RF nicotine (polacrilex) 2 mg Gum 4 mg buccal Q2H PRN (Reason: Nicotine Cravings) Qty: 60 0RF clonazepam 0.5 mg Tablet 0.5 mg PO BEDTIME PRN (Reason: insomnia) Qty: 7 1RF quetiapine 200 mg Tablet 200 mg PO BEDTIME Qty: 14 1RF mirtazapine 15 mg Tablet 15 mg PO BEDTIME Qty: 14 1RF multivitamin [Daily-Dang] Tablet 1 tab PO DAILY Qty: 30 0RF gabapentin 400 mg capsule 800 mg PO QID Qty: 56 4RF sertraline 50 mg tablet 75 mg PO DAILY Qty: 45 0RF naloxone [Narcan] 4 mg/actuation spray,non-aerosol 4 mg intranasal Q2M PRN (Reason: opioid overdose) Qty: 2 0RF Rx Instructions: spray 1 dose into ONE nostril; alternate nostrils w each dose until help arrives bupropion HCl [Wellbutrin XL] 300 mg tablet extended release 24 hr 300 mg PO QAM Qty: 30 0RF Rx Instructions: Total Dose 450 mg bupropion HCl [Wellbutrin XL] 150 mg tablet extended release 24 hr 150 mg PO QAM Qty: 30 0RF Continued methadone [Methadose] 10 mg/mL Concentrate 145 mg PO DAILY Qty: 0 0RF Rx Instructions: Partial Fill upon patient request. Sofosbuvir-Velpatasvir 1 tab PO DAILY 30 Days Qty: 30 0RF polyethylene glycol 3350 17 gram Powder In Packet 17 g PO DAILY 30 Days Qty: 30 0RF clotrimazole 1 % Cream 1 appl topical BID 30 Days Qty: 100 0RF prazosin 5 mg capsule 5 mg PO BEDTIME 30 Days Qty: 30 0RF baclofen 10 mg Tablet 10 mg PO TID 30 Days Qty: 21 2RF nicotine 21 mg/24 hr Patch 24 Hour 21 mg transdermal DAILY 28 Days Qty: 28 0RF hydroxyzine HCl 25 mg Tablet 25 mg PO BID PRN (Reason: Anxiety) 30 Days Qty: 60 0RF albuterol sulfate [ProAir HFA] 90 mcg/actuation HFA aerosol inhaler 2 puff inhalation Q6H PRN (Reason: asthma) 30 Days Qty: 8.5 0RF prazosin 2 mg capsule 2 mg PO BEDTIME 30 Days Qty: 30 0RF naloxone [Narcan] 4 mg/actuation spray,non-aerosol 4 mg intranasal Q2M PRN (Reason: opioid overdose) 2 Days Qty: 2 0RF Rx Instructions: spray 1 dose into ONE nostril; alternate nostrils w each dose until help arrives Discontinued cefuroxime axetil 250 mg Tablet 250 mg PO Q12H 1 Days Qty: 2 0RF quetiapine 25 mg Tablet 25 mg PO TID 30 Days Qty: 90 0RF gabapentin 400 mg Capsule 800 mg PO QID 30 Days Qty: 60 0RF quetiapine 200 mg tablet 1 tab PO BEDTIME 30 Days Qty: 30 0RF fluoxetine 20 mg Capsule 40 mg PO DAILY 30 Days Qty: 60 0RF bupropion HCl 150 mg Tablet Extended Release 24 Hr 450 mg PO DAILY 30 Days Qty: 90 0RF Discharge Orders: Discharge Order (Routine); Ordered 01/18/22 Ordered By: Yuliana Tony Diet: Advance to usual diet Activity on Discharge: As tolerated Stand Alone Forms: Patient Portal Discharge page, Community Support Care Plan Goals: Mood Stabilization Continue to work on Sobriety Health Concerns: PTSD Recurrent Major Depression Opiate/Cocaine Use Disorder Substance Abuse Plan of Treatment: Attend follow up appointments Take medications as directed Crisis Team if needed [phone] Call/Return as needed Assessment: non suicidal, non psychotic Discharge Date/Time: 01/19/22 10:48
== END 2022-01-19 10:48 | disposition home or self-care (01) | DRG 751 ==
LOC: HO.ED 01-11 15:05 → HO.PM5 01-12 14:24
PROVIDERS: Emergency Medicine; Physician Assistant; Admitting Provider Psychiatry & Neurology Psychiatry; Emergency Provider Student in an Organized Health Care Education/Training Program; Visit Provider Clinical Nurse Specialist Psychiatric/Mental Health, Adult
DX: F33.9 Major depressive disorder, recurrent, unspecified (principal); R45.851 Suicidal ideations; Z91.14 Patient's other noncompliance with medication regimen; F43.10 Post-traumatic stress disorder, unspecified; F11.20 Opioid dependence, uncomplicated; F41.1 Generalized anxiety disorder; F14.10 Cocaine abuse, uncomplicated; F17.210 Nicotine dependence, cigarettes, uncomplicated; Z71.6 Tobacco abuse counseling; Z20.822 Contact with and (suspected) exposure to COVID-19; Z59.02 Unsheltered homelessness; Z91.013 Allergy to seafood; Z88.0 Allergy status to penicillin; Z88.6 Allergy status to analgesic agent; Z79.899 Other long term (current) drug therapy
CPT/HCPCS: 36415; 71046; 73080; 80048; 80053; 80076; 80307; 81003; 81025; 82077; 82375; 83735; 85025; 86704; 86706; 86709; 86803; 87340; 87389; 87635; 93005; 99285